=== PATIENT | female | born 1935 | race Caucasian/White ===

== ENCOUNTER 2017-07-30 15:59 | Inpatient (IN) | payer OTHER, BC ==
--- NOTE | 2017-07-30 16:05 | PDOC ---
Rapid Medical Evaluation Time Seen by Provider: 07/30/17 16:02 Medical Evaluation: Allergies Allergy/AdvReac Type Severity Reaction Status Date / Time No Known Allergies Allergy Verified 02/08/15 13:23 07/30/17 16:02 I have performed a brief in person evaluation of this patient. The patient presents with chief complaint of : sent for admission for infection to wound left toe for IVAB Pertinent PE findings: pain first second toes I have ordered the following: blood cultures, labs, saline lock The patient will proceed to the ER for further evaluation.
[2017-07-30 16:40] LABS: EOS % 0.9 % (0-4.5); HEMATOCRIT 39.6 % (32.4-45.2); HEMOGLOBIN 13.3 GM/dL (10.7-15.3); LYMPH % 8.2 % (8-40); MCH 32.7 pg (25.7-33.7); MCHC 33.6 g/dl (32.0-36.0); MEAN CELL VOLUME 97.3 fl (80-96); MEAN PLT VOLUME 9.1 fl (7.5-11.1); NEUT % 82.9 % (42.8-82.8); PLATELET COUNT 320 K/MM3 (134-434); RBC 4.07 M/mm3 (3.60-5.2); RDW 13.2 % (11.6-15.6); WHITE BLOOD COUNT 17.4 K/mm3 (4.0-10.0)
[2017-07-30 17:04] LABS: ALBUMIN 3.3 g/dl (3.4-5.0); ANION GAP 14 (8-16); BILIRUBIN,TOTAL 0.4 mg/dL (0.2-1.0); BLOOD UREA NITROGEN 22 mg/dL (7-18); CALCIUM 9.4 mg/dL (8.5-10.1); CHLORIDE 88 mmol/L (98-107); CO2 31 mmol/L (21-32); CREATININE 1.2 mg/dL (0.55-1.02); GLUCOSE,RANDOM 118 mg/dL (74-106); POTASSIUM 3.1 mmol/L (3.5-5.1); SGOT/AST 21 U/L (15-37); SGPT/ALT 18 U/L (12-78); SODIUM 133 mmol/L (136-145); TOT PROT 7.1 g/dl (6.4-8.2)
[2017-07-30 17:05] LABS: ALK PHOS 100 U/L (45-117)
--- NOTE | 2017-07-30 18:54 | PDOC ---
History of Present Illness - General History Source: Patient Exam Limitations: No Limitations - History of Present Illness Initial Comments: 07/30/17 19:14 82-year-old female with a history of hypertension hyperlipidemia and hypothyroid as well as peripheral vascular disease here today complaining of worsening left foot cellulitis and left toe ulcer. Patient states she developed problems her left leg status post an angiogram to treat previous peripheral vascular disease of the right leg. Has had warmth redness and swelling for over 2 weeks on the left leg. Just finished a 7 of Augmentin. Has had some darkening and necrosis of the left great toe and second toe over the last week. Denies any fevers or chills no chest pain no shortness of breath no moderating factors. Patient is followed by vascular surgeon Dr. Ron, primary Dr. Castillo, and school supervisor Dr. carney. Sent today for worsening cellulitis despite outpatient antibiotics patient was scheduled to have an outpatient angiogram by Dr. ron tomorrow <Lita Pozo - Last Filed: 07/30/17 19:39> <Ana Mcbride - Last Filed: 07/30/17 20:47> - General Chief Complaint: Wound Stated Complaint: LT FOOT WOUND (PCP SENT) Time Seen by Provider: 07/30/17 16:02 Past History - Past Medical History Cardiac Disorders: Yes (AFIB) COPD: No HTN: Yes Hypercholesterolemia: Yes Thyroid Disease: Yes - Surgical History Cholecystectomy: Yes - Suicide/Smoking/Psychosocial Hx Smoking History: Former smoker Have you smoked in the past 12 months: No If you are a former smoker, when did you quit?: 8 YEARS AGO Information on smoking cessation initiated: No Hx Alcohol Use: No Drug/Substance Use Hx: No Substance Use Type: None Hx Substance Use Treatment: No <Lita Pozo - Last Filed: 07/30/17 19:39> <Aan Mcbride - Last Filed: 07/30/17 20:47> - Past Medical History Allergies/Adverse Reactions: Allergies Allergy/AdvReac Type Severity Reaction Status Date / Time No Known Allergies Allergy Verified 07/30/17 16:06 Home Medications: Ambulatory Orders Atenolol [Tenormin -] 50 mg PO BID 02/08/15 Cholecalciferol (Vitamin D3) [Vitamin D] 1,000 unit PO DAILY 02/08/15 Rivaroxaban [Xarelto -] 20 mg PO DAILY 02/08/15 Simvastatin [Zocor -] 40 mg PO HS 02/08/15 Levothyroxine [Synthroid -] 50 mcg PO DAILY 07/30/17 Review of Systems - Review of Systems Constitutional: No: Chills, Diaphoresis, Fever HEENTM: No: Eye Pain Respiratory: No: Cough, Orthopnea Cardiac (ROS): No: Chest Pain, Edema Musculoskeletal: No: Back Pain, Joint Pain, Muscle Pain, Muscle Weakness Integumentary: Yes: Change in Color, Erythema, Rash All Other Systems: Reviewed and Negative <Lita Pozo - Last Filed: 07/30/17 19:39> *Physical Exam - Vital Signs Last Vital Signs Temp Pulse Resp BP Pulse Ox 97.5 F L 77 21 121/79 97 07/30/17 16:03 07/30/17 16:03 07/30/17 16:03 07/30/17 16:03 07/30/17 16:03 - Physical Exam General Appearance: Yes: Nourished, Appropriately Dressed HEENT: negative: Normal ENT Inspection Neck: positive: Trachea midline Respiratory/Chest: positive: Lungs Clear, Normal Breath Sounds Cardiovascular: positive: Regular Rhythm, Regular Rate, S1, S2 Gastrointestinal/Abdominal: positive: Normal Bowel Sounds, Flat, Soft. negative : Tender Musculoskeletal: positive: Normal Inspection. negative: CVA Tenderness Extremity: positive: Normal Capillary Refill, Other (Left leg has erythema and warmth over the mid arceo there is a necrotic dry gangrenous ulcer noted the tip of the left great toe and tip of the second toe 1+ DP pulses bilaterally. No crepitus noted) Integumentary: positive: Erythema, Swelling Neurologic: positive: Fully Oriented, Alert, Normal Mood/Affect <Lita Pozo - Last Filed: 07/30/17 19:39> - Vital Signs Last Vital Signs Temp Pulse Resp BP Pulse Ox 97.5 F L 77 21 121/79 97 07/30/17 16:03 07/30/17 16:03 07/30/17 16:03 07/30/17 16:03 07/30/17 16:03 <Ana Mcbride - Last Filed: 07/30/17 20:47> ED Treatment Course - LABORATORY CBC & Chemistry Diagram: 07/30/17 16:32 07/30/17 16:32 - ADDITIONAL ORDERS Additional order review: Laboratory Results 07/30/17 16:32 Sodium 133 L Potassium 3.1 L Chloride 88 L Carbon Dioxide 31 Anion Gap 14 BUN 22 H Creatinine 1.2 H Creat Clearance w eGFR 43.23 Random Glucose 118 H Calcium 9.4 Total Bilirubin 0.4 AST 21 ALT 18 Alkaline Phosphatase 100 Total Protein 7.1 Albumin 3.3 L 07/30/17 16:32 RBC 4.07 MCV 97.3 H MCHC 33.6 RDW 13.2 MPV 9.1 Neutrophils % 82.9 H Lymphocytes % 8.2 Monocytes % 7.0 Eosinophils % 0.9 Basophils % 1.0 <Lita Pozo - Last Filed: 07/30/17 19:39> - LABORATORY CBC & Chemistry Diagram: 07/30/17 16:32 07/30/17 16:32 - ADDITIONAL ORDERS Additional order review: Laboratory Results 07/30/17 16:32 Sodium 133 L Potassium 3.1 L Chloride 88 L Carbon Dioxide 31 Anion Gap 14 BUN 22 H Creatinine 1.2 H Creat Clearance w eGFR 43.23 Random Glucose 118 H Calcium 9.4 Total Bilirubin 0.4 AST 21 ALT 18 Alkaline Phosphatase 100 Total Protein 7.1 Albumin 3.3 L 07/30/17 16:32 RBC 4.07 MCV 97.3 H MCHC 33.6 RDW 13.2 MPV 9.1 Neutrophils % 82.9 H Lymphocytes % 8.2 Monocytes % 7.0 Eosinophils % 0.9 Basophils % 1.0 <Ana Mcbride - Last Filed: 07/30/17 20:47> Medical Decision Making - Medical Decision Making 07/30/17 19:22 82-year-old female with A. fib hypertension hyperlipidemia here with worsening foot cellulitis and known peripheral vascular disease. [facility] to rule out osteomyelitis we'll admit for IV antibiotics. Discussed with Dr. Shane covering for Dr. Castillo told to admit to [facility] microblog sent <Lita Pozo - Last Filed: 07/30/17 19:39> - Medical Decision Making 7:41pm Call was placed to Dr. Yusuf Ron, awaiting call back. 8:46pm Call back from Dr. Ron, case was discussed. <Ana Mcbride - Last Filed: 07/30/17 20:47> *DC/Admit/Observation/Transfer - Discharge Dispostion Admit: Yes <Lita Pozo - Last Filed: 07/30/17 19:39> - Attestations Scribe Attestion: 07/30/17 19:43 Documentation prepared by Ana Mcbride, acting as medical secretary for Lita Pozo MD. <Ana Mcbride - Last Filed: 07/30/17 20:47> Diagnosis at time of Disposition: Gangrene - Referrals Referrals: Khadar Woodall MD [Primary Care Provider] - - Patient Instructions - Post Discharge Activity
[2017-07-30] MEDS ORDERED: PIPERACILLIN/TAZOB 3.375 GM/50 ML PRE-DOCKED IVPB ONE (19:24)
[2017-07-30] MEDS ORDERED: VANCOMYCIN 1,000 MG in DEXTROSE 5%-WATER - 250 ML IVPB ONE (19:24)
[2017-07-30] MEDS ORDERED: PIPERACILLIN/TAZOB 3.375 GM 3.375 GM/50 ML BAG IVPB ONE (19:28)
[2017-07-30] MEDS ORDERED: VANCOMYCIN 1 GRAM (PRE-DOCKED) 1,000 MG/250 ML BAG IVPB ONE (19:28)
--- NOTE | 2017-07-30 20:42 | HP ---
CHIEF COMPLAINT: cellulitis/gangrene PCP: Ariadne Woodall McGrath-podiatry HISTORY OF PRESENT ILLNESS: This is an 82 year old female with a significant past medical history of PVD and LLE melanoma removal who presented to the ED with pain, erythema and excessive warmth to LLE x 3 weeks. It has been getting progressively worse. The pt reports that she saw Dr. Ron about a week ago who started her on augmentin which at first seemed to work but then stopped working by day 4. 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 She also reports shooting pain to her leg at times which is partially relieved with tylenol ES. 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) 2008 Social History: Smoking: pt denies current use, quit ' 50 pack year history Alcohol: occ- 2-3 drinks/week Drugs: pt denies Family History: mother age 93, had HTN father young, MVC sister lung CA age 68 4 children all alive and well Allergies No Known Allergies Allergy (Verified 07/30/17 16:06) HOME MEDICATIONS: 3 Medication Instructions Recorded Atenolol [Tenormin -] 50 mg PO BID 02/08/15 Cholecalciferol (Vitamin D3) 1,000 unit PO DAILY 02/08/15 [Vitamin D] Rivaroxaban [Xarelto -] 20 mg PO DAILY 02/08/15 Simvastatin [Zocor -] 40 mg PO HS 02/08/15 Levothyroxine [Synthroid -] 50 mcg PO DAILY 07/30/17 REVIEW OF SYSTEMS CONSTITUTIONAL: Absent: fever, chills, diaphoresis, generalized weakness, malaise, loss of appetite, weight change HEENT: Absent: rhinorrhea, nasal congestion, throat pain, throat swelling, difficulty swallowing, mouth swelling, ear pain, eye pain, visual changes CARDIOVASCULAR: Absent: chest pain, syncope, palpitations, irregular heart rate, lightheadedness , peripheral edema RESPIRATORY: Absent: cough, shortness of breath, dyspnea with exertion, orthopnea, wheezing, stridor, hemoptysis GASTROINTESTINAL: Absent: abdominal pain, abdominal distension, nausea, vomiting, diarrhea, constipation, melena, hematochezia GENITOURINARY: Absent: dysuria, frequency, urgency, hesitancy, hematuria, flank pain, genital pain MUSCULOSKELETAL: LLE + swelling, hot, pain, red Absent: myalgia, arthralgia, joint swelling, back pain, neck pain SKIN: Absent: rash, itching, pallor HEMATOLOGIC/IMMUNOLOGIC: Absent: easy bleeding, easy bruising, lymphadenopathy, frequent infections ENDOCRINE: Absent: unexplained weight gain, unexplained weight loss, heat intolerance, cold intolerance NEUROLOGIC: Absent: headache, focal weakness or paresthesias, dizziness, unsteady gait, seizure, mental status changes, bladder or bowel incontinence PSYCHIATRIC: Absent: anxiety, depression, suicidal or homicidal ideation, hallucinations. PHYSICAL EXAMINATION Vital Signs - 24 hr 3 07/30/17 16:03 Temperature 97.5 F L Pulse Rate 77 Respiratory 21 Rate Blood Pressure 121/79 O2 Sat by Pulse 97 Oximetry (%) GENERAL: Awake, alert, and fully oriented, in no acute distress. HEAD: Normal with no signs of trauma. EYES: Pupils equal, round and reactive to light, extraocular movements intact, sclera anicteric, conjunctiva clear. No lid lag. EARS, NOSE, THROAT: Ears normal, nares patent, oropharynx clear without exudates. Moist mucous membranes. NECK: Normal range of motion, supple without lymphadenopathy, JVD, or masses. LUNGS: Breath sounds equal, clear to auscultation bilaterally. No wheezes, and no crackles. No accessory muscle use. HEART: Regular rate and rhythm, normal S1 and S2 without murmur, rub or gallop. ABDOMEN: Soft, nontender, not distended, normoactive bowel sounds, no guarding, no rebound, no masses. No hepatomegaly or splenomegaly. MUSCULOSKELETAL: Normal range of motion at all joints. No bony deformities or tenderness. No CVA tenderness. UPPER EXTREMITIES: 2+ pulses, warm, well-perfused. No cyanosis. No clubbing. No peripheral edema. LOWER EXTREMITIES: diminished pulses B/L, Right: warm, well-perfused. No calf tenderness. No peripheral edema. Left: + erythema to just below knee, 2+ edema, scar medial aspect with no swelling, + surrounding brown lesions, left great toe with ulceration to medial/plantar aspect, necrotic wound bed, surrounding skin noted black, second toe with black/necrosis distal to PIP joint. NEUROLOGICAL: Cranial nerves II-XII intact. Normal speech. Normal gait. PSYCHIATRIC: Cooperative. Good eye contact. Appropriate mood and affect. SKIN: Warm, dry, normal turgor, no rashes or lesions noted, normal capillary refill. Laboratory Results - last 24 hr 3 07/30/17 07/30/17 07/30/17 16:32 16:32 19:11 WBC 17.4 H RBC 4.07 Hgb 13.3 Hct 39.6 MCV 97.3 H MCH 32.7 MCHC 33.6 RDW 13.2 Plt Count 320 MPV 9.1 Neutrophils % 82.9 H Lymphocytes % 8.2 Monocytes % 7.0 Eosinophils % 0.9 Basophils % 1.0 Sodium 133 L Potassium 3.1 L Chloride 88 L Carbon Dioxide 31 Anion Gap 14 BUN 22 H Creatinine 1.2 H Creat Clearance w eGFR 43.23 Random Glucose 118 H Lactic Acid 1.7 Calcium 9.4 Total Bilirubin 0.4 AST 21 ALT 18 Alkaline Phosphatase 100 Total Protein 7.1 Albumin 3.3 L Left foot xray read pending ASSESSMENT/PLAN: 82yF with PMH HTN, HLD, afib, PVD, hypothyroidism, LLE malignant melanoma resection presented to the ED with necrosis of first 2 toes left foot. Gangrene/cellulitis LLE in setting of PVD - cont vanc / zosyn, zosyn dosed at 2.25 Q6h, CrCl 36 via [place] gault with IBW - ID consult - vascular consult HTN / Afib - cont home meds, BP and rate well controlled HLD - cont home zocor, pt intolerant to lipitor inpast hypothyroidism - cont synthroid, check TSH DVT PPX - cont home xarelto for now FEN - tolerating po fluids - BMP in am - low sodium diet as tolerated Dispo: pt currently requires inpatient management of her emergent condition as she has failed outpatient treatment. Visit type - Emergency Visit Emergency Visit: Yes ED Registration Date: 07/30/17 Care time: The patient presented to the Emergency Department on the above date and was hospitalized for further evaluation of their emergent condition. - New Patient This patient is new to me today: Yes Date on this admission: 07/30/17 - Critical Care Critical Care patient: No
[2017-07-30] MEDS ORDERED: POTASSIUM CHLORIDE TABS 20 MEQ TABLET.ER (FP) PO ONE (20:59)
[2017-07-30] MEDS: ACETAMINOPHEN 500 MG TABLET (FP) PO PRN (21:04)
[2017-07-30] MEDS ORDERED: ACETAMINOPHEN 325 MG TABLET (FP) ONE (21:06)
[2017-07-30] MEDS ORDERED: PATIENT'S OWN MEDICATION (NON-FORMULARY) (Simvastatin 40 MG) PO SCH (22:00)
[2017-07-30] MEDS: ATENOLOL 50 MG TABLET (FP) PO SCH (22:02)
[2017-07-30] MEDS ORDERED: ATENOLOL 25 MG TABLET (FP) ONE (22:15)
[2017-07-31] MEDS ORDERED: PIPERACILLIN/TAZOB 2.25 GM 2.25 GM/50 ML BAG IVPB ONE (02:00)
[2017-07-31] MEDS ORDERED: PIPERACILLIN/TAZOB 2.25 GM/50 ML PREMIX BAG IVPB ONE (02:00)
[2017-07-31 02:05] VITALS: BMI 28.3
[2017-07-31] MEDS: LEVOTHYROXINE NA 50 MCG TABLET (FP) PO SCH (06:21)
[2017-07-31 08:11] LABS: BASO % 0.7 % (0-2.0); EOS % 1.5 % (0-4.5); HEMATOCRIT 36.4 % (32.4-45.2); HEMOGLOBIN 12.2 GM/dL (10.7-15.3); MCH 32.2 pg (25.7-33.7); MCHC 33.7 g/dl (32.0-36.0); MEAN CELL VOLUME 95.6 fl (80-96); MEAN PLT VOLUME 8.9 fl (7.5-11.1); MONO % 7.4 % (3.8-10.2); NEUT % 81.4 % (42.8-82.8); PLATELET COUNT 266 K/MM3 (134-434); RDW 13.2 % (11.6-15.6); WHITE BLOOD COUNT 13.9 K/mm3 (4.0-10.0)
[2017-07-31 08:14] LABS: INR 1.42 (0.82-1.09)
[2017-07-31 08:33] LABS: ANION GAP 13 (8-16); BLOOD UREA NITROGEN 20 mg/dL (7-18); CALCIUM 8.5 mg/dL (8.5-10.1); CHLORIDE 90 mmol/L (98-107); CO2 31 mmol/L (21-32); CREATININE 1.1 mg/dL (0.55-1.02); GLUCOSE,RANDOM 102 mg/dL (74-106); MAGNESIUM 1.5 mg/dL (1.8-2.4); PHOSPHOROUS 3.7 mg/dL (2.5-4.9); SODIUM 134 mmol/L (136-145)
--- NOTE | 2017-07-31 08:44 | CONSULT ---
Consult - History of Present Illness History of Present Illness: 82 year old [facility] with severe PAD both legs. She was recently treated with angiography and revascularization of the right leg for toe ischemia. She the developed wounds and pain on the left 1st and 2nd toes. She was started on PO abx and scheduled for angiogram of the left leg which she cancelled. Yesterday she was seen by day camp unit leader and referred for admission for cellulitis of the left foot and leg. - Past Medical History Cardio/Vascular: Yes: HTN Heme/Onc: Yes: Other (Melaonma left lower leg with local recurrence) - Past Surgical History Additional Surgical History: Melanoma resection left leg - Alcohol/Substance Use Hx Alcohol Use: No - Smoking History Smoking history: Former smoker Have you smoked in the past 12 months: No If you are a former smoker, when did you quit?: 8 YEARS AGO Home Medications - Allergies Allergies/Adverse Reactions: Allergies Allergy/AdvReac Type Severity Reaction Status Date / Time atorvastatin [From Lipitor] AdvReac Verified 07/30/17 20:50 - Home Medications Home Medications: Ambulatory Orders Atenolol [Tenormin -] 50 mg PO BID 02/08/15 Cholecalciferol (Vitamin D3) [Vitamin D] 1,000 unit PO DAILY 02/08/15 Rivaroxaban [Xarelto -] 20 mg PO DAILY 02/08/15 Simvastatin [Zocor -] 40 mg PO HS 02/08/15 Levothyroxine [Synthroid -] 50 mcg PO DAILY 07/30/17 Physical Exam Vital Signs: Vital Signs Temperature 98.2 F 07/31/17 06:00 Pulse Rate 81 07/31/17 06:00 Respiratory Rate 20 07/31/17 06:00 Blood Pressure 132/47 07/31/17 06:00 O2 Sat by Pulse Oximetry (%) 96 07/31/17 03:00 Constitutional: Yes: No Distress Extremities: Yes: Other (Left leg 3+ edema with surgical changes in lower calf. Several pigmented skin lesions around site of previous melanoma resection. Deep red cellulitis of skin of foot and calf. No crepitance) Edema: Yes Edema: LLE: 4+ Labs: CBC, BMP 07/31/17 06:00 07/31/17 06:00 Problem List - Problems (1) Atherosclerosis of [place] arteries of left leg with ulceration of other part of foot Assessment/Plan: Acute cellulitis with gangrenous changes in left 1st toe. I will schedule for angiogram 08/01 Continue IV abx. Code(s): I70.245 - ATHSCL [place] ARTERIES OF LEFT LEG W ULCERATION OTH PRT FOOT
[2017-07-31] MEDS ORDERED: RIVAROXABAN 20 MG TABLET PO SCH (10:00)
[2017-07-31] MEDS: ACETAMINOPHEN 500 MG TABLET (FP) PO PRN ×2 (10:08→22:02)
[2017-07-31] MEDS: ATENOLOL 50 MG TABLET (FP) PO SCH ×2 (10:08→22:01)
[2017-07-31] MEDS: CHOLECALCIFEROL (VITAMIN D3) 1,000 UNIT TABLET (FP) PO SCH (10:08)
--- NOTE | 2017-07-31 12:15 | CONSULT ---
Consultation: REQUESTING PROVIDER: CONSULT REQUEST: We have been asked to medically evaluate this patient for gangrene of L toes. 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 Pt was recently tx with angio and revascularization of R leg for toe ischemia. After, she developed wounds and pain of L 1st and 2nd toes. Pt noticed that her toes were becoming black after clipping her nails before an appointment. Follows with Dr. Ron. Pt was started on PO augmentin x 1 week. She felt that abx helped for the first four days of the course, however was subsequently less effective. She then saw her salesforce business analyst, Dr. Caputo, who told her to come to the ED to have her LLE examined. Denies ELMORE, fever, chills, SOB, or chest pain. While in the ED, pt was afebrile, with a leukocytosis of 17.4 (which has trended down), and received 2 doses of zosyn (2.25g, 3.375g) and a dose of vanco 1g. ID team was consulted for gangrene of L toes. REVIEW OF SYSTEMS: CONSTITUTIONAL: Absent: fever, chills, diaphoresis, generalized weakness, malaise, loss of appetite, weight change HEENT: Absent: rhinorrhea, nasal congestion, throat pain, throat swelling, difficulty swallowing, mouth swelling, ear pain, eye pain, visual changes CARDIOVASCULAR: Absent: chest pain, syncope, palpitations, irregular heart rate, lightheadedness , peripheral edema RESPIRATORY: Absent: cough, shortness of breath, dyspnea with exertion, orthopnea, wheezing, stridor, hemoptysis GASTROINTESTINAL: Absent: abdominal pain, abdominal distension, nausea, vomiting, diarrhea, constipation, melena, hematochezia GENITOURINARY: Absent: dysuria, frequency, urgency, hesitancy, hematuria, flank pain, genital pain MUSCULOSKELETAL: Absent: myalgia, arthralgia, joint swelling, back pain, neck pain SKIN: +gangrene first and second toes Absent: rash, itching, pallor HEMATOLOGIC/IMMUNOLOGIC: Absent: easy bleeding, easy bruising, lymphadenopathy, frequent infections ENDOCRINE: Absent: unexplained weight gain, unexplained weight loss, heat intolerance, cold intolerance NEUROLOGIC: Absent: headache, focal weakness or paresthesias, dizziness, unsteady gait, seizure, mental status changes, bladder or bowel incontinence PSYCHIATRIC: Absent: anxiety, depression, suicidal or homicidal ideation, hallucinations. PHYSICAL EXAMINATION Vital Signs Selected Entries 07/31/17 10:00 Temperature 97.9 F Pulse Rate 91 H Respiratory 18 Rate Blood Pressure 123/53 GENERAL: Very pleasant. Awake, alert, and fully oriented, in no acute distress. HEAD: Normal with no signs of trauma. EYES: Pupils equal, round and reactive to light, extraocular movements intact, sclera anicteric, conjunctiva clear. EARS, NOSE, THROAT: Ears normal, nares patent, oropharynx clear without exudates. Moist mucous membranes. NECK: Normal range of motion, supple without lymphadenopathy, JVD, or masses. LUNGS: Breath sounds equal, clear to auscultation bilaterally. No wheezes, and no crackles. No accessory muscle use. HEART: Regular rate and rhythm, normal S1 and S2 without murmur, rub or gallop. ABDOMEN: Soft, nontender, not distended, normoactive bowel sounds, no guarding, no rebound, no masses. LOWER EXTREMITIES: LLE: tender to palpation, no crepitus noted. Erythematous and edematous. Blackened first and second toes, with ulcer on base of first toe. NEUROLOGICAL: Cranial nerves II-XII intact. Laboratory Results - last 24 hr 07/30/17 07/31/17 07/31/17 16:32 06:00 06:00 WBC 17.4 H 13.9 H Hgb 13.3 12.2 Hct 39.6 36.4 Plt Count 320 266 Sodium 134 L Potassium 3.0 L Chloride 90 L BUN 20 H Creatinine 1.1 H Magnesium 1.5 L Active Medications Generic Name Dose Route Start Last Admin Trade Name Freq PRN Reason Stop Dose Admin Acetaminophen 1,000 mg 07/30/17 20:52 07/31/17 10:08 Tylenol - PO 1,000 mg TID PRN Administration FEVER OR PAIN Atenolol 50 mg 07/30/17 22:00 07/31/17 10:08 Tenormin - PO 50 mg BID ANTONIO Administration Cholecalciferol 1,000 unit 07/31/17 10:00 07/31/17 10:08 Vitamin D3 - PO 1,000 unit DAILY ANTONIO Administration Levothyroxine Sodium 50 mcg 07/31/17 07:00 07/31/17 06:21 Synthroid - PO 50 mcg DAILY@0700 ANTONIO Administration Non-Formulary Medication 40 mg 07/30/17 22:00 Simvastatin PO HS ANTONIO Rivaroxaban 20 mg 07/31/17 10:00 07/31/17 10:08 Xarelto - PO 20 mg DAILY ANTONIO Administration Micro -Blood cx: pending Imaging -L foot x-ray: soft tissue swelling -Duplex: decreased flow in lower extremity b/l L>R ASSESSMENT/PLAN: #cellulitis and gangrene of L first and second toes -afebrile, with white count 17.4 trending down, now 13.9 -received 2 doses of zosyn (2.25g, 3.375g), 1 dose vanco 1g in ED -Vascular intervention - LLE angiogram tomorrow 08/01, with Dr. Ron -Started on ampicillin 1.5 g q6H Thank you Nichole Camacho MD PGY-1 ID Team Dispo: We will continue to follow the patient. Thank you for this consultative opportunity. Visit type - Emergency Visit Emergency Visit: No - New Patient This patient is new to me today: Yes Date on this admission: 07/31/17 - Critical Care Critical Care patient: No
--- NOTE | 2017-07-31 12:28 | PN ---
Progress Note, Physician Chief Complaint: Ms Austin says she is feeling better. No pain in her leg. No cp, sob, n/v. - Current Medication List Current Medications: Active Medications Acetaminophen (Tylenol -) 1,000 mg PO TID PRN PRN Reason: FEVER OR PAIN Last Admin: 07/31/17 10:08 Dose: 1,000 mg Atenolol (Tenormin -) 50 mg PO BID [facility] Last Admin: 07/31/17 10:08 Dose: 50 mg Cholecalciferol (Vitamin D3 -) 1,000 unit PO DAILY [facility] Last Admin: 07/31/17 10:08 Dose: 1,000 unit Levothyroxine Sodium (Synthroid -) 50 mcg PO DAILY@0700 [facility] Last Admin: 07/31/17 06:21 Dose: 50 mcg Non-Formulary Medication (Simvastatin) 40 mg PO HS [facility] Rivaroxaban (Xarelto -) 20 mg PO DAILY [facility] Last Admin: 07/31/17 10:08 Dose: 20 mg - Objective Vital Signs: Vital Signs Temperature 36.6 C 07/31/17 10:00 Pulse Rate 91 H 07/31/17 10:00 Respiratory Rate 18 07/31/17 10:00 Blood Pressure 123/53 07/31/17 10:00 O2 Sat by Pulse Oximetry (%) 96 07/31/17 03:00 Constitutional: Yes: Well Nourished, No Distress, Calm Cardiovascular: Yes: Regular Rate and Rhythm. No: Gallop, Murmur, Rub Respiratory: Yes: Regular, CTA Bilaterally. No: Rales, Rhonchi, Wheezes Gastrointestinal: Yes: Normal Bowel Sounds, Soft. No: Distention, Tenderness Extremities: Yes: Erythema Edema: No Labs: CBC, BMP 07/31/17 06:00 07/31/17 06:00 INR, PTT INR 1.42 (0.82-1.09) H 07/31/17 06:00 Problem List - Problems (1) Gangrene Assessment/Plan: -suspect secondary to vascular disease -appreciate ID assistance -placed on unasyn -leukocytosis improving Code(s): I96 - GANGRENE, NOT ELSEWHERE CLASSIFIED (2) Atherosclerosis of [place] arteries of left leg with ulceration of other part of foot Assessment/Plan: -vascular surgery note reviewed -planning for angiogram in am Code(s): I70.245 - ATHSCL [place] ARTERIES OF LEFT LEG W ULCERATION OTH PRT FOOT (3) Atrial fibrillation Assessment/Plan: -sinus on exam -continue tenormin and xarelto -followed by Dr Wells, will consult since procedure planned Code(s): I48.91 - UNSPECIFIED ATRIAL FIBRILLATION Qualifiers: Atrial fibrillation type: paroxysmal Qualified Code(s): I48.0 - Paroxysmal atrial fibrillation (4) Hypothyroid Assessment/Plan: -continue synthroid Code(s): E03.9 - HYPOTHYROIDISM, UNSPECIFIED (5) HLD (hyperlipidemia) Assessment/Plan: -continue statin Code(s): E78.5 - HYPERLIPIDEMIA, UNSPECIFIED
[2017-07-31] MEDS ORDERED: SIMVASTATIN 40 MG PO SCH ×2 (13:22)
[2017-07-31] MEDS ORDERED: PT OWN MED DRAWER 7, Y5N ONE ×3 (13:40→21:54)
--- NOTE | 2017-07-31 13:48 | PN ---
Teaching Attending Note Name of Resident: Nichole Camacho ATTENDING PHYSICIAN STATEMENT I saw and evaluated the patient. I reviewed the resident's note and discussed the case with the resident. I agree with the resident's findings and plan as documented. SUBJECTIVE:Patient seen and examined with resident Afebrile no chills Schedule for angiogram tomorrow OBJECTIVE: ASSESSMENT AND PLAN: Selected Entries 07/31/17 10:00 Temperature 97.9 F Pulse Rate 91 H Respiratory 18 Rate Blood Pressure 123/53 Exam LLE with extensive prior surgery evident confluent erythema LLE with gangrene great toe Assessment Cellulitis with gangrene of great and second toe Plan Unasyn 1.5grs q 6 H Vascular evaluation angiogram tomorrow Await brian Plasencia MD
--- NOTE | 2017-07-31 15:08 | SPA.PREOP ---
- PRE-OP NOTE Dx: Left LE cellulitis and gangrenous changes to left 1st toe Planned Procedure: angiogram on 08/01 Surgeon: Ariadne Consent: To be Obtained by surgeon after all risks, benefits and alternatives explained and Opportunity for questions. Last Vital Signs Temp Pulse Resp BP Pulse Ox 98.2 F 83 20 102/53 95 07/31/17 14:58 07/31/17 14:58 07/31/17 14:58 07/31/17 14:58 07/31/17 09:00 Lab Results WBC 13.9 K/mm3 (4.0-10.0) H 07/31/17 06:00 RBC 3.80 M/mm3 (3.60-5.2) 07/31/17 06:00 Hgb 12.2 GM/dL (10.7-15.3) 07/31/17 06:00 Hct 36.4 % (32.4-45.2) 07/31/17 06:00 MCV 95.6 fl (80-96) 07/31/17 06:00 MCHC 33.7 g/dl (32.0-36.0) 07/31/17 06:00 RDW 13.2 % (11.6-15.6) 07/31/17 06:00 Plt Count 266 K/MM3 (134-434) 07/31/17 06:00 Sodium 134 mmol/L (136-145) L 07/31/17 06:00 Potassium 3.0 mmol/L (3.5-5.1) L 07/31/17 06:00 Chloride 90 mmol/L (98-107) L 07/31/17 06:00 Carbon Dioxide 31 mmol/L (21-32) 07/31/17 06:00 Anion Gap 13 (8-16) 07/31/17 06:00 BUN 20 mg/dL (7-18) H 07/31/17 06:00 Creatinine 1.1 mg/dL (0.55-1.02) H 07/31/17 06:00 Random Glucose 102 mg/dL (74-106) 07/31/17 06:00 Calcium 8.5 mg/dL (8.5-10.1) 07/31/17 06:00 Blood Type A POSITIVE 07/30/17 20:00 Antibody Screen Negative 07/30/17 20:00 INR 1.42 (0.82-1.09) H 07/31/17 06:00 - ASSESSMENT/PLAN 1. Make NPO after midnight except po meds 2. GI/DVT PPX 3. Medical optimization / clearance Problem List - Problems (1) Atherosclerosis of [place] arteries of left leg with ulceration of other part of foot Code(s): I70.245 - ATHSCL [place] ARTERIES OF LEFT LEG W ULCERATION OTH PRT FOOT (2) Gangrene Code(s): I96 - GANGRENE, NOT ELSEWHERE CLASSIFIED Visit type - Case Type Case Type: ED Admission - Emergency Emergency Visit: Yes ED Registration Date: 07/30/17 Care time: The patient presented to the Emergency Department on the above date and was hospitalized for further evaluation of their emergent condition. - New patient This patient is new to me today: Yes Date on this admission: 07/31/17
[2017-07-31] MEDS: PATIENT'S OWN MEDICATION (NON-FORMULARY) (Simvastatin 40 MG) PO SCH (16:07)
[2017-07-31] MEDS: AMPICILLIN NA/SULBACTAM NA 1.5 GM in SODIUM CHLORIDE 100 ML IVPB SCH ×2 (16:07→22:00)
[2017-07-31] MEDS ORDERED: SILVER SULFADIAZINE 1% TOP CREAM 50 GM JAR TP ONE (16:16)
--- NOTE | 2017-07-31 17:19 | CON.CARD ---
Cardiology Consult (text) - Consultation Consultation Note: CC: pre-op clearance 82 yo with h/o afib on xarelto, htn, hl, PVD, obesity, hypothyroid, melanoma and chronic low back pain p/w LLE pain/erythema. Followed by Dr. Ron. plan for angiogram tomorrow no cp, sob, orthopnea, palps, dizziness, loc, pnd no f/c/s, n/v/d, h/a, cough, congestion, visual disturbances. PAST MEDICAL HISTORY: per hpi PAST SURGICAL HISTORY: cholecystectomy angiogram RLE 3 weeks ago malignant melanoma surgery LLE Social History: Smoking: pt denies current use, quit ', 50 pack year history Alcohol: occ- 2-3 drinks/week Drugs: pt denies Family History: mother age 93, had HTN father young, MVC sister lung CA age 68 4 children all alive and well Ambulatory Orders Atenolol [Tenormin -] 50 mg PO BID 02/08/15 Cholecalciferol (Vitamin D3) [Vitamin D] 1,000 unit PO DAILY 02/08/15 Rivaroxaban [Xarelto -] 20 mg PO DAILY 02/08/15 Simvastatin [Zocor -] 40 mg PO HS 02/08/15 Levothyroxine [Synthroid -] 50 mcg PO DAILY 07/30/17 atenolol 50 bid, synthroid, zocor 40, xarelto 20 qd, hctz 25 qd. Current Medications Acetaminophen (Tylenol -) 1,000 mg PO TID PRN PRN Reason: FEVER OR PAIN Last Admin: 07/31/17 10:08 Dose: 1,000 mg Atenolol (Tenormin -) 50 mg PO BID [facility] Last Admin: 07/31/17 10:08 Dose: 50 mg Cholecalciferol (Vitamin D3 -) 1,000 unit PO DAILY [facility] Last Admin: 07/31/17 10:08 Dose: 1,000 unit Ampicillin Sodium/Sulbactam (Sodium 1.5 gm/ Sodium Chloride) 100 mls @ 200 mls/ hr IVPB Q6H-IV [facility] Last Admin: 07/31/17 16:07 Dose: 200 mls/hr Levothyroxine Sodium (Synthroid -) 50 mcg PO DAILY@0700 [facility] Last Admin: 07/31/17 06:21 Dose: 50 mcg Non-Formulary Medication (Simvastatin) 40 mg PO DAILY [facility] Last Admin: 07/31/17 16:07 Dose: 40 mg Rivaroxaban (Xarelto -) 20 mg PO DAILY [facility] Last Admin: 07/31/17 10:08 Dose: 20 mg Vital Signs - 24 hr 07/30/17 07/30/17 07/30/17 21:32 22:49 23:30 Temperature 97.9 F Pulse Rate 85 Pulse Rate [ 70 Left Radial] Respiratory 18 18 18 Rate Blood Pressure 108/58 Blood Pressure 132/91 [Right Arm] O2 Sat by Pulse 96 96 Oximetry (%) 07/30/17 07/31/17 07/31/17 23:38 02:19 03:00 Temperature 98 F Pulse Rate 86 Pulse Rate [ Left Radial] Respiratory 18 18 18 Rate Blood Pressure 112/62 Blood Pressure [Right Arm] O2 Sat by Pulse 96 97 96 Oximetry (%) 07/31/17 07/31/17 07/31/17 06:00 09:00 10:00 Temperature 98.2 F 97.9 F Pulse Rate 81 91 H Pulse Rate [ Left Radial] Respiratory 20 18 Rate Blood Pressure 132/47 123/53 Blood Pressure [Right Arm] O2 Sat by Pulse 95 Oximetry (%) 07/31/17 07/31/17 14:58 17:04 Temperature 98.2 F 97.7 F Pulse Rate 83 84 Pulse Rate [ Left Radial] Respiratory 20 20 Rate Blood Pressure 102/53 137/50 Blood Pressure [Right Arm] O2 Sat by Pulse Oximetry (%) Intake & Output 07/29/17 07/30/17 07/31/17 08/01/17 07:59 07:59 07:59 07:59 Intake Total 120 240 Balance 120 240 Weight 180 lb 9 oz nad, calm jvd flat, neck supple ctab, nl effort rrr nl s1, s2 no mrg + bs soft nt nd ext with trace edema. no c/c no carotid bruits + dp/pt aaox3 no jaundice, diaphoresis. CBC, BMP 07/31/17 06:00 07/31/17 06:00 Laboratory Tests 07/31/17 06:00 Magnesium 1.5 L mibi 01/2015: lexiscan, no ecg changes, normal MPI, resting ecg showed afib echo 04/2017: nl lv/rv, no sig valve path, nl rvsp recent office ekg: from april: afib, borderline low voltages. poor r wave progression. similar to priors. 82 yo with h/o afib on xarelto, htn, hl, PVD, obesity, hypothyroid, melanoma and chronic low back pain p/w LLE pain/erythema. Pre-operative clearance. - Based on rcri, patient with low estimated bere-operative CV risk. No further testing needed prior to surgery afib - AC with xarelto - rate controlled on home atenolol - lyte repletion prn htn - currently labile on atenolol alone and off hctz. reasonable to continue to hold. monitor for need to resume. pvd - per vascular surgery, plan ofr angiogram 08/01 hl, - on zocor as outpatient.
[2017-07-31] MEDS ORDERED: MAGNESIUM SULF 50% (8.12 MEQ/2 ML-1 GM VIAL) IVPB ONE (17:26)
[2017-08-01] MEDS: AMPICILLIN NA/SULBACTAM NA 1.5 GM in SODIUM CHLORIDE 100 ML IVPB SCH ×4 (03:08→22:23)
[2017-08-01] MEDS: LEVOTHYROXINE NA 50 MCG TABLET (FP) PO SCH (06:14)
[2017-08-01] MEDS ORDERED: PT OWN MED DRAWER 7, Y5N ONE ×2 (08:42→21:36)
[2017-08-01 08:58] LABS: BASO % 0.4 % (0-2.0); EOS % 1.8 % (0-4.5); HEMATOCRIT 36.9 % (32.4-45.2); HEMOGLOBIN 12.3 GM/dL (10.7-15.3); LYMPH % 12.4 % (8-40); MCH 32.5 pg (25.7-33.7); MCHC 33.4 g/dl (32.0-36.0); MEAN CELL VOLUME 97.4 fl (80-96); MEAN PLT VOLUME 8.5 fl (7.5-11.1); MONO % 7.5 % (3.8-10.2); NEUT % 77.9 % (42.8-82.8); PLATELET COUNT 279 K/MM3 (134-434); RBC 3.79 M/mm3 (3.60-5.2); RDW 13.2 % (11.6-15.6); WHITE BLOOD COUNT 10.6 K/mm3 (4.0-10.0)
[2017-08-01 09:12] LABS: INR 1.31 (0.82-1.09); PROTHROMBIN TIME (PATIENT) 14.8 SEC (9.98-11.88)
[2017-08-01 09:26] LABS: ANION GAP 9 (8-16); BLOOD UREA NITROGEN 17 mg/dL (7-18); CHLORIDE 94 mmol/L (98-107); CO2 32 mmol/L (21-32); GLUCOSE,RANDOM 100 mg/dL (74-106); MAGNESIUM 2.1 mg/dL (1.8-2.4); POTASSIUM 3.1 mmol/L (3.5-5.1); SODIUM 135 mmol/L (136-145)
[2017-08-01 09:28] LABS: CREATININE 0.9 mg/dL (0.55-1.02); PHOSPHOROUS 3.4 mg/dL (2.5-4.9)
[2017-08-01] MEDS: ATENOLOL 50 MG TABLET (FP) PO SCH ×2 (10:07→22:23)
[2017-08-01] MEDS: ACETAMINOPHEN 500 MG TABLET (FP) PO PRN (10:08)
[2017-08-01] MEDS: CHOLECALCIFEROL (VITAMIN D3) 1,000 UNIT TABLET (FP) PO SCH (10:14)
[2017-08-01] MEDS: PATIENT'S OWN MEDICATION (NON-FORMULARY) (Simvastatin 40 MG) PO SCH (10:15)
--- NOTE | 2017-08-01 11:11 | PN ---
Progress Note, Physician Chief Complaint: Ms Austin says her leg is much improved. States not in pain, less swollen, and less red. Denies cp, sob, n/v. Expresses concern over angiogram. - Current Medication List Current Medications: Active Medications Acetaminophen (Tylenol -) 1,000 mg PO TID PRN PRN Reason: FEVER OR PAIN Last Admin: 08/01/17 10:08 Dose: 1,000 mg Atenolol (Tenormin -) 50 mg PO BID [facility] Last Admin: 08/01/17 10:07 Dose: 50 mg Cholecalciferol (Vitamin D3 -) 1,000 unit PO DAILY [facility] Last Admin: 08/01/17 10:14 Dose: Not Given Ampicillin Sodium/Sulbactam (Sodium 1.5 gm/ Sodium Chloride) 100 mls @ 200 mls/ hr IVPB Q6H-IV [facility] Last Admin: 08/01/17 10:07 Dose: 200 mls/hr Levothyroxine Sodium (Synthroid -) 50 mcg PO DAILY@0700 [facility] Last Admin: 08/01/17 06:14 Dose: 50 mcg Non-Formulary Medication (Simvastatin) 40 mg PO DAILY [facility] Last Admin: 08/01/17 10:15 Dose: Not Given - Objective Vital Signs: Vital Signs Temperature 36.8 C 08/01/17 06:00 Pulse Rate 83 08/01/17 06:00 Respiratory Rate 18 08/01/17 06:00 Blood Pressure 111/55 08/01/17 06:00 O2 Sat by Pulse Oximetry (%) 96 07/31/17 21:00 Constitutional: Yes: Well Nourished, No Distress, Calm Cardiovascular: Yes: Regular Rate and Rhythm. No: Gallop, Murmur, Rub Respiratory: Yes: Regular, CTA Bilaterally. No: Rales, Rhonchi, Wheezes Gastrointestinal: Yes: Normal Bowel Sounds, Soft. No: Distention, Tenderness Extremities: Yes: Erythema Edema: Yes Edema: RLE: 1+ Labs: CBC, BMP 08/01/17 08:00 08/01/17 08:00 INR, PTT INR 1.31 (0.82-1.09) H 08/01/17 08:00 Problem List - Problems (1) Gangrene Code(s): I96 - GANGRENE, NOT ELSEWHERE CLASSIFIED (2) Atherosclerosis of [place] arteries of left leg with ulceration of other part of foot Code(s): I70.245 - ATHSCL [place] ARTERIES OF LEFT LEG W ULCERATION OTH PRT FOOT (3) Atrial fibrillation Code(s): I48.91 - UNSPECIFIED ATRIAL FIBRILLATION Qualifiers: Atrial fibrillation type: paroxysmal Qualified Code(s): I48.0 - Paroxysmal atrial fibrillation (4) Hypothyroid Code(s): E03.9 - HYPOTHYROIDISM, UNSPECIFIED (5) HLD (hyperlipidemia) Code(s): E78.5 - HYPERLIPIDEMIA, UNSPECIFIED Assessment/Plan (1) Gangrene Assessment/Plan: -suspect secondary to vascular disease -appreciate ID assistance -continue unasyn -leukocytosis improving Code(s): I96 - GANGRENE, NOT ELSEWHERE CLASSIFIED (2) Atherosclerosis of [place] arteries of left leg with ulceration of other part of foot Assessment/Plan: -planning for angiogram Code(s): I70.245 - ATHSCL [place] ARTERIES OF LEFT LEG W ULCERATION OTH PRT FOOT (3) Atrial fibrillation Assessment/Plan: -sinus on exam -continue tenormin, hold xarelto for procedure -appreciate cardiology assistance Code(s): I48.91 - UNSPECIFIED ATRIAL FIBRILLATION Qualifiers: Atrial fibrillation type: paroxysmal Qualified Code(s): I48.0 - Paroxysmal atrial fibrillation (4) Hypothyroid Assessment/Plan: -continue synthroid Code(s): E03.9 - HYPOTHYROIDISM, UNSPECIFIED (5) HLD (hyperlipidemia) Assessment/Plan: -continue statin Code(s): E78.5 - HYPERLIPIDEMIA, UNSPECIFIED
[2017-08-01] MEDS ORDERED: HEPARIN NA (PORCINE) 5,000 UNITS/ML 1ML VIAL ONE (14:16)
[2017-08-01] MEDS ORDERED: LIDOCAINE HCL 1%, 10 MG/ML (20ML VIAL) ONE (14:17)
--- NOTE | 2017-08-01 14:34 | PN ---
Progress Note, Physician Chief Complaint: ID Unasyn continues - Current Medication List Current Medications: Active Medications Acetaminophen (Tylenol -) 1,000 mg PO TID PRN PRN Reason: FEVER OR PAIN Last Admin: 08/01/17 10:08 Dose: 1,000 mg Atenolol (Tenormin -) 50 mg PO BID [facility] Last Admin: 08/01/17 10:07 Dose: 50 mg Cholecalciferol (Vitamin D3 -) 1,000 unit PO DAILY [facility] Last Admin: 08/01/17 10:14 Dose: Not Given Ampicillin Sodium/Sulbactam (Sodium 1.5 gm/ Sodium Chloride) 100 mls @ 200 mls/ hr IVPB Q6H-IV [facility] Last Admin: 08/01/17 10:07 Dose: 200 mls/hr Levothyroxine Sodium (Synthroid -) 50 mcg PO DAILY@0700 [facility] Last Admin: 08/01/17 06:14 Dose: 50 mcg Non-Formulary Medication (Simvastatin) 40 mg PO DAILY [facility] Last Admin: 08/01/17 10:15 Dose: Not Given - Objective Vital Signs: Vital Signs Temperature 98.2 F 08/01/17 06:00 Pulse Rate 83 08/01/17 06:00 Respiratory Rate 18 08/01/17 06:00 Blood Pressure 111/55 08/01/17 06:00 O2 Sat by Pulse Oximetry (%) 96 07/31/17 21:00 Constitutional: Yes: No Distress Neck: Yes: WNL, Supple Cardiovascular: Yes: Regular Rate and Rhythm, S1, S2. No: Murmur Respiratory: Yes: WNL, Regular, CTA Bilaterally Gastrointestinal: Yes: WNL, Normal Bowel Sounds, Soft. No: Tenderness Labs: CBC, BMP 08/01/17 08:00 08/01/17 08:00 INR, PTT INR 1.31 (0.82-1.09) H 08/01/17 08:00 Assessment/Plan Microbiology Laboratory Tests 07/30/17 07/31/17 07/31/17 16:32 06:00 06:00 WBC 17.4 H 13.9 H Hgb 12.2 Plt Count 266 BUN 20 H Creatinine 1.1 H 08/01/17 08:00 WBC 10.6 H Hgb 12.3 Plt Count 279 BUN Creatinine Assessment Cellulitis gangrene Plan Antibiotics and angiogram today Erinn Becerra
[2017-08-01] MEDS ORDERED: PROPOFOL 20 ML ONE (14:47)
[2017-08-01] MEDS ORDERED: MIDAZOLAM HCL 2 MG/2 ML SINGLE DOSE VIAL ONE ×2 (14:48)
[2017-08-01] MEDS ORDERED: DEXAMETHASONE SOD PHOSPHATE 4 MG/1 ML VIAL ONE (14:50)
[2017-08-01] MEDS ORDERED: KETOROLAC TROMETHAMINE 30 MG/1 ML VIAL ONE (14:50)
[2017-08-01] MEDS ORDERED: LIDOCAINE HCL 1%, 10 MG/ML (50 mL VIAL) IJ ONE (15:00)
[2017-08-01] MEDS ORDERED: NITROGLYCERIN 50 MG/10 ML VIAL IVPB ONE (15:35)
[2017-08-01] MEDS ORDERED: ONDANSETRON 4 MG/2 ML VIAL IVPUSH PRN ×2 (16:50→17:34)
[2017-08-01] MEDS ORDERED: LACTATED RINGERS SOLUTION 1,000 ML IV SCH ×2 (17:00→17:34)
--- NOTE | 2017-08-01 17:01 | OP ---
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 Stenosis priximal SFA. Patent distal SFA, popliteal. Occlusion of AT and PT in lower calf Reconstitution distal AT and PT with runoff to foot. Surgeon: Yusuf Ron Anesthesiologist/NETWORK TECHNICIAN: Branden Maciel Anesthesia: Fractional
[2017-08-02] MEDS: AMPICILLIN NA/SULBACTAM NA 1.5 GM in SODIUM CHLORIDE 100 ML IVPB SCH ×4 (02:42→21:15)
[2017-08-02] MEDS: LEVOTHYROXINE NA 50 MCG TABLET (FP) PO SCH (06:40)
[2017-08-02 07:32] LABS: BASO % 0.3 % (0-2.0); HEMATOCRIT 37.1 % (32.4-45.2); HEMOGLOBIN 12.3 GM/dL (10.7-15.3); MCHC 33.1 g/dl (32.0-36.0); MEAN CELL VOLUME 96.7 fl (80-96); MEAN PLT VOLUME 8.8 fl (7.5-11.1); NEUT % 88.7 % (42.8-82.8); PLATELET COUNT 299 K/MM3 (134-434); RBC 3.84 M/mm3 (3.60-5.2); RDW 13.2 % (11.6-15.6); WHITE BLOOD COUNT 15.8 K/mm3 (4.0-10.0)
[2017-08-02 08:01] LABS: ANION GAP 15 (8-16); BLOOD UREA NITROGEN 25 mg/dL (7-18); CALCIUM 8.3 mg/dL (8.5-10.1); CHLORIDE 91 mmol/L (98-107); CO2 28 mmol/L (21-32); CREATININE 1.2 mg/dL (0.55-1.02); GLUCOSE,RANDOM 119 mg/dL (74-106); PHOSPHOROUS 3.7 mg/dL (2.5-4.9); POTASSIUM 3.9 mmol/L (3.5-5.1); SODIUM 134 mmol/L (136-145)
--- NOTE | 2017-08-02 09:45 | PN ---
Progress Note (short form) - Note Progress Note: ID Erica day 2 Post angioplasty yesterday Selected Entries 08/02/17 06:00 Temperature 98.2 F Pulse Rate 75 Respiratory 19 Rate Blood Pressure 126/64 LE gangrene of the toe with erythema of lower extremity Microbiology 07/30/17 16:32 Blood - Peripheral Venous Blood Culture - Preliminary NO GROWTH OBTAINED AFTER 48 HOURS, INCUBATION TO CONTINUE FOR 3 DAYS. 07/30/17 16:32 Blood - Peripheral Venous Blood Culture - Preliminary NO GROWTH OBTAINED AFTER 48 HOURS, INCUBATION TO CONTINUE FOR 3 DAYS. Laboratory Tests 08/02/17 07:00 WBC 15.8 H D Hgb 12.3 Hct 37.1 Plt Count 299 Assessment Cellulitis improving gradually Plan Would favor 24-48 hours more of IV before discharge on Keflex 500 tid Erinn CHRISTIANSEN
--- NOTE | 2017-08-02 09:47 | PN ---
Progress Note (short form) - Note Progress Note: Patient seen and examined. Chart reviewed. Patient well known to me from outpatient care. Currently sitting up in bed, alert and appropriate. Less LLE pain, erythema and swelling. Events related to arteriogram and therapeutic procedure noted. Bandage removed. Gangrene noted in first and second toes of left foot. Labs reviewed. Selected Entries 08/02/17 06:00 Temperature 98.2 F Pulse Rate 75 Respiratory 19 Rate Blood Pressure 126/64 Laboratory Tests 07/30/17 07/31/17 08/01/17 16:32 06:00 08:00 WBC Hgb Hct Plt Count Neutrophils % Lymphocytes % Monocytes % Eosinophils % Basophils % PT with INR 14.80 H INR 1.31 H Sodium Potassium Chloride Carbon Dioxide BUN Creatinine Random Glucose Calcium Phosphorus Magnesium C-Reactive Protein 11.9 H Albumin 3.3 L 08/02/17 08/02/17 07:00 07:00 WBC 15.8 H D Hgb 12.3 Hct 37.1 Plt Count 299 Neutrophils % 88.7 H Lymphocytes % 6.0 L D Monocytes % 5.0 Eosinophils % 0.0 D Basophils % 0.3 PT with INR INR Sodium 134 L Potassium 3.9 D Chloride 91 L Carbon Dioxide 28 BUN 25 H D Creatinine 1.2 H D Random Glucose 119 H Calcium 8.3 L Phosphorus 3.7 Magnesium 2.0 C-Reactive Protein Albumin Chest Clear Cor Irregular Abd Soft Non-tender Ext Erythema and edema persist but less in LLE Gangrene of first and second toes of left foot as above Neuro No new deficit Assessment and Plan Atherosclerotic vascular disease with peripheral arterial disease of lower extremities post arteriogram and reconstruction procedure Case to be discussed with Dr Ron Would restart NOAC therapy if cleared Cellulitis Continue Unasyn Possible switch to Cephalexin 500 mg po tid on discharge (?tomorrow) AFib Restart NOAC Hypothyroid with thyroid nodules Low back pain Malignant Melanoma post resection and recurrence LLE HTN HPL Continue current Rx Restart Xarelto
--- NOTE | 2017-08-02 10:15 | PN ---
Progress Note (short form) - Note Progress Note: Anesthesia post op note, POD#1,S/P angiogram with angioplasty left femoral artery under MAC. VSS. No apparent post anesthesia complications.signed off.
[2017-08-02] MEDS: CHOLECALCIFEROL (VITAMIN D3) 1,000 UNIT TABLET (FP) PO SCH (10:20)
[2017-08-02] MEDS: ATENOLOL 50 MG TABLET (FP) PO SCH ×2 (10:20→21:15)
[2017-08-02] MEDS: PATIENT'S OWN MEDICATION (NON-FORMULARY) (Simvastatin 40 MG) PO SCH (10:20)
--- NOTE | 2017-08-02 12:48 | PN ---
Progress Note (short form) - Note Progress Note: POD 1 S/p left femoral angioplasty, tibial artery disease Left foot warm, no progression of gangrene Plan wound care and possible toe amputation once fully demarcated. Resume Xarelto I will follow in office Problem List - Problems (1) Atherosclerosis of [place] arteries of left leg with ulceration of other part of foot Code(s): I70.245 - ATHSCL [place] ARTERIES OF LEFT LEG W ULCERATION OTH PRT FOOT
--- NOTE | 2017-08-02 13:10 | PN ---
Progress Note, Physician Chief Complaint: PAD History of Present Illness: leg pain improved no cp, sob, palpitations - Current Medication List Current Medications: Active Medications Acetaminophen (Tylenol -) 1,000 mg PO TID PRN PRN Reason: FEVER OR PAIN Atenolol (Tenormin -) 50 mg PO BID [facility] Last Admin: 08/02/17 10:20 Dose: 50 mg Cholecalciferol (Vitamin D3 -) 1,000 unit PO DAILY [facility] Last Admin: 08/02/17 10:20 Dose: 1,000 unit Fentanyl (Sublimaze Injection -) 25 mcg IVPUSH [id number] PRN PRN Reason: PAIN Ampicillin Sodium/Sulbactam (Sodium 1.5 gm/ Sodium Chloride) 100 mls @ 200 mls/ hr IVPB Q6H-IV [facility] Last Admin: 08/02/17 10:18 Dose: 200 mls/hr Levothyroxine Sodium (Synthroid -) 50 mcg PO DAILY@0700 [facility] Last Admin: 08/02/17 06:40 Dose: 50 mcg Non-Formulary Medication (Simvastatin) 40 mg PO DAILY [facility] Last Admin: 08/02/17 10:20 Dose: 40 mg Ondansetron HCl (Zofran Injection) 4 mg IVPUSH Q6H PRN PRN Reason: NAUSEA AND/OR VOMITING Rivaroxaban (Xarelto -) 20 mg PO DAILY@1800 [facility] - Objective Vital Signs: Vital Signs Temperature 97.7 F 08/02/17 10:00 Pulse Rate 85 08/02/17 10:00 Respiratory Rate 18 08/02/17 10:00 Blood Pressure 129/56 08/02/17 10:00 O2 Sat by Pulse Oximetry (%) 98 08/01/17 21:00 Constitutional: Yes: Well Nourished, No Distress, Calm Cardiovascular: Yes: Regular Rate and Rhythm, S1, S2. No: Gallop, Murmur Respiratory: Yes: Regular, CTA Bilaterally. No: Accessory Muscle Use, Rales, Wheezes Extremities: Yes: Erythema (L ankle/foot). No: Cold Edema: No Neurological: Yes: Alert, Oriented Psychiatric: No: Agitated Labs: CBC, BMP 08/02/17 07:00 08/02/17 07:00 INR, PTT INR 1.31 (0.82-1.09) H 08/01/17 08:00 Assessment/Plan mibi 01/2015: lexiscan, no ecg changes, normal MPI, resting ecg showed afib echo 04/2017: nl lv/rv, no sig valve path, nl rvsp recent office ekg: from april: afib, borderline low voltages. poor r wave progression. similar to priors. 82 yo with h/o afib on xarelto, htn, hl, PVD, obesity, hypothyroid, melanoma and chronic low back pain p/w LLE pain/erythema. 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
[2017-08-02] MEDS: RIVAROXABAN 20 MG TABLET PO SCH (17:58)
[2017-08-02] MEDS: ACETAMINOPHEN 500 MG TABLET (FP) PO PRN (18:14)
--- NOTE | 2017-08-02 18:30 | OP ---
DATE OF OPERATION: 08/01/2017 PROCEDURE: Angiography of left lower extremity with revascularization of the left femoral artery with angioplasty and third order arterial catheterization of the left anterior and posterior tibial arteries. PREOPERATIVE DIAGNOSIS: Gangrene of left first toe. POSTOPERATIVE DIAGNOSIS: Gangrene of left first toe. ANESTHESIA: Fractional. ANESTHESIOLOGIST: Raheem. RAWHIDE TRIMMER: OPERATIVE FINDINGS: The left common femoral, deep femoral, and proximal superficial femoral arteries were patent. There was a high-grade stenosis at the proximal 1/3 of the superior femoral artery over approximately 1 cm of length. The distal femoral artery was patent. The popliteal artery was patent. The origin of 3 tibial vessels was identified. Both the posterior tibial and anterior tibial artery occluded in the mid to distal calf over approximately 8-10 cm length and then reconstituted with runoff into the foot via both vessels. Then peroneal artery was patent but of small caliber. PROCEDURE IN DETAIL: Following routine patient identification with site and side verification, intravenous sedation was established. The right groin was prepped with ChloraPrep. Using real-time duplex imaging the right common femoral artery was identified. It was found to be patent with no significant plaque. Lidocaine was infiltrated in the skin over the artery and the artery was then cannulated above its bifurcation under ultrasound guidance. A micropuncture needle was advanced proximally into the iliac artery and the needle was then exchanged for a 5-Cymraes catheter. An angle-tipped glidewire was then advanced through the catheter into the abdominal aorta and the catheter was exchanged for a 5-Cymraes sheath. An Omni Flush catheter was advanced over the wire and used to direct the tip into the left common and then distally to the external iliac artery. The catheter was removed and a glide catheter placed over the wire. Angiography was performed of the left femoral and distal vessels using digital technique. A stiff wire was passed through the catheter and the catheter and the sheath were removed. Along 6-Cymraes sheath was advanced over the aortic bifurcation into the left common femoral artery. The patient was systemically heparinized. An angle-tipped wire and catheter were then advanced into the superficial femoral artery through the area of stenosis and distally to the level of the popliteal artery. Using road-mapping technique, a 0.014-inch wire was advanced into the posterior tibial artery down to the level of the occlusion. A Quick-Cross was advanced over the wire for support and then the wire and catheter were advanced distally through the area of occlusion. It was not possible to reenter the distal vessel. Attempt to dilate the occluded portion of the tibia with a 2-mm balloon to break up the plaque was unsuccessful. The wire and catheter were then pulled back into the distal popliteal artery and readvanced into the anterior tibial artery to the point of occlusion. Again, wires and catheters were able to be advanced distally to the point of reconstitution, but not back into the open vessel. After multiple attempts it was decided that this would not be feasible and retrograde cannulation of the vessels was not possible at this time due to recent infection. Therefore the wire was pulled back into the popliteal and then a 5-mm by 40-mm balloon was used to dilated the superficial femoral artery stenosis for 1 minute. Repeat imaging revealed resolution of the stenosis with 0% residual stenosis. The sheath was then pulled back over the aortic bifurcation over the stiff wire and removed and exchanged for a short 6-Cymraes sheath. A Mynx device was used to seal the arteriotomy without complication. A sterile dressing was applied and the patient was taken to the recovery room in stable condition. Kellen [id number]
[2017-08-02] MEDS ORDERED: PT OWN MED DRAWER 7, Y5N ONE (21:12)
[2017-08-03] MEDS ORDERED: PT OWN MED DRAWER 7, Y5N ONE ×5 (02:10→20:57)
[2017-08-03] MEDS: AMPICILLIN NA/SULBACTAM NA 1.5 GM in SODIUM CHLORIDE 100 ML IVPB SCH ×4 (03:54→21:18)
[2017-08-03] MEDS: ACETAMINOPHEN 500 MG TABLET (FP) PO PRN (06:34)
[2017-08-03] MEDS: LEVOTHYROXINE NA 50 MCG TABLET (FP) PO SCH (06:34)
--- NOTE | 2017-08-03 08:27 | PN ---
Progress Note (short form) - Note Progress Note: Patient seen and examined. Chart reviewed. Patient well known to me from outpatient care. Currently lying supine in bed, alert and appropriate. Less LLE pain, erythema and swelling noted again. Events related to arteriogram and therapeutic procedure noted. Bandage removed. Gangrene noted in first and second toes of left foot, but w/o progression. Labs pending. Child And Adolescent Psychologist notes reviewed. Selected Entries 08/03/17 06:00 Temperature 97.8 F Pulse Rate 74 Respiratory 18 Rate Blood Pressure 105/58 Chest Clear Cor Irregular Abd Soft Non-tender Ext Erythema and edema persist but less in LLE Gangrene of first and second toes of left foot as above Neuro No new deficit Assessment and Plan Atherosclerotic vascular disease with peripheral arterial disease of lower extremities post arteriogram and reconstruction procedure NOAC restarted. Patient aware of potential need for partial amputation Cellulitis Continue Unasyn for 24 hours more Possible switch to Cephalexin 500 mg po tid on discharge (?tomorrow) AFib Restarted NOAC Hypothyroid with thyroid nodules Low back pain Malignant Melanoma post resection and recurrence LLE HTN HPL Continue current Rx Possible discharge in AM
[2017-08-03 09:30] LABS: BASO % 0.8 % (0-2.0); EOS % 1.7 % (0-4.5); HEMATOCRIT 35.1 % (32.4-45.2); HEMOGLOBIN 11.6 GM/dL (10.7-15.3); LYMPH % 10.1 % (8-40); MCH 32.2 pg (25.7-33.7); MCHC 33.2 g/dl (32.0-36.0); MEAN PLT VOLUME 8.7 fl (7.5-11.1); MONO % 7.8 % (3.8-10.2); NEUT % 79.6 % (42.8-82.8); PLATELET COUNT 280 K/MM3 (134-434); RBC 3.62 M/mm3 (3.60-5.2); RDW 13.2 % (11.6-15.6); WHITE BLOOD COUNT 12.1 K/mm3 (4.0-10.0)
[2017-08-03 09:51] LABS: ANION GAP 10 (8-16); BLOOD UREA NITROGEN 19 mg/dL (7-18); CALCIUM 7.6 mg/dL (8.5-10.1); CHLORIDE 93 mmol/L (98-107); CO2 31 mmol/L (21-32); GLUCOSE,RANDOM 122 mg/dL (74-106); POTASSIUM 3.3 mmol/L (3.5-5.1); SODIUM 134 mmol/L (136-145)
[2017-08-03] MEDS: PATIENT'S OWN MEDICATION (NON-FORMULARY) (Simvastatin 40 MG) PO SCH (10:33)
[2017-08-03] MEDS: ATENOLOL 50 MG TABLET (FP) PO SCH ×2 (10:34→21:20)
[2017-08-03] MEDS: CHOLECALCIFEROL (VITAMIN D3) 1,000 UNIT TABLET (FP) PO SCH (10:34)
[2017-08-03] MEDS ORDERED: diphenhydrAMINE HCL 25 MG CAPSULE (FP) PO PRN (12:56)
--- NOTE | 2017-08-03 12:59 | PN ---
Progress Note, Physician Chief Complaint: PAD History of Present Illness: notes mild sob at rest and with activity. similar to chronic waxing/waning sx's she says. states she usually gets hctz 25mg which she thinks also helps with her sob--per dr meade. no cp, palpit, leg swelling - Current Medication List Current Medications: Active Medications Acetaminophen (Tylenol -) 1,000 mg PO TID PRN PRN Reason: FEVER OR PAIN Last Admin: 08/03/17 06:34 Dose: 1,000 mg Atenolol (Tenormin -) 50 mg PO BID [facility] Last Admin: 08/03/17 10:34 Dose: Not Given Cholecalciferol (Vitamin D3 -) 1,000 unit PO DAILY [facility] Last Admin: 08/03/17 10:34 Dose: 1,000 unit Hydrochlorothiazide (Hctz -) 25 mg PO DAILY [facility] Ampicillin Sodium/Sulbactam (Sodium 1.5 gm/ Sodium Chloride) 100 mls @ 200 mls/ hr IVPB Q6H-IV [facility] Last Admin: 08/03/17 10:33 Dose: 200 mls/hr Levothyroxine Sodium (Synthroid -) 50 mcg PO DAILY@0700 [facility] Last Admin: 08/03/17 06:34 Dose: 50 mcg Non-Formulary Medication (Simvastatin) 40 mg PO DAILY [facility] Last Admin: 08/03/17 10:33 Dose: 40 mg Potassium Chloride (K-Dur -) 20 meq PO DAILY [facility] Rivaroxaban (Xarelto -) 20 mg PO DAILY@1800 [facility] Last Admin: 08/02/17 17:58 Dose: 20 mg - Objective Vital Signs: Vital Signs Temperature 97.8 F 08/03/17 06:00 Pulse Rate 74 08/03/17 06:00 Respiratory Rate 18 08/03/17 06:00 Blood Pressure 105/58 08/03/17 06:00 O2 Sat by Pulse Oximetry (%) 100 08/02/17 21:00 Constitutional: Yes: Well Nourished, No Distress, Calm Cardiovascular: Yes: Regular Rate and Rhythm, S1, S2. No: JVD, Gallop, Murmur Respiratory: Yes: Regular, CTA Bilaterally. No: Accessory Muscle Use, Rales, Rhonchi, Wheezes Extremities: No: Cold Edema: No Neurological: Yes: Alert, Oriented Psychiatric: No: Agitated Labs: CBC, BMP 08/03/17 09:23 08/03/17 09:23 INR, PTT INR 1.31 (0.82-1.09) H 08/01/17 08:00 Assessment/Plan mibi 01/2015: lexiscan, no ecg changes, normal MPI, resting ecg showed afib echo 04/2017: nl lv/rv, no sig valve path, nl rvsp recent office ekg: from april: afib, borderline low voltages. poor r wave progression. similar to priors. 82 yo with h/o afib on xarelto, htn, hl, PVD, obesity, hypothyroid, melanoma and chronic low back pain p/w LLE pain/erythema. afib - cont xarelto (ordered to resume dose today, s/p LE angioplasty) - rate controlled on home atenolol, same meds htn - well controlled - pt requesting to resume home hctz 25mg (on this for long time and tolerates it --thinks helps with swelling/sob tendencies--?) - resume hctz 25, monitor Na (mildly low here) - start KCL 20 qd (K running mildly low here) PAD - s/p L [facility] [address] [employer] here, residual distal dz - per vascular hl, - on zocor as outpatient, same plan.
[2017-08-03] MEDS: POTASSIUM CHLORIDE TABS 20 MEQ TABLET.ER (FP) PO SCH (15:14)
[2017-08-03] MEDS: HYDROCHLOROTHIAZIDE 25 MG TABLET (FP) PO SCH (15:14)
[2017-08-03] MEDS: RIVAROXABAN 20 MG TABLET PO SCH (18:22)
[2017-08-04] MEDS ORDERED: PT OWN MED DRAWER 7, Y5N ONE ×2 (02:22→08:57)
[2017-08-04] MEDS: AMPICILLIN NA/SULBACTAM NA 1.5 GM in SODIUM CHLORIDE 100 ML IVPB SCH ×2 (03:04→09:16)
[2017-08-04] MEDS: LEVOTHYROXINE NA 50 MCG TABLET (FP) PO SCH (06:00)
[2017-08-04] MEDS: ACETAMINOPHEN 500 MG TABLET (FP) PO PRN (06:03)
[2017-08-04 08:26] LABS: BASO % 0.9 % (0-2.0); EOS % 1.9 % (0-4.5); HEMATOCRIT 35.9 % (32.4-45.2); HEMOGLOBIN 11.8 GM/dL (10.7-15.3); LYMPH % 11.7 % (8-40); MCH 32.1 pg (25.7-33.7); MCHC 32.9 g/dl (32.0-36.0); MEAN CELL VOLUME 97.4 fl (80-96); MONO % 9.4 % (3.8-10.2); NEUT % 76.1 % (42.8-82.8); PLATELET COUNT 301 K/MM3 (134-434); RBC 3.68 M/mm3 (3.60-5.2); RDW 13.2 % (11.6-15.6); WHITE BLOOD COUNT 11.6 K/mm3 (4.0-10.0)
[2017-08-04 08:31] LABS: ALBUMIN 2.8 g/dl (3.4-5.0); CALCIUM 7.9 mg/dL (8.5-10.1); CHLORIDE 94 mmol/L (98-107); POTASSIUM 3.8 mmol/L (3.5-5.1); SODIUM 135 mmol/L (136-145)
[2017-08-04 08:34] LABS: ALK PHOS 82 U/L (45-117); ANION GAP 12 (8-16); BILIRUBIN,TOTAL 0.3 mg/dL (0.2-1.0); BLOOD UREA NITROGEN 18 mg/dL (7-18); CO2 29 mmol/L (21-32); CREATININE 0.9 mg/dL (0.55-1.02); GLUCOSE,RANDOM 90 mg/dL (74-106); SGOT/AST 12 U/L (15-37); SGPT/ALT 16 U/L (12-78); TOT PROT 6.2 g/dl (6.4-8.2)
--- NOTE | 2017-08-04 09:09 | DS ---
Physical Examination Vital Signs: Vital Signs Temperature 97.5 F L 08/04/17 05:59 Pulse Rate 92 H 08/04/17 05:59 Respiratory Rate 20 08/04/17 05:59 Blood Pressure 120/76 08/04/17 05:59 O2 Sat by Pulse Oximetry (%) 99 08/03/17 21:00 Constitutional: Yes: No Distress, Calm Eyes: No: Sclera Icterus Cardiovascular: Yes: Pulse Irregular Respiratory: Yes: CTA Bilaterally Extremities: Yes: Other (Less erythema LLE Stable gangrene first two toes LLE) Neurological: Yes: Alert, Oriented Labs: CBC, BMP 08/04/17 07:00 08/04/17 07:00 Discharge Summary Reason For Visit: CELLULITIS/GANGRENE Current Active Problems 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) Atrial fibrillation (Chronic) Gangrene (Chronic) HLD (hyperlipidemia) (Chronic) Hypothyroid (Chronic) Hospital Course: See daily progress notes including procedure report by Dr Ron Medications reviewed Follow-up as indicated Condition: Good - Instructions Diet, Activity, Other Instructions: Resume regular diet Follow-up with Dr Ron Referrals: Khadar Woodall MD [Primary Care Provider] - Disposition: HOME - Home Medications Comprehensive Discharge Medication List: Ambulatory Orders Atenolol [Tenormin -] 50 mg PO BID 02/08/15 Cholecalciferol (Vitamin D3) [Vitamin D3] 1,000 unit PO DAILY 02/08/15 Rivaroxaban [Xarelto -] 20 mg PO DAILY 02/08/15 Simvastatin [Zocor -] 40 mg PO HS 02/08/15 Levothyroxine [Synthroid -] 50 mcg PO DAILY 07/30/17 Cephalexin [Keflex] 500 mg PO TID 7 Days #21 capsule 08/04/17 Hydrochlorothiazide [Hctz -] 25 mg PO DAILY tablet 08/04/17 Rivaroxaban [Xarelto -] 20 mg PO DAILY@1800 tablet 08/04/17
[2017-08-04] MEDS: HYDROCHLOROTHIAZIDE 25 MG TABLET (FP) PO SCH (09:19)
[2017-08-04] MEDS: CHOLECALCIFEROL (VITAMIN D3) 1,000 UNIT TABLET (FP) PO SCH (09:20)
[2017-08-04] MEDS: ATENOLOL 50 MG TABLET (FP) PO SCH (09:20)
[2017-08-04] MEDS: PATIENT'S OWN MEDICATION (NON-FORMULARY) (Simvastatin 40 MG) PO SCH (09:20)
[2017-08-04] MEDS: POTASSIUM CHLORIDE TABS 20 MEQ TABLET.ER (FP) PO SCH (09:20)
[2017-08-04 09:58] VITALS: BP 138/70; PULSE 82; TEMP 98.2
== END 2017-08-04 10:03 | disposition home or self-care (01) | DRG 253 ==
LOC: JER 15:59 → JERBED 21:32 → J8W 07-31 02:37
PROVIDERS: ADMIT Internal Medicine; ATTEND Internal Medicine
PROC: 047N3ZZ Dilation of Left Popliteal Artery, Percutaneous Approach (ICD-10-PCS; 2017-08-01)
PROC: B41GZZZ Fluoroscopy of Left Lower Extremity Arteries (ICD-10-PCS; 2017-08-01)
PROC: 047L3Z1 Dilation of Left Femoral Artery using Drug-Coated Balloon, Percutaneous Approach (ICD-10-PCS; principal; 2017-08-01 13:30)
DX: I70.245 Atherosclerosis of native arteries of left leg with ulceration of other part of foot (principal); I96 Gangrene, not elsewhere classified; L03.116 Cellulitis of left lower limb; E78.5 Hyperlipidemia, unspecified; E03.9 Hypothyroidism, unspecified; I73.9 Peripheral vascular disease, unspecified; I10 Essential (primary) hypertension; M54.5 Low back pain; I48.0 Paroxysmal atrial fibrillation
CPT/HCPCS: 36415; 73630-TC-LT; 76000-TC; 80048; 80053; 83605; 83735; 84100; 85025; 85610; 85730; 86140; 86850; 86900; 86901; 87040; 93925-TC; 94760; 99285-25; J1644

== ENCOUNTER 2017-09-10 10:33 | Day surgery (SDC) | payer OTHER, BC ==
[2017-09-08 17:47] VITALS: BMI 27.7
[2017-09-10] MEDS ORDERED: AMPICILLIN NA/SULBACTAM NA 1.5 GM VIAL ONE ×2 (11:39→13:03)
[2017-09-10] MEDS ORDERED: LIDOCAINE HCL 1%, 10 MG/ML (20ML VIAL) ONE (12:55)
[2017-09-10] MEDS ORDERED: MIDAZOLAM HCL 2 MG/2 ML SINGLE DOSE VIAL ONE ×2 (12:58→13:06)
[2017-09-10] MEDS ORDERED: LIDOCAINE HCL 1%, 10 MG/ML (20ML VIAL) PNB ONE ×2 (13:10)
[2017-09-10] MEDS ORDERED: AMPICILLIN NA/SULBACTAM NA 1.5 GM VIAL IVPB ONE (13:12)
[2017-09-10] MEDS ORDERED: oxyCODONE HCL 5 MG TABLET PO PRN ×3 (13:49→14:00)
[2017-09-10] MEDS ORDERED: PROMETHAZINE HCL 25 MG/1 ML VIAL IVPB PRN (13:49)
[2017-09-10] MEDS ORDERED: ONDANSETRON 4 MG/2 ML VIAL IVPUSH PRN ×2 (13:49→13:58)
--- NOTE | 2017-09-10 13:50 | HP ---
Admitting History and Physical - Admission History of Present Illness: 82 yo woman with history of arterial disease, s/p revascularization left leg 1 month ago for severe ischemia of the foot. She developed gangrene of the 1st and 2nd toes with local infection treated with oral antibiotics. Toes have not improved and amputation required. History Source: Patient, Medical Record - Past Medical History Cardiovascular: Yes: AFIB, HTN, Hyperlipdemia Heme/Onc: Yes: Other (Melaonma left lower leg with local recurrence) Endocrine: Yes: Hypothyroidism - Advance Directives Advance Directives: Yes: Living Will, Health Care Proxy - Smoking History Smoking history: Former smoker Have you smoked in the past 12 months: No If you are a former smoker, when did you quit?: 2007 - Alcohol/Substance Use Hx Alcohol Use: Yes (socially) Home Medications - Allergies Allergies/Adverse Reactions: Allergies Allergy/AdvReac Type Severity Reaction Status Date / Time atorvastatin [From Lipitor] Allergy Intermediate Verified 09/08/17 17:48 - Home Medications Home Medications: Ambulatory Orders Atenolol [Tenormin -] 50 mg PO BID 02/08/15 Cholecalciferol (Vitamin D3) [Vitamin D3] 1,000 unit PO DAILY 02/08/15 Rivaroxaban [Xarelto -] 20 mg PO DAILY 02/08/15 Simvastatin [Zocor -] 40 mg PO DAILY 02/08/15 Levothyroxine [Synthroid -] 50 mcg PO DAILY 07/30/17 Amoxicillin/Potassium Clav [Augmentin 875-125 Tablet] 1 each PO DAILY 09/08/17 Aspirin [Ecotrin] 325 mg PO PRN 09/08/17 Hydrochlorothiazide [Hctz -] 12.5 mg PO BID 09/08/17 Acetaminophen [Tylenol -] 500 mg PO PRN 09/10/17 Physical Examination Vital Signs: Vital Signs Temperature 97.3 F L 09/10/17 10:59 Pulse Rate 83 09/10/17 10:59 Respiratory Rate 18 09/10/17 10:59 Blood Pressure 136/78 09/10/17 10:59 O2 Sat by Pulse Oximetry (%) 97 09/10/17 11:26 Constitutional: Yes: Obese Eyes: Yes: WNL HENT: Yes: WNL Neck: Yes: Supple Cardiovascular: Yes: Pulse Irregular Gastrointestinal: Yes: Soft Extremities: Yes: Other (Left calf large scar with several pigmented nodules. 3 + edema. Gangrene of distal 1st and 2nd toes demarcated.) Problem List - Problems (1) Gangrene of toe of left foot Code(s): I96 - GANGRENE, NOT ELSEWHERE CLASSIFIED (2) Atherosclerosis of left lower extremity with gangrene Assessment/Plan: Plan amputation of left 1st and 2nd toes. Continue antibiotics. If arterial flow poor may need tibial angioplasty procedure. Code(s): I70.262 - ATHSCL [place] ARTERIES OF EXTREMITIES W GANGRENE, LEFT LEG
[2017-09-10] MEDS ORDERED: ACETAMINOPHEN 325 MG TABLET (FP) PO PRN (13:58)
--- NOTE | 2017-09-10 13:58 | OP ---
Operative Note - Note: Operative Date: 09/10/17 Pre-Operative Diagnosis: Gangrene left 1st and 2nd toes Operation: Amputation left 1st and 2nd toes Findings: Gangrene distal phalanges left 1st and 2nd toes. No evidence for proximal infection. Bleeding appeared adequate for healing Surgeon: Yusuf Ron Anesthesiologist/OUTREACH MANAGER: Branden Maciel Anesthesia: Fractional Specimens Removed: Left 1st and 2nd toes
[2017-09-10] MEDS ORDERED: LACTATED RINGERS SOLUTION 1,000 ML IV SCH (14:00)
[2017-09-10] MEDS ORDERED: DOCUSATE SODIUM 100 MG CAPSULE (FP) PO PRN ×2 (14:01→16:18)
[2017-09-10] MEDS: SODIUM CHLORIDE 0.45% 1,000 ML IV SCH (15:05)
[2017-09-10 15:45] LABS: INR 1.19 (0.82-1.09); PROTHROMBIN TIME (PATIENT) 13.4 SEC (9.98-11.88)
[2017-09-10] MEDS ORDERED: ASPIRIN COATED 81 MG TABLET.EC PO SCH (16:30)
--- NOTE | 2017-09-10 16:33 | CONSULT ---
Consult Consult Specialty:: Internal Medicine Referred by:: Dr Ron Reason for Consultation:: Medical management - History of Present Illness Chief Complaint: I feel well History of Present Illness: Mrs Austin is a pleasant 82 year old female who comes in after amputation of two toes on her left foot. She is doing well and is without complaint. She says her pain is well controlled. She denies fevers, chills, lightheadedness, passing out, chest pain, abdominal pain, nausea, vomiting, diarrhea, constipation, difficulty or pain on urination, or worsening leg swelling. She says she has been experiencing dyspnea on exertion but this is chronic and unchanged. She requests no further inpatient evaluation of her dyspnea as it is chronic unless it worsens while she is here. - History Source History Provided By: Patient Limitations to Obtaining History: No Limitations - Past Medical History Cardio/Vascular: Yes: AFIB, HTN, Hyperlipdemia ...: No Endocrine: Yes: Hypothyroidism - Past Surgical History Additional Surgical History: skin graft. melanoma resection - Alcohol/Substance Use Hx Alcohol Use: Yes (socially) History of Substance Use: reports: None - Smoking History Smoking history: Former smoker Have you smoked in the past 12 months: No If you are a former smoker, when did you quit?: 2007 - Social History Usual Living Arrangement: With Spouse ADL: Independent Place of : [facility] History of Recent Travel: No Home Medications - Allergies Allergies/Adverse Reactions: Allergies Allergy/AdvReac Type Severity Reaction Status Date / Time atorvastatin [From Lipitor] Allergy Intermediate Verified 09/08/17 17:48 - Home Medications Home Medications: Ambulatory Orders Atenolol [Tenormin -] 50 mg PO BID 02/08/15 Cholecalciferol (Vitamin D3) [Vitamin D3] 1,000 unit PO DAILY 02/08/15 Rivaroxaban [Xarelto -] 20 mg PO DAILY 02/08/15 Simvastatin [Zocor -] 40 mg PO DAILY 02/08/15 Levothyroxine [Synthroid -] 50 mcg PO DAILY 07/30/17 Amoxicillin/Potassium Clav [Augmentin 875-125 Tablet] 1 each PO DAILY 09/08/17 Aspirin [Ecotrin] 325 mg PO PRN 09/08/17 Hydrochlorothiazide [Hctz -] 12.5 mg PO BID 09/08/17 Acetaminophen [Tylenol -] 500 mg PO PRN 09/10/17 Family Disease History - Family Disease History Family Disease History: [place]: Sister (lung), Other: Mother (HTN) Review of Systems Findings/Remarks: Full review of systems obtained, as per HPI and otherwise negative Physical Exam Vital Signs: Vital Signs Temperature 36.6 C 09/10/17 15:34 Pulse Rate 86 09/10/17 15:34 Respiratory Rate 18 09/10/17 15:34 Blood Pressure 120/61 09/10/17 15:34 O2 Sat by Pulse Oximetry (%) 95 09/10/17 15:34 Constitutional: Yes: Well Nourished, No Distress, Calm Eyes: Yes: Conjunctiva Clear, EOM Intact, PERRL HENT: Yes: Atraumatic, Normocephalic Cardiovascular: Yes: Regular Rate and Rhythm. No: Gallop, Murmur, Rub Respiratory: Yes: Regular, Rhonchi (slight). No: CTA Bilaterally, On Nasal O2, Rales, Wheezes Gastrointestinal: Yes: Normal Bowel Sounds, Soft. No: Distention, Tenderness Extremities: Yes: Other (L foot wrapped) Edema: No Problem List - Problems (1) Gangrene of toe of left foot Assessment/Plan: -patient s/p amputation -pain well controlled -Dr Ron following Code(s): I96 - GANGRENE, NOT ELSEWHERE CLASSIFIED (2) Atrial fibrillation Assessment/Plan: -currently in sinus rhythm -continue atenolol Code(s): I48.91 - UNSPECIFIED ATRIAL FIBRILLATION Qualifiers: Atrial fibrillation type: paroxysmal Qualified Code(s): I48.0 - Paroxysmal atrial fibrillation (3) HLD (hyperlipidemia) Assessment/Plan: -continue statin Code(s): E78.5 - HYPERLIPIDEMIA, UNSPECIFIED (4) Hypothyroid Assessment/Plan: -continue synthroid Code(s): E03.9 - HYPOTHYROIDISM, UNSPECIFIED (5) Dyspnea on exertion Assessment/Plan: -chronic and at baseline -continue HCTZ Code(s): R06.09 - OTHER FORMS OF DYSPNEA
[2017-09-10] MEDS ORDERED: ASPIRIN 325 MG ENTERIC COATED TABLET (FP) PO SCH (18:46)
[2017-09-10] MEDS: AMPICILLIN NA/SULBACTAM NA 1.5 GM in SODIUM CHLORIDE 100 ML IVPB SCH (18:56)
[2017-09-10] MEDS: ATENOLOL 50 MG TABLET (FP) PO SCH (21:51)
[2017-09-10] MEDS: HYDROCHLOROTHIAZIDE 12.5 MG CAPSULE (FP) PO SCH (21:51)
[2017-09-10] MEDS: ACETAMINOPHEN 325 MG TABLET (FP) PO PRN (21:53)
[2017-09-10] MEDS ORDERED: HEPARIN NA (PORCINE) 5,000 UNITS/ML 1ML VIAL SQ ONE (22:00)
[2017-09-10] MEDS ORDERED: ENOXAPARIN NA (PORCINE) 60 MG/0.6 ML DISP.SYRIN SQ SCH (22:00)
[2017-09-10] MEDS ORDERED: diphenhydrAMINE HCL 25 MG CAPSULE (FP) PO PRN (22:00)
[2017-09-11] MEDS: AMPICILLIN NA/SULBACTAM NA 1.5 GM in SODIUM CHLORIDE 100 ML IVPB SCH ×2 (02:18→08:37)
[2017-09-11] MEDS ORDERED: LEVOTHYROXINE NA 50 MCG TABLET (FP) PO SCH (07:00)
[2017-09-11] MEDS: ACETAMINOPHEN 325 MG TABLET (FP) PO PRN (07:12)
[2017-09-11] MEDS: SODIUM CHLORIDE 0.45% 1,000 ML IV SCH (07:12)
[2017-09-11 07:37] LABS: HEMATOCRIT 37.2 % (32.4-45.2); HEMOGLOBIN 12.1 GM/dL (10.7-15.3); MCH 31.3 pg (25.7-33.7); MCHC 32.6 g/dl (32.0-36.0); MEAN PLT VOLUME 9.2 fl (7.5-11.1); PLATELET COUNT 228 K/MM3 (134-434); RBC 3.88 M/mm3 (3.60-5.2); RDW 14.4 % (11.6-15.6); WHITE BLOOD COUNT 8.3 K/mm3 (4.0-10.0)
[2017-09-11 07:48] LABS: ANION GAP 7 (8-16); BLOOD UREA NITROGEN 17 mg/dL (7-18); CALCIUM 7.9 mg/dL (8.5-10.1); CHLORIDE 93 mmol/L (98-107); CO2 32 mmol/L (21-32); CREATININE 0.8 mg/dL (0.55-1.02); GLUCOSE,RANDOM 99 mg/dL (74-106); POTASSIUM 3.3 mmol/L (3.5-5.1); SODIUM 132 mmol/L (136-145)
--- NOTE | 2017-09-11 08:21 | PN ---
Progress Note (short form) - Note Progress Note: surgery POD#1 s/p left 1st and 2nd amputation, patient seen and examined at bedside with no complaints. Patient states her pain in controlled with Tylenol. She claims to have had some bleeding at the operative site and the dressings were reinforced by nursing. She is tolerating a clears and has been voiding. She denies any C/p , N/V/D, fever or chills. Vital Signs Temp 97.7 F 09/11/17 07:03 Pulse 102 H 09/11/17 07:03 Resp 20 09/11/17 07:03 BP 100/50 09/11/17 07:03 Pulse Ox 95 09/10/17 21:00 Intake & Output 09/10/17 09/10/17 09/11/17 11:59 23:59 11:59 Intake Total 850 600 Output Total 320 400 Balance 530 200 Weight 177 lb 177 lb Intake: IV 850 600 1/2 Normal Saline 1,000 300 600 ml @ 75 mls/hr IV [facility] Rx#:[id number] Output: Urine 300 400 Void 300 400 Estimated Blood Loss 20 Other: Voiding Method Toilet Height 5 ft 7 in 5 ft 7 in Body Mass Index (BMI) 27.7 27.7 Weight Measurement Method Estimated by Staff Stated by Patient CBC, BMP 09/11/17 06:15 09/11/17 06:15 PE: A&Ox3, NAD unlabored resp on RA Left LE- several well healed scars from previous surgery, Foot and toes 3-5 warm and well perfused. Sensation to light touch intact throughout. Mild focal edema at amputation sites appropriate to status. Incisions C/D/I with sutures insitu and no active bleeding. No evidence of tracking erythema. re-dressed with Xeroform, 4x4 and curlex B/l LE compartments soft, supple and non-tender to palpation with + pedal pulses. <Brandee Chin - Last Filed: 09/11/17 08:21> - Note Progress Note: Observed patient ambulate with physical therapy. --> their recommendations are as follows: limited weight bearing as tolerated. Ambulate with rolling walker assistance Posterior splint intact. Called in script to [facility] for rolling walker to be delivered to patient's home Script for Tylenol #3 escribed. Discharge home. <Cadan,Garry P - Last Filed: 09/11/17 14:44> Problem List - Problems (1) Gangrene of toe of left foot Assessment/Plan: 1) Will place posterior splint on Left LE for previous foot drop. 2) PT to evaluate today, WBAT on heel in posterior splint and walker-limit walking and standing 3) Restart xarelto today 4) Elevate left foot while in bed 5) D/c planning for home today if patient is able to ambulate safely-patient refusing VNS, will do daily dressing changes herself. Evaluation and plan discussed with Dr Ron. Code(s): I96 - GANGRENE, NOT ELSEWHERE CLASSIFIED <Brandee Chin - Last Filed: 09/11/17 08:21>
[2017-09-11] MEDS ORDERED: PT OWN MED DRAWER 7, Y5N ONE (08:36)
[2017-09-11] MEDS ORDERED: ACETAMINOPHEN 500 MG TABLET (FP) PO SCH (08:45)
--- NOTE | 2017-09-11 08:57 | OP ---
DATE OF OPERATION: 09/10/2017 SURGEON: Yusuf Landon MD PROCEDURE: Amputation of left 1st and 2nd toes. PREOPERATIVE DIAGNOSIS: Gangrene, left 1st and 2nd toes. POSTOPERATIVE DIAGNOSIS: Gangrene, left 1st and 2nd toes. ANESTHESIA: Fractional. ANESTHESIOLOGIST: Branden Maciel MD OPERATIVE FINDINGS: There was gangrene of the distal phalanges of the left 1st and 2nd toe with demarcation in the mid-toe. Bone and soft tissues at the level of amputation appeared viable with moderate bleeding. OPERATIVE PROCEDURE: Following routine patient identification with side and site verification, intravenous sedation was established. The left foot was prepped with Betadine solution. Timeout was performed. Next, 1% lidocaine was infiltrated around the 1st and 2nd metatarsals. Amputation was then performed with [place] incisions proximal to the area of gangrene in both the 1st and 2nd toes. The wounds were carried down to the bone sharply and the bone was transected with bone cutters. Subcutaneous tissues were further debrided to remove joint capsule and nonviable tissue. Tendons were also removed. The bones were trimmed back with rongeur and smoothed with rasp. The wounds were irrigated with saline, and cautery was used to obtain hemostasis. The wounds were then closed with mattress sutures of 3-0 nylon. Dressing of Xeroform gauze, dry gauze, and Kerlix wrap was placed, and the patient was taken to the recovery room in stable condition. YUSUF LANDON M.D. [id number]
[2017-09-11] MEDS ORDERED: CHOLECALCIFEROL (VITAMIN D3) 1,000 UNIT TABLET (FP) PO SCH (10:00)
[2017-09-11] MEDS ORDERED: RIVAROXABAN 20 MG TABLET PO SCH ×2 (10:00)
[2017-09-11] MEDS ORDERED: PATIENT'S OWN MEDICATION (NON-FORMULARY) (Simvastatin 40 MG) PO SCH (10:00)
[2017-09-11] MEDS: ATENOLOL 50 MG TABLET (FP) PO SCH (10:07)
[2017-09-11] MEDS: HYDROCHLOROTHIAZIDE 12.5 MG CAPSULE (FP) PO SCH (10:07)
[2017-09-11 14:10] VITALS: BP 114/82; PULSE 85; TEMP 98
[2017-09-11] MEDS ORDERED: AMOX TR/POT CLAV 875MG/125MG TABLETS (FP) PO SCH (18:00)
--- NOTE | 2017-09-16 16:26 | PATH ---
Surgical Pathology Report Patient Name: SHAN DIAZ [facility]. Rec. #: [id number] /Age/Gender: 1935 (Age: 82) / F Account: <[id number]> Location: AMBULATORY SURG Taken: 09/10/2017 Received: 09/10/2017 Reported: 09/16/2017 Physicians: Yusuf Ron M.D. Specimen(s) Received 1ST AND 2ND TOE LEFT FOOT Clinical History Gangrene left toe Final Diagnosis FOOT, LEFT, FIRST AND SECOND TOES, AMPUTATION: DIGITS (TOES) WITH MARKED ACUTE AND CHRONIC INFLAMMATION, GANGRENOUS NECROSIS, AND SEVERE ACUTE OSTEOMYELITIS. BONE AND SOFT TISSUE MARGINS ARE VIABLE. Electronically Signed Daphne Gao M.D. Gross Description Received in formalin labeled "first and second toe left foot," are 2 toe amputation specimens measuring 3.0 x 1.8 x 1.8 cm and 5.0 x 3.0 x 2.8 cm. The distal aspects of both toes display black, gangrenous lesions which appear to involve the underlying bone. The lesion extends to 0.1 cm from the skin and soft tissue margin on the larger toe and is 0.4 cm from the skin and soft tissue margin on the smaller toe. Also received within the same container is a 3.0 x 1.8 x 0.4 cm aggregate of ruby soft tissue fragments. Loop Puller sections are submitted in 7 cassettes as follows: 1-smaller toe lesion with underlying bone, following decalcification; 2-bone margin from smaller toe, following decalcification; 3-skin and soft tissue margin from smaller toe; 4-larger toe lesion with underlying bone, following decalcification; 5-bone margin from larger toe, following decalcification; 6-skin and soft tissue margin from larger toe; 7-separately received soft tissue fragments. 09/11/201709/11/2017
== END 2017-09-11 15:25 | disposition home or self-care (01) ==
LOC: JASUSAT 10:33 → J8W 13:10 → UNDOADMIN 13:38 → J8W 15:10 → JASUSAT 09-11 15:25
PROVIDERS: ATTEND Surgery
PROC: 0Y6S0Z0 Detachment at Left 2nd Toe, Complete, Open Approach (ICD-10-PCS; 2017-09-10)
PROC: 0Y6Q0Z0 Detachment at Left 1st Toe, Complete, Open Approach (ICD-10-PCS; principal; 2017-09-10 12:00)
DX: I70.262 Atherosclerosis of native arteries of extremities with gangrene, left leg (principal); I48.91 Unspecified atrial fibrillation; E03.9 Hypothyroidism, unspecified
CPT/HCPCS: 36415; 80048; 85027; 85610; 88305-TC; 88311-TC; 94010; 94760; 97116-GP; 97162-GP

== ENCOUNTER 2017-10-13 13:02 | Inpatient (IN) | payer OTHER, BC ==
--- NOTE | 2017-10-13 14:17 | PDOC ---
History of Present Illness - General History Source: Patient, Family - History of Present Illness Timing/Duration: other Associated Symptoms: reports: shortness of breath, weakness. denies: diaphoresis, fever/chills, nausea/vomiting <ArgentineJohn - Last Filed: 10/13/17 16:49> <Herman Butterfield - Last Filed: 10/17/17 07:22> - General Chief Complaint: Shortness of Breath Stated Complaint: PCP SENT, SOB Time Seen by Provider: 10/13/17 14:15 Past History - Past Medical History Anemia: No Asthma: No Cancer: Yes (MALIGNANT MELANOMA) Cardiac Disorders: Yes (a fib) CVA: No COPD: No CHF: No Dementia: No Diabetes: No GI Disorders: No Disorders: No HTN: Yes Hypercholesterolemia: Yes Liver Disease: No Seizures: No Thyroid Disease: Yes - Surgical History Abdominal Surgery: Yes Cholecystectomy: Yes - Suicide/Smoking/Psychosocial Hx Smoking History: Former smoker Have you smoked in the past 12 months: No If you are a former smoker, when did you quit?: 2007 Information on smoking cessation initiated: No Hx Alcohol Use: Yes (socially) Drug/Substance Use Hx: No Substance Use Type: Alcohol Hx Substance Use Treatment: No <John Skelton - Last Filed: 10/13/17 16:49> <Herman Butterfield - Last Filed: 10/17/17 07:22> - Past Medical History Allergies/Adverse Reactions: Allergies Allergy/AdvReac Type Severity Reaction Status Date / Time atorvastatin [From Lipitor] Allergy Intermediate Verified 10/13/17 13:07 fentanyl AdvReac Verified 10/13/17 13:08 Home Medications: Ambulatory Orders Atenolol [Tenormin -] 50 mg PO BID 02/08/15 Cholecalciferol (Vitamin D3) [Vitamin D3] 1,000 unit PO DAILY 02/08/15 Rivaroxaban [Xarelto -] 20 mg PO DAILY 02/08/15 Simvastatin [Zocor -] 40 mg PO DAILY 02/08/15 Levothyroxine [Synthroid -] 50 mcg PO DAILY 07/30/17 Hydrochlorothiazide [Hctz -] 25 mg PO BID 09/08/17 Acetaminophen [Tylenol -] 500 mg PO PRN 09/10/17 Review of Systems - Review of Systems Constitutional: Yes: Weakness. No: Chills, Fever Respiratory: Yes: Shortness of Breath. No: Cough, Wheezing Cardiac (ROS): No: Chest Pain, Lightheadedness, Palpitations, Syncope ABD/GI: No: Diarrhea, Nausea, Vomiting, Abdominal cramping : No: Dysuria <ArgentineTammieLucien - Last Filed: 10/13/17 16:49> *Physical Exam - Vital Signs Last Vital Signs Temp Pulse Resp BP Pulse Ox 97.3 F L 82 19 129/91 97 10/13/17 13:08 10/13/17 13:53 10/13/17 13:08 10/13/17 13:08 10/13/17 13:53 - Physical Exam General Appearance: Yes: Appropriately Dressed. No: Apparent Distress HEENT: positive: Normal Voice Neck: positive: Supple Respiratory/Chest: positive: Lungs Clear, Normal Breath Sounds. negative: Respiratory Distress Cardiovascular: positive: Regular Rate, S1, S2 Extremity: positive: Normal Inspection Integumentary: positive: Dry, Warm Neurologic: positive: Fully Oriented, Alert, Normal Mood/Affect <ArgentineJohn - Last Filed: 10/13/17 16:49> - Vital Signs Last Vital Signs Temp Pulse Resp BP Pulse Ox 98.9 F 120 H 18 126/63 100 10/17/17 06:00 10/17/17 06:00 10/17/17 06:00 10/17/17 06:00 10/17/17 06:14 <Herman Butterfield - Last Filed: 10/17/17 07:22> ED Treatment Course - LABORATORY CBC & Chemistry Diagram: 10/13/17 14:40 10/13/17 14:40 <ArgentineJohn - Last Filed: 10/13/17 16:49> - LABORATORY CBC & Chemistry Diagram: 10/17/17 05:30 10/17/17 05:30 - ADDITIONAL ORDERS Additional order review: 10/13/17 15:42 Blood Culture - Preliminary Blood - Peripheral Venous NO GROWTH OBTAINED AFTER 72 HOURS, INCUBATION TO CONTINUE FOR 2 DAYS. 10/13/17 15:50 Blood Culture - Preliminary Blood - Peripheral Venous NO GROWTH OBTAINED AFTER 72 HOURS, INCUBATION TO CONTINUE FOR 2 DAYS. 10/13/17 14:40 RBC 4.29 MCV 95.3 MCHC 33.9 RDW 15.3 MPV 10.1 Neutrophils % 78.7 Lymphocytes % 9.8 Monocytes % 9.8 Eosinophils % 1.0 Basophils % 0.7 - Medications Given in the ED: ED Medications Discontinued Medications Generic Name Dose Route Start Last Admin Trade Name Km PRN Reason Stop Dose Admin Acetaminophen 1,000 mg 10/13/17 23:45 10/14/17 00:07 Ofirmev Injection - IVPB 10/13/17 23:46 Not Given ONCE ONE Acetaminophen 1,000 mg 10/15/17 11:00 10/15/17 10:47 Ofirmev Injection - IVPB 10/15/17 11:01 1,000 mg ONCE ONE Administration Cefepime HCl 1 gm 10/13/17 15:38 10/13/17 23:26 Maxipime (Restricted To Id) - IVPB 10/13/17 15:39 1 gm ONCE ONE Administration Protocol Ceftriaxone Sodium 1 mg 10/13/17 15:36 10/13/17 16:15 Rocephin - IVPUSH 10/13/17 15:37 Not Given ONCE ONE Fentanyl 25 mcg 10/14/17 18:28 10/15/17 01:43 Sublimaze Injection - IVPUSH 10/15/17 18:29 25 mcg Q8H PRN Administration PAIN LEVEL 6-10 Fentanyl 25 mcg 10/15/17 01:59 10/15/17 06:24 Sublimaze Injection - IVPUSH 10/15/17 02:00 Not Given ONCE ONE Fentanyl 25 mcg 10/15/17 22:00 10/15/17 22:08 Sublimaze Injection - IVPUSH 10/15/17 22:01 25 mcg ONCE ONE Administration Furosemide 40 mg 10/13/17 21:21 10/13/17 19:55 Lasix Injection - IVPUSH 10/13/17 21:22 40 mg ONCE ONE Administration Furosemide 40 mg 10/13/17 21:21 10/13/17 20:05 Lasix Injection - IVPUSH 10/13/17 21:22 40 mg ONCE ONE Administration Furosemide 40 mg 10/16/17 12:30 10/16/17 12:00 Lasix Injection - IVPUSH 10/16/17 12:31 40 mg ONCE ONE Administration Glycerin 1 each 10/15/17 18:45 10/16/17 21:13 Glycerin Suppository Adult - RC 10/15/17 18:46 Not Given ONCE ONE Heparin Sodium (Porcine) 5,000 unit 10/13/17 22:00 10/14/17 14:01 Heparin - SQ 5,000 unit TID ANTONIO Administration Vancomycin HCl 1,000 mg/ 250 mls @ 250 mls/hr 10/13/17 15:37 10/13/17 17:53 Dextrose IVPB 10/13/17 16:36 250 mls/hr ONCE ONE Administration Protocol Azithromycin 500 mg/ Dextrose 250 mls @ 250 mls/hr 10/13/17 15:38 10/13/17 23 :27 IVPB 10/13/17 16:37 250 mls/hr ONCE ONE Administration Sodium Chloride 500 mls @ 500 mls/hr 10/13/17 16:27 10/13/17 17:02 Normal Saline - IV 10/13/17 17:26 500 mls/hr ASDIR STA Administration Vancomycin HCl 1,250 mg/ 250 mls @ 166.667 mls/hr 10/14/17 06:00 10/14/17 05: 48 Dextrose IVPB 10/14/17 07:29 166.667 mls/hr ONCE ONE Administration Piperacillin Sod/Tazobactam 50 mls @ 100 mls/hr 10/14/17 00:00 10/14/17 08:05 Sod 3.375 gm/ Dextrose IVPB 10/14/17 08:29 100 mls/hr Q8H ANTONIO Administration Lactated Ringer's 1,000 ml in 1,000 mls @ 1,000 mls/hr 10/14/17 01:34 01:53 Lactated Ringers Solution IV 10/14/17 02:33 1,000 mls/hr ONCE STA Administration Sodium Chloride 250 mls @ 250 mls/hr 10/14/17 14:45 10/14/17 19:46 Normal Saline - IV 10/14/17 15:44 Not Given ASDIR STA Sodium Chloride 1,000 mls @ 75 mls/hr 10/14/17 19:00 10/15/17 01:44 Normal Saline - IV 75 mls/hr ASDIR ANTONIO Administration Piperacillin Sod/Tazobactam 50 mls @ 100 mls/hr 10/14/17 21:00 10/15/17 08:53 Sod 2.25 gm/ Dextrose IVPB 10/15/17 09:29 100 mls/hr Q6H-IV ANTONIO Administration Sodium Chloride 250 mls @ 250 mls/hr 10/14/17 22:04 10/14/17 22:26 Normal Saline - IV 10/14/17 23:03 250 mls/hr ASDIR STA Administration Potassium Chloride 10 meq/ 105 mls @ 100 mls/hr 10/15/17 10:00 10/15/17 12:36 Sodium Chloride IVPB 10/15/17 11:59 100 mls/hr Q60M ANTONIO Administration Sodium Chloride 1,000 mls @ 42 mls/hr 10/15/17 15:11 10/15/17 15:00 Normal Saline - IV 42 mls/hr ASDIR ANTONIO Administration Potassium Chloride 10 meq/ 105 mls @ 100 mls/hr 10/16/17 09:00 10/16/17 10:35 Sodium Chloride IVPB 10/16/17 09:59 100 mls/hr Q60M ANTONIO Administration Influenza Virus Vaccine Quadrival 60 mcg 10/15/17 19:15 10/15/17 18:25 Flulaval Quad 2885-1789 IM 10/15/17 19:16 60 mcg .ONCE ONE Administration Magnesium Sulfate 2 gm 10/15/17 01:59 10/15/17 02:30 Magnesium Sulfate IVPB 10/15/17 02:00 2 gm ONCE ONE Administration Metoprolol Tartrate 2.5 mg 10/16/17 17:15 10/16/17 17:39 Lopressor Injection - IVPUSH 10/16/17 17:16 2.5 mg ONCE ONE Administration Morphine Sulfate 1 mg 10/16/17 07:45 10/16/17 07:53 Morphine Sulfate IVPUSH 10/16/17 07:46 1 mg ONCE ONE Administration Zolpidem Tartrate 5 mg 10/16/17 22:00 10/17/17 00:18 Ambien - PO 10/16/17 22:01 Not Given ONCE ONE <Herman Butterfield - Last Filed: 10/17/17 07:22> Medical Decision Making - Medical Decision Making 10/13/17 14:17 82-year-old female, former smoker, hypertension, hyperlipidemia, A.fib on xarelto, PVD, status post recent amputations of left first and second toes, here with worsening shortness of breath and dysphagia 1 month. Patient states she is short of breath despite position and finds it difficult to swallow both solids and liquids and has to regurgitate food. Has lost approximately 8 pounds in the month as per patient. Denies any wheezing, chest pain, diaphoresis, abdominal pain, acute change in bowel movements or dysuria. States she has been evaluated by her doctor several weeks ago and was told dysphagia/throat discomfort was possibly due to recent intubations that patient has had for various reasons. States symptoms have continued and are worsening. Complaining of feeling weak currently. Pt was evaluated by Dr. Cabrera of ENT this a.m. and as per daughter was told there was "abnormality" of her left vocal cord and was sent to ER by both ENT and Dr. Woodall for admission for further w/u See exam Dysphagia, weight loss and SOB in former smoker w/ ?L vocal cord abnl on scope by ENT this am Stable w/ RA sat of 94 % at triage w/ clear chest/lungs on exam ?PNA (? related to aspiration give hx) vs new onset COPD vs malignancy vs cardiac -Currently on oxygen -IVF -labs -admit 10/13/17 14:52 10/13/17 15:39 Chest x-ray read as left upper and lower lobe infiltrate. Possible aspiration??? . Leukocytosis of 13. Blood cx and abx in progress (admission within 3 months). Will admit at this time 10/13/17 16:49 Case discussed with hospitalist and patient admitted <John Skelton - Last Filed: 10/13/17 16:49> - Medical Decision Making The patient was seen and evaluated in conjunction with SU Skelton under my direct supervision, ancillary studies were reviewed. I independently interviewed and evaluated the patient and I agree with the plan as outlined by SU Skelton . <Herman Butterfield - Last Filed: 10/17/17 07:22> *DC/Admit/Observation/Transfer - Discharge Dispostion Admit: Yes <John Skelton - Last Filed: 10/13/17 16:49> <Herman Butterfield - Last Filed: 10/17/17 07:22> Diagnosis at time of Disposition: Dehydration Pneumonia Qualifiers: Pneumonia type: due to unspecified organism Laterality: left Lung location: lower lobe of lung Qualified Code(s): J18.1 - Lobar pneumonia, unspecified organism Dysphagia Qualifiers: Dysphagia type: unspecified Qualified Code(s): R13.10 - Dysphagia, unspecified - Discharge Dispostion Condition at time of disposition: Fair
[2017-10-13 14:59] LABS: BASO % 0.7 % (0-2.0); HEMATOCRIT 40.9 % (32.4-45.2); HEMOGLOBIN 13.9 GM/dL (10.7-15.3); LYMPH % 9.8 % (8-40); MCH 32.3 pg (25.7-33.7); MCHC 33.9 g/dl (32.0-36.0); MEAN CELL VOLUME 95.3 fl (80-96); MONO % 9.8 % (3.8-10.2); NEUT % 78.7 % (42.8-82.8); RBC 4.29 M/mm3 (3.60-5.2); RDW 15.3 % (11.6-15.6)
[2017-10-13 15:27] LABS: ALBUMIN 3.2 g/dl (3.4-5.0); ANION GAP 14 (8-16); BILIRUBIN,TOTAL 0.5 mg/dL (0.2-1.0); BLOOD UREA NITROGEN 63 mg/dL (7-18); CALCIUM 9.5 mg/dL (8.5-10.1); CHLORIDE 97 mmol/L (98-107); CO2 28 mmol/L (21-32); CREATININE 1.3 mg/dL (0.55-1.02); GLUCOSE,RANDOM 124 mg/dL (74-106); SGPT/ALT 51 U/L (12-78); SODIUM 139 mmol/L (136-145); TOT PROT 7.1 g/dl (6.4-8.2)
[2017-10-13 15:30] LABS: ALK PHOS 94 U/L (45-117); N-TERMINAL BNP 2373.79 pg/ml (5-450)
[2017-10-13] MEDS ORDERED: VANCOMYCIN 1,000 MG in DEXTROSE 5%-WATER - 250 ML IVPB ONE (15:37)
[2017-10-13] MEDS ORDERED: CEFEPIME HCL 1 GM VIAL (RESTRICTED TO ID) IVPB ONE (15:38)
[2017-10-13] MEDS ORDERED: AZITHROMYCIN IVPB 500 MG in DEXTROSE 5%-WATER - 250 ML IVPB ONE (15:38)
[2017-10-13 15:39] LABS: POTASSIUM 4.3 mmol/L (3.5-5.1); SGOT/AST 56 U/L (15-37)
[2017-10-13] MEDS ORDERED: SODIUM CHLORIDE 500 ML IV STA (16:27)
--- NOTE | 2017-10-13 16:49 | HP ---
CHIEF COMPLAINT: Difficulty swallowing PCP: Dr. 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 Patient has significant PSH for revascularization of right leg, revascularization of left leg (07/2017), amputation of left 1st and 2nd gangrenous toes (09/10/2017) , and placement of left subclavian stent x 2 weeks ago at [facility]. About one month ago, patient developed hoarseness, difficulty swallowing, and choking on PO intake. ED course notable for: (1) T 97.3 BP 149/68 p110 RR 30 (2) WBC 13.0 (3) BUN/Cr 63/1.3; baseline Cr 0.8 (4) BNP 2373; no previous history of CHF (5) CXR: JEROME infiltrate; LLL infiltrate cannot be ruled out; left pleural effusion; right lung clear Recent Travel: No PAST MEDICAL HISTORY: Hypertension Hyperlipidemia Atrial fibrillation Severe peripheral arterial disease Malignant melanoma LLE Left toe osteo Hypothyroidism PAST SURGICAL HISTORY: Angio and revascularization right leg Angio and revascularization left leg ([facility], 07/2017) Amputation of left 1st and 2nd gangrenous toes ([facility], 09/10/2017) Left subclavian stent ([facility], 09/2017, [facility]) Social History: Smoking: quit x 8 years Alcohol: social Drugs: denies Family History: Allergies atorvastatin [From Lipitor] Allergy (Intermediate, Verified 10/13/17 13:07) fentanyl Adverse Reaction (Verified 10/13/17 13:08) HOME MEDICATIONS: Medication Instructions Recorded Atenolol [Tenormin -] 50 mg PO BID 02/08/15 Cholecalciferol (Vitamin D3) 1,000 unit PO DAILY 02/08/15 [Vitamin D3] Rivaroxaban [Xarelto -] 20 mg PO DAILY 02/08/15 Simvastatin [Zocor -] 40 mg PO DAILY 02/08/15 Levothyroxine [Synthroid -] 50 mcg PO DAILY 07/30/17 Hydrochlorothiazide [Hctz -] 25 mg PO BID 09/08/17 Acetaminophen [Tylenol -] 500 mg PO PRN 01/31/18 REVIEW OF SYSTEMS CONSTITUTIONAL: +loss of 8lbs in one month Absent: fever, chills, diaphoresis, generalized weakness, malaise, loss of appetite HEENT: +difficulty swallowing Absent: rhinorrhea, nasal congestion, throat pain, throat swelling, mouth swelling, ear pain, eye pain, visual changes CARDIOVASCULAR: Absent: chest pain, syncope, palpitations, irregular heart rate, lightheadedness , peripheral edema RESPIRATORY: +SOB +DWYER +dyspnea at rest +orthopnea Absent: cough, wheezing, stridor, hemoptysis GASTROINTESTINAL: Absent: abdominal pain, abdominal distension, nausea, vomiting, diarrhea, constipation, melena, hematochezia GENITOURINARY: Absent: dysuria, frequency, urgency, hesitancy, hematuria, flank pain, genital pain MUSCULOSKELETAL: Absent: myalgia, arthralgia, joint swelling, back pain, neck pain SKIN: Absent: rash, itching, pallor HEMATOLOGIC/IMMUNOLOGIC: Absent: easy bleeding, easy bruising, lymphadenopathy, frequent infections ENDOCRINE: Absent: unexplained weight gain, unexplained weight loss, heat intolerance, cold intolerance NEUROLOGIC: Absent: headache, focal weakness or paresthesias, dizziness, unsteady gait, seizure, mental status changes, bladder or bowel incontinence PSYCHIATRIC: Absent: anxiety, depression, suicidal or homicidal ideation, hallucinations. PHYSICAL EXAMINATION Vital Signs - 24 hr 10/13/17 10/13/17 10/13/17 13:08 13:53 18:27 Temperature 97.3 F L Pulse Rate 82 82 Pulse Rate [ 110 H Apical] Respiratory 19 30 H Rate Blood Pressure 129/91 Blood Pressure 149/98 [Left Arm] O2 Sat by Pulse 94 L 97 98 Oximetry (%) 10/13/17 10/13/17 10/13/17 18:45 19:05 20:38 Temperature Pulse Rate Pulse Rate [ 100 H 110 H Apical] Respiratory 26 H 34 H Rate Blood Pressure Blood Pressure 141/52 115/60 [Left Arm] O2 Sat by Pulse 98 100 100 Oximetry (%) 10/13/17 22:55 Temperature 101.2 F H Pulse Rate 102 H Pulse Rate [ Apical] Respiratory 38 H Rate Blood Pressure 98/66 Blood Pressure [Left Arm] O2 Sat by Pulse Oximetry (%) GENERAL: Awake, alert, and fully oriented; in mild respiratory distress on BiPAP ; no neuro focal deficits; +anxious HEAD: Normal with no signs of trauma. EYES: Pupils equal, round and reactive to light, extraocular movements intact, sclera anicteric, conjunctiva clear. No lid lag. EARS, NOSE, THROAT: Ears normal, nares patent, oropharynx clear without exudates. Dry mucous membranes. LUNGS: Diminished breath sounds, poor air movement; no wheezing, no rhonchi, no crackles HEART: Irregular, S1, S2 ABDOMEN: Soft, nontender, not distended, normoactive bowel sounds, no guarding, no rebound RIGHT UPPER EXTREMITY: cyanosis of fingers of right hand with tenderness, cool to touch, 1+ radial pulse RIGHT LOWER EXTREMITY: toes dusky, cool to touch LEFT LOWER EXTREMITY: amputation of 1st and 2d toes, incisions well-healed; + erythema and swelling stump of great toe, unable to express fluid NEUROLOGICAL: Cranial nerves II-XII intact. Normal speech PSYCHIATRIC: Anxious SKIN: Poor turgor Laboratory Results - last 24 hr 10/13/17 10/13/17 14:40 14:40 WBC 13.0 H D RBC 4.29 Hgb 13.9 D Hct 40.9 MCV 95.3 MCH 32.3 MCHC 33.9 RDW 15.3 Neutrophils % 78.7 Lymphocytes % 9.8 Monocytes % 9.8 Eosinophils % 1.0 Basophils % 0.7 Sodium 139 Potassium 4.3 Chloride 97 L Carbon Dioxide 28 Anion Gap 14 BUN 63 H Creatinine 1.3 H Creat Clearance w eGFR 39.41 Random Glucose 124 H Calcium 9.5 Total Bilirubin 0.5 D AST 56 H ALT 51 Alkaline Phosphatase 94 Creatine Kinase 39 Troponin I < 0.02 B-Natriuretic Peptide 2373.79 H Total Protein 7.1 Albumin 3.2 L ASSESSMENT/PLAN 82 year-old woman with a PMH significant for HTN, HLD, afib on Xarelto, severe peripheral arterial disease, m-+alignant melenoma of LLE, left toe osteomyelitis (2010), and hypothyroidism. Admitted for aspiration pneumona. Dysphagia --following multiple intubations over past 3 months --seen by Dr. Cabrera earlier today, reportedly with vocal cord paralysis --consult requested for Dr. Cabrera --speech and swallow evaluation Hypoxic respiratory failure secondary to aspiration pneumonia --10/13 CXR: JEROME infiltrate; LLL infiltrate cannot be excluded; left pleural effusion; right lung clear --taken off BiPAP, maintaining sats 100% on NRB --CT chest pending --start empiric Vanco and Zosyn --pulmonary consult requested Atrial fibrillation on Xarelto --last dose Xarelto this morning --will need to start heparin drip SIMON --Cr 1.3, baseline 0.8 --hold home HCTZ Atrial fibrillation --rate 100-130s; continue atenolol --hold Xarelto, start heparin drip Hypertension --continue atenolol Hyperlipidemia --continue statin Peripheral artery disease --continue anticoagulation, ASA, statins; consult with Anitra garg on daily basis Malignant melanoma --CT chest/abdomen/pelvis ordered Hypothyrodism --continue levothyroxine j Visit type - Emergency Visit Emergency Visit: Yes ED Registration Date: 10/13/17 Care time: The patient presented to the Emergency Department on the above date and was hospitalized for further evaluation of their emergent condition. - New Patient This patient is new to me today: Yes Date on this admission: 10/18/17 - Critical Care Critical Care patient: Yes Total Critical Care Time (in minutes): 120 Critical Care Statement: The care of this patient involved high complexity decision making to prevent further life threatening deterioration of the patient 's condition and/or to evaluate & treat vital organ system(s) failure or risk of failure. Hospitalist Screening - Colonoscopy Questionnaire Colonoscopy Questionnaire: Colonoscopy Questionnaire - Patient: 50 - 75 years old and never had a screening colonoscopy: No History of colon or rectal polyps, or CA: No History of IBD, Crohn's disease or UC: No History of abdominal radiation therapy as a child: No - Relative: 1 with colon or rectal CA, or polyps at age 60 or younger: Unknown Colon or rectal CA diagnosed at age 45 or younger: Unknown Multiple relatives with colon or rectal CA: Unknown - Outcome: Screening Result: Negative Screen
[2017-10-13] MEDS ORDERED: VANCOMYCIN 1 GRAM (PRE-DOCKED) 1,000 MG/250 ML BAG IVPB ONE (17:06)
[2017-10-13] MEDS ORDERED: AZITHROMYCIN IVPB 250 ML IVPB ONE (17:06)
[2017-10-13] MEDS ORDERED: CEFEPIME 1 GM/100 ML BAG IVPB ONE (17:07)
[2017-10-13 19:36] LABS: MEAN PLT VOLUME 10.1 fl (7.5-11.1); PLATELET COUNT 310 K/MM3 (134-434); PLATELET ESTIMATE ADEQUATE
[2017-10-13] MEDS ORDERED: FUROSEMIDE 40 MG/4 ML INJECTABLE VIAL ONE ×2 (19:53→20:01)
[2017-10-13] MEDS ORDERED: METOPROLOL TARTRATE 5 MG/5 ML VIAL ONE (20:09)
[2017-10-13] MEDS ORDERED: ACETAMINOPHEN 1000 MG/100 ML VIAL (NON FORMULARY) IVPB ONE ×2 (20:33→23:45)
[2017-10-13 20:36] LABS: ARTERIAL BLOOD GAS PCO2 42.2 mmHg (35-45); ARTERIAL BLOOD GAS pH 7.39 (7.35-7.45)
[2017-10-13 20:37] LABS: ARTERIAL BLOOD GAS BASE EXCESS 0.5 meq/l (-2-2)
[2017-10-13 20:40] LABS: ARTERIAL BLD GAS O2 SATURATION 99.8 % (90-98.9)
[2017-10-13 20:41] LABS: ALLENS TEST POSITIVE
[2017-10-13] MEDS ORDERED: FUROSEMIDE 40 MG/4 ML INJECTABLE VIAL IVPUSH ONE ×2 (21:21)
[2017-10-13 21:46] LABS: URINE APPEARANCE SLCLOUDY; URINE BILIRUBIN NEGATIVE (NEGATIVE); URINE BLOOD NEGATIVE (NEGATIVE); URINE COLOR AMBER; URINE GLUCOSE (UA) NEGATIVE (NEGATIVE); URINE KETONE TRACE (NEGATIVE); URINE LEUK ESTERASE NEGATIVE (NEGATIVE); URINE NITRITE NEGATIVE (NEGATIVE); URINE PROTEIN NEGATIVE (NEGATIVE); URINE UROBILINOGEN 4.0 E.U/dl mg/dL (0.2-1.0)
[2017-10-13 23:08] VITALS: BMI 27.0
[2017-10-13] MEDS: HEPARIN NA (PORCINE) 5,000 UNITS/ML 1ML VIAL SQ SCH (23:30)
[2017-10-13] MEDS ORDERED: VANCOMYCIN 1,250 MG in DEXTROSE 5%-WATER - 250 ML IVPB SCH (23:30)
[2017-10-13] MEDS ORDERED: PIPERACIL/TAZOB 3.375 GM 3.375 GM/50 ML PREMIX IVPB SCH (23:30)
[2017-10-14] MEDS: PIPERACILLIN/TAZOB 3.375 GM 3.375 GM in DEXTROSE 5%-WATER - 50 ML IVPB SCH ×2 (00:50→08:05)
--- NOTE | 2017-10-14 01:21 | CONSULT ---
Consult Consult Specialty:: PULM/CCM Referred by:: Dr. Yue Caicedo Reason for Consultation:: RESP FAIL - History of Present Illness Chief Complaint: SOB History of Present Illness: Ms. Austin is an 82 y/o woman, pt of Dr. 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 Pt reports that approx 1 month in the past she developed a hoarseness in her voice , difficulty swallowing, and choking on PO intake. She has lost 8 pounds in that period of time. She has been seen and evaluated several times by her PCP Dr. Woodall. Earlier today she saw ENT specialist Dr. Cabrera who reportedly told the patient that she has vocal cord paralysis on one side, possibly secondary to multiple intubations. On the recommendations of Dr. Woodall and Dr. Cabrera, the patient reported to the ED. In the ED the pt is notable for tachypnea, SOB, PNA , & SIMON. Pt admitted to the ICU now for resp insufficiency. 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 - Alcohol/Substance Use Hx Alcohol Use: Yes (socially) History of Substance Use: reports: None - Smoking History Smoking history: Former smoker Have you smoked in the past 12 months: No If you are a former smoker, when did you quit?: 2007 - Social History Usual Living Arrangement: With Spouse ADL: Independent History of Recent Travel: No Home Medications - Allergies Allergies/Adverse Reactions: Allergies Allergy/AdvReac Type Severity Reaction Status Date / Time atorvastatin [From Lipitor] Allergy Intermediate Verified 10/13/17 13:07 fentanyl AdvReac Verified 10/13/17 13:08 - Home Medications Home Medications: Ambulatory Orders Atenolol [Tenormin -] 50 mg PO BID 02/08/15 Cholecalciferol (Vitamin D3) [Vitamin D3] 1,000 unit PO DAILY 02/08/15 Rivaroxaban [Xarelto -] 20 mg PO DAILY 02/08/15 Simvastatin [Zocor -] 40 mg PO DAILY 02/08/15 Levothyroxine [Synthroid -] 50 mcg PO DAILY 07/30/17 Hydrochlorothiazide [Hctz -] 25 mg PO BID 09/08/17 Acetaminophen [Tylenol -] 500 mg PO PRN 09/10/17 Family Disease History - Family Disease History Family Disease History: CA: Sister (lung), Other: Mother (HTN) Review of Systems - Review of Systems Constitutional: reports: Lethargy, Loss of Appetite, Malaise, Unintentional Wgt. Loss, Weakness Eyes: reports: No Symptoms HENT: reports: No Symptoms Neck: reports: No Symptoms Cardiovascular: reports: No Symptoms Respiratory: reports: Exercise Intolerance, SOB, SOB on Exertion Gastrointestinal: reports: No Symptoms Genitourinary: reports: No Symptoms Breasts: reports: No Symptoms Reported Musculoskeletal: reports: No Symptoms Integumentary: reports: Lump Neurological: reports: No Symptoms Endocrine: reports: No Symptoms Hematology/Lymphatic: reports: No Symptoms Psychiatric: reports: No Symptoms Pain Intensity: 0 Physical Exam Vital Signs: Vital Signs Temperature 101.2 F H 10/13/17 22:55 Pulse Rate 102 H 10/13/17 22:55 Respiratory Rate 38 H 10/13/17 22:55 Blood Pressure 98/66 10/13/17 22:55 O2 Sat by Pulse Oximetry (%) 100 10/13/17 23:00 Constitutional: Yes: Moderate Distress, Obese, Pallor Eyes: Yes: WNL, Conjunctiva Clear, EOM Intact HENT: Yes: WNL, Atraumatic, Normocephalic Neck: Yes: WNL, Supple, Trachea Midline Cardiovascular: Yes: Pulse Irregular Respiratory: Yes: Accessory Muscle Use, Diminished, Dullness, On Venti-Mask, Rales, Rhonchi, SOB, SOB on Exertion, Tachypnea Gastrointestinal: Yes: WNL, Normal Bowel Sounds, Soft, Abdomen, Obese ...Rectal Exam: Yes: Deferred Renal/: Yes: Anuria Breast(s): Yes: WNL Musculoskeletal: Yes: WNL Extremities: Yes: WNL Edema: No Integumentary: Yes: WNL Neurological: Yes: WNL, Alert, Oriented ...Motor Strength: WNL Psychiatric: Yes: WNL, Alert, Oriented Labs: CBC, BMP 10/13/17 14:40 10/13/17 14:40 Imaging - Results Chest X-ray: Image Reviewed (CXR 10/13: 1. Left upper lobe ill-defined consolidative opacity is compatible with pneumonia in the appropriate clinical setting. A short-term follow-up chest x-ray is recommended after completion of therapy to exclude other processes, including malignancy. 2. Small left pleural effusion with atelectasis versus consolidation in the left lung base. 3. Mild pulmonary vascular congestion. Enlarged cardiac silhouette.) Cat Scan: Report Reviewed (CHEST CT 10/13: There is an approximately 5.2 x 5.6 x 7.1 cm cm lobulated, irregular masslike consolidative opacity in the left upper lobe which extends towards the left hilum, surrounding the left upper lobe bronchus, anterior and apicoposterior segmental bronchi. There is abrupt cut off of the apicoposterior segmental bronchus. Interlobular septal thickening with nodularity in the left upper lobe is noted. There are multiple solid noncalcified nodular opacities in the left upper lobe including the lingular segment. There is an approximately 2.3 x 2.0 cm subcentimeter nodular opacity in the superior segment of the left lower lobe. The solid component measures up to 10 mm. There is a small layering left pleural effusion. There are multiple solid nodular opacities in the right lung. Two of the larger solid nodules are as follows: A 9 x 8 mm subpleural solid noncalcified nodule in the right middle lobe, abutting the oblique fissure (image 56 of series 4). A 9-10 mm solid noncalcified nodule in the anterior segment of the right upper lobe (image 43 of series 4). There is also an 11 mm groundglass nodule in the right lower lobe (image 55 of series 4). There is no right pleural effusion. The heart is borderline in size. There is a moderate-sized pericardial effusion. Normal caliber thoracic aorta with moderate calcific atherosclerosis along the arch and descending aorta, including the takeoff of the great vessels. The main pulmonary artery trunk is dilated, measuring 35 mm in diameter, suggesting pulmonary artery hypertension. There is mediastinal adenopathy with enlarged lymph nodes measuring up to 1.6 x 1.6 cm in the pretracheal and paratracheal regions. There is no definite bulky right hilar lymphadenopathy, within the limitations of no IV contrast. There is probable left hilar lymphadenopathy. The axilla and chest wall are unremarkable. The thyroid gland is heterogeneous with bilateral hypoattenuating nodules. Limited evaluation of the upper abdomen demonstrates no mass in the adrenal glands. There is calcified and noncalcified atheromatous plaque along the upper abdominal aorta and takeoff of the branch vessels. There is osseous demineralization and thoracic spondylosis. There is moderate dextroconvex curvature of the thoracic spine. Impression: 1. Left upper lobe masslike consolidative opacity as described above is suspicious for malignant neoplasm, although pneumonia and/or atelectasis are not excluded. Please correlate clinically, with bronchoscopy, PET/CT and/or tissue sampling. 2. Left upper lobe interlobular septal thickening with nodularity is suspicious for lymphangitic spread of neoplasm in the setting of lung malignancy. Mediastinal lymphadenopathy and probable left hilar lymphadenopathy. Small layering left pleural effusion. 3. Additional solid and subsolid pulmonary nodules described above. 4. Small to moderate sized pericardial effusion. 5. Dilated main pulmonary artery trunk. Please correlate for pulmonary artery hypertension.) EKG: Image Reviewed (12-Lead 10/13: A-Fib in the 80's, normal axis, RBBB, qu'ed out in V1 c/f anterior infarction, QTc = 436ms (My Read).) Problem List - Problems (1) Dehydration Code(s): E86.0 - DEHYDRATION (2) Dysphagia Code(s): R13.10 - DYSPHAGIA, UNSPECIFIED Qualifiers: Dysphagia type: unspecified Qualified Code(s): R13.10 - Dysphagia, unspecified (3) Pneumonia Code(s): J18.9 - PNEUMONIA, UNSPECIFIED ORGANISM Qualifiers: Pneumonia type: due to unspecified organism Laterality: left Lung location: lower lobe of lung Qualified Code(s): J18.1 - Lobar pneumonia, unspecified organism (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 Code(s): I70.262 - ATHSCL [place] ARTERIES OF EXTREMITIES W GANGRENE, LEFT LEG (5) Dyspnea on exertion Code(s): R06.09 - OTHER FORMS OF DYSPNEA (6) Atrial fibrillation Code(s): I48.91 - UNSPECIFIED ATRIAL FIBRILLATION Qualifiers: Atrial fibrillation type: paroxysmal Qualified Code(s): I48.0 - Paroxysmal atrial fibrillation (7) Hypothyroid Code(s): E03.9 - HYPOTHYROIDISM, UNSPECIFIED Assessment/Plan ASSESS: This is an 82 y/o woman, former heavy smoker, w/ HTN, HLD, afib on Xarelto, hypothyroid, malignant melenoma, severe PAD - vasculopath w/ multiple re-vascularations of the LEs & a recent L SCV stent. Admitted now for aspiration pna in the setting of vocal cord dysfunction, imaging c/f lung malignancy. PLAN: -NPO -HOB > 30 -Asp precautions -FiO2 prn for an SpO2 > 92% -Bi-Level prn for WOB -Nebs -CPT -IS -S & S -Whitman Clxr -Vanc & Zo -Heparin gtt for therapeutic PTT off Xarelto (NPO) -IVFs for a UOP > 30cc/Hr -Continue atenolol -Hold home HCTZ -Con Synth -SCDs -PPI -Pall Care consult CC Time 38" DGL, ACNP-BC [facility] ICU PULM/CCM [id number]
[2017-10-14] MEDS ORDERED: LACTATED RINGERS SOLUTION 1,000 ML/1,000 ML INFUS.BAG IV STA (01:34)
[2017-10-14] MEDS: HEPARIN NA (PORCINE) 5,000 UNITS/ML 1ML VIAL SQ SCH ×2 (05:54→14:01)
[2017-10-14] MEDS ORDERED: VANCOMYCIN 1,250 MG in DEXTROSE 5%-WATER - 250 ML IVPB ONE (06:00)
[2017-10-14 06:02] LABS: BASO % 0.3 % (0-2.0); EOS % 0.3 % (0-4.5); HEMATOCRIT 38.3 % (32.4-45.2); HEMOGLOBIN 12.5 GM/dL (10.7-15.3); LYMPH % 7.6 % (8-40); MCHC 32.8 g/dl (32.0-36.0); MEAN CELL VOLUME 97.6 fl (80-96); MEAN PLT VOLUME 10.4 fl (7.5-11.1); MONO % 8.4 % (3.8-10.2); NEUT % 83.4 % (42.8-82.8); PLATELET COUNT 302 K/MM3 (134-434); RBC 3.92 M/mm3 (3.60-5.2); RDW 15.4 % (11.6-15.6); WHITE BLOOD COUNT 17.3 K/mm3 (4.0-10.0)
[2017-10-14 06:31] LABS: CALCIUM 8.8 mg/dL (8.5-10.1); CHLORIDE 96 mmol/L (98-107); SODIUM 139 mmol/L (136-145)
[2017-10-14 06:37] LABS: ALK PHOS 87 U/L (45-117); ANION GAP 13 (8-16); BILIRUBIN,TOTAL 0.6 mg/dL (0.2-1.0); BLOOD UREA NITROGEN 64 mg/dL (7-18); CO2 30 mmol/L (21-32); CREATININE 2.4 mg/dL (0.55-1.02); GLUCOSE,RANDOM 117 mg/dL (74-106); MAGNESIUM 2.1 mg/dL (1.8-2.4); PHOSPHOROUS 7.1 mg/dL (2.5-4.9); SGOT/AST 34 U/L (15-37); SGPT/ALT 45 U/L (12-78); TOT PROT 6.6 g/dl (6.4-8.2)
--- NOTE | 2017-10-14 08:01 | PN ---
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 Patient has significant PSH for revascularization of right leg, revascularization of left leg (07/2017), amputation of left 1st and 2nd gangrenous toes (09/10/2017), and placement of left subclavian stent x 2 weeks ago at [facility]. About one month ago, patient developed hoarseness, difficulty swallowing, and choking on PO intake. She has lost 8 pounds in that period of time. She has been seen and evaluated several times by her PCP Dr. Woodall. Earlier this week she saw ENT specialist Dr. Cabrera who reportedly told patient she has vocal cord paralysis on one side, possibly secondary to multiple intubations. On the recommendations of Dr. Woodall and Dr. Cabrera, patient came to the ED. PCP is Dr. Woodall. SUBJECTIVE Patient states feeling much better than yesterday, no pain, no complaints at this time. 24 HOUR INTAKE & OUTPUT Intake: has received 1.5 liters IVF since arrival to ED per EMR Output: 100cc Howard Net: N/A BM: None LINES/TUBES/DRAINS Howard placed 10/13/17 - Current Medication List Current Medications: Active Medications Heparin Sodium (Porcine) (Heparin -) 5,000 unit SQ TID ANTONIO Last Admin: 10/14/17 05:54 Dose: 5,000 unit Vancomycin HCl 1,250 mg/ (Dextrose) 250 mls @ 166.667 mls/hr IVPB Q12H ANTONIO Piperacillin Sod/Tazobactam (Sod 3.375 gm/ Dextrose) 50 mls @ 100 mls/hr IVPB Q8H ANTONIO Stop: 10/14/17 08:29 Last Admin: 10/14/17 00:50 Dose: 100 mls/hr Piperacillin/Tazobactam/Dextrose (Zosyn 3.375gm Ivpb (Premix)) 3.375 gm IVPB Q8H-IV ANTONIO - Objective Vital Signs: Vital Signs Temperature 99 F 10/14/17 06:00 Pulse Rate 78 10/14/17 06:00 Respiratory Rate 26 H 10/14/17 06:00 Blood Pressure 130/112 10/14/17 06:00 O2 Sat by Pulse Oximetry (%) 100 10/13/17 23:00 Constitutional: Yes: Well Nourished, No Distress, Calm, Other (pleasant elderly female on NRB in no distress other than slight tachypnea, answering questions appropriately but phonating poorly with very quiet whispering voice and needs to write many answers on paper) Eyes: Yes: WNL, Conjunctiva Clear, EOM Intact HENT: Yes: Atraumatic, Normocephalic, Other (voice very hoarse, whispering most answers) Neck: Yes: Supple, Trachea Midline. No: Lymphadenopathy Cardiovascular: Yes: Pulse Irregular, Other (muffled heart sounds) Respiratory: Yes: Regular, On Venti-Mask, Tachypnea, Other (diminished on the right) Gastrointestinal: Yes: WNL, Normal Bowel Sounds, Soft. No: Tenderness Musculoskeletal: Yes: WNL Extremities: Yes: WNL. No: Calf Tenderness, Cold, Cyanosis, Erythema, Pallor Edema: No Integumentary: Yes: WNL, Other (multiple toe amputations). No: Erythema, Jaundice Neurological: Yes: WNL, Alert Psychiatric: Yes: WNL, Alert Labs: CBC, BMP 10/14/17 05:02 10/14/17 05:02 - ....Imaging Chest X-ray: Report Reviewed, Image Reviewed, Other (Progressive pulmonary and pleural changes with worsened density left base, possible right apical pneumothorax versus skin fold) Assessment/Plan ASSESSMENT/PLAN 82 year-old woman with a PMH significant for HTN, HLD, PVD with multiple recent procedures to BLE, afib on Xarelto, malignant melenoma of LLE, 8 lb weight loss in past couple of months, hypothyroidism, came to ED for hoarseness/difficulty swallowing and became acutely SOB, focal consolidations on CXR, placed on BiPAP , developed fever, BCx taken, ABx started, admitted for aspiration pneumona, probable mass on Chest CT JEROME. RESP #Hypoxic respiratory failure. Possibly 2/2 to aspiration pneumonia, possible CHF (i.e. high output d/t possible lung malignancy or from post-compressive JEROME changes), must also consider PE given multiple recent surgeries and possibility of malignancy, though patient is on home AC. Chest CT done. Taken off BiPAP, maintaining sats 100% on NRB. Possible pneumothorax as of this morning (versus skin fold). -Continue vancomycin/Zosyn -Caution with PPV as patient is being evaluated for possible pneumothorax on CXR this AM -Repeat CXR this PM -Doppler to r/o DVT BLE ordering now -Patient requests consult with Dr. rBanden Sloan as she knows him personally , will do when out of ICU CV #Atrial fibrillation, chronic. On home Xarelto, now replaced with heparin ggt. -rate 100-130s; continue atenolol -hold Xarelto, start heparin drip #Peripheral artery disease -Continue home statin, ASA -Stop Xarelto -Start heparin ggt #Hypertension -Continue atenolol #Hyperlipidemia -Continue statin HEENT #Vocal cord paralysis, unilateral. Diagnosed by Dr. Cabrera within the past couple of days. On CT chest there is a prominent lymph node in the left hilum near expected path of the recurrent laryngeal nerve. CT also concerning for mass in JEROME. Possibility of malignancy as cause. -following multiple intubations over past 3 months -Consult requested for Dr. Cabrera -Speech and swallow evaluation ID #Sepsis. Patient intermittently febrile, tachycardic, tachypneic, mild hypoxia/ respiratory distress requiring BiPAP over night. Possibly 2/2 PNA given consolidations on CXR and high likelihood of aspiration. Also possibly d/t post- obstructive JEROME changes d/t bronchial obstruction i.e. from proximal mass. -F/U BCx taken in ED -Continue vancomycin and Zosyn (today is day 2) -ID consult -Serial CXR and labs -Sepsis order set today including lactate RENAL #SIMON. Cr 1.3 on initial labs, baseline 0.8 per [facility] records. Only 100-200 cc UOP since arrival in the ED yesterday even s/p Lasix. -hold home HCTZ -Hydrate 100cc/h IVF HEME #Possible malignancy. Patient does have h/o malignant melanoma s/p resection and chemo. Chest CT last NOC with concern for malignancy JEROME. Patient has 8 lbs weight loss. -F/U on initial plan for CT chest/abdomen/pelvis ENDO Hypothyrodism -Continue levothyroxine FEN #Weight loss. Reportedly 8 lbs in the past couple of months. DDX IBNLT malignancy, PE, CAD, CHF, endocrine (i.e. thyroid overreplacement). -Monitor daily weight -Dietary consult after speech/swallow eval PPX DVT: Heparin ggt, SCDs GI: PPI PT: When able DISPO Continued ICU care
[2017-10-14] MEDS ORDERED: PT OWN MED DRAWER 7, Y5N ONE (08:03)
--- NOTE | 2017-10-14 08:15 | PN ---
Physical Exam: SUBJECTIVE: Patient seen and examined OBJECTIVE: Vital Signs Period Temp Pulse Resp BP Sys/Vaughn Pulse Ox Last 24 Hr 97.3 F-101.2 F 76-117 19-38 78-149/52-115 94-100 GENERAL: The patient is awake, alert, and fully oriented, in no acute distress. HEAD: Normal with no signs of trauma. EYES: PERRL, extraocular movements intact, sclera anicteric, conjunctiva clear. No ptosis. ENT: Ears normal, nares patent, oropharynx clear without exudates, moist mucous membranes. NECK: Trachea midline, full range of motion, supple. LUNGS: Breath sounds equal, clear to auscultation bilaterally, no wheezes, no crackles, no accessory muscle use. HEART: Regular rate and rhythm, S1, S2 without murmur, rub or gallop. ABDOMEN: Soft, nontender, nondistended, normoactive bowel sounds, no guarding, no rebound, no hepatosplenomegaly, no masses. EXTREMITIES: 2+ pulses, warm, well-perfused, no edema. NEUROLOGICAL: Cranial nerves II through XII grossly intact. Normal speech, gait not observed. PSYCH: Normal mood, normal affect. SKIN: Warm, dry, normal turgor, no rashes or lesions noted Laboratory Results - last 24 hr 10/13/17 10/13/17 10/13/17 14:40 14:40 18:57 WBC 13.0 H D RBC 4.29 Hgb 13.9 D Hct 40.9 MCV 95.3 MCH 32.3 MCHC 33.9 RDW 15.3 Plt Count 310 D MPV 10.1 Neutrophils % 78.7 Lymphocytes % 9.8 Monocytes % 9.8 Eosinophils % 1.0 Basophils % 0.7 Platelet Estimate Adequate Anticoagulation Therapy Puncture Site ABG pH ABG pCO2 at Pt Temp ABG pO2 at Pt Temp ABG HCO3 ABG O2 Sat (Measured) ABG O2 Content ABG Base Excess Alex Test O2 Delivery Device Oxygen Flow Rate Vent Mode Vent Rate Mechanical Rate Pressure Support Vent Sodium 139 Potassium 4.3 Chloride 97 L Carbon Dioxide 28 Anion Gap 14 BUN 63 H Creatinine 1.3 H Creat Clearance w eGFR 39.41 Random Glucose 124 H Calcium 9.5 Phosphorus Magnesium Total Bilirubin 0.5 D AST 56 H ALT 51 Alkaline Phosphatase 94 Creatine Kinase 39 Troponin I < 0.02 C-Reactive Protein B-Natriuretic Peptide 2373.79 H Total Protein 7.1 Albumin 3.2 L Urine Color Brandee Urine Appearance Slcloudy Urine pH 5.0 Ur Specific [place] 1.029 Urine Protein Negative Urine Glucose (UA) Negative Urine Ketones Trace H Urine Blood Negative Urine Nitrite Negative Urine Bilirubin Negative Urine Urobilinogen 4.0 e.u/dl H Ur Leukocyte Esterase Negative 10/13/17 10/14/17 10/14/17 20:00 05:02 05:02 WBC 17.3 H D RBC 3.92 Hgb 12.5 D Hct 38.3 MCV 97.6 H MCH 32.0 MCHC 32.8 RDW 15.4 Plt Count 302 MPV 10.4 Neutrophils % 83.4 H Lymphocytes % 7.6 L D Monocytes % 8.4 Eosinophils % 0.3 Basophils % 0.3 Platelet Estimate Anticoagulation Therapy No Result Required. Puncture Site Right brachial ABG pH 7.39 ABG pCO2 at Pt Temp 42.2 ABG pO2 at Pt Temp 344.0 H* ABG HCO3 25.0 ABG O2 Sat (Measured) 99.8 H* ABG O2 Content 19.2 ABG Base Excess 0.5 Alex Test Positive O2 Delivery Device Bipap Oxygen Flow Rate 100% Vent Mode No Result Required. Vent Rate 14 Mechanical Rate No Result Required. Pressure Support Vent 12/5 Sodium 139 Potassium 4.0 Chloride 96 L Carbon Dioxide 30 Anion Gap 13 BUN 64 H Creatinine 2.4 H Creat Clearance w eGFR 19.42 Random Glucose 117 H Calcium 8.8 Phosphorus 7.1 H Magnesium 2.1 Total Bilirubin 0.6 AST 34 ALT 45 Alkaline Phosphatase 87 Creatine Kinase Troponin I C-Reactive Protein B-Natriuretic Peptide Total Protein 6.6 Albumin 3.0 L Urine Color Urine Appearance Urine pH Ur Specific [place] Urine Protein Urine Glucose (UA) Urine Ketones Urine Blood Urine Nitrite Urine Bilirubin Urine Urobilinogen Ur Leukocyte Esterase 10/14/17 05:02 WBC RBC Hgb Hct MCV MCH MCHC RDW Plt Count MPV Neutrophils % Lymphocytes % Monocytes % Eosinophils % Basophils % Platelet Estimate Anticoagulation Therapy Puncture Site ABG pH ABG pCO2 at Pt Temp ABG pO2 at Pt Temp ABG HCO3 ABG O2 Sat (Measured) ABG O2 Content ABG Base Excess Alex Test O2 Delivery Device Oxygen Flow Rate Vent Mode Vent Rate Mechanical Rate Pressure Support Vent Sodium Potassium Chloride Carbon Dioxide Anion Gap BUN Creatinine Creat Clearance w eGFR Random Glucose Calcium Phosphorus Magnesium Total Bilirubin AST ALT Alkaline Phosphatase Creatine Kinase Troponin I C-Reactive Protein 5.3 H B-Natriuretic Peptide Total Protein Albumin Urine Color Urine Appearance Urine pH Ur Specific [place] Urine Protein Urine Glucose (UA) Urine Ketones Urine Blood Urine Nitrite Urine Bilirubin Urine Urobilinogen Ur Leukocyte Esterase Active Medications Generic Name Dose Route Start Last Admin Trade Name Freq PRN Reason Stop Dose Admin Heparin Sodium (Porcine) 5,000 unit 10/13/17 22:00 10/14/17 05:54 Heparin - SQ 5,000 unit TID ANTONIO Administration Vancomycin HCl 1,250 mg/ 250 mls @ 166.667 mls/hr 10/13/17 23:30 Dextrose IVPB Q12H ANTONIO Piperacillin Sod/Tazobactam 50 mls @ 100 mls/hr 10/14/17 00:00 10/14/17 08:05 Sod 3.375 gm/ Dextrose IVPB 10/14/17 08:29 100 mls/hr Q8H ANTONIO Administration Piperacillin/Tazobactam/Dextrose 3.375 gm 10/13/17 23:30 Zosyn 3.375gm Ivpb (Premix) IVPB Q8H-IV ANTONIO ASSESSMENT/PLAN:
--- NOTE | 2017-10-14 10:59 | CONSULT ---
Admitting History and Physical - Primary Care Physician PCP: Naz Scott - Admission History of Present Illness: Per EMR: 82 year-old woman with a PMH significant for HTN, HLD, PVD with multiple recent procedures to BLE, afib on Xarelto, malignant melenoma of LLE, 8 lb weight loss in past couple of months, hypothyroidism, came to ED for hoarseness/difficulty swallowing and became acutely SOB, focal consolidations on CXR, placed on BiPAP , developed fever, BCx taken, ABx started, admitted for aspiration pneumona. About one month ago, patient developed hoarseness, difficulty swallowing, and choking on PO intake. She has lost 8 pounds in that period of timeVocal cord paralysis diagnosed by ENT. Per nursing written notes, LEFT VC paralysis. History Source: Patient, Family Member Limitations to Obtaining History: Clinical Condition (Pt having difficulty speaking, hypophonic,on NRB.) - Past Medical History Cardiovascular: Yes: AFIB, HTN, Hyperlipdemia Pulmonary: Yes: Previously Intubated Heme/Onc: Yes: Other (Melaonma left lower leg with local recurrence) Endocrine: Yes: Hypothyroidism - Past Surgical History Past Surgical History: Yes: Amputation - Smoking History Smoking history: Former smoker Have you smoked in the past 12 months: No If you are a former smoker, when did you quit?: 2007 - Alcohol/Substance Use Hx Alcohol Use: Yes (socially) History of Substance Use: reports: None - Social History ADL: Independent History of Recent Travel: No History - Admission Reason For Visit: PNEUMONIA - Diagnostics X-ray: Report Reviewed CT Scan: Report Reviewed - General Mental Status: Alert and Oriented, Awake and Alert, Able to Follow Commands, Anxious Attention: Intact Ability to Follow Directions: Good Head/Neck Control: WFL - Hearing Hearing: Functional Speech Evaluation - Communication Primary Language: TAMAZIGHT Communication: Yes: Simple Responses Oral Expression Ability: Yes: Moderate Impairment - Speech Production Able to Make Needs Known: Yes: Moderately Impaired Intelligibility: Yes: Mildly Impaired, Moderately Impaired - Speech Characteristics Voice Loudness: Moderately Soft/Quiet Voice Pitch: Yes: Moderately High Voice Phonatory-based Quality: Yes: Strident, Weak, Dysphonia Speech Pattern: Impaired Speech Clarity: < 50% Nasal Resonance: Normal Articulation: Yes: Precise Voice, Other Observations: Yes: Progressively Weak Voice, Inadequate Breath Support - Language/Auditory Comprehension Observation: Able to respond to yes/no queries: Yes, Yes/No Confusion: No, Comprehends Conversational Speech: Yes - Swallow Evaluation/Bedside Assessment Current Nutritional Intake: NPO Dentition: Yes: Edentulous Facial Symmetry at Rest: Symmetrical Facial Symmetry on Retraction: Symmetrical Facial Movement: Controlled Against Resistance Opening: Normal Against Resistance Closing: Normal Pucker Lips: Normal Smile: Normal Lingual Movement: Normal, Symmetric Lingual Speed of Movement: Normal Lingual Movement Strgth Against Opposition: Normal Lingual Movement Characteristics: Normal Velopharyngeal Movement: Normal Laryngeal Elevation: Impaired Laryngeal Movement: Reduced Excursion, Labored,delay initiation, Reduced Velocity Recommendations - Speech Evaluation, Impression/Plan Impression: Pt with new onset Left VC paralysis, with malignant melenoma and abnormal CT chest. High pitched, weak, dysphonic voice. Poor ability to cough and protect airway. Suspect high risk of aspiration,with impaired airway protection. On NRB. Not easily able to participate in mbs today. - Dysphagia Impressions/Plan Swallowing Skills: Impaired Dysphagia Impressions: Ongoing Evaluation, Suspect Aspiration *Silent aspiration: cannot be R/O at bedside Recommendations: MBS w Esophagus, Other (Npo including medication and ice chips , until mbs performed.) - Recommendations Diet Consistency: NPO Liquids: NPO
--- NOTE | 2017-10-14 11:41 | PN ---
Progress Note, Physician Chief Complaint: Pt lying in bed, in mild resp distress. on NRB mask, mild sob. Otherwise, denies chest pain, n/v/d. - Current Medication List Current Medications: Active Medications Heparin Sodium (Porcine) (Heparin -) 5,000 unit SQ TID ANTONIO Last Admin: 10/14/17 05:54 Dose: 5,000 unit Vancomycin HCl 1,250 mg/ (Dextrose) 250 mls @ 166.667 mls/hr IVPB Q12H ANTONIO Piperacillin/Tazobactam/Dextrose (Zosyn 3.375gm Ivpb (Premix)) 3.375 gm IVPB Q8H-IV ANTONIO - Objective Vital Signs: Vital Signs Temperature 97.3 F L 10/14/17 10:37 Pulse Rate 77 10/14/17 10:00 Respiratory Rate 32 H 10/14/17 09:00 Blood Pressure 82/72 10/14/17 10:00 O2 Sat by Pulse Oximetry (%) 100 10/14/17 10:10 Constitutional: Yes: Calm, Mild Distress Cardiovascular: Yes: Pulse Irregular. No: Bruit, Gallop, Murmur Respiratory: Yes: Diminished, Rhonchi, SOB, Tachypnea, Other (on nonrebreather) Gastrointestinal: Yes: WNL, Normal Bowel Sounds, Soft. No: Distention, Tenderness Edema: Yes Edema: LLE: 1+, RLE: 1+ Neurological: Yes: WNL, Alert, Oriented Psychiatric: Yes: WNL, Alert, Oriented Labs: CBC, BMP 10/14/17 05:02 10/14/17 05:02 - ....Imaging Chest X-ray: Report Reviewed Cat Scan: Report Reviewed Problem List - Problems (1) Pericardial effusion, acute Assessment/Plan: s/p pericardial window f/u on percardial fluid cultures management per CT surgery Code(s): I30.9 - ACUTE PERICARDITIS, UNSPECIFIED (2) Vocal cord paralysis Assessment/Plan: Flexible laryngoscopy w/ left vocal cord paralysis possibly secondary to possible lung mass ENT eval appreciated Code(s): J38.00 - PARALYSIS OF VOCAL CORDS AND LARYNX, UNSPECIFIED (3) Dysphagia Assessment/Plan: as above speech eval when clinically stable Code(s): R13.10 - DYSPHAGIA, UNSPECIFIED Qualifiers: Dysphagia type: unspecified Qualified Code(s): R13.10 - Dysphagia, unspecified (4) Dehydration Assessment/Plan: secondary to poor po intake due to underlying condition ivf per nephrology Code(s): E86.0 - DEHYDRATION (5) SIMON (acute kidney injury) Assessment/Plan: worsened, most likely prerenal renal us without sig findings urine na/cr wnl ivf per renal avoid diuretics nephr following monitor Code(s): N17.9 - ACUTE KIDNEY FAILURE, UNSPECIFIED (6) Pneumonia Assessment/Plan: unclear etiology +fever, +leukocytosis possible aspiration on zosyn and vanco ID consult pending Code(s): J18.9 - PNEUMONIA, UNSPECIFIED ORGANISM Qualifiers: Pneumonia type: due to unspecified organism Laterality: left Lung location: lower lobe of lung Qualified Code(s): J18.1 - Lobar pneumonia, unspecified organism (7) Leukocytosis Assessment/Plan: chest xray unclear treat as HCAP, could be aspiration pna blood cultures neg UC pending on vanco and zosyn ID consult pending Code(s): D72.829 - ELEVATED WHITE BLOOD CELL COUNT, UNSPECIFIED (8) Melanoma Assessment/Plan: suspected metastatic CA malignant melanoma LLE s/p resection and chemotherapy,2008 Code(s): C43.9 - MALIGNANT MELANOMA OF SKIN, UNSPECIFIED (9) Atrial fibrillation Assessment/Plan: rate controlled on xarelto outpt continue heparin drip echo without sig changes cardiology following Code(s): I48.91 - UNSPECIFIED ATRIAL FIBRILLATION Qualifiers: Atrial fibrillation type: paroxysmal Qualified Code(s): I48.0 - Paroxysmal atrial fibrillation (10) Dyspnea on exertion Assessment/Plan: secondary to copd/ lung mass O2 Code(s): R06.09 - OTHER FORMS OF DYSPNEA (11) COPD (chronic obstructive pulmonary disease) Assessment/Plan: hx of heavy smoking Code(s): J44.9 - CHRONIC OBSTRUCTIVE PULMONARY DISEASE, UNSPECIFIED (12) Hypothyroid Assessment/Plan: on synthroid at home enlarged thyroid gland thyroid US when stable will restart once clinically stable Code(s): E03.9 - HYPOTHYROIDISM, UNSPECIFIED (13) Hypertension Assessment/Plan: hold home meds in the setting of hypotension on atenolol and hctz as outpatient Code(s): I10 - ESSENTIAL (PRIMARY) HYPERTENSION Qualifiers: Hypertension type: essential hypertension Qualified Code(s): I10 - Essential (primary) hypertension (1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 Assessment/Plan: s/p revascularization 07/2017 and toe amputation 08/2017, subclavian stent 09/2017 Code(s): I70.262 - ATHSCL [place] ARTERIES OF EXTREMITIES W GANGRENE, LEFT LEG (15) PAD (peripheral artery disease) Code(s): I73.9 - PERIPHERAL VASCULAR DISEASE, UNSPECIFIED (16) HLD (hyperlipidemia) Assessment/Plan: on zocor outpt Code(s): E78.5 - HYPERLIPIDEMIA, UNSPECIFIED (17) Pulmonary congestion Assessment/Plan: chest CT w/ pulm congestion, solid nodules, mass possible metastatic CA, COPD Code(s): R09.89 - OTH SYMPTOMS AND SIGNS INVOLVING THE CIRC AND RESP SYSTEMS (18) Pulmonary HTN Code(s): I27.20 - PULMONARY HYPERTENSION, UNSPECIFIED Assessment/Plan I saw and evaluated pt. I agree with ICU attending's assessment and plan for this pt. Case discussed with PCP 35 minutes spent reviewing chart, assessment and evaluation.
--- NOTE | 2017-10-14 11:56 | PN ---
Teaching Attending Note Name of Resident: Keiry Mcfarlane ATTENDING PHYSICIAN STATEMENT I saw and evaluated the patient. I reviewed the resident's note and discussed the case with the resident. I agree with the resident's findings and plan as documented. SUBJECTIVE: Patient seen and examined in the ICU. Awake, tachypneic on 100% NRBM.. Minimal cough. Denies sputum. Did not tolerate NIPPV well. No pressors. Intake & Output 10/11/17 10/12/17 10/13/17 10/14/17 23:59 23:59 23:59 23:59 Intake Total 0 1000 Output Total 100 0 Balance -100 1000 Weight 172 lb 8 oz 172 lb 8 oz Last Vital Signs Temp Pulse Resp BP Pulse Ox 97.3 F L 77 32 H 82/72 100 10/14/17 10:37 10/14/17 10:00 10/14/17 09:00 10/14/17 10:00 10/14/17 10:10 Active Medications Heparin Sodium (Porcine) (Heparin -) 5,000 unit SQ TID ANTONIO Last Admin: 10/14/17 05:54 Dose: 5,000 unit Vancomycin HCl 1,250 mg/ (Dextrose) 250 mls @ 166.667 mls/hr IVPB Q12H ANTONIO Piperacillin/Tazobactam/Dextrose (Zosyn 3.375gm Ivpb (Premix)) 3.375 gm IVPB Q8H-IV ANTONIO Constitutional: Yes: Tachypneic at rest Eyes: Yes: WNL, Conjunctiva Clear, EOM Intact HENT: Yes: WNL, Atraumatic, Normocephalic Neck: Yes: WNL, Supple, Trachea Midline Cardiovascular: Yes: Pulse Irregular Respiratory: Yes: Accessory Muscle Use, Diminished, Dullness, On 100% NRBM, Rales, Rhonchi, SOB, Tachypnea Gastrointestinal: Yes: WNL, Normal Bowel Sounds, Soft, Abdomen, Obese ...Rectal Exam: Yes: Deferred Renal/: Yes: Anuria Breast(s): Yes: WNL Musculoskeletal: Yes: WNL Extremities: Yes: WNL Edema: No Integumentary: Yes: WNL Neurological: Yes: WNL, Alert, Oriented ...Motor Strength: WNL Psychiatric: Yes: WNL, Alert, Oriented Labs: Laboratory Results - last 24 hr 10/13/17 10/13/17 10/13/17 14:40 14:40 18:57 WBC 13.0 H D RBC 4.29 Hgb 13.9 D Hct 40.9 MCV 95.3 MCH 32.3 MCHC 33.9 RDW 15.3 Plt Count 310 D MPV 10.1 Neutrophils % 78.7 Lymphocytes % 9.8 Monocytes % 9.8 Eosinophils % 1.0 Basophils % 0.7 Platelet Estimate Adequate ESR Anticoagulation Therapy Puncture Site ABG pH ABG pCO2 at Pt Temp ABG pO2 at Pt Temp ABG HCO3 ABG O2 Sat (Measured) ABG O2 Content ABG Base Excess Alex Test O2 Delivery Device Oxygen Flow Rate Vent Mode Vent Rate Mechanical Rate Pressure Support Vent Sodium 139 Potassium 4.3 Chloride 97 L Carbon Dioxide 28 Anion Gap 14 BUN 63 H Creatinine 1.3 H Creat Clearance w eGFR 39.41 Random Glucose 124 H Lactic Acid Calcium 9.5 Phosphorus Magnesium Total Bilirubin 0.5 D AST 56 H ALT 51 Alkaline Phosphatase 94 Creatine Kinase 39 Troponin I < 0.02 C-Reactive Protein B-Natriuretic Peptide 2373.79 H Total Protein 7.1 Albumin 3.2 L Urine Color Brandee Urine Appearance Slcloudy Urine pH 5.0 Ur Specific Sayre 1.029 Urine Protein Negative Urine Glucose (UA) Negative Urine Ketones Trace H Urine Blood Negative Urine Nitrite Negative Urine Bilirubin Negative Urine Urobilinogen 4.0 e.u/dl H Ur Leukocyte Esterase Negative Ur Random Sodium Urine Creatinine 10/13/17 10/14/17 10/14/17 20:00 05:02 05:02 WBC 17.3 H D RBC 3.92 Hgb 12.5 D Hct 38.3 MCV 97.6 H MCH 32.0 MCHC 32.8 RDW 15.4 Plt Count 302 MPV 10.4 Neutrophils % 83.4 H Lymphocytes % 7.6 L D Monocytes % 8.4 Eosinophils % 0.3 Basophils % 0.3 Platelet Estimate ESR Anticoagulation Therapy No Result Required. Puncture Site Right brachial ABG pH 7.39 ABG pCO2 at Pt Temp 42.2 ABG pO2 at Pt Temp 344.0 H* ABG HCO3 25.0 ABG O2 Sat (Measured) 99.8 H* ABG O2 Content 19.2 ABG Base Excess 0.5 Alex Test Positive O2 Delivery Device Bipap Oxygen Flow Rate 100% Vent Mode No Result Required. Vent Rate 14 Mechanical Rate No Result Required. Pressure Support Vent 12/5 Sodium 139 Potassium 4.0 Chloride 96 L Carbon Dioxide 30 Anion Gap 13 BUN 64 H Creatinine 2.4 H Creat Clearance w eGFR 19.42 Random Glucose 117 H Lactic Acid Calcium 8.8 Phosphorus 7.1 H Magnesium 2.1 Total Bilirubin 0.6 AST 34 ALT 45 Alkaline Phosphatase 87 Creatine Kinase Troponin I C-Reactive Protein B-Natriuretic Peptide Total Protein 6.6 Albumin 3.0 L Urine Color Urine Appearance Urine pH Ur Specific [place]re Urine Protein Urine Glucose (UA) Urine Ketones Urine Blood Urine Nitrite Urine Bilirubin Urine Urobilinogen Ur Leukocyte Esterase Ur Random Sodium Urine Creatinine 10/14/17 10/14/17 10/14/17 05:02 05:02 08:00 WBC RBC Hgb Hct MCV MCH MCHC RDW Plt Count MPV Neutrophils % Lymphocytes % Monocytes % Eosinophils % Basophils % Platelet Estimate ESR 19 Anticoagulation Therapy Puncture Site ABG pH ABG pCO2 at Pt Temp ABG pO2 at Pt Temp ABG HCO3 ABG O2 Sat (Measured) ABG O2 Content ABG Base Excess Alex Test O2 Delivery Device Oxygen Flow Rate Vent Mode Vent Rate Mechanical Rate Pressure Support Vent Sodium Potassium Chloride Carbon Dioxide Anion Gap BUN Creatinine Creat Clearance w eGFR Random Glucose Lactic Acid 1.9 Calcium Phosphorus Magnesium Total Bilirubin AST ALT Alkaline Phosphatase Creatine Kinase Troponin I C-Reactive Protein 5.3 H B-Natriuretic Peptide Total Protein Albumin Urine Color Urine Appearance Urine pH Ur Specific Sayre Urine Protein Urine Glucose (UA) Urine Ketones Urine Blood Urine Nitrite Urine Bilirubin Urine Urobilinogen Ur Leukocyte Esterase Ur Random Sodium Urine Creatinine 10/14/17 10/14/17 10/14/17 08:00 09:00 09:00 WBC RBC Hgb Hct MCV MCH MCHC RDW Plt Count MPV Neutrophils % Lymphocytes % Monocytes % Eosinophils % Basophils % Platelet Estimate ESR Anticoagulation Therapy Puncture Site ABG pH ABG pCO2 at Pt Temp ABG pO2 at Pt Temp ABG HCO3 ABG O2 Sat (Measured) ABG O2 Content ABG Base Excess Alex Test O2 Delivery Device Oxygen Flow Rate Vent Mode Vent Rate Mechanical Rate Pressure Support Vent Sodium Potassium Chloride Carbon Dioxide Anion Gap BUN Creatinine Creat Clearance w eGFR Random Glucose Lactic Acid Calcium Phosphorus Magnesium Total Bilirubin AST ALT Alkaline Phosphatase Creatine Kinase 37 Troponin I < 0.02 C-Reactive Protein B-Natriuretic Peptide Total Protein Albumin Urine Color Urine Appearance Urine pH Ur Specific [place] Urine Protein Urine Glucose (UA) Urine Ketones Urine Blood Urine Nitrite Urine Bilirubin Urine Urobilinogen Ur Leukocyte Esterase Ur Random Sodium 42 Urine Creatinine 242.0 Cancelled Problem List - Problems (1) Dehydration Code(s): E86.0 - DEHYDRATION (2) Dysphagia Code(s): R13.10 - DYSPHAGIA, UNSPECIFIED Qualifiers: Dysphagia type: unspecified Qualified Code(s): R13.10 - Dysphagia, unspecified (3) Pneumonia Code(s): J18.9 - PNEUMONIA, UNSPECIFIED ORGANISM Qualifiers: Pneumonia type: due to unspecified organism Laterality: left Lung location: lower lobe of lung Qualified Code(s): J18.1 - Lobar pneumonia, unspecified organism (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 Code(s): I70.262 - ATHSCL [place] ARTERIES OF EXTREMITIES W GANGRENE, LEFT LEG (5) Dyspnea on exertion Code(s): R06.09 - OTHER FORMS OF DYSPNEA (6) Atrial fibrillation Code(s): I48.91 - UNSPECIFIED ATRIAL FIBRILLATION Qualifiers: Atrial fibrillation type: paroxysmal Qualified Code(s): I48.0 - Paroxysmal atrial fibrillation (7) Hypothyroid Code(s): E03.9 - HYPOTHYROIDISM, UNSPECIFIED Assessment/Plan Suspected metastatic CA Pericardial effusion HTN COPD / former heavy smoker Afib on Xarelto Hypothyroid Malignant melanoma Severe PAD Left SCV stent (?) Aspiration PNA Vocal cord dysfunction/paralysis PLAN: -STAT ECHO to assess pericardial effusion -NPO -HOB > 30 -Aspiration precautions -FiO2 prn for an SpO2 > 92% -NIPPV PRN for WOB -BD TX -CPT -IS -ABX -Follow cultures -Currently on Heparin drip -Hold all diuretics for now -SCDs -PPI -Pall Care consult Dr Colindres Critical care time spent in reviewing chart, evaluating patient and formulating plan - 36 minutes.
--- NOTE | 2017-10-14 12:27 | CON.CARD ---
Cardiology Consult (text) - Consultation Consultation Note: CC: sob 82 yo with h/o afib on xarelto, htn, hl, PVD s/p revascularization 07/2017 and toe amputation 08/2017, subclavian stent 09/2017, obesity, hypothyroid, melanoma and chronic low back pain p/w sob. + sob, progressive over past few weeks but now acutely worse, + weakness, dysphagia (both solids and liquids), states she has to regurgitate food. per report, + ~ 8 pound weight loss this month + cough In ER was given IVF --> worsened sob and was placed on bipap. --> given iv lasix with subsequent drop in bp (also fever overnight) no cp, orthopnea, palps, dizziness, loc, pnd no chills/sweats, n/v/d, h/a, congestion, visual disturbances. PAST MEDICAL HISTORY: per hpi PAST SURGICAL HISTORY: cholecystectomy malignant melanoma surgery LLE s/p resection of malignant melenoma LLE, left toe osteomyelitis (2010), revascularization of right leg, revascularization of left leg (07/2017), amputation of left 1st and 2nd gangrenous toes (09/10/2017), and placement of left subclavian stent x 2 weeks ago at [facility] ([facility]). Social History: Smoking: pt denies current use, quit ' 50 pack year history Alcohol: occ- 2-3 drinks/week Drugs: pt denies Family History: mother age 93, had HTN father young, MVC sister lung CA age 68 4 children all alive and well Ambulatory Orders Atenolol [Tenormin -] 50 mg PO BID 02/08/15 Cholecalciferol (Vitamin D3) [Vitamin D3] 1,000 unit PO DAILY 02/08/15 Rivaroxaban [Xarelto -] 20 mg PO DAILY 02/08/15 Simvastatin [Zocor -] 40 mg PO DAILY 02/08/15 Levothyroxine [Synthroid -] 50 mcg PO DAILY 07/30/17 Hydrochlorothiazide [Hctz -] 25 mg PO BID 09/08/17 Acetaminophen [Tylenol -] 500 mg PO PRN 09/10/17 atenolol 50 bid, synthroid, zocor 40, xarelto 20 qd, hctz 25 qd. Current Medications Heparin Sodium (Porcine) (Heparin -) 5,000 unit SQ TID [facility] Last Admin: 10/14/17 05:54 Dose: 5,000 unit Vancomycin HCl 1,250 mg/ (Dextrose) 250 mls @ 166.667 mls/hr IVPB Q12H [facility] Piperacillin/Tazobactam/Dextrose (Zosyn 3.375gm Ivpb (Premix)) 3.375 gm IVPB Q8H-IV ANTONIO Vital Signs - 24 hr 10/13/17 10/13/17 10/13/17 13:08 13:53 18:27 Temperature 97.3 F L Pulse Rate 82 82 Pulse Rate [ 110 H Apical] Respiratory 19 30 H Rate Blood Pressure 129/91 Blood Pressure 149/98 [Left Arm] O2 Sat by Pulse 94 L 97 98 Oximetry (%) 10/13/17 10/13/17 10/13/17 18:45 19:05 20:38 Temperature Pulse Rate Pulse Rate [ 100 H 110 H Apical] Respiratory 26 H 34 H Rate Blood Pressure Blood Pressure 141/52 115/60 [Left Arm] O2 Sat by Pulse 98 100 100 Oximetry (%) 10/13/17 10/13/17 10/13/17 22:35 22:55 23:00 Temperature 101.2 F H Pulse Rate 117 H 102 H Pulse Rate [ Apical] Respiratory 34 H 38 H Rate Blood Pressure 121/94 98/66 Blood Pressure [Left Arm] O2 Sat by Pulse 100 Oximetry (%) 10/13/17 10/14/17 10/14/17 23:30 00:00 00:30 Temperature Pulse Rate 98 H 92 H 97 H Pulse Rate [ Apical] Respiratory 34 H 32 H 34 H Rate Blood Pressure 99/68 78/64 88/54 Blood Pressure [Left Arm] O2 Sat by Pulse Oximetry (%) 10/14/17 10/14/17 10/14/17 01:00 02:00 03:00 Temperature 99.8 F H 99.8 F H Pulse Rate 90 81 91 H Pulse Rate [ Apical] Respiratory 34 H 32 H 33 H Rate Blood Pressure 78/62 129/85 137/115 Blood Pressure [Left Arm] O2 Sat by Pulse Oximetry (%) 10/14/17 10/14/17 10/14/17 04:00 05:00 06:00 Temperature 99 F Pulse Rate 86 76 78 Pulse Rate [ Apical] Respiratory 29 H 28 H 26 H Rate Blood Pressure 99/66 89/76 130/112 Blood Pressure [Left Arm] O2 Sat by Pulse Oximetry (%) 10/14/17 10/14/17 10/14/17 08:00 09:00 10:00 Temperature 98.4 F Pulse Rate 78 77 Pulse Rate [ Apical] Respiratory 32 H 32 H Rate Blood Pressure 87/51 82/72 Blood Pressure [Left Arm] O2 Sat by Pulse 100 Oximetry (%) 10/14/17 10/14/17 10:10 10:37 Temperature 97.3 F L Pulse Rate Pulse Rate [ Apical] Respiratory Rate Blood Pressure Blood Pressure [Left Arm] O2 Sat by Pulse 100 Oximetry (%) Intake & Output 10/12/17 10/13/17 10/14/17 10/15/17 07:59 07:59 07:59 07:59 Intake Total 1000 Output Total 100 Balance 900 Weight 172 lb 8 oz nad, calm jvd tds, neck supple bibasilar dullness, nl effort rrr nl s1, s2 no mrg + bs soft nt nd ext with trace edema. no c/c no carotid bruits + dp/pt aaox3 no jaundice, diaphoresis. CBC, BMP 10/14/17 05:02 10/14/17 05:02 Selected Entries 10/13/17 10/14/17 22:55 00:00 Temperature 101.2 F H Blood Pressure 78/64 Laboratory Tests 10/13/17 10/13/17 10/14/17 14:40 20:00 05:02 ESR ABG pH 7.39 ABG pCO2 at Pt Temp 42.2 ABG pO2 at Pt Temp 344.0 H* Creatinine 1.3 H Lactic Acid Magnesium 2.1 Total Bilirubin 0.5 D AST 56 H 34 ALT 51 Alkaline Phosphatase 94 Creatine Kinase 39 Troponin I < 0.02 C-Reactive Protein B-Natriuretic Peptide 2373.79 H Albumin 3.0 L 10/14/17 10/14/17 10/14/17 05:02 05:02 08:00 ESR 19 ABG pH ABG pCO2 at Pt Temp ABG pO2 at Pt Temp Creatinine Lactic Acid 1.9 Magnesium Total Bilirubin AST ALT Alkaline Phosphatase Creatine Kinase Troponin I C-Reactive Protein 5.3 H B-Natriuretic Peptide Albumin 10/14/17 08:00 ESR ABG pH ABG pCO2 at Pt Temp ABG pO2 at Pt Temp Creatinine Lactic Acid Magnesium Total Bilirubin AST ALT Alkaline Phosphatase Creatine Kinase 37 Troponin I < 0.02 C-Reactive Protein B-Natriuretic Peptide Albumin ekg: afib, low voltage qrs. no acute ischemic changes. tele: rate controlled afib 70's-80's (100's on arrival to ICU). 4 beat NSVT x 1 echo pending: ct: images and report reviewed. asymmetric pleural effusion and pericardial effusion noted. see emr for detailed report. mibi 01/2015: lexiscan, no ecg changes, normal MPI, resting ecg showed afib echo 04/2017: nl lv/rv, no sig valve path, nl rvsp office ekg: from april: afib, borderline low voltages. poor r wave progression. similar to priors. Assessment/plan. 82 yo with h/o afib on xarelto, htn, hl, PVD s/p revascularization 07/2017 and toe amputation 08/2017, subclavian stent 09/2017, obesity, hypothyroid, melanoma and chronic low back pain p/w sob. sob/resp failure/pericardial effusion - on initial ER evaluation appeared to have worsened respiratory distress s/p IVF bolus. --> placed on bipap and given 40 mg IV lasix x 2. Subsequent hypotension (also in setting of fever to 102), sbp ofelia 70's overnight and worsened tiffany this morning. - infection vs. malignacy on ct scan. --> likely etiology of asymmetric pleural effusion. would not give further lasix especially in setting of pericardial effusion. - + pericardial effusion on ct scan, stat echo pending. gentle IVF to prevent tamponade physiology. afib - AC with xarelto as outpatient - rate controlled off home atenolol - lyte repletion prn. mgm't of underlying infection/resp status per pmd/pulm/ icu htn - on atenolol and hctz as outpatient, currently holding. hypotensive overnight. PAD - s/p L [employer] , residual distal dz. followed by vascular as outpatient. - s/p subclavian stent. check to see if bp equal in both arms. - resume statin once acute issues resolve. tiffany - acute worsening of Creatinine in setting of hypotension overnight (sbp ofelia 70's). May also have been exacerbated by IV lasix. Con't IVF. hl, - on zocor as outpatient. cct: 35 min
--- NOTE | 2017-10-14 14:25 | EKG ---
Test Reason : Blood Pressure : / mmHG Vent. Rate : 081 BPM Atrial Rate : 300 BPM P-R Int : 000 ms QRS Dur : 064 ms QT Int : 376 ms P-R-T Axes : 000 065 076 degrees QTc Int : 436 ms POOR DATA QUALITY, INTERPRETATION MAY BE ADVERSELY AFFECTED ATRIAL FIBRILLATION LOW VOLTAGE QRS CANNOT RULE OUT ANTERIOR INFARCT , AGE UNDETERMINED ABNORMAL ECG WHEN COMPARED WITH ECG OF 27-APR-2010 18:41, ATRIAL FIBRILLATION HAS REPLACED SINUS RHYTHM VENT. RATE HAS INCREASED BY 31 BPM QUESTIONABLE CHANGE IN QRS AXIS NONSPECIFIC T WAVE ABNORMALITY NOW EVIDENT IN INFERIOR LEADS Confirmed by MD Kandy, Christian ([id number]) on 10/14/2017 2:25:18 PM Referred By: Confirmed By:Christian Gaitan MD
[2017-10-14] MEDS ORDERED: SODIUM CHLORIDE 250 ML IV STA ×2 (14:45→22:04)
[2017-10-14] MEDS ORDERED: PROPOFOL 20 ML ONE (15:37)
[2017-10-14] MEDS ORDERED: ROCURONIUM BROMIDE 50 MG/5 ML VIAL ONE (15:38)
[2017-10-14] MEDS ORDERED: ePHEDrine SULFATE 50 MG/1 ML AMPULE ONE (15:38)
[2017-10-14] MEDS ORDERED: SUCCINYLCHOLINE CHLORIDE 200 MG/10 ML VIAL ONE (15:38)
[2017-10-14] MEDS ORDERED: PHENYLEPHRINE HCL 10 MG/1 ML SINGLE DOSE VIAL ONE (15:38)
[2017-10-14] MEDS ORDERED: KETAMINE HCL 200 MG/20 ML VIAL ONE (15:40)
[2017-10-14] MEDS ORDERED: SODIUM CHLORIDE 0.9% P/F 10 ML VIAL IJ ONE (15:42)
[2017-10-14] MEDS ORDERED: LIDOCAINE HCL 1%, 10 MG/ML (20ML VIAL) ONE (15:50)
--- NOTE | 2017-10-14 15:59 | PN ---
Progress Note (short form) - Note Progress Note: family meeting held at bedside with patient and family Patient is currently hypotensive Current medical condition discussed and explained to patient and family. Goals of care discussed with family and patient Patient would currently like to be full code. She will think about DNR/DNI after OR and based on the outcome of her pericardial window patient not a candidate for IR pericardiocentesis as discussed with Dr. Myers. Patient took Xarelto yesterday. She will be going to OR for pericardial window today Case discussed with Dr. Colindres and Dr. Forbes.
[2017-10-14] MEDS ORDERED: LIDOCAINE 1%/EPI 1:100000 (20 ML MULTI DOSE VIAL) ONE (16:13)
--- NOTE | 2017-10-14 16:38 | CONSULT ---
Consult Consult Specialty:: Nephrology Reason for Consultation:: SIMON - History of Present Illness Chief Complaint: shortness of breath History of Present Illness: Pt is an 82 year old female with pmhx of HTN, a-fib, melanoma, and hypothyroidism who presents to the ER complaining of increased shortness of breath. She also complains of dysphagia. She was initially given IV fluids in the ER. She subsequently had shortness of breath and was given a few doses of IV lasix. She then became hypotensive. I was called to evaluate her for SIMON. She also has had decreased urine output. He was found to had a pericardial effusion on echo and CT scan. She is now in the ICU. Her blood pressure is still low. 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 - Alcohol/Substance Use Hx Alcohol Use: Yes (socially) History of Substance Use: reports: None - Smoking History Smoking history: Former smoker Have you smoked in the past 12 months: No If you are a former smoker, when did you quit?: 2007 - Social History Usual Living Arrangement: With Spouse ADL: Independent History of Recent Travel: No Home Medications - Allergies Allergies/Adverse Reactions: Allergies Allergy/AdvReac Type Severity Reaction Status Date / Time atorvastatin [From Lipitor] Allergy Intermediate Verified 10/13/17 13:07 fentanyl AdvReac Verified 10/13/17 13:08 - Home Medications Home Medications: Ambulatory Orders Atenolol [Tenormin -] 50 mg PO BID 02/08/15 Cholecalciferol (Vitamin D3) [Vitamin D3] 1,000 unit PO DAILY 02/08/15 Rivaroxaban [Xarelto -] 20 mg PO DAILY 02/08/15 Simvastatin [Zocor -] 40 mg PO DAILY 07/01/15 Levothyroxine [Synthroid -] 50 mcg PO DAILY 07/30/17 Hydrochlorothiazide [Hctz -] 25 mg PO BID 09/08/17 Acetaminophen [Tylenol -] 500 mg PO PRN 09/10/17 Family Disease History - Family Disease History Family Disease History: CA: Sister (lung), Other: Mother (HTN) Review of Systems - Review of Systems Constitutional: reports: Malaise Eyes: reports: No Symptoms HENT: reports: No Symptoms Neck: reports: No Symptoms Cardiovascular: reports: Shortness of Breath Respiratory: reports: SOB, SOB on Exertion Gastrointestinal: reports: Dysphagia Genitourinary: reports: No Symptoms Musculoskeletal: reports: Muscle Weakness Endocrine: reports: No Symptoms Hematology/Lymphatic: reports: No Symptoms Psychiatric: reports: No Symptoms Physical Exam Vital Signs: Vital Signs Temperature 97.3 F L 10/14/17 14:00 Pulse Rate 100 H 10/14/17 14:00 Respiratory Rate 24 10/14/17 14:00 Blood Pressure 68/50 10/14/17 14:00 O2 Sat by Pulse Oximetry (%) 100 10/14/17 15:02 Constitutional: Yes: Anxious Eyes: Yes: Conjunctiva Clear HENT: Yes: Atraumatic Cardiovascular: Yes: S1, S2 Respiratory: Yes: On Venti-Mask, Tachypnea Gastrointestinal: Yes: Soft Renal/: Yes: Howard Present Musculoskeletal: Yes: Muscle Weakness Edema: No Neurological: Yes: Oriented Psychiatric: Yes: Oriented Labs: CBC, BMP 10/14/17 05:02 10/14/17 05:02 Laboratory Tests 08/03/17 08/04/17 09/11/17 09:23 07:00 06:15 WBC Hgb Sodium Potassium Chloride BUN Creatinine 1.0 0.9 0.8 Lactic Acid Magnesium Urine Protein Urine Blood 10/13/17 10/13/17 10/13/17 14:40 14:40 18:57 WBC 13.0 H D Hgb 13.9 D Sodium Potassium Chloride BUN Creatinine 1.3 H Lactic Acid Magnesium Urine Protein Negative Urine Blood Negative 10/14/17 10/14/17 10/14/17 05:02 05:02 08:00 WBC 17.3 H D Hgb 12.5 D Sodium 139 Potassium 4.0 Chloride 96 L BUN 64 H Creatinine 2.4 H Lactic Acid 1.9 Magnesium 2.1 Urine Protein Urine Blood Imaging - Results X-ray: Report Reviewed Cat Scan: Report Reviewed Other: Report Reviewed (echo reviewed) Problem List - Problems (1) SIMON (acute kidney injury) Code(s): N17.9 - ACUTE KIDNEY FAILURE, UNSPECIFIED (2) Melanoma Code(s): C43.9 - MALIGNANT MELANOMA OF SKIN, UNSPECIFIED (3) Atrial fibrillation Code(s): I48.91 - UNSPECIFIED ATRIAL FIBRILLATION Qualifiers: Atrial fibrillation type: paroxysmal Qualified Code(s): I48.0 - Paroxysmal atrial fibrillation (4) Hypothyroid Code(s): E03.9 - HYPOTHYROIDISM, UNSPECIFIED Assessment/Plan Current Medications Generic Name Dose Route Start Last Admin Trade Name Freq PRN Reason Stop Dose Admin Heparin Sodium (Porcine) 5,000 unit 10/13/17 22:00 10/14/17 14:01 Heparin - SQ 5,000 unit TID ANTONIO Administration Vancomycin HCl 1,250 mg/ 250 mls @ 166.667 mls/hr 10/13/17 23:30 Dextrose IVPB Q12H ANTONIO Piperacillin/Tazobactam/Dextrose 3.375 gm 10/13/17 23:30 Zosyn 3.375gm Ivpb (Premix) IVPB Q8H-IV ANTONIO Impression 1. SIMON 2. pericardial effusion 3. resp failure requiring bipap 4. hx melanoma 5. possible metastatic disease 6. hypotension 7. hypothyroid 8. HLD 9. COPD 10. formal smoker 11. possible mass in pericardial sac Plan - ct surgery eval for effusion - give trial of fluids - monitor blood pressure - monitor in ICU - SIMON likely from hypotension and prerenal disease - check renal ultrasound - check ua and lytes - clarify advanced directives - monitor lactic acid levels - monitor urine output - will need to monitor vanco levels - prognosis is poor - keep in ICU - discussed with ICU team - will follow Dr Waite
[2017-10-14] MEDS ORDERED: ceFAZolin SODIUM 1 GM VIAL ONE (17:35)
[2017-10-14] MEDS ORDERED: MIDAZOLAM HCL 2 MG/2 ML SINGLE DOSE VIAL ONE (17:47)
--- NOTE | 2017-10-14 18:20 | PN ---
Progress Note (short form) - Note Progress Note: ENT pt seen in office just prior to her presentation to [facility] ER hx dysphonia, dysphagia choking weight loss Flexible laryngoscopy showed left vocal cord paralysis exam also showed enlarged thyroid gland since admission, CT scan of chest shows large left upper lobe mass, likely malignant this would account for the left vocal cord paralysis, hoarseness and symptoms of aspiration, with accompanying weight loss as pt is afraid to swallow pt has had an eventful hospital course and is presently in operating room undergoing pericardial window. Longer term, also advise thyroid ultrasound and speech/swallowing evaluation with Veronica Blue, both when pt is clinically stable. Branden Cabrera MD FACS
--- NOTE | 2017-10-14 18:40 | OP ---
Operative Note - Note: Operative Date: 10/14/17 Pre-Operative Diagnosis: Pericardial effusion/possible tamponade Operation: Subxiphoid pericardial window Findings: 500cc bloody fluid in pericardial space Post-Operative Diagnosis: Same as Pre-op Surgeon: Rno Forbes Anesthesiologist/RESEARCH ATTORNEY: Rommel Mejia Anesthesia: MAC Specimens Removed: 500cc fluid, pericardial window Estimated Blood Loss (mls): 5 Drains & Tubes with Location: 1 chest tube in pericardial space Operative Report Dictated: Yes
--- NOTE | 2017-10-14 18:50 | OPR ---
Patient Name: Fariba Austin MR#: [id number] Procedure Date: 10/14/2017 Preoperative Diagnosis: Pericardial effusion/Possible tamponade Postoperative Diagnosis: same. Procedure: 1. Subxiphoid pericardial window. Indication: Impending tamponade; Surgeon(s): Ron Forbes MD Cosurgeon: jefry [employer] Supervisor Surgeon: jefry. Anesthesia: MAC; Findings: 500cc bloody fluid in pericardium; no obvious tumor; slightly improved BP after removal of fluid but no improvement of respiratory function. Specimens Sent: 1. na; Complications: none Drains / Tubes / Catheters: 1 tube Hardware / Implants: na Blood / Fluid Losses: minimal Post-Operative Condition: Stable. Indications: This patient is a 82 year-old female with metastatic melanoma, recent advancement of disease and a new pericardial effusion associated with hypotension. The ICU team consulted regarding the impending tamponade and I and the ICU team had a discussion about goals of care with the patient and her family. It was unclear how much this would help but since whe was in renal failure, we thought it might contribute to improvement of this and perhaps extend her life. All questions were answered and the patient and the family understood and agreed to the procedure. Details of Procedure: After being prepared and draped in the supine position we began with an upper midline incision over the xiphoid process after giving local. We opened the fascia and then retracted upwards on the sternum. We identified the pericardium and opened it draining approximately 500cc of sanguineous fluid. We then resected one 2x2cm patch of pericardium to be sent for pathology and cultures. Cytology was also sent for the fluid. We then placed a drain posterior to the heart and in the and secured it to the skin. We next closed the fascia with vicryl sutures and then the skin with enrrique. Sterile dressings were placed. The patient was awake throughout the procedure. After drainage, her pressure improved but her breathing remained laborious before, during, and after the procedure.She was transferred to the ICU in hemodynamically stable condition.
[2017-10-14] MEDS: SODIUM CHLORIDE 1,000 ML IV SCH (19:00)
[2017-10-14] MEDS: PIPERACILLIN/TAZOB 2.25 GM 2.25 GM in DEXTROSE 5%-WATER - 50 ML IVPB SCH (20:17)
[2017-10-14] MEDS ORDERED: PIPERACILLIN/TAZOB 2.25 GM/50 ML PREMIX BAG IVPB SCH (21:00)
[2017-10-14 21:11] LABS: ANION GAP 13 (8-16); BLOOD UREA NITROGEN 73 mg/dL (7-18); CHLORIDE 102 mmol/L (98-107); CO2 24 mmol/L (21-32); GLUCOSE,RANDOM 108 mg/dL (74-106); MAGNESIUM 1.7 mg/dL (1.8-2.4); POTASSIUM 3.8 mmol/L (3.5-5.1); SODIUM 139 mmol/L (136-145)
[2017-10-14 21:12] LABS: CREATININE 2.5 mg/dL (0.55-1.02); PHOSPHOROUS 6.7 mg/dL (2.5-4.9)
[2017-10-14] MEDS ORDERED: SODIUM CHLORIDE 500 ML IV STA (22:02)
--- NOTE | 2017-10-14 22:03 | PN ---
Progress Note, Physician - Current Medication List Current Medications: Active Medications Fentanyl (Sublimaze Injection -) 25 mcg IVPUSH Q8H PRN PRN Reason: PAIN LEVEL 6-10 Stop: 10/15/17 18:29 Last Admin: 10/14/17 20:16 Dose: 25 mcg Sodium Chloride (Normal Saline -) 1,000 mls @ 75 mls/hr IV ASDIR ANTONIO Last Admin: 10/14/17 19:00 Dose: 75 mls/hr Piperacillin Sod/Tazobactam (Sod 2.25 gm/ Dextrose) 50 mls @ 100 mls/hr IVPB Q6H-IV ANTONIO Stop: 10/15/17 09:29 Last Admin: 10/14/17 20:17 Dose: 100 mls/hr Sodium Chloride (Normal Saline -) 500 mls @ 500 mls/hr IV ASDIR STA Stop: 10/14/17 23:01 Piperacillin/Tazobactam/Dextrose (Zosyn 2.25gm Ivpb (Premix)) 2.25 gm IVPB Q6H- IV ANTONIO Stop: 10/15/17 20:59 - Objective Vital Signs: Vital Signs Temperature 97.3 F L 10/14/17 14:00 Pulse Rate 82 10/14/17 20:40 Respiratory Rate 24 10/14/17 20:40 Blood Pressure 119/40 10/14/17 20:40 O2 Sat by Pulse Oximetry (%) 100 10/14/17 15:02 Labs: CBC, BMP 10/14/17 05:02 10/14/17 19:45 Assessment/Plan Patient has been hypotensive, MAP ranging from 58-62. At 10:05 pm, BP 70/33 MAP 43. Will give her IV NS 250mls bolus and re-evaluate.
[2017-10-14] MEDS ORDERED: ACETAMINOPHEN 325 MG TABLET (FP) PO ONE (22:08)
[2017-10-14] MEDS ORDERED: ACETAMINOPHEN 1000 MG/100 ML VIAL (NON FORMULARY) IVPB ONE (22:10)
[2017-10-15] MEDS: SODIUM CHLORIDE 1,000 ML IV SCH (01:44)
[2017-10-15] MEDS ORDERED: MAGNESIUM SULF 50% (8.12 MEQ/2 ML-1 GM VIAL) IVPB ONE (01:59)
[2017-10-15] MEDS: PIPERACILLIN/TAZOB 2.25 GM 2.25 GM in DEXTROSE 5%-WATER - 50 ML IVPB SCH ×2 (02:00→08:53)
[2017-10-15] MEDS ORDERED: PIPERACILLIN/TAZOB 2.25 GM/50 ML PREMIX BAG IVPB SCH (02:00)
--- NOTE | 2017-10-15 07:01 | PN ---
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 About one month ago, patient developed hoarseness, difficulty swallowing, and choking on PO intake. She has lost 8 pounds in that period of time. She has been seen and evaluated several times by her PCP Dr. Woodall. Earlier this week she saw ENT specialist Dr. Cabrera who reportedly told patient she has vocal cord paralysis on one side, possibly secondary to multiple intubations. On the recommendations of Dr. Woodall and Dr. Cabrera, patient came to the ED. PCP is Dr. Woodall. SUBJECTIVE Urgent goals of care discussion yesterday PM, patient is full code for now. Hypotensive yesterday PM and was taken for pericardial window by Dr. Forbes, MAC anesthesia, 50 cc EBL, gave 900cc LR, returned to ICU with systolic BP >100 , became hypotensive to 70s shortly after and was given additional 250cc with improvement, on NRB. 24 HOUR INTAKE & OUTPUT Intake: 2400cc, 1350cc so far this period Output: 280 last full 24 hour period, 480cc so far this period Net: 2120cc last period, 870 so far this period BM: None LINES/TUBES/DRAINS Howard placed 10/13/17 Pericardial drain placed 10/14/17 - Current Medication List Current Medications: Active Medications Fentanyl (Sublimaze Injection -) 25 mcg IVPUSH Q8H PRN PRN Reason: PAIN LEVEL 6-10 Stop: 10/15/17 18:29 Last Admin: 10/15/17 01:43 Dose: 25 mcg Sodium Chloride (Normal Saline -) 1,000 mls @ 75 mls/hr IV ASDIR ANTONIO Last Admin: 10/15/17 01:44 Dose: 75 mls/hr Piperacillin Sod/Tazobactam (Sod 2.25 gm/ Dextrose) 50 mls @ 100 mls/hr IVPB Q6H-IV ANTONIO Stop: 10/15/17 09:29 Last Admin: 10/15/17 02:00 Dose: 100 mls/hr Influenza Virus Vaccine Quadrival (Flulaval Quad [id number]) 60 mcg IM .ONCE ONE Stop: 10/15/17 02:00 Piperacillin/Tazobactam/Dextrose (Zosyn 2.25gm Ivpb (Premix)) 2.25 gm IVPB Q6H- IV ANTONIO Stop: 10/15/17 20:59 - Objective Vital Signs: Vital Signs Temperature 97.8 F 10/15/17 06:00 Pulse Rate 91 H 10/15/17 06:00 Respiratory Rate 24 10/15/17 06:00 Blood Pressure 103/45 10/15/17 06:00 O2 Sat by Pulse Oximetry (%) 100 10/14/17 22:00 Constitutional: Yes: Well Nourished, No Distress, Calm, Other (on NRB and in mild respiratory distress much improved from yesterday afternoon, speaking with slightly improved hoarseness, conversive and appropriate) Eyes: Yes: WNL, Conjunctiva Clear, EOM Intact HENT: Yes: WNL, Atraumatic, Normocephalic Neck: Yes: WNL, Supple, Trachea Midline Cardiovascular: Yes: Regular Rate and Rhythm, S1, S2, Other (heart sounds much more audible than muffled/distant tones yesterday) Respiratory: Yes: On Venti-Mask, Tachypnea (mild), Other (diminished breath sounds on the left at apex and mid-lung, subxyphoid pericardial drain in place with serosanguinous drainage) Gastrointestinal: Yes: WNL, Normal Bowel Sounds, Soft Genitourinary: Yes: Other (oliguria but improved from yesterday) Musculoskeletal: Yes: WNL. No: Back Pain Extremities: Yes: WNL, Other (LLE scarring from prior surgery) Integumentary: Yes: WNL. No: Erythema, Jaundice Wound/Incision: Yes: Clean/Dry, Well Approximated, Dressing Dry and Intact Neurological: Yes: WNL, Alert, Oriented Psychiatric: Yes: WNL, Alert, Oriented - ....Imaging Chest X-ray: Report Reviewed, Image Reviewed, Other (No significant change from yesterday's studies other than upper abdominal clips. Cardiomegaly, persistent JEROME opacity, persistent RUL skin fold versus small pneumothorax) Assessment/Plan ASSESSMENT/PLAN 82 year-old woman with a PMH significant for HTN, HLD, PVD with multiple recent procedures to BLE, afib on Xarelto, malignant melenoma of LLE, 8 lb weight loss in past couple of months, hypothyroidism, came to ED for hoarseness/difficulty swallowing and became acutely SOB, focal consolidations on CXR, placed on BiPAP , developed fever, BCx taken, ABx started, admitted for aspiration pneumona, probable mass on Chest CT JEROME. Now s/p pericardial window for moderate-large pericardial effusion with impending tamponade. RESP #Hypoxic respiratory failure, improved. Possibly 2/2 to aspiration pneumonia, possible CHF (i.e. high output d/t possible lung malignancy or from post- compressive JEROME changes), must also consider PE given multiple recent surgeries and possibility of malignancy, though patient is on home AC. Chest CT done. Taken off BiPAP, maintaining sats 100% on NRB. Possible pneumothorax as of this morning (versus skin fold). -Continue vancomycin/Zosyn -Caution with PPV d/t possibility of PTX, but patient refuses BiPAP anyway -Serial CXR -When stable and recovered after a few days will do bronchoscopy and biopsy -Patient requests consult with Dr. Branden Sloan as she knows him personally , will do when out of ICU -Per goals of care discussion the patient would want intubation and "one round" of ACLS CV #Cardiac tamponade, resolved with pericardial window. No obvious tamponade physiology was seen on echo from 10/14/17 but it was noted this was a suboptimal study and the patient was clinically showing worsening signs of tamponade on the afternoon of 10/14/17. (Worsening hypotension, mild intermittent tachycardia, and JVD). Pericardial window and catheter placement with 500cc immediate bloody output, also with continued slow drainage since that time. -F/U cytology and culture results of pericardial fluid -Monitor pericardial drain output #Atrial fibrillation, chronic. Was on home Xarelto, replaced with heparin ggt, now off these d/t OR procedure yesterday PM. -rate 100-130s; continue atenolol -hold Xarelto, start heparin drip #Peripheral artery disease -Continue home statin, ASA -Heparin ggt #Hypertension -Continue atenolol #Hyperlipidemia -Continue statin HEENT #Vocal cord paralysis, unilateral. Diagnosed by Dr. Cabrera within the past couple of days. On CT chest there is a prominent lymph node in the left hilum near expected path of the recurrent laryngeal nerve. CT also concerning for mass in JEROME. Possibility of malignancy as cause. -following multiple intubations over past 3 months -Consult requested for Dr. Cabrera -Speech and swallow evaluation 10/16/17 ID #Sepsis. Patient intermittently febrile, tachycardic, tachypneic, mild hypoxia/ respiratory distress requiring BiPAP over night. Possibly 2/2 PNA given consolidations on CXR and high likelihood of aspiration. Also possibly d/t post- obstructive JEROME changes d/t bronchial obstruction i.e. from proximal mass. -F/U BCx taken in ED -Continue vancomycin and Zosyn (today is day 2) -ID consult -Serial CXR and labs -Sepsis order set today including lactate RENAL #SIMON. Cr 1.3 on initial labs, baseline 0.8 per [facility] records. Only 100-200 cc UOP since arrival in the ED yesterday even s/p Lasix. US renal is negative for acute pathology. -Hold home HCTZ -Hydrate 100cc/h IVF HEME #Possible malignancy. Patient does have h/o malignant melanoma s/p resection and chemo. Chest CT with concern for malignancy JEROME. Patient has 8 lbs weight loss. -F/U on initial plan for CT chest/abdomen/pelvis -Discuss plan for bronchoscopy and biopsy once stable #High risk for PE. Given likely active malignancy, multiple recent surgeries, now hospitalization. Negative BLE Duplex. -Discuss SCDs and TEDs -Restart anticoagulant or heparin when able ENDO Hypothyrodism -Continue levothyroxine FEN #Weight loss. Reportedly 8 lbs in the past couple of months. DDX IBNLT malignancy, PE, CAD, CHF, endocrine (i.e. thyroid overreplacement). -Monitor daily weight -Dietary consult after speech/swallow eval -The patient asks to have ice chips now, states quality of life issue, risks discussed and she understands, ice chips given. PPX DVT: Refusing SCDs and TEDs, holding AC and heparin for now as patient is recent post-op GI: PPI PT: When able DISPO Continued ICU care
[2017-10-15 07:09] LABS: BASO % 0.5 % (0-2.0); EOS % 0.6 % (0-4.5); HEMATOCRIT 34.2 % (32.4-45.2); HEMOGLOBIN 11.5 GM/dL (10.7-15.3); LYMPH % 4.6 % (8-40); MCH 32.1 pg (25.7-33.7); MCHC 33.6 g/dl (32.0-36.0); MEAN CELL VOLUME 95.5 fl (80-96); MEAN PLT VOLUME 9.8 fl (7.5-11.1); MONO % 9.1 % (3.8-10.2); NEUT % 85.2 % (42.8-82.8); PLATELET COUNT 246 K/MM3 (134-434); RBC 3.58 M/mm3 (3.60-5.2); WHITE BLOOD COUNT 15.4 K/mm3 (4.0-10.0)
[2017-10-15 07:13] LABS: ALBUMIN 2.4 g/dl (3.4-5.0); ALK PHOS 70 U/L (45-117); ANION GAP 15 (8-16); BILIRUBIN,TOTAL 0.5 mg/dL (0.2-1.0); BLOOD UREA NITROGEN 65 mg/dL (7-18); CALCIUM 7.9 mg/dL (8.5-10.1); CHLORIDE 103 mmol/L (98-107); CO2 24 mmol/L (21-32); CREATININE 2.1 mg/dL (0.55-1.02); GLUCOSE,RANDOM 105 mg/dL (74-106); MAGNESIUM 2.7 mg/dL (1.8-2.4); PHOSPHOROUS 5.5 mg/dL (2.5-4.9); POTASSIUM 3.6 mmol/L (3.5-5.1); SGOT/AST 20 U/L (15-37); SGPT/ALT 27 U/L (12-78); SODIUM 142 mmol/L (136-145); TOT PROT 5.5 g/dl (6.4-8.2)
[2017-10-15 07:27] LABS: INR 1.26 (0.82-1.09); PROTHROMBIN TIME (PATIENT) 14.2 SEC (9.98-11.88)
[2017-10-15 07:28] LABS: ACTIVATED PTT 24.2 SECONDS (26.9-34.4)
--- NOTE | 2017-10-15 08:29 | PN ---
Progress Note, Physician Chief Complaint: s/p pericardial window under MAC anesthesia History of Present Illness: post op day one - Current Medication List Current Medications: Active Medications Fentanyl (Sublimaze Injection -) 25 mcg IVPUSH Q8H PRN PRN Reason: PAIN LEVEL 6-10 Stop: 10/15/17 18:29 Last Admin: 10/15/17 01:43 Dose: 25 mcg Sodium Chloride (Normal Saline -) 1,000 mls @ 75 mls/hr IV ASDIR ANTONIO Last Admin: 10/15/17 01:44 Dose: 75 mls/hr Piperacillin Sod/Tazobactam (Sod 2.25 gm/ Dextrose) 50 mls @ 100 mls/hr IVPB Q6H-IV ANTONIO Stop: 10/15/17 09:29 Last Admin: 10/15/17 02:00 Dose: 100 mls/hr Influenza Virus Vaccine Quadrival (Flulaval Quad [id number]) 60 mcg IM .ONCE ONE Stop: 10/15/17 02:00 Piperacillin/Tazobactam/Dextrose (Zosyn 2.25gm Ivpb (Premix)) 2.25 gm IVPB Q6H- IV ANTONIO Stop: 10/15/17 20:59 - Objective Vital Signs: Vital Signs Temperature 97.8 F 10/15/17 06:00 Pulse Rate 91 H 10/15/17 06:00 Respiratory Rate 24 10/15/17 06:00 Blood Pressure 103/45 10/15/17 06:00 O2 Sat by Pulse Oximetry (%) 100 10/14/17 22:00 Constitutional: Yes: Well Nourished Cardiovascular: Yes: Regular Rate and Rhythm Respiratory: Yes: Accessory Muscle Use Gastrointestinal: Yes: Abdomen, Obese Labs: CBC, BMP 10/15/17 06:30 10/15/17 06:30 INR, PTT INR 1.26 (0.82-1.09) H 10/15/17 06:30 Assessment/Plan patient appears to be tachypnic but does not seem to be in danger of tiring out. Vital signs are stable, no adverse effects of anesthetic. Dept of anesthesia will sign off care at this time and leave management to the ICU team.
--- NOTE | 2017-10-15 09:32 | PN ---
Progress Note, Physician Chief Complaint: Pt lying in bed, in mild resp distress. reports she feels better than yesterday. asking if she can drink/eat. Otherwise, denies chest pain, n/v/d. - Current Medication List Current Medications: Active Medications Fentanyl (Sublimaze Injection -) 25 mcg IVPUSH Q8H PRN PRN Reason: PAIN LEVEL 6-10 Stop: 10/15/17 18:29 Last Admin: 10/15/17 01:43 Dose: 25 mcg Sodium Chloride (Normal Saline -) 1,000 mls @ 75 mls/hr IV ASDIR ANTONIO Last Admin: 10/15/17 01:44 Dose: 75 mls/hr Potassium Chloride (Potassium Chloride 10 Meq Premix Ivpb -) 10 meq in 100 mls @ 100 mls/hr IVPB Q60M [facility] Stop: 10/15/17 11:29 Influenza Virus Vaccine Quadrival (Flulaval Quad [id number]) 60 mcg IM .ONCE ONE Stop: 10/15/17 02:00 Piperacillin/Tazobactam/Dextrose (Zosyn 2.25gm Ivpb (Premix)) 2.25 gm IVPB Q6H- IV ANTONIO Stop: 10/15/17 20:59 - Objective Vital Signs: Vital Signs Temperature 97.8 F 10/15/17 06:00 Pulse Rate 91 H 10/15/17 06:00 Respiratory Rate 24 10/15/17 06:00 Blood Pressure 103/45 10/15/17 06:00 O2 Sat by Pulse Oximetry (%) 100 10/14/17 22:00 Constitutional: Yes: Well Nourished, Mild Distress Cardiovascular: Yes: Pulse Irregular. No: Bruit, Gallop, Murmur Respiratory: Yes: Regular, On Venti-Mask, Poor Air Entry, Rhonchi, SOB, Tachypnea, Wheezes Gastrointestinal: Yes: Normal Bowel Sounds, Soft. No: Distention, Tenderness Genitourinary: Yes: WNL Extremities: Yes: Cool (lle), Other (left index and middle fingers with discoloration). No: Cyanosis Edema: Yes Edema: LLE: 1+, RLE: Trace Neurological: Yes: WNL, Alert, Oriented Psychiatric: Yes: WNL, Alert, Oriented Labs: CBC, BMP 10/15/17 06:30 10/15/17 06:30 INR, PTT INR 1.26 (0.82-1.09) H 10/15/17 06:30 Problem List - Problems (1) Pericardial effusion, acute Code(s): I30.9 - ACUTE PERICARDITIS, UNSPECIFIED (2) Vocal cord paralysis Code(s): J38.00 - PARALYSIS OF VOCAL CORDS AND LARYNX, UNSPECIFIED (3) Dysphagia Code(s): R13.10 - DYSPHAGIA, UNSPECIFIED Qualifiers: Dysphagia type: unspecified Qualified Code(s): R13.10 - Dysphagia, unspecified (4) Dehydration Code(s): E86.0 - DEHYDRATION (5) SIMON (acute kidney injury) Code(s): N17.9 - ACUTE KIDNEY FAILURE, UNSPECIFIED (6) Pneumonia Code(s): J18.9 - PNEUMONIA, UNSPECIFIED ORGANISM Qualifiers: Pneumonia type: due to unspecified organism Laterality: left Lung location: lower lobe of lung Qualified Code(s): J18.1 - Lobar pneumonia, unspecified organism (7) Leukocytosis Code(s): D72.829 - ELEVATED WHITE BLOOD CELL COUNT, UNSPECIFIED (8) Melanoma Code(s): C43.9 - MALIGNANT MELANOMA OF SKIN, UNSPECIFIED (9) Atrial fibrillation Code(s): I48.91 - UNSPECIFIED ATRIAL FIBRILLATION Qualifiers: Atrial fibrillation type: paroxysmal Qualified Code(s): I48.0 - Paroxysmal atrial fibrillation (10) Dyspnea on exertion Code(s): R06.09 - OTHER FORMS OF DYSPNEA (11) COPD (chronic obstructive pulmonary disease) Code(s): J44.9 - CHRONIC OBSTRUCTIVE PULMONARY DISEASE, UNSPECIFIED (12) Hypothyroid Code(s): E03.9 - HYPOTHYROIDISM, UNSPECIFIED (13) Hypertension Code(s): I10 - ESSENTIAL (PRIMARY) HYPERTENSION Qualifiers: Hypertension type: essential hypertension Qualified Code(s): I10 - Essential (primary) hypertension (1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 Code(s): I70.262 - ATHSCL [place] ARTERIES OF EXTREMITIES W GANGRENE, LEFT LEG (15) PAD (peripheral artery disease) Code(s): I73.9 - PERIPHERAL VASCULAR DISEASE, UNSPECIFIED (16) HLD (hyperlipidemia) Code(s): E78.5 - HYPERLIPIDEMIA, UNSPECIFIED (17) Pulmonary congestion Code(s): R09.89 - OTH SYMPTOMS AND SIGNS INVOLVING THE CIRC AND RESP SYSTEMS (18) Pulmonary HTN Code(s): I27.20 - PULMONARY HYPERTENSION, UNSPECIFIED (19) Lung mass Code(s): R91.8 - OTHER NONSPECIFIC ABNORMAL FINDING OF LUNG FIELD Assessment/Plan (1) Pericardial effusion, acute Assessment/Plan: s/p pericardial window f/u on percardial fluid cultures management per CT surgery Code(s): I30.9 - ACUTE PERICARDITIS, UNSPECIFIED (2) Vocal cord paralysis Assessment/Plan: Flexible laryngoscopy w/ left vocal cord paralysis possibly secondary to possible lung mass ENT following Code(s): J38.00 - PARALYSIS OF VOCAL CORDS AND LARYNX, UNSPECIFIED (3) Dysphagia Assessment/Plan: as above speech eval and barium swallow when clinically improved Code(s): R13.10 - DYSPHAGIA, UNSPECIFIED Qualifiers: Dysphagia type: unspecified Qualified Code(s): R13.10 - Dysphagia, unspecified (4) Dehydration Assessment/Plan: secondary to poor po intake due to underlying condition ivf per nephrology Code(s): E86.0 - DEHYDRATION (5) SIMON (acute kidney injury) Assessment/Plan: improved, most likely prerenal renal us without sig findings urine na/cr wnl ivf per renal avoid diuretics nephr following monitor Code(s): N17.9 - ACUTE KIDNEY FAILURE, UNSPECIFIED (6) Pneumonia Assessment/Plan: unclear etiology +fever, +leukocytosis possible aspiration on zosyn and vanco ID consult appreciated Code(s): J18.9 - PNEUMONIA, UNSPECIFIED ORGANISM Qualifiers: Pneumonia type: due to unspecified organism Laterality: left Lung location: lower lobe of lung Qualified Code(s): J18.1 - Lobar pneumonia, unspecified organism (7) Leukocytosis Assessment/Plan: chest xray unclear treat as HCAP, could be aspiration pna blood cultures neg UC pending f/u on percardial fluid cultures empiric zosyn per ID ID following Code(s): D72.829 - ELEVATED WHITE BLOOD CELL COUNT, UNSPECIFIED (8) Melanoma Assessment/Plan: suspected metastatic CA malignant melanoma LLE s/p resection and chemotherapy,2008 Code(s): C43.9 - MALIGNANT MELANOMA OF SKIN, UNSPECIFIED (9) Atrial fibrillation Assessment/Plan: rate controlled on xarelto outpt continue heparin drip echo without sig changes cardiology following Code(s): I48.91 - UNSPECIFIED ATRIAL FIBRILLATION Qualifiers: Atrial fibrillation type: paroxysmal Qualified Code(s): I48.0 - Paroxysmal atrial fibrillation (10) Dyspnea on exertion Assessment/Plan: secondary to copd/ lung mass O2 Code(s): R06.09 - OTHER FORMS OF DYSPNEA (11) COPD (chronic obstructive pulmonary disease) Assessment/Plan: hx of heavy smoking Code(s): J44.9 - CHRONIC OBSTRUCTIVE PULMONARY DISEASE, UNSPECIFIED (12) Hypothyroid Assessment/Plan: on synthroid at home enlarged thyroid gland thyroid US when stable will restart once clinically stable Code(s): E03.9 - HYPOTHYROIDISM, UNSPECIFIED (13) Hypertension Assessment/Plan: hold home meds in the setting of hypotension on atenolol and hctz as outpatient Code(s): I10 - ESSENTIAL (PRIMARY) HYPERTENSION Qualifiers: Hypertension type: essential hypertension Qualified Code(s): I10 - Essential (primary) hypertension (1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 Assessment/Plan: s/p revascularization 07/2017 and toe amputation 08/2017, subclavian stent 09/2017 vascular consult appreciated Code(s): I70.262 - ATHSCL [place] ARTERIES OF EXTREMITIES W GANGRENE, LEFT LEG (15) PAD (peripheral artery disease) Code(s): I73.9 - PERIPHERAL VASCULAR DISEASE, UNSPECIFIED (16) HLD (hyperlipidemia) Assessment/Plan: on zocor outpt Code(s): E78.5 - HYPERLIPIDEMIA, UNSPECIFIED (17) Pulmonary congestion Assessment/Plan: chest CT w/ pulm congestion, solid nodules, mass possible metastatic CA, COPD Code(s): R09.89 - OTH SYMPTOMS AND SIGNS INVOLVING THE CIRC AND RESP SYSTEMS (18) Pulmonary HTN Code(s): I27.20 - PULMONARY HYPERTENSION, UNSPECIFIED (19) Lung mass Assessment/Plan: CT reveals large lung mass Oncology consulted Code(s): R91.8 - OTHER NONSPECIFIC ABNORMAL FINDING OF LUNG FIELD Assessment/Plan I saw and evaluated pt. I agree with ICU attending's assessment and plan for this pt. Case discussed with PCP 35 minutes spent reviewing chart, assessment and evaluation.
--- NOTE | 2017-10-15 10:53 | PN ---
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 Pt having ice chips. I discuissed risk of aspiration, however, pt insisting on continuing with ice chips. Nursing is aware. For MBS when medically stable.
[2017-10-15] MEDS ORDERED: FLU VACCINE QUAD 60 MCG/0.5 ML (MDV 17-18) IM ONE ×2 (11:00→19:15)
[2017-10-15] MEDS ORDERED: ACETAMINOPHEN 1000 MG/100 ML VIAL (NON FORMULARY) IVPB ONE (11:00)
--- NOTE | 2017-10-15 11:03 | PN ---
Progress Note (short form) - Note Progress Note: ENT pt is s/p urgent pericardial window last evening. awake alert c/o choking on liquids, mayelin water, better if fluids are thicker voice weak, breathy, no stridor or respiratory distress Impression: left upper lobe mass, suspect malignancy left vocal cord paralysis with associated weak voice and aspiration dyspnea, pericardial effusion, improved after pericardial window Recommend: continue present management and workup agree with modified barium swallow with Veronica Su when pt is clinically able to. Branden Cabrera MD FACS
--- NOTE | 2017-10-15 11:11 | PN ---
Teaching Attending Note Name of Resident: Keiry Maeve ATTENDING PHYSICIAN STATEMENT I saw and evaluated the patient. I reviewed the resident's note and discussed the case with the resident. I agree with the resident's findings and plan as documented. SUBJECTIVE: Patient seen and examined in the ICU. Remains mildly tachypenic on VM O2, but clinically better than yesterday. Still refusing NIPPV. Noted emergent pericardial window / drain yesterday (500cc of bloody drainage) Some dry cough. Denies sputum. No pressors. Intake & Output 10/12/17 10/13/17 10/14/17 10/15/17 23:59 23:59 23:59 23:59 Intake Total 0 2400 1350 Output Total 100 280 480 Balance -100 2120 870 Weight 172 lb 8 oz 172 lb 8 oz 173 lb 4 oz Last Vital Signs Temp Pulse Resp BP Pulse Ox 97.5 F L 88 22 105/49 100 10/15/17 10:00 10/15/17 10:00 10/15/17 10:00 10/15/17 10:00 10/15/17 09:00 Active Medications Fentanyl (Sublimaze Injection -) 25 mcg IVPUSH Q8H PRN PRN Reason: PAIN LEVEL 6-10 Stop: 10/15/17 18:29 Last Admin: 10/15/17 01:43 Dose: 25 mcg Sodium Chloride (Normal Saline -) 1,000 mls @ 75 mls/hr IV ASDIR [facility] Last Admin: 10/15/17 01:44 Dose: 75 mls/hr Potassium Chloride 10 meq/ (Sodium Chloride) 105 mls @ 100 mls/hr IVPB Q60M [facility] Stop: 10/15/17 11:59 Piperacillin/Tazobactam/Dextrose (Zosyn 2.25gm Ivpb (Premix)) 2.25 gm IVPB Q6H- IV ANTONIO Stop: 10/15/17 20:59 Constitutional: Yes: Tachypneic at rest Eyes: Yes: WNL, Conjunctiva Clear, EOM Intact HENT: Yes: WNL, Atraumatic, Normocephalic Neck: Yes: WNL, Supple, Trachea Midline Cardiovascular: Yes: Pulse Irregular Respiratory: Yes: Accessory Muscle Use, Diminished, Dullness, On VM O2, Rhonchi , Pericardial drain intact Gastrointestinal: Yes: WNL, Normal Bowel Sounds, Soft, Abdomen, Obese ...Rectal Exam: Yes: Deferred Renal/: Yes: Anuria Breast(s): Yes: WNL Musculoskeletal: Yes: WNL Extremities: Yes: WNL Edema: No Integumentary: Yes: WNL Neurological: Yes: WNL, Alert, Oriented ...Motor Strength: WNL Psychiatric: Yes: WNL, Alert, Oriented Labs: Laboratory Results - last 24 hr 10/14/17 10/14/17 10/15/17 15:00 19:45 06:30 WBC RBC Hgb Hct MCV MCH MCHC RDW Plt Count MPV Neutrophils % Lymphocytes % Monocytes % Eosinophils % Basophils % PT with INR INR PTT (Actin FS) Sodium 139 Potassium 3.8 Chloride 102 Carbon Dioxide 24 Anion Gap 13 BUN 73 H Creatinine 2.5 H Creat Clearance w eGFR Random Glucose 108 H Calcium 8.0 L Phosphorus 6.7 H Magnesium 1.7 L Total Bilirubin AST ALT Alkaline Phosphatase Total Protein Albumin Random Vancomycin 19.507 Blood Type A POSITIVE Antibody Screen Negative 10/15/17 10/15/17 10/15/17 06:30 06:30 06:30 WBC 15.4 H RBC 3.58 L Hgb 11.5 Hct 34.2 MCV 95.5 MCH 32.1 MCHC 33.6 RDW 15.0 Plt Count 246 MPV 9.8 Neutrophils % 85.2 H Lymphocytes % 4.6 L D Monocytes % 9.1 Eosinophils % 0.6 D Basophils % 0.5 PT with INR 14.20 H INR 1.26 H PTT (Actin FS) 24.2 L Sodium 142 Potassium 3.6 Chloride 103 Carbon Dioxide 24 Anion Gap 15 BUN 65 H Creatinine 2.1 H Creat Clearance w eGFR 22.66 Random Glucose 105 Calcium 7.9 L Phosphorus 5.5 H Magnesium 2.7 H Total Bilirubin 0.5 AST 20 ALT 27 Alkaline Phosphatase 70 Total Protein 5.5 L Albumin 2.4 L Random Vancomycin Blood Type Antibody Screen Problem List - Problems (1) Dehydration Code(s): E86.0 - DEHYDRATION (2) Dysphagia Code(s): R13.10 - DYSPHAGIA, UNSPECIFIED Qualifiers: Dysphagia type: unspecified Qualified Code(s): R13.10 - Dysphagia, unspecified (3) Pneumonia Code(s): J18.9 - PNEUMONIA, UNSPECIFIED ORGANISM Qualifiers: Pneumonia type: due to unspecified organism Laterality: left Lung location: lower lobe of lung Qualified Code(s): J18.1 - Lobar pneumonia, unspecified organism (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 Code(s): I70.262 - ATHSCL [place] ARTERIES OF EXTREMITIES W GANGRENE, LEFT LEG (5) Dyspnea on exertion Code(s): R06.09 - OTHER FORMS OF DYSPNEA (6) Atrial fibrillation Code(s): I48.91 - UNSPECIFIED ATRIAL FIBRILLATION Qualifiers: Atrial fibrillation type: paroxysmal Qualified Code(s): I48.0 - Paroxysmal atrial fibrillation (7) Hypothyroid Code(s): E03.9 - HYPOTHYROIDISM, UNSPECIFIED Assessment/Plan Suspected metastatic CA Pericardial effusion HTN COPD / former heavy smoker Afib on Xarelto Hypothyroid Malignant melanoma Severe PAD Left SCV stent (?) Aspiration PNA Vocal cord dysfunction/paralysis PLAN: -Monitor pericardial drain output -Patient is AAO. She is requesting ice chips today for pleasure knowing the Risks/benefits. She is requesting possible thickened liquids tomorrow for pleasure feeds as well. -HOB > 30 -Aspiration precautions -FiO2 prn for an SpO2 > 92% -NIPPV if she is willing PRN for WOB -BD TX -IS -ABX -Follow cultures -Hold diuretics -SCDs -PPI Dr Colindres Critical care time spent in reviewing chart, evaluating patient and formulating plan - 36 minutes.
--- NOTE | 2017-10-15 11:17 | PN ---
Progress Note (short form) - Note Progress Note: ID Consult dictated Probable lung neoplasm Possible post-obstructive pneumonia vs. aspiration secondary to vocal cord paralysis ? Recurrent/ metastatic melanoma PVD S/P amputation of L 1/2 toes Azotemia Await cultures. Quantiferon Check pericardial fluid c/s and cytology Continue empiric zosyn
--- NOTE | 2017-10-15 11:44 | CONSULT ---
Consult - History of Present Illness History of Present Illness: 82 year old woman under my care for severe arterial disease. She has required left leg revascularization and amputation of 2 toes for gangrene and stenting of an occluded left subclavian artery for severe hand ischemia. Her hand improved after the procedure but 2 fingers have remained discolored and painful. She is now admitted with pericardial effusion and lung mass possibly related to metastatic melanoma. - History Source History Provided By: Patient, Medical Record - Past Medical History Cardio/Vascular: Yes: AFIB, HTN, Hyperlipdemia Pulmonary: Yes: Previously Intubated Endocrine: Yes: Hypothyroidism - Past Surgical History Past Surgical History: Yes: Amputation Additional Surgical History: s/p resection of malignant melenoma LLE, left toe osteomyelitis (2010), revascularization of right leg, revascularization of left leg (07/2017), amputation of left 1st and 2nd gangrenous toes (09/10/2017), and placement of left subclavian stent x 2 weeks ago at [facility] ( [facility] - Alcohol/Substance Use Hx Alcohol Use: Yes (socially) History of Substance Use: reports: None - Smoking History Smoking history: Former smoker Have you smoked in the past 12 months: No If you are a former smoker, when did you quit?: 2007 - Social History Usual Living Arrangement: With Spouse ADL: Independent History of Recent Travel: No Home Medications - Allergies Allergies/Adverse Reactions: Allergies Allergy/AdvReac Type Severity Reaction Status Date / Time atorvastatin [From Lipitor] Allergy Intermediate Verified 10/13/17 13:07 fentanyl AdvReac Verified 10/13/17 13:08 - Home Medications Home Medications: Ambulatory Orders Atenolol [Tenormin -] 50 mg PO BID 02/08/15 Cholecalciferol (Vitamin D3) [Vitamin D3] 1,000 unit PO DAILY 02/08/15 Rivaroxaban [Xarelto -] 20 mg PO DAILY 02/08/15 Simvastatin [Zocor -] 40 mg PO DAILY 02/08/15 Levothyroxine [Synthroid -] 50 mcg PO DAILY 07/30/17 Hydrochlorothiazide [Hctz -] 25 mg PO BID 09/08/17 Acetaminophen [Tylenol -] 500 mg PO PRN 09/10/17 Family Disease History - Family Disease History Family Disease History: CA: Sister (lung), Other: Mother (HTN) Physical Exam Vital Signs: Vital Signs Temperature 97.5 F L 10/15/17 10:00 Pulse Rate 88 10/15/17 10:00 Respiratory Rate 22 10/15/17 10:00 Blood Pressure 105/49 10/15/17 10:00 O2 Sat by Pulse Oximetry (%) 100 10/15/17 09:00 Cardiovascular: Yes: Regular Rate and Rhythm Respiratory: Yes: Tachypnea Gastrointestinal: Yes: Soft Extremities: Yes: Other (Left index and middle fingers with petechial areas of skin necrosis and discoloration. Radial pulse 1+. BP equal in both arms Left foot warm, amputation wounds dry and intact.) Labs: CBC, BMP 10/15/17 06:30 10/15/17 06:30 Problem List - Problems (1) Atheroembolism of left upper extremity Assessment/Plan: Left fingers have evidence of distal atheroemboli with areas of skin necrosis and pain. No problem with blood flow to the hand. Recommend keeping fingers warm and dry with analgesia as needed. I will follow for wound care in case wounds open. Code(s): I75.012 - ATHEROEMBOLISM OF LEFT UPPER EXTREMITY
[2017-10-15] MEDS: POTASSIUM CHLORIDE 10 MEQ in SODIUM CHLORIDE 100 ML IVPB SCH ×2 (11:46→12:36)
--- NOTE | 2017-10-15 11:47 | PN ---
Progress Note (short form) - Note Progress Note: s:no sob palps dizzy; mild cp post op o: Vital Signs Temp 97.5 F L 10/15/17 10:00 Pulse 88 10/15/17 10:00 Resp 22 10/15/17 10:00 BP 105/49 10/15/17 10:00 Pulse Ox 100 10/15/17 09:00 Intake & Output 10/14/17 10/14/17 10/15/17 11:59 23:59 11:59 Intake Total 1000 1400 1350 Output Total 0 280 480 Balance 1000 1120 870 Weight 172 lb 8 oz 173 lb 4 oz Intake: IV 200 1300 1150 LACTATED RINGERS SOLUTION 200 700 1,000 ml In 1,000 ml @ 1000 mls/hr IV ONCE STA Rx#:[id number] Normal Saline - 1,000 ml 900 @ 75 mls/hr IV ASDIR ANTONIO Rx#:[id number] Normal Saline - 250 ml @ 250 250 mls/hr IV ASDIR STA Rx#:[id number] IVPB 800 100 200 Oral 0 Output: Chest Tube Drainage 80 10/14/17 medial chest tubes 80 /p percardial window Urine 0 230 400 Howard 0 230 400 Estimated Blood Loss 50 Other: Voiding Method Indwelling Catheter Indwelling Catheter Indwelling Catheter Weight Measurement Method Built in [facility] Built in [facility] nad, calm jvd tds, neck supple bibasilar dullness, nl effort rrr nl s1, s2 no mrg + bs soft nt nd ext with trace edema. no c/c + dp/pt aaox3 no jaundice, diaphoresis. Current Medications Generic Name Dose Route Start Last Admin Trade Name Km PRN Reason Stop Dose Admin Fentanyl 25 mcg 10/14/17 18:28 10/15/17 01:43 Sublimaze Injection - IVPUSH 10/15/17 18:29 25 mcg Q8H PRN Administration PAIN LEVEL 6-10 Sodium Chloride 1,000 mls @ 75 mls/hr 10/14/17 19:00 10/15/17 01:44 Normal Saline - IV 75 mls/hr ASDIR ANTONIO Administration Potassium Chloride 10 meq/ 105 mls @ 100 mls/hr 10/15/17 10:00 Sodium Chloride IVPB 10/15/17 11:59 Q60M ANTONIO Piperacillin Sod/Tazobactam 50 mls @ 100 mls/hr 10/15/17 12:00 Sod 3.375 gm/ Dextrose IVPB Q8H-IV [facility] Protocol Laboratory Last Values WBC 15.4 K/mm3 (4.0-10.0) H 10/15/17 06:30 RBC 3.58 M/mm3 (3.60-5.2) L 10/15/17 06:30 Hgb 11.5 GM/dL (10.7-15.3) 10/15/17 06:30 Hct 34.2 % (32.4-45.2) 10/15/17 06:30 MCV 95.5 fl (80-96) 10/15/17 06:30 MCH 32.1 pg (25.7-33.7) 10/15/17 06:30 MCHC 33.6 g/dl (32.0-36.0) 10/15/17 06:30 RDW 15.0 % (11.6-15.6) 10/15/17 06:30 Plt Count 246 K/MM3 (134-434) 10/15/17 06:30 MPV 9.8 fl (7.5-11.1) 10/15/17 06:30 Neutrophils % 85.2 % (42.8-82.8) H 10/15/17 06:30 Lymphocytes % 4.6 % (8-40) L D 10/15/17 06:30 Monocytes % 9.1 % (3.8-10.2) 10/15/17 06:30 Eosinophils % 0.6 % (0-4.5) D 10/15/17 06:30 Basophils % 0.5 % (0-2.0) 10/15/17 06:30 Platelet Estimate Adequate 10/13/17 14:40 ESR 19 mm/hr (0-30) 10/14/17 05:02 PT with INR 14.20 SEC (9.98-11.88) H 10/15/17 06:30 INR 1.26 (0.82-1.09) H 10/15/17 06:30 PTT (Actin FS) 24.2 SECONDS (26.9-34.4) L 10/15/17 06:30 Anticoagulation Therapy No Result Required. 10/13/17 20:00 Puncture Site Right brachial 10/13/17 20:00 ABG pH 7.39 (7.35-7.45) 10/13/17 20:00 ABG pCO2 at Pt Temp 42.2 mmHg (35-45) 10/13/17 20:00 ABG pO2 at Pt Temp 344.0 mmHg (68-100) H* 10/13/17 20:00 ABG HCO3 25.0 meq/L (22-26) 10/13/17 20:00 ABG O2 Sat (Measured) 99.8 % (90-98.9) H* 10/13/17 20:00 ABG O2 Content 19.2 % vol (15-22) 10/13/17 20:00 ABG Base Excess 0.5 meq/l (-2-2) 10/13/17 20:00 Alex Test Positive 10/13/17 20:00 O2 Delivery Device Bipap 10/13/17 20:00 Oxygen Flow Rate 100% 10/13/17 20:00 Vent Mode No Result Required. 10/13/17 20:00 Vent Rate 14 10/13/17 20:00 Mechanical Rate No Result Required. 10/13/17 20:00 Pressure Support Vent 12/5 10/13/17 20:00 Sodium 142 mmol/L (136-145) 10/15/17 06:30 Potassium 3.6 mmol/L (3.5-5.1) 10/15/17 06:30 Chloride 103 mmol/L (98-107) 10/15/17 06:30 Carbon Dioxide 24 mmol/L (21-32) 10/15/17 06:30 Anion Gap 15 (8-16) 10/15/17 06:30 BUN 65 mg/dL (7-18) H 10/15/17 06:30 Creatinine 2.1 mg/dL (0.55-1.02) H 10/15/17 06:30 Creat Clearance w eGFR 22.66 (>60) 10/15/17 06:30 Random Glucose 105 mg/dL (74-106) 10/15/17 06:30 Lactic Acid 1.9 mmol/L (0.0-2.0) 10/14/17 08:00 Calcium 7.9 mg/dL (8.5-10.1) L 10/15/17 06:30 Phosphorus 5.5 mg/dL (2.5-4.9) H 10/15/17 06:30 Magnesium 2.7 mg/dL (1.8-2.4) H 10/15/17 06:30 Total Bilirubin 0.5 mg/dL (0.2-1.0) 10/15/17 06:30 AST 20 U/L (15-37) 10/15/17 06:30 ALT 27 U/L (12-78) 10/15/17 06:30 Alkaline Phosphatase 70 U/L (45-117) 10/15/17 06:30 Creatine Kinase 37 IU/L (26-192) 10/14/17 08:00 Troponin I < 0.02 ng/ml (0.00-0.05) 10/14/17 08:00 C-Reactive Protein 5.3 MG/DL (0.00-0.3) H 10/14/17 05:02 B-Natriuretic Peptide 2373.79 pg/ml (5-450) H 10/13/17 14:40 Total Protein 5.5 g/dl (6.4-8.2) L 10/15/17 06:30 Albumin 2.4 g/dl (3.4-5.0) L 10/15/17 06:30 Urine Color Brandee 10/13/17 18:57 Urine Appearance Slcloudy 10/13/17 18:57 Urine pH 5.0 (5.0-8.0) 10/13/17 18:57 Ur Specific Bandon 1.029 (1.001-1.035) 10/13/17 18:57 Urine Protein Negative (NEGATIVE) 10/13/17 18:57 Urine Glucose (UA) Negative (NEGATIVE) 10/13/17 18:57 Urine Ketones Trace (NEGATIVE) H 10/13/17 18:57 Urine Blood Negative (NEGATIVE) 10/13/17 18:57 Urine Nitrite Negative (NEGATIVE) 10/13/17 18:57 Urine Bilirubin Negative (NEGATIVE) 10/13/17 18:57 Urine Urobilinogen 4.0 e.u/dl mg/dL (0.2-1.0) H 10/13/17 18:57 Ur Leukocyte Esterase Negative (NEGATIVE) 10/13/17 18:57 Ur Random Sodium 42 MMOL/L 10/14/17 09:00 Urine Creatinine 242.0 mg/dL (20-320) 10/14/17 09:00 Random Vancomycin 19.507 ug/ml 10/15/17 06:30 Blood Type A POSITIVE 10/14/17 15:00 Antibody Screen Negative 10/14/17 15:00 ekg: afib, low voltage qrs. no acute ischemic changes. tele: rate controlled afib echo 10/2017: nl lv/rv, no sig valve path, mod-large peric eff, no tamponade cxr: no chf ct: images and report reviewed. asymmetric pleural effusion and pericardial effusion noted. see emr for detailed report. mibi 01/2015: lexiscan, no ecg changes, normal MPI, resting ecg showed afib echo 04/2017: nl lv/rv, no sig valve path, nl rvsp office ekg: from april: afib, borderline low voltages. poor r wave progression. similar to priors. est cct 35 mins Assessment/plan. 82 yo with h/o afib on xarelto, htn, hl, PVD s/p revascularization 07/2017 and toe amputation 08/2017, subclavian stent 09/2017, obesity, hypothyroid, melanoma and chronic low back pain p/w sob. sob/resp failure/pericardial effusion - on initial ER evaluation appeared to have worsened respiratory distress s/p IVF bolus. --> placed on bipap and given 40 mg IV lasix x 2. Subsequent hypotension (also in setting of fever to 102) -infection/malignacy w/u per primary team -echo with large pericardial eff, now s/p pericardial window 10/14/17 afib - AC with xarelto as outpatient, held here given need for surgery. - rate controlled off home atenolol - lyte repletion prn. mgm't of underlying infection/resp status per pmd/pulm/ icu htn - on atenolol and hctz as outpatient, currently holding as she is still hypotensive PAD - s/p L SFA [employer]ICAL PROGRAM COORDINATOR , residual distal dz. followed by vascular as outpatient. - s/p subclavian stent. check to see if bp equal in both arms. - resume statin once acute issues resolve. tiffany - acute worsening of Creatinine in setting of hypotension. May also have been exacerbated by IV lasix. Con't IVF. hld: - on zocor as outpatient.
[2017-10-15] MEDS ORDERED: PT OWN MED DRAWER 7, Y5N ONE ×2 (12:24→17:23)
[2017-10-15] MEDS: PIPERACILLIN/TAZOB 3.375 GM 3.375 GM in DEXTROSE 5%-WATER - 50 ML IVPB SCH ×2 (12:29→17:38)
--- NOTE | 2017-10-15 12:45 | PN ---
Progress Note (short form) - Note Progress Note: POD #1 alert. resting in position of comfort. states she feels much better s/p procedure. Still tachypneic but improving. C/o incisional tenderness. Pain managed well via prn meds. Denies n/v/f/c, CP, palpitations. Last Vital Signs Temp Pulse Resp BP Pulse Ox 97.5 F L 88 22 105/49 100 03// 10:00 10/15/17 10:00 10/15/17 10:00 10/15/17 10:00 /18 09:00 CBC, BMP 18 06:30 18 06:30 Gen: on NRB. nad Chest: incision c/d/i. Drain 80mL, stripped during rounds LE: SCDs bilat Problem List - Problems (1) Pericardial effusion, acute Assessment/Plan: POD #1 s/p subxiphoid pericardial window CPOD --> Pulm following Pericardial drain to remain, record output q shift Pain management prn Monitor BUN/Cr Cont ICU management Code(s): I30.9 - ACUTE PERICARDITIS, UNSPECIFIED
--- NOTE | 2017-10-15 13:13 | CONS ---
DATE OF CONSULTATION: DATE OF DICTATION: 10/15/2017 HISTORY OF PRESENT ILLNESS: The patient is an 82-year-old female who is evaluated for pneumonia. History was obtained from the chart and house staff as she cannot give a reliable history. . The patient was admitted to the hospital on October 13, 2017, with a 1-month history of worsening generalized weakness, shortness of breath, dysphagia, and 8-pound weight loss. She had recently suffered paralysis of the left vocal cord, which was attributed to recent intubations for surgical procedures. She presented to the emergency room where chest x-ray showed a left upper and left lower lobe pneumonia. She was transferred to the intensive care unit where her course was complicated by hypotension. CT scan of the chest showed a left upper lobe mass as well as left hilar and mediastinal lymph nodes. She became more hypotensive. Echocardiogram revealed a moderately large pericardial effusion with possible tamponade. The patient was taken to the operating room where a pericardial window was performed. Then, 500 mL of bloody fluid was obtained. She is presently awake and alert. Her vitals have improved after the procedure. She has been afebrile. White blood cell count is mildly elevated. Patient has had recent hospital admissions. She underwent an amputation of the left 1st and 2nd toes for gangrene. 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 PAST SURGICAL HISTORY: Status post excision of melanoma, left lower extremity, as well as amputation of the left 1st and 2nd toes. ALLERGIES: To LIPITOR and FENTANYL. MEDICATIONS: Include Tylenol, Zosyn, vancomycin. SOCIAL HISTORY: She lives at home with family members. She is a former smoker. SYSTEMS REVIEW: Neurologic: No loss of consciousness, seizure activity, or focal weakness. Cardiac: Negative for chest pain or palpitations. Respiratory: As per HPI. Gastrointestinal: Negative for vomiting or diarrhea. Genitourinary: Negative for urinary tract infection. LABORATORY DATA: White count 15.4, 85 neutrophils, 4 lymphocytes, 9 monocytes, hematocrit 34.2, platelet count 246. BUN 65, creatinine 2.1. Vancomycin trough 19. PHYSICAL EXAMINATION: General: She is awake. She is short of breath on VentiMask. Vital signs: Temperature 97.8, blood pressure 101/53, pulse 102, irregular, respirations 22 per minute. HEENT: Sclerae anicteric. Heart: Heart sounds S1, S2, irregular. Lungs: Crepitations of the bases bilaterally. There is a surgical wound present on the sternal area. Abdomen: Soft. No tenderness elicited. No mass, rebound, or rigidity. Extremities: 1+ edema. She has an excisional wound, which is well healed on the left lower extremity. She is status post amputation of the left 1st and 2nd toes. Surgical site no evidence of infection. She also has what appeared to be ischemic lesions involving the distal left 2nd and 3rd fingers. IMPRESSION: 1. 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 2. Possible postobstructive pneumonia versus aspiration secondary to vocal cord paralysis. 3. 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 4. Peripheral vascular disease. 5. Azotemia. Await cultures, can obtain QuantiFERON, check pericardial fluid and cytology, continue empiric Zosyn. Case discussed with house staff. Thank you for the kind referral. JOE ALFORD M.D. [id number]
--- NOTE | 2017-10-15 14:13 | PN ---
Progress Note, Physician History of Present Illness: Pt seen and examined at bedside. She is more awake and alert than yesterday. She feels that her breathing is a little better. She went for a pericardial window yesterday. - Current Medication List Current Medications: Active Medications Fentanyl (Sublimaze Injection -) 25 mcg IVPUSH Q8H PRN PRN Reason: PAIN LEVEL 6-10 Stop: 10/15/17 18:29 Last Admin: 10/15/17 01:43 Dose: 25 mcg Sodium Chloride (Normal Saline -) 1,000 mls @ 75 mls/hr IV ASDIR ANTONIO Last Admin: 10/15/17 01:44 Dose: 75 mls/hr Piperacillin Sod/Tazobactam (Sod 3.375 gm/ Dextrose) 50 mls @ 100 mls/hr IVPB Q8H-IV ANTONIO PRN Reason: Protocol Last Admin: 10/15/17 12:29 Dose: 100 mls/hr - Objective Vital Signs: Vital Signs Temperature 97.5 F L 10/15/17 10:00 Pulse Rate 84 10/15/17 12:00 Respiratory Rate 23 10/15/17 12:00 Blood Pressure 100/45 10/15/17 12:00 O2 Sat by Pulse Oximetry (%) 100 10/15/17 09:00 Constitutional: Yes: Calm Eyes: Yes: Conjunctiva Clear Cardiovascular: Yes: S1, S2 Respiratory: Yes: On Venti-Mask Gastrointestinal: Yes: Soft Genitourinary: Yes: Du Present, Hematuria Musculoskeletal: Yes: Muscle Weakness Edema: No Edema: LLE: Trace, RLE: Trace Neurological: Yes: Oriented Psychiatric: Yes: Oriented Labs: CBC, BMP 10/15/17 06:30 10/15/17 06:30 INR, PTT INR 1.26 (0.82-1.09) H 10/15/17 06:30 - ....Imaging Chest X-ray: Report Reviewed Problem List - Problems (1) SIMON (acute kidney injury) Code(s): N17.9 - ACUTE KIDNEY FAILURE, UNSPECIFIED (2) Melanoma Code(s): C43.9 - MALIGNANT MELANOMA OF SKIN, UNSPECIFIED (3) Atrial fibrillation Code(s): I48.91 - UNSPECIFIED ATRIAL FIBRILLATION Qualifiers: Qualified Code(s): I48.0 - Paroxysmal atrial fibrillation (4) Hypothyroid Code(s): E03.9 - HYPOTHYROIDISM, UNSPECIFIED Assessment/Plan Current Medications Generic Name Dose Route Start Last Admin Trade Name Km PRN Reason Stop Dose Admin Fentanyl 25 mcg 10/14/17 18:28 10/15/17 01:43 Sublimaze Injection - IVPUSH 10/15/17 18:29 25 mcg Q8H PRN Administration PAIN LEVEL 6-10 Sodium Chloride 1,000 mls @ 75 mls/hr 10/14/17 19:00 10/15/17 01:44 Normal Saline - IV 75 mls/hr ASDIR ANTONIO Administration Piperacillin Sod/Tazobactam 50 mls @ 100 mls/hr 10/15/17 12:00 10/15/17 12:29 Sod 3.375 gm/ Dextrose IVPB 100 mls/hr Q8H-IV ANTONIO Administration Protocol Impression 1. SIMON 2. pericardial effusion 3. resp failure requiring bipap 4. hx melanoma 5. possible metastatic disease 6. hypotension 7. hypothyroid 8. HLD 9. COPD 10. formal smoker 11. possible mass in pericardial sac 12. pericardial effusion Plan - renal function is improving - cont with fluids - s/p pericardial window, send fluid for cytology - oncology eval - monitor urine output - maintain du - keep in ICU - discussed with ICU team - discussed with family - hypotension is improving - SIMON likely from hypotension and prerenal disease - renal ultrasound reviewed - clarify advanced directives - will need to monitor vanco levels - will follow Dr Waite
--- NOTE | 2017-10-15 14:20 | CONSULT ---
Consult Consult Specialty:: Oncology - History of Present Illness History of Present Illness: 82 y/o woman, pt of Dr. 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 Patient has significant PSH for revascularization of right leg, revascularization of left leg (07/2017), amputation of left 1st and 2nd gangrenous toes (09/10/2017), and placement of left subclavian stent x 2 weeks ago at [facility]). Pt reports that approx 1 month in the past she developed a hoarseness in her voice , difficulty swallowing, and choking on PO intake. She has lost 8 pounds in that period of time. She has been seen and evaluated several times by her PCP Dr. Woodall. Earlier today she saw ENT specialist Dr. Cabrera who reportedly told the patient that she has vocal cord paralysis on one side. On the recommendations of Dr. Woodall and Dr. Cabrera, the patient reported to the ED. Her hospital course thus far, echo with large pericardial eff, now s/p pericardial window 10/14/17. There is a lung mass which probably causing the vocal cord paralysis. These were suspicious for a metastatic cancer. Oncology consulted for the above. She is seen and examined. - History Source History Provided By: Patient, Medical Record Limitations to Obtaining History: Clinical Condition - Past Medical History Cardio/Vascular: Yes: AFIB, HTN, Hyperlipdemia Pulmonary: Yes: Previously Intubated Endocrine: Yes: Hypothyroidism - Past Surgical History Past Surgical History: Yes: Amputation Additional Surgical History: s/p resection of malignant melenoma LLE, left toe osteomyelitis (2010), revascularization of right leg, revascularization of left leg (07/2017), amputation of left 1st and 2nd gangrenous toes (09/10/2017), and placement of left subclavian stent x 2 weeks ago at [facility]). - Alcohol/Substance Use Hx Alcohol Use: Yes (socially) History of Substance Use: reports: None - Smoking History Smoking history: Former smoker Have you smoked in the past 12 months: No If you are a former smoker, when did you quit?: 2007 - Social History Usual Living Arrangement: With Spouse ADL: Independent History of Recent Travel: No Home Medications - Allergies Allergies/Adverse Reactions: Allergies Allergy/AdvReac Type Severity Reaction Status Date / Time atorvastatin [From Lipitor] Allergy Intermediate Verified 10/13/17 13:07 fentanyl AdvReac Verified 10/13/17 13:08 - Home Medications Home Medications: Ambulatory Orders Atenolol [Tenormin -] 50 mg PO BID 02/08/15 Cholecalciferol (Vitamin D3) [Vitamin D3] 1,000 unit PO DAILY 02/08/15 Rivaroxaban [Xarelto -] 20 mg PO DAILY 02/08/15 Simvastatin [Zocor -] 40 mg PO DAILY 02/08/15 Levothyroxine [Synthroid -] 50 mcg PO DAILY 07/30/17 Hydrochlorothiazide [Hctz -] 25 mg PO BID 09/08/17 Acetaminophen [Tylenol -] 500 mg PO PRN 09/10/17 Family Disease History - Family Disease History Family Disease History: CA: Sister (lung), Other: Mother (HTN) Review of Systems Findings/Remarks: unable due to pts condition. Pt on a NRB Physical Exam Vital Signs: Vital Signs Temperature 97.5 F L 10/15/17 10:00 Pulse Rate 84 10/15/17 12:00 Respiratory Rate 23 10/15/17 12:00 Blood Pressure 100/45 10/15/17 12:00 O2 Sat by Pulse Oximetry (%) 100 10/15/17 09:00 Constitutional: Yes: Mild Distress Eyes: Yes: Conjunctiva Clear HENT: Yes: Atraumatic, Normocephalic Neck: Yes: Supple Cardiovascular: Yes: Tachycardia Respiratory: Yes: Regular Gastrointestinal: Yes: Normal Bowel Sounds, Soft Edema: No (LLE with scars) Neurological: Yes: Alert Labs: CBC, BMP 10/15/17 06:30 10/15/17 06:30 Imaging - Results Chest X-ray: Report Reviewed Problem List - Problems (1) Pericardial effusion, acute Code(s): I30.9 - ACUTE PERICARDITIS, UNSPECIFIED (2) Vocal cord paralysis Code(s): J38.00 - PARALYSIS OF VOCAL CORDS AND LARYNX, UNSPECIFIED (3) Leukocytosis Code(s): D72.829 - ELEVATED WHITE BLOOD CELL COUNT, UNSPECIFIED (4) SIMON (acute kidney injury) Code(s): N17.9 - ACUTE KIDNEY FAILURE, UNSPECIFIED (5) Melanoma Code(s): C43.9 - MALIGNANT MELANOMA OF SKIN, UNSPECIFIED (6) Atherosclerosis of left lower extremity with gangrene Code(s): I70.262 - ATHSCL [place] ARTERIES OF EXTREMITIES W GANGRENE, LEFT LEG Assessment/Plan Suspected metastatic CA Pericardial effusion s/p window/pericardial drain SIMON HTN COPD / former heavy smoker Afib on Xarelto Severe PAD Vocal cord dysfunction/paralysis due to lung mass Patient with suspicious for a metastatic malignancy, ?melanoma/lung primary unknown at this time Biopsy pending will follow surg path results Once Cr improves will need CT a/p with/withut contrast ( though likely metastatic, would know the extent/other sites of involvement) Pt aware that we need to wait for the pathology report.
[2017-10-15] MEDS ORDERED: SODIUM CHLORIDE 1,000 ML IV SCH (15:11)
[2017-10-15] MEDS ORDERED: GLYCERIN 1 RECTAL SUPPOSITORY, ADULT RC ONE (18:45)
[2017-10-15] MEDS: ACETAMINOPHEN 1000 MG/100 ML VIAL (NON FORMULARY) IVPB PRN (20:44)
[2017-10-15 21:56] LABS: PERICARDIAL FLUID SOURCE PERICARDIAL FLUID
[2017-10-15 21:57] LABS: RBC 80815 /mm3; WBC & OTHER NUCLEATED CELLS 10303 /mm3
[2017-10-15 22:46] LABS: PERICARDIAL FLUID LYMPHOCYTES 2 %; PERICARDIAL FLUID MONOCYTES 2 %; PERICARDIAL FLUID NEUTROPHILS 96 %
[2017-10-16] MEDS ORDERED: PT OWN MED DRAWER 7, Y5N ONE ×3 (01:39→17:36)
[2017-10-16] MEDS: PIPERACILLIN/TAZOB 3.375 GM 3.375 GM in DEXTROSE 5%-WATER - 50 ML IVPB SCH ×3 (01:54→17:41)
[2017-10-16] MEDS: ACETAMINOPHEN 1000 MG/100 ML VIAL (NON FORMULARY) IVPB PRN (04:04)
[2017-10-16 06:28] LABS: HEMATOCRIT 34.2 % (32.4-45.2); HEMOGLOBIN 11.2 GM/dL (10.7-15.3); MCH 31.5 pg (25.7-33.7); MCHC 32.8 g/dl (32.0-36.0); MEAN CELL VOLUME 96.1 fl (80-96); MEAN PLT VOLUME 10.1 fl (7.5-11.1); PLATELET COUNT 245 K/MM3 (134-434); RBC 3.56 M/mm3 (3.60-5.2); RDW 15.2 % (11.6-15.6); WHITE BLOOD COUNT 12.4 K/mm3 (4.0-10.0)
[2017-10-16 06:56] LABS: CHLORIDE 103 mmol/L (98-107); POTASSIUM 3.5 mmol/L (3.5-5.1); SODIUM 143 mmol/L (136-145)
[2017-10-16 07:05] LABS: ALBUMIN 2.3 g/dl (3.4-5.0); ALK PHOS 71 U/L (45-117); ANION GAP 15 (8-16); BILIRUBIN,TOTAL 0.5 mg/dL (0.2-1.0); BLOOD UREA NITROGEN 59 mg/dL (7-18); CO2 25 mmol/L (21-32); CREATININE 1.5 mg/dL (0.55-1.02); GLUCOSE,RANDOM 77 mg/dL (74-106); MAGNESIUM 2.5 mg/dL (1.8-2.4); PHOSPHOROUS 4.3 mg/dL (2.5-4.9); SGOT/AST 13 U/L (15-37); SGPT/ALT 21 U/L (12-78); TOT PROT 5.6 g/dl (6.4-8.2)
--- NOTE | 2017-10-16 07:11 | PN ---
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 Patient has significant PSH for revascularization of right leg, revascularization of left leg (07/2017), amputation of left 1st and 2nd gangrenous toes (09/10/2017), and placement of left subclavian stent x 2 weeks ago at [facility]. About one month ago, patient developed hoarseness, difficulty swallowing, and choking on PO intake. She has lost 8 pounds in that period of time. She has been seen and evaluated several times by her PCP Dr. Woodall. Earlier this week she saw ENT specialist Dr. Cabrera who reportedly told patient she has vocal cord paralysis on one side, possibly secondary to multiple intubations. On the recommendations of Dr. Woodall and Dr. Cabrera, patient came to the ED. PCP is Dr. Woodall. 24 HOUR EVENTS Pressures much improved all over 100 systolic overnight. Tachycardic >100 last several vitals sets. Satting 100% on 10 LPM NRB. WBC in the 12k's this AM. UOP much improved as well. 180 cc pericardial drain output overnight. SUBJECTIVE Patient has been having increasing pain at the surgical site and hands, feels sharp, we have been unable to adequately control her pain with Tylenol and Fentanyl push. She is having difficulty sleeping, partially d/t the pain. She would like to have her diet advanced and realizes this is risky for aspiration and choking but she notes this is a comfort/quality of life issue. 24 HOUR INTAKE & OUTPUT Intake: 1450cc Output: 1280cc Net: +170 BM: None reported LINES/TUBES/DRAINS Howard placed 10/13/17 Pericardial drain placed 10/14/17 - Current Medication List Current Medications: Active Medications Acetaminophen (Ofirmev Injection -) 1,000 mg IVPB Q6H PRN PRN Reason: PAIN LEVEL 1-5 Last Admin: 10/16/17 04:04 Dose: 1,000 mg Fentanyl (Sublimaze Injection -) 25 mcg IVPUSH Q3H PRN PRN Reason: PAIN LEVEL 6-10 Stop: 10/17/17 04:14 Piperacillin Sod/Tazobactam (Sod 3.375 gm/ Dextrose) 50 mls @ 100 mls/hr IVPB Q8H-IV ANTONIO PRN Reason: Protocol Last Admin: 10/16/17 01:54 Dose: 100 mls/hr Sodium Chloride (Normal Saline -) 1,000 mls @ 42 mls/hr IV ASDIR ANTONIO Last Admin: 10/15/17 15:00 Dose: 42 mls/hr - Objective Vital Signs: Vital Signs Temperature 97.8 F 10/16/17 06:00 Pulse Rate 110 H 10/16/17 06:00 Respiratory Rate 22 10/16/17 06:00 Blood Pressure 115/54 10/16/17 06:00 O2 Sat by Pulse Oximetry (%) 100 10/15/17 21:00 Constitutional: Yes: Well Nourished, Calm, Mild Distress, Other (voice less hoarse than yesterday, now able to understand most of what the patient is saying ) Eyes: Yes: WNL, Conjunctiva Clear, EOM Intact HENT: Yes: WNL, Atraumatic, Normocephalic Neck: Yes: WNL, Supple, Trachea Midline Cardiovascular: Yes: WNL, Regular Rate and Rhythm Respiratory: Yes: Regular, Accessory Muscle Use, Diminished (left upper lung), On Venti-Mask, SOB (which worsens with conversation), Tachypnea, Other ( pericardial drain in place subxyphoid with total ~150cc serosanguinous drainage in pleurivac). No: Cough, Stridor Gastrointestinal: Yes: WNL, Normal Bowel Sounds, Soft. No: Tenderness Genitourinary: Yes: Howard Present, Hematuria, Other (oliguria much improved) Musculoskeletal: Yes: WNL Extremities: Yes: WNL. No: Calf Tenderness, Cold, Cyanosis, Delayed Capillary Refill, Erythema Edema: No Integumentary: Yes: Other (scarring to legs from prior surgery). No: Erythema, Jaundice, Pressure Ulcer, Rash, Skin Tear Wound/Incision: Yes: Clean/Dry, Dressing Dry and Intact Neurological: Yes: WNL, Alert, Oriented ...Motor Strength: WNL Psychiatric: Yes: WNL, Alert, Oriented Labs: CBC, BMP 10/16/17 06:06 INR, PTT INR 1.26 (0.82-1.09) H 10/15/17 06:30 - ....Imaging Chest X-ray: Report Reviewed, Image Reviewed, Other (left lung diffusely increased opacity, slight increased congestion of the right pulmonary vasculature as well, no pneumomediastinum, pericardial drain in unchanged position) Assessment/Plan ASSESSMENT/PLAN 82 year-old woman with a PMH significant for HTN, HLD, PVD with multiple recent procedures to BLE, afib on Xarelto, malignant melenoma of LLE, 8 lb weight loss in past couple of months, hypothyroidism, came to ED for hoarseness/difficulty swallowing and became acutely SOB, focal consolidations on CXR, placed on BiPAP , developed fever, BCx taken, ABx started, admitted for aspiration pneumona, probable mass on Chest CT JEROME. Now s/p pericardial window for moderate-large pericardial effusion with impending tamponade. RESP #Hypoxic respiratory failure, improved. Possibly 2/2 to aspiration pneumonia, possible CHF (i.e. high output d/t possible lung malignancy or from post- compressive JEROME changes), must also consider PE given multiple recent surgeries and possibility of malignancy, though patient is on home AC. Chest CT done. Patient with increased SOB and abdominal retractions this AM, CXR with increase opacity left lung, increased congestion right lung. -Continue vancomycin/Zosyn -Caution with PPV d/t possibility of PTX, but patient refuses BiPAP anyway -Serial CXR -When stable and recovered after a few days will do bronchoscopy and biopsy -Patient requests consult with Dr. Branden Sloan as she knows him personally , will do when out of ICU -Per goals of care discussion the patient would want intubation and "one round" of ACLS -Lasix 40 mg today (patient's BP maintained >100 systolic and SIMON much improved today) CV #Cardiac tamponade, resolved with pericardial window. No obvious tamponade physiology was seen on echo from 10/14/17 but it was noted this was a suboptimal study and the patient was clinically showing worsening signs of tamponade on the afternoon of 10/14/17. (Worsening hypotension, mild intermittent tachycardia, and JVD). Pericardial window and catheter placement with 500cc immediate bloody output, also with continued slow drainage since that time. -F/U final culture results of pericardial fluid -Monitor pericardial drain output -Add to pain regimen for better control #Atrial fibrillation, chronic. Was on home Xarelto, replaced with heparin ggt, now off these d/t OR procedure. Spoke with Drs. Forbes, Ariadne, and Jens who all feel that HSQ starting tomorrow is appropriate. -Rate 100-130s; continue atenolol -Heparin SQ start tomorrow #Peripheral artery disease -Continue home statin, ASA -Heparin ggt when able #Hypertension, chronic. Episodes of hypotension here in the ICU relieved after pericardial window. -Continue atenolol as BP permits #Hyperlipidemia -Continue statin HEENT #Vocal cord paralysis, unilateral. Diagnosed by Dr. Cabrera within the past couple of days. On CT chest there is a prominent lymph node in the left hilum near expected path of the recurrent laryngeal nerve. CT also concerning for mass in JEROME. Possibility of malignancy as cause. -following multiple intubations over past 3 months -ENT Dr. Cabrera consulting -Speech and swallow evaluation 10/16/17 ID #Sepsis. Patient intermittently febrile, tachycardic, tachypneic, mild hypoxia/ respiratory distress requiring BiPAP over night. Possibly 2/2 PNA given consolidations on CXR and high likelihood of aspiration. Also possibly d/t post- obstructive JEROME changes d/t bronchial obstruction i.e. from proximal mass. -F/U BCx taken in ED -Continue vancomycin and Zosyn (today is day 2) -ID consult -Serial CXR and labs RENAL #SIMON. Cr 1.3 on initial labs, baseline 0.8 per [facility] records. Only 100-200 cc UOP since arrival in the ED yesterday even s/p Lasix. US renal is negative for acute pathology. -Hold home HCTZ -Hydrate 100cc/h IVF HEME #Possible malignancy. Patient does have h/o malignant melanoma s/p resection and chemo. Chest CT with concern for malignancy JEROME. Patient has 8 lbs weight loss. -F/U on initial plan for CT chest/abdomen/pelvis -Discuss plan for bronchoscopy and biopsy once stable -Likely bronch/biopsy early next week #High risk for PE. Given likely active malignancy, multiple recent surgeries, now hospitalization. Negative BLE Duplex. -Discuss SCDs and TEDs -Start HSQ tomorrow morning ENDO Hypothyrodism -Continue levothyroxine FEN #Weight loss. Reportedly 8 lbs in the past couple of months. DDX IBNLT malignancy, PE, CAD, CHF, endocrine (i.e. thyroid overreplacement). -Monitor daily weight -Dietary consult after speech/swallow eval -The patient asks to have limited PO fluids now, states quality of life issue, risks discussed and she understands and does still want PO fluids. PPX DVT: Refusing SCDs and TEDs, will start HSQ tomorrow morning GI: PPI PT: When able DISPO Continued ICU care
[2017-10-16] MEDS ORDERED: morphine SULFATE 4 MG/ML VIAL IVPUSH ONE (07:45)
[2017-10-16] MEDS ORDERED: POTASSIUM CHLORIDE 10 MEQ in SODIUM CHLORIDE 100 ML IVPB SCH (09:00)
--- NOTE | 2017-10-16 09:38 | PN ---
Progress Note (short form) - Note Progress Note: POD#2 s/p pericardial window Vital Signs Period Temp Pulse Resp BP Sys/Vaughn Pulse Ox Last 24 Hr 97.5 F-98.4 F 82-112 20-28 92-116/44-[address]: 20 ml serosangrenous drainage, on suction. Level at 160ml GEN: Alert/follow commands, NAD on NRB. Lungs: CTA b/l anteriorly, dyspnic Chest: Dressing changed, Inc c/d/i with enrrique, reapplied dressing CXR: unchagned, able to view study A/P: 82 yo female s/p pericardial window D/w Dr. Forbes will continue CT to suction and remove one drainage minimal Continue supplemental oxygen Pain meds as needed
--- NOTE | 2017-10-16 10:30 | PN ---
Progress Note, HEEL FINISHER - Note Progress Note: left upper lobe mass, suspect malignancy,possibly related to metastatic melanoma. left vocal cord paralysis with associated weak voice and aspiration dyspnea, Sleeping, reportedly poor sleep with c/o pain. Respiratory function insufficient for MBS. To follow if pt is medically stable for MBS. NPO. Nutritional support?
--- NOTE | 2017-10-16 12:02 | PN ---
Progress Note, Physician Chief Complaint: Pt lying in bed, tachypneic. Denies chest pain, sob, n/v/d. - Current Medication List Current Medications: Active Medications Acetaminophen (Ofirmev Injection -) 1,000 mg IVPB Q6H PRN PRN Reason: PAIN LEVEL 1-5 Last Admin: 10/16/17 04:04 Dose: 1,000 mg Fentanyl (Sublimaze Injection -) 25 mcg IVPUSH Q3H PRN PRN Reason: PAIN LEVEL 6-10 Stop: 10/17/17 04:14 Furosemide (Lasix Injection -) 40 mg IVPUSH ONCE ONE Stop: 10/16/17 12:31 Piperacillin Sod/Tazobactam (Sod 3.375 gm/ Dextrose) 50 mls @ 100 mls/hr IVPB Q8H-IV ANTONIO PRN Reason: Protocol Last Admin: 10/16/17 09:40 Dose: 100 mls/hr Sodium Chloride (Normal Saline -) 1,000 mls @ 42 mls/hr IV ASDIR ANTONIO Last Admin: 10/15/17 15:00 Dose: 42 mls/hr Morphine Sulfate (Morphine Sulfate) 2 mg IVPUSH Q3H PRN PRN Reason: PAIN LEVEL 4 - 6 Stop: 10/17/17 08:24 Zolpidem Tartrate (Ambien -) 5 mg PO ONCE ONE Stop: 10/16/17 22:01 - Objective Vital Signs: Vital Signs Temperature 97.5 F L 10/16/17 10:00 Pulse Rate 109 H 10/16/17 10:00 Respiratory Rate 23 10/16/17 10:00 Blood Pressure 128/69 10/16/17 10:00 O2 Sat by Pulse Oximetry (%) 100 10/16/17 09:00 Constitutional: Yes: Mild Distress Cardiovascular: Yes: Pulse Irregular, Murmur. No: Bruit, Gallop, Rub Respiratory: Yes: Accessory Muscle Use, Diminished, On Venti-Mask, Rhonchi, Tachypnea Gastrointestinal: Yes: WNL, Normal Bowel Sounds, Soft, Abdomen, Obese. No: Distention, Tenderness Genitourinary: Yes: Howard Present, Hematuria Extremities: Yes: Erythema (left index and middle fingers with discoloration) Edema: Yes Edema: LLE: 1+, RLE: Trace Neurological: Yes: Alert, Oriented Psychiatric: Yes: WNL, Alert, Oriented Labs: CBC, BMP 10/16/17 06:06 10/16/17 06:06 INR, PTT INR 1.26 (0.82-1.09) H 10/15/17 06:30 Problem List - Problems (1) Pericardial effusion, acute Code(s): I30.9 - ACUTE PERICARDITIS, UNSPECIFIED (2) Vocal cord paralysis Code(s): J38.00 - PARALYSIS OF VOCAL CORDS AND LARYNX, UNSPECIFIED (3) Dysphagia Code(s): R13.10 - DYSPHAGIA, UNSPECIFIED Qualifiers: Dysphagia type: unspecified Qualified Code(s): R13.10 - Dysphagia, unspecified (4) Dehydration Code(s): E86.0 - DEHYDRATION (5) SIMON (acute kidney injury) Code(s): N17.9 - ACUTE KIDNEY FAILURE, UNSPECIFIED (6) Pneumonia Code(s): J18.9 - PNEUMONIA, UNSPECIFIED ORGANISM Qualifiers: Pneumonia type: due to unspecified organism Laterality: left Lung location: lower lobe of lung Qualified Code(s): J18.1 - Lobar pneumonia, unspecified organism (7) Leukocytosis Code(s): D72.829 - ELEVATED WHITE BLOOD CELL COUNT, UNSPECIFIED (8) Melanoma Code(s): C43.9 - MALIGNANT MELANOMA OF SKIN, UNSPECIFIED (9) Atrial fibrillation Code(s): I48.91 - UNSPECIFIED ATRIAL FIBRILLATION Qualifiers: Atrial fibrillation type: paroxysmal Qualified Code(s): I48.0 - Paroxysmal atrial fibrillation (10) Dyspnea on exertion Code(s): R06.09 - OTHER FORMS OF DYSPNEA (11) COPD (chronic obstructive pulmonary disease) Code(s): J44.9 - CHRONIC OBSTRUCTIVE PULMONARY DISEASE, UNSPECIFIED (12) Hypothyroid Code(s): E03.9 - HYPOTHYROIDISM, UNSPECIFIED (13) Hypertension Code(s): I10 - ESSENTIAL (PRIMARY) HYPERTENSION Qualifiers: Hypertension type: essential hypertension Qualified Code(s): I10 - Essential (primary) hypertension (1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 Code(s): I70.262 - ATHSCL [place] ARTERIES OF EXTREMITIES W GANGRENE, LEFT LEG (15) PAD (peripheral artery disease) Code(s): I73.9 - PERIPHERAL VASCULAR DISEASE, UNSPECIFIED (16) HLD (hyperlipidemia) Code(s): E78.5 - HYPERLIPIDEMIA, UNSPECIFIED (17) Pulmonary congestion Code(s): R09.89 - OTH SYMPTOMS AND SIGNS INVOLVING THE CIRC AND RESP SYSTEMS (18) Pulmonary HTN Code(s): I27.20 - PULMONARY HYPERTENSION, UNSPECIFIED (19) Lung mass Code(s): R91.8 - OTHER NONSPECIFIC ABNORMAL FINDING OF LUNG FIELD Assessment/Plan (1) Pericardial effusion, acute Assessment/Plan: echo w/ large pericardial effusion s/p pericardial window 10/14 f/u on percardial fluid cultures/pathology management per CT surgery Code(s): I30.9 - ACUTE PERICARDITIS, UNSPECIFIED (2) Vocal cord paralysis Assessment/Plan: Flexible laryngoscopy w/ left vocal cord paralysis possibly secondary to possible lung mass ENT following Code(s): J38.00 - PARALYSIS OF VOCAL CORDS AND LARYNX, UNSPECIFIED (3) Dysphagia Assessment/Plan: as above speech eval and barium swallow when clinically improved Code(s): R13.10 - DYSPHAGIA, UNSPECIFIED Qualifiers: Dysphagia type: unspecified Qualified Code(s): R13.10 - Dysphagia, unspecified (4) Dehydration Assessment/Plan: secondary to poor po intake due to underlying condition ivf per nephrology Code(s): E86.0 - DEHYDRATION (5) SIMON (acute kidney injury) Assessment/Plan: improved, prerenal etiology renal us without sig findings urine na/cr wnl ivf per renal avoid diuretics nephr following Code(s): N17.9 - ACUTE KIDNEY FAILURE, UNSPECIFIED (6) Pneumonia Assessment/Plan: unclear etiology +fever, +leukocytosis possible aspiration on zosyn ID consult appreciated Code(s): J18.9 - PNEUMONIA, UNSPECIFIED ORGANISM Qualifiers: Pneumonia type: due to unspecified organism Laterality: left Lung location: lower lobe of lung Qualified Code(s): J18.1 - Lobar pneumonia, unspecified organism (7) Leukocytosis Assessment/Plan: improved, chest xray unclear treat as HCAP, could be aspiration pna blood cultures neg UC pending f/u on percardial fluid cultures empiric zosyn per ID ID following Code(s): D72.829 - ELEVATED WHITE BLOOD CELL COUNT, UNSPECIFIED (8) Melanoma Assessment/Plan: suspected metastatic CA malignant melanoma LLE s/p resection and chemotherapy,2008 Code(s): C43.9 - MALIGNANT MELANOMA OF SKIN, UNSPECIFIED (9) Atrial fibrillation Assessment/Plan: rate controlled on xarelto outpt continue heparin drip echo without sig changes cardiology following Code(s): I48.91 - UNSPECIFIED ATRIAL FIBRILLATION Qualifiers: Atrial fibrillation type: paroxysmal Qualified Code(s): I48.0 - Paroxysmal atrial fibrillation (10) Dyspnea on exertion Assessment/Plan: secondary to copd/ lung mass O2 Code(s): R06.09 - OTHER FORMS OF DYSPNEA (11) COPD (chronic obstructive pulmonary disease) Assessment/Plan: hx of heavy smoking Code(s): J44.9 - CHRONIC OBSTRUCTIVE PULMONARY DISEASE, UNSPECIFIED (12) Hypothyroid Assessment/Plan: on synthroid at home enlarged thyroid gland thyroid US when stable will restart once clinically stable Code(s): E03.9 - HYPOTHYROIDISM, UNSPECIFIED (13) Hypertension Assessment/Plan: hold home meds in the setting of hypotension on atenolol and hctz as outpatient Code(s): I10 - ESSENTIAL (PRIMARY) HYPERTENSION Qualifiers: Hypertension type: essential hypertension Qualified Code(s): I10 - Essential (primary) hypertension (1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 Assessment/Plan: s/p revascularization 07/2017 and toe amputation 08/2017, subclavian stent 09/2017 vascular consult appreciated Code(s): I70.262 - ATHSCL [place] ARTERIES OF EXTREMITIES W GANGRENE, LEFT LEG (15) PAD (peripheral artery disease) Code(s): I73.9 - PERIPHERAL VASCULAR DISEASE, UNSPECIFIED (16) HLD (hyperlipidemia) Assessment/Plan: on zocor outpt Code(s): E78.5 - HYPERLIPIDEMIA, UNSPECIFIED (17) Pulmonary congestion Assessment/Plan: tachypneic today chest CT w/ pulm congestion, solid nodules, mass possible metastatic CA, COPD chest xray unchanged today Code(s): R09.89 - OTH SYMPTOMS AND SIGNS INVOLVING THE CIRC AND RESP SYSTEMS (18) Pulmonary HTN Code(s): I27.20 - PULMONARY HYPERTENSION, UNSPECIFIED (19) Lung mass Assessment/Plan: CT reveals large lung mass Oncology consulted Code(s): R91.8 - OTHER NONSPECIFIC ABNORMAL FINDING OF LUNG FIELD Assessment/Plan I saw and evaluated pt. I agree with ICU attending's assessment and plan for this pt. Pt w/ poor prognosis. Pt currently full code. 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 Case discussed with PCP .
--- NOTE | 2017-10-16 12:10 | PN ---
Teaching Attending Note Name of Resident: Keiry Mcfarlane ATTENDING PHYSICIAN STATEMENT I saw and evaluated the patient. I reviewed the resident's note and discussed the case with the resident. I agree with the resident's findings and plan as documented. SUBJECTIVE: Patient seen and examined in the ICU. Slightly more tachypenic on VM O2. Still refusing NIPPV. 80cc of output documented from pericardial drain. Some dry cough. Denies sputum. No pressors. Intake & Output 10/13/17 10/14/17 10/15/17 10/16/17 23:59 23:59 23:59 23:59 Intake Total 0 2400 1450 1320 Output Total 525 753 1236 430 Balance -100 2120 170 890 Weight 172 lb 8 oz 172 lb 8 oz 173 lb 4 oz 175 lb 6.4 oz Last Vital Signs Temp Pulse Resp BP Pulse Ox 97.5 F L 109 H 23 128/69 100 10/16/17 10:00 10/16/17 10:00 10/16/17 10:00 10/16/17 10:00 10/16/17 09:00 Active Medications Acetaminophen (Ofirmev Injection -) 1,000 mg IVPB Q6H PRN PRN Reason: PAIN LEVEL 1-5 Last Admin: 10/16/17 04:04 Dose: 1,000 mg Fentanyl (Sublimaze Injection -) 25 mcg IVPUSH Q3H PRN PRN Reason: PAIN LEVEL 6-10 Stop: 10/17/17 04:14 Furosemide (Lasix Injection -) 40 mg IVPUSH ONCE ONE Stop: 10/16/17 12:31 Last Admin: 10/16/17 12:00 Dose: 40 mg Piperacillin Sod/Tazobactam (Sod 3.375 gm/ Dextrose) 50 mls @ 100 mls/hr IVPB Q8H-IV ANTONIO PRN Reason: Protocol Last Admin: 10/16/17 09:40 Dose: 100 mls/hr Sodium Chloride (Normal Saline -) 1,000 mls @ 42 mls/hr IV ASDIR ANTONIO Last Admin: 10/15/17 15:00 Dose: 42 mls/hr Morphine Sulfate (Morphine Sulfate) 2 mg IVPUSH Q3H PRN PRN Reason: PAIN LEVEL 4 - 6 Stop: 10/17/17 08:24 Zolpidem Tartrate (Ambien -) 5 mg PO ONCE ONE Stop: 10/16/17 22:01 Constitutional: Yes: Tachypneic at rest Eyes: Yes: WNL, Conjunctiva Clear, EOM Intact HENT: Yes: WNL, Atraumatic, Normocephalic Neck: Yes: WNL, Supple, Trachea Midline Cardiovascular: Yes: Pulse Irregular Respiratory: Yes: Accessory Muscle Use, Diminished, Dullness, On VM O2, Rhonchi , Pericardial drain intact Gastrointestinal: Yes: WNL, Normal Bowel Sounds, Soft, Abdomen, Obese ...Rectal Exam: Yes: Deferred Renal/: Yes: Anuria Breast(s): Yes: WNL Musculoskeletal: Yes: WNL Extremities: Yes: WNL Edema: No Integumentary: Yes: WNL Neurological: Yes: WNL, Alert, Oriented ...Motor Strength: WNL Psychiatric: Yes: WNL, Alert, Oriented Labs: Laboratory Results - last 24 hr 10/15/17 10/15/17 10/15/17 20:00 20:00 20:00 WBC RBC Hgb Hct MCV MCH MCHC RDW Plt Count MPV Sodium Potassium Chloride Carbon Dioxide Anion Gap BUN Creatinine Creat Clearance w eGFR Random Glucose Calcium Phosphorus Magnesium Total Bilirubin AST ALT Alkaline Phosphatase Total Protein Albumin TSH Fluid RBC 70986 Pericard Source Pericardial fluid Pericard Color Red Pericard Appearance Turbid Pericard WBC 72892 Pericard Neutrophils 96 Pericard Lymphocytes 2 Pericard Monocytes 2 Per[place]ard Diff Comment Pericard Total Protein Pericardial Albumin 2 Pericardial LDH 1216 Pericardial Glucose < 1 Pericardial Amylase 28 Pericard Cholesterol 62 Pericard Triglycerides Pericardial Uric Acid 10/15/17 10/15/17 10/16/17 20:00 20:00 06:06 WBC 12.4 H RBC 3.56 L Hgb 11.2 Hct 34.2 MCV 96.1 H MCH 31.5 MCHC 32.8 RDW 15.2 Plt Count 245 MPV 10.1 Sodium Potassium Chloride Carbon Dioxide Anion Gap BUN Creatinine Creat Clearance w eGFR Random Glucose Calcium Phosphorus Magnesium Total Bilirubin AST ALT Alkaline Phosphatase Total Protein Albumin TSH Fluid RBC Pericard Source Pericard Color Pericard Appearance Pericard WBC Pericard Neutrophils Pericard Lymphocytes Pericard Monocytes Pericard Diff Comment Pericard Total Protein 4 Pericardial Albumin Pericardial LDH 1210 Pericardial Glucose < 1 Pericardial Amylase 27 Pericard Cholesterol Pericard Triglycerides 88 Pericardial Uric Acid 9 10/16/17 06:06 WBC RBC Hgb Hct MCV MCH MCHC RDW Plt Count MPV Sodium 143 Potassium 3.5 Chloride 103 Carbon Dioxide 25 Anion Gap 15 BUN 59 H Creatinine 1.5 H Creat Clearance w eGFR 33.41 Random Glucose 77 Calcium 8.0 L Phosphorus 4.3 Magnesium 2.5 H Total Bilirubin 0.5 AST 13 L ALT 21 Alkaline Phosphatase 71 Total Protein 5.6 L Albumin 2.3 L TSH 0.87 Fluid RBC Pericard Source Pericard Color Pericard Appearance Pericard WBC Pericard Neutrophils Pericard Lymphocytes Pericard Monocytes Pericard Diff Comment Pericard Total Protein Pericardial Albumin Pericardial LDH Pericardial Glucose Pericardial Amylase Pericard Cholesterol Pericard Triglycerides Pericardial Uric Acid Problem List - Problems (1) Dehydration Code(s): E86.0 - DEHYDRATION (2) Dysphagia Code(s): R13.10 - DYSPHAGIA, UNSPECIFIED Qualifiers: Dysphagia type: unspecified Qualified Code(s): R13.10 - Dysphagia, unspecified (3) Pneumonia Code(s): J18.9 - PNEUMONIA, UNSPECIFIED ORGANISM Qualifiers: Pneumonia type: due to unspecified organism Laterality: left Lung location: lower lobe of lung Qualified Code(s): J18.1 - Lobar pneumonia, unspecified organism (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 Code(s): I70.262 - ATHSCL [place] ARTERIES OF EXTREMITIES W GANGRENE, LEFT LEG (5) Dyspnea on exertion Code(s): R06.09 - OTHER FORMS OF DYSPNEA (6) Atrial fibrillation Code(s): I48.91 - UNSPECIFIED ATRIAL FIBRILLATION Qualifiers: Atrial fibrillation type: paroxysmal Qualified Code(s): I48.0 - Paroxysmal atrial fibrillation (7) Hypothyroid Code(s): E03.9 - HYPOTHYROIDISM, UNSPECIFIED Assessment/Plan Suspected metastatic CA Pericardial effusion HTN COPD / former heavy smoker Afib on Xarelto Hypothyroid Malignant melanoma Severe PAD Left SCV stent (?) Aspiration PNA Vocal cord dysfunction/paralysis PLAN: -Monitor pericardial drain output -Trial of Lasix -Patient is AAO. She is still requesting ice chips for pleasure knowing the Risks/benefits. -HOB > 30 -Aspiration precautions -FiO2 prn for an SpO2 > 92% -NIPPV if she is willing PRN for WOB -BD TX -IS -ABX -Follow cultures -Hold diuretics -SCDs -PPI -Palliative care evaluation Dr Jens Critical care time spent in reviewing chart, evaluating patient and formulating plan - 36 minutes.
--- NOTE | 2017-10-16 12:10 | PN ---
Progress Note (short form) - Note Progress Note: s:no sob palps dizzy; mild cp at incision site o: Vital Signs Temp 97.5 F L 10/16/17 10:00 Pulse 109 H 10/16/17 10:00 Resp 23 10/16/17 10:00 BP 128/69 10/16/17 10:00 Pulse Ox 100 10/16/17 09:00 Intake & Output 10/15/17 10/16/17 10/16/17 23:59 11:59 23:59 Intake Total 100 1320 Output Total 800 430 Balance -700 890 Weight 175 lb 6.4 oz Intake: IV 1320 Normal Saline - 1,000 ml 420 @ 42 mls/hr IV ASDIR ANTONIO Rx#:[id number] Normal Saline - 1,000 ml 900 @ 75 mls/hr IV ASDIR ANTONIO Rx#:[id number] IVPB 100 Oral 0 Output: Chest Tube Drainage 80 10/14/17 medial chest tubes 80 /p percardial window Drainage 50 Chest 50 Urine 800 300 Howard 800 300 Other: Voiding Method Indwelling Catheter Indwelling Catheter Weight Measurement Method Built in Bedscale nad, calm jvd tds, neck supple bibasilar dullness, nl effort rrr nl s1, s2 no mrg + bs soft nt nd ext with trace edema. no c/c + dp/pt aaox3 no jaundice, diaphoresis. Current Medications Generic Name Dose Route Start Last Admin Trade Name Freq PRN Reason Stop Dose Admin Acetaminophen 1,000 mg 10/15/17 20:21 10/16/17 04:04 Ofirmev Injection - IVPB 1,000 mg Q6H PRN Administration PAIN LEVEL 1-5 Fentanyl 25 mcg 10/16/17 04:05 Sublimaze Injection - IVPUSH 10/17/17 04:14 Q3H PRN PAIN LEVEL 6-10 Furosemide 40 mg 10/16/17 12:30 10/16/17 12:00 Lasix Injection - IVPUSH 10/16/17 12:31 40 mg ONCE ONE Administration Piperacillin Sod/Tazobactam 50 mls @ 100 mls/hr 10/15/17 12:00 10/16/17 09:40 Sod 3.375 gm/ Dextrose IVPB 100 mls/hr Q8H-IV ANTONIO Administration Protocol Sodium Chloride 1,000 mls @ 42 mls/hr 10/15/17 15:11 10/15/17 15:00 Normal Saline - IV 42 mls/hr ASDIR ANTONIO Administration Morphine Sulfate 2 mg 10/16/17 08:25 Morphine Sulfate IVPUSH 10/17/17 08:24 Q3H PRN PAIN LEVEL 4 - 6 Zolpidem Tartrate 5 mg 10/16/17 22:00 Ambien - PO 10/16/17 22:01 ONCE ONE Laboratory Last Values WBC 12.4 K/mm3 (4.0-10.0) H 10/16/17 06:06 RBC 3.56 M/mm3 (3.60-5.2) L 10/16/17 06:06 Hgb 11.2 GM/dL (10.7-15.3) 10/16/17 06:06 Hct 34.2 % (32.4-45.2) 10/16/17 06:06 MCV 96.1 fl (80-96) H 10/16/17 06:06 MCH 31.5 pg (25.7-33.7) 10/16/17 06:06 MCHC 32.8 g/dl (32.0-36.0) 10/16/17 06:06 RDW 15.2 % (11.6-15.6) 10/16/17 06:06 Plt Count 245 K/MM3 (134-434) 10/16/17 06:06 MPV 10.1 fl (7.5-11.1) 10/16/17 06:06 Neutrophils % 85.2 % (42.8-82.8) H 10/15/17 06:30 Lymphocytes % 4.6 % (8-40) L D 10/15/17 06:30 Monocytes % 9.1 % (3.8-10.2) 10/15/17 06:30 Eosinophils % 0.6 % (0-4.5) D 10/15/17 06:30 Basophils % 0.5 % (0-2.0) 10/15/17 06:30 Platelet Estimate Adequate 10/13/17 14:40 ESR 19 mm/hr (0-30) 10/14/17 05:02 PT with INR 14.20 SEC (9.98-11.88) H 10/15/17 06:30 INR 1.26 (0.82-1.09) H 10/15/17 06:30 PTT (Actin FS) 24.2 SECONDS (26.9-34.4) L 10/15/17 06:30 Anticoagulation Therapy No Result Required. 10/13/17 20:00 Puncture Site Right brachial 10/13/17 20:00 ABG pH 7.39 (7.35-7.45) 10/13/17 20:00 ABG pCO2 at Pt Temp 42.2 mmHg (35-45) 10/13/17 20:00 ABG pO2 at Pt Temp 344.0 mmHg (68-100) H* 10/13/17 20:00 ABG HCO3 25.0 meq/L (22-26) 10/13/17 20:00 ABG O2 Sat (Measured) 99.8 % (90-98.9) H* 10/13/17 20:00 ABG O2 Content 19.2 % vol (15-22) 10/13/17 20:00 ABG Base Excess 0.5 meq/l (-2-2) 10/13/17 20:00 Alex Test Positive 10/13/17 20:00 O2 Delivery Device Bipap 10/13/17 20:00 Oxygen Flow Rate 100% 10/13/17 20:00 Vent Mode No Result Required. 10/13/17 20:00 Vent Rate 14 10/13/17 20:00 Mechanical Rate No Result Required. 10/13/17 20:00 Pressure Support Vent 12/5 10/13/17 20:00 Sodium 143 mmol/L (136-145) 10/16/17 06:06 Potassium 3.5 mmol/L (3.5-5.1) 10/16/17 06:06 Chloride 103 mmol/L (98-107) 10/16/17 06:06 Carbon Dioxide 25 mmol/L (21-32) 10/16/17 06:06 Anion Gap 15 (8-16) 10/16/17 06:06 BUN 59 mg/dL (7-18) H 10/16/17 06:06 Creatinine 1.5 mg/dL (0.55-1.02) H 10/16/17 06:06 Creat Clearance w eGFR 33.41 (>60) 10/16/17 06:06 Random Glucose 77 mg/dL (74-106) 10/16/17 06:06 Lactic Acid 1.9 mmol/L (0.0-2.0) 10/14/17 08:00 Calcium 8.0 mg/dL (8.5-10.1) L 10/16/17 06:06 Phosphorus 4.3 mg/dL (2.5-4.9) 10/16/17 06:06 Magnesium 2.5 mg/dL (1.8-2.4) H 10/16/17 06:06 Total Bilirubin 0.5 mg/dL (0.2-1.0) 10/16/17 06:06 AST 13 U/L (15-37) L 10/16/17 06:06 ALT 21 U/L (12-78) 10/16/17 06:06 Alkaline Phosphatase 71 U/L (45-117) 10/16/17 06:06 Creatine Kinase 37 IU/L (26-192) 10/14/17 08:00 Troponin I < 0.02 ng/ml (0.00-0.05) 10/14/17 08:00 C-Reactive Protein 5.3 MG/DL (0.00-0.3) H 10/14/17 05:02 B-Natriuretic Peptide 2373.79 pg/ml (5-450) H 10/13/17 14:40 Total Protein 5.6 g/dl (6.4-8.2) L 10/16/17 06:06 Albumin 2.3 g/dl (3.4-5.0) L 10/16/17 06:06 TSH 0.87 uIU/ml (0.358-3.74) 10/16/17 06:06 Urine Color Brandee 10/13/17 18:57 Urine Appearance Slcloudy 10/13/17 18:57 Urine pH 5.0 (5.0-8.0) 10/13/17 18:57 Ur Specific [place]worth 1.029 (1.001-1.035) 10/13/17 18:57 Urine Protein Negative (NEGATIVE) 10/13/17 18:57 Urine Glucose (UA) Negative (NEGATIVE) 10/13/17 18:57 Urine Ketones Trace (NEGATIVE) H 10/13/17 18:57 Urine Blood Negative (NEGATIVE) 10/13/17 18:57 Urine Nitrite Negative (NEGATIVE) 10/13/17 18:57 Urine Bilirubin Negative (NEGATIVE) 10/13/17 18:57 Urine Urobilinogen 4.0 e.u/dl mg/dL (0.2-1.0) H 10/13/17 18:57 Ur Leukocyte Esterase Negative (NEGATIVE) 10/13/17 18:57 Ur Random Sodium 42 MMOL/L 10/14/17 09:00 Urine Creatinine 242.0 mg/dL (20-320) 10/14/17 09:00 Fluid RBC 15329 /mm3 10/15/17 20:00 Pericard Source Pericardial fluid 10/15/17 20:00 Pericard Color Red 10/15/17 20:00 Pericard Appearance Turbid 10/15/17 20:00 Pericard WBC 78244 /mm3 10/15/17 20:00 Pericard Neutrophils 96 % 10/15/17 20:00 Pericard Lymphocytes 2 % 10/15/17 20:00 Pericard Monocytes 2 % 10/15/17 20:00 Pericard Diff Comment 10/15/17 20:00 Pericard Total Protein 4 gm/dL 10/15/17 20:00 Pericardial Albumin 2 gm/dL 10/15/17 20:00 Pericardial LDH 1210 IU 10/15/17 20:00 Pericardial Glucose < 1 mg/dL 10/15/17 20:00 Pericardial Amylase 28 UL 10/15/17 20:00 Pericard Cholesterol 62 mg/dL 10/15/17 20:00 Pericard Triglycerides 88 mg/dL 10/15/17 20:00 Pericardial Uric Acid 9 mg/dL 10/15/17 20:00 Random Vancomycin 19.507 ug/ml 10/15/17 06:30 Blood Type A POSITIVE 10/14/17 15:00 Antibody Screen Negative 10/14/17 15:00 ekg: afib, low voltage qrs. no acute ischemic changes. tele: rate controlled afib echo 10/2017: nl lv/rv, no sig valve path, mod-large peric eff, no tamponade cxr: no sig change ct: images and report reviewed. asymmetric pleural effusion and pericardial effusion noted. see emr for detailed report. mibi 01/2015: lexiscan, no ecg changes, normal MPI, resting ecg showed afib echo 04/2017: nl lv/rv, no sig valve path, nl rvsp office ekg: from april: afib, borderline low voltages. poor r wave progression. similar to priors. est cct 35 mins Assessment/plan. 82 yo with h/o afib on xarelto, htn, hl, PVD s/p revascularization 07/2017 and toe amputation 08/2017, subclavian stent 09/2017, obesity, hypothyroid, melanoma and chronic low back pain p/w sob. sob/resp failure/pericardial effusion - on initial ER evaluation appeared to have worsened respiratory distress s/p IVF bolus. --> placed on bipap and given 40 mg IV lasix x 2. Subsequent hypotension (also in setting of fever to 102) -echo with large pericardial eff, now s/p pericardial window 10/14/17 -getting trial of iv lasix today -infection/malignacy w/u per primary team afib - AC with xarelto as outpatient, held here given need for surgery, also with new lung mass. - rate controlled off home atenolol, cont tele htn - on atenolol and hctz as outpatient, currently holding as she is still with low bp at times PAD - s/p L [employer] , residual distal dz. followed by vascular as outpatient. - s/p subclavian stent. check to see if bp equal in both arms. - resume statin once acute issues resolve. tiffany - acute worsening of Creatinine in setting of hypotension. improving now. hld: - on zocor as outpatient.
--- NOTE | 2017-10-16 12:13 | PN ---
Progress Note (short form) - Note Progress Note: Thoracic Surgery POD#2 Hemodynamics better, breathing subjectively better. Awaiting pericardial path. 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 Prognosis is poor and will need palliation.
[2017-10-16] MEDS ORDERED: FUROSEMIDE 40 MG/4 ML INJECTABLE VIAL IVPUSH ONE (12:30)
--- NOTE | 2017-10-16 13:15 | PATH ---
Surgical Pathology Report Patient Name: SHAN DIAZ Med. Rec. #: [id number] /Age/Gender: 1935 (Age: 82) / F Account: [id number] Location: [facility] MED/SURG Taken: 10/14/2017 Received: 10/15/2017 Reported: 10/21/2017 Physicians: Ron Forbes M.D. [facility] Galaviz [facility] M[facility] Specimen(s) Received PERICARDIUM BIOPSY Clinical History Pericardial effusion Final Diagnosis AMENDED DIAGNOSIS PERICARDIUM, PARTIAL EXCISION: POSITIVE FOR METASTATIC PULMONARY ADENOCARCINOMA. Amendment Comment: Additional history of a lung mass was obtained, and the cellular proliferation was compared with the findings of the concurrent cytology specimen [id number]. Although the cells have a mesothelial-like appearance, immunostain for TTF-1 is positive, consistent with metastatic pulmonary adenocarcinoma. This case was discussed with Dr. Forbes and Dr. Roth on 10/20/2017. Originally reported as: BENIGN FIBROUS TISSUE CONSISTENT WITH PERICARDIAL TISSUE, WITH MESOTHELIAL HYPERPLASIA. NO NEOPLASM IS IDENTIFIED. Comment: See also [id number]. Electronically Signed Dario Martinez M.D. Amendments Amended: 10/21/2017 Previous Signout Date: 10/16/2017 Comment: Result of TTF-1 stain changes diagnosis Gross Description Received in formalin labeled "pericardial tissue," is a 1.8 x 0.9 x 0.6 cm ruby, irregular portion of soft tissue. The specimen is bisected and entirely submitted in one cassette. /10/15/2017 [facility]/10/15/2017
[2017-10-16] MEDS: morphine SULFATE 4 MG/ML VIAL IVPUSH PRN ×2 (13:48→22:36)
--- NOTE | 2017-10-16 13:56 | PN ---
Progress Note, Physician History of Present Illness: Awake alert No c/o chest pain Appears tachypneic at rest Afebrile WBC improved Cultures and cytology pending - Current Medication List Current Medications: Active Medications Acetaminophen (Ofirmev Injection -) 1,000 mg IVPB Q6H PRN PRN Reason: PAIN LEVEL 1-5 Last Admin: 10/16/17 04:04 Dose: 1,000 mg Fentanyl (Sublimaze Injection -) 25 mcg IVPUSH Q3H PRN PRN Reason: PAIN LEVEL 6-10 Stop: 10/17/17 04:14 Heparin Sodium (Porcine) (Heparin -) 5,000 unit SQ BID ANTONIO Piperacillin Sod/Tazobactam (Sod 3.375 gm/ Dextrose) 50 mls @ 100 mls/hr IVPB Q8H-IV ANTONIO PRN Reason: Protocol Last Admin: 10/16/17 09:40 Dose: 100 mls/hr Sodium Chloride (Normal Saline -) 1,000 mls @ 42 mls/hr IV ASDIR ANTONIO Last Admin: 10/15/17 15:00 Dose: 42 mls/hr Morphine Sulfate (Morphine Sulfate) 2 mg IVPUSH Q3H PRN PRN Reason: PAIN LEVEL 4 - 6 Stop: 10/17/17 08:24 Last Admin: 10/16/17 13:48 Dose: 2 mg Zolpidem Tartrate (Ambien -) 5 mg PO ONCE ONE Stop: 10/16/17 22:01 - Objective Vital Signs: Vital Signs Temperature 97.5 F L 10/16/17 10:00 Pulse Rate 122 H 10/16/17 12:00 Respiratory Rate 22 10/16/17 12:00 Blood Pressure 105/74 10/16/17 12:00 O2 Sat by Pulse Oximetry (%) 100 10/16/17 09:00 Constitutional: Yes: No Distress Eyes: Yes: Conjunctiva Clear Cardiovascular: Yes: Regular Rate and Rhythm, Tachycardia, S1, S2 Respiratory: Yes: Diminished Gastrointestinal: Yes: Normal Bowel Sounds, Soft. 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 aspiration pneumonia Azotemia Await cultures and cytology Continue empiric zosyn
[2017-10-16] MEDS ORDERED: SODIUM CHLORIDE 1,000 ML IV SCH (14:16)
--- NOTE | 2017-10-16 14:56 | PN ---
Progress Note, Physician History of Present Illness: Pt seen and examined at bedside. She complains of shortness of breath. She denies chest pain. She is awake however appears uncomfortable. - Current Medication List Current Medications: Active Medications Acetaminophen (Ofirmev Injection -) 1,000 mg IVPB Q6H PRN PRN Reason: PAIN LEVEL 1-5 Last Admin: 10/16/17 04:04 Dose: 1,000 mg Fentanyl (Sublimaze Injection -) 25 mcg IVPUSH Q3H PRN PRN Reason: PAIN LEVEL 6-10 Stop: 10/17/17 04:14 Heparin Sodium (Porcine) (Heparin -) 5,000 unit SQ BID ANTONIO Piperacillin Sod/Tazobactam (Sod 3.375 gm/ Dextrose) 50 mls @ 100 mls/hr IVPB Q8H-IV ANTONIO PRN Reason: Protocol Last Admin: 10/16/17 09:40 Dose: 100 mls/hr Sodium Chloride (Normal Saline -) 1,000 mls @ 20 mls/hr IV ASDIR ANTONIO Morphine Sulfate (Morphine Sulfate) 2 mg IVPUSH Q3H PRN PRN Reason: PAIN LEVEL 4 - 6 Stop: 10/17/17 08:24 Last Admin: 10/16/17 13:48 Dose: 2 mg Zolpidem Tartrate (Ambien -) 5 mg PO ONCE ONE Stop: 10/16/17 22:01 - Objective Vital Signs: Vital Signs Temperature 97.5 F L 10/16/17 10:00 Pulse Rate 122 H 10/16/17 12:00 Respiratory Rate 22 10/16/17 12:00 Blood Pressure 105/74 10/16/17 12:00 O2 Sat by Pulse Oximetry (%) 100 10/16/17 09:00 Constitutional: Yes: Moderate Distress Eyes: Yes: Conjunctiva Clear HENT: Yes: Atraumatic Neck: Yes: Supple Cardiovascular: Yes: S1, S2, Other (s/p pericardial window) Gastrointestinal: Yes: Soft Genitourinary: Yes: Howard Present Musculoskeletal: Yes: Muscle Weakness Edema: Yes Integumentary: Yes: Erythema Wound/Incision: Yes: Open to air Neurological: Yes: Oriented Psychiatric: Yes: Oriented Labs: CBC, BMP 10/16/17 06:06 10/16/17 06:06 INR, PTT INR 1.26 (0.82-1.09) H 10/15/17 06:30 - ....Imaging Chest X-ray: Report Reviewed Problem List - Problems (1) SIMON (acute kidney injury) Code(s): N17.9 - ACUTE KIDNEY FAILURE, UNSPECIFIED (2) Melanoma Code(s): C43.9 - MALIGNANT MELANOMA OF SKIN, UNSPECIFIED (3) Atrial fibrillation Code(s): I48.91 - UNSPECIFIED ATRIAL FIBRILLATION Qualifiers: Atrial fibrillation type: paroxysmal Qualified Code(s): I48.0 - Paroxysmal atrial fibrillation (4) Hypothyroid Code(s): E03.9 - HYPOTHYROIDISM, UNSPECIFIED Assessment/Plan Current Medications Generic Name Dose Route Start Last Admin Trade Name Freq PRN Reason Stop Dose Admin Acetaminophen 1,000 mg 10/15/17 20:21 10/16/17 04:04 Ofirmev Injection - IVPB 1,000 mg Q6H PRN Administration PAIN LEVEL 1-5 Fentanyl 25 mcg 10/16/17 04:05 Sublimaze Injection - IVPUSH 10/17/17 04:14 Q3H PRN PAIN LEVEL 6-10 Heparin Sodium (Porcine) 5,000 unit 10/17/17 10:00 Heparin - SQ BID ANTONIO Piperacillin Sod/Tazobactam 50 mls @ 100 mls/hr 10/15/17 12:00 10/16/17 09:40 Sod 3.375 gm/ Dextrose IVPB 100 mls/hr Q8H-IV ANTONIO Administration Protocol Sodium Chloride 1,000 mls @ 20 mls/hr 10/16/17 14:16 Normal Saline - IV ASDIR ANTONIO Morphine Sulfate 2 mg 10/16/17 08:25 10/16/17 13:48 Morphine Sulfate IVPUSH 10/17/17 08:24 2 mg Q3H PRN Administration PAIN LEVEL 4 - 6 Zolpidem Tartrate 5 mg 10/16/17 22:00 Ambien - PO 10/16/17 22:01 ONCE ONE Impression 1. SIMON 2. pericardial effusion 3. resp failure requiring bipap 4. hx melanoma 5. possible metastatic disease 6. hypotension 7. hypothyroid 8. HLD 9. COPD 10. formal smoker 11. possible mass in pericardial sac 12. pericardial effusion Plan - renal function continues to improve - monitor blood pressure - monitor urine output - send fluid for cytology - will need to discuss GOC with family - oncology evaluation - cts follow up - SIMON likely from hypotension and prerenal disease - clarify advanced directives - will need to monitor vanco levels - will follow Dr Waite
[2017-10-16 16:43] LABS: ARTERIAL BLD GAS O2 SATURATION 87.5 % (90-98.9); ARTERIAL BLOOD GAS BASE EXCESS -3.6 meq/l (-2-2); ARTERIAL BLOOD GAS PO2 62.6 mmHg (68-100)
[2017-10-16 16:48] LABS: ALLENS TEST POSITIVE
[2017-10-16 16:52] LABS: ARTERIAL BLOOD GAS pH 7.23 (7.35-7.45)
[2017-10-16 16:53] LABS: ARTERIAL BLOOD GAS PCO2 60.1 mmHg (35-45)
[2017-10-16] MEDS ORDERED: METOPROLOL TARTRATE 5 MG/5 ML VIAL IVPUSH ONE (17:15)
[2017-10-16] MEDS: LYTES/YERBA SANTA 240 ML BOTTLE MM SCH (21:37)
[2017-10-16] MEDS ORDERED: ZOLPIDEM TARTRATE 5 MG TABLET PO ONE (22:00)
[2017-10-17] MEDS: PIPERACILLIN/TAZOB 3.375 GM 3.375 GM in DEXTROSE 5%-WATER - 50 ML IVPB SCH ×3 (01:50→18:14)
[2017-10-17 06:27] LABS: BASO % 0.6 % (0-2.0); EOS % 0.7 % (0-4.5); HEMATOCRIT 37.7 % (32.4-45.2); HEMOGLOBIN 12.3 GM/dL (10.7-15.3); LYMPH % 5.3 % (8-40); MCH 31.5 pg (25.7-33.7); MCHC 32.5 g/dl (32.0-36.0); MEAN CELL VOLUME 96.8 fl (80-96); MEAN PLT VOLUME 9.9 fl (7.5-11.1); MONO % 10.2 % (3.8-10.2); NEUT % 83.2 % (42.8-82.8); PLATELET COUNT 270 K/MM3 (134-434); RDW 14.8 % (11.6-15.6); WHITE BLOOD COUNT 13.1 K/mm3 (4.0-10.0)
[2017-10-17 06:46] LABS: INR 1.28 (0.82-1.09); PROTHROMBIN TIME (PATIENT) 14.5 SEC (9.98-11.88)
[2017-10-17 06:48] LABS: ACTIVATED PTT 25.9 SECONDS (26.9-34.4)
[2017-10-17 07:00] LABS: ALBUMIN 2.5 g/dl (3.4-5.0); ALK PHOS 76 U/L (45-117); ANION GAP 10 (8-16); BILIRUBIN,TOTAL 0.5 mg/dL (0.2-1.0); BLOOD UREA NITROGEN 58 mg/dL (7-18); CALCIUM 7.9 mg/dL (8.5-10.1); CHLORIDE 105 mmol/L (98-107); CO2 30 mmol/L (21-32); CREATININE 1.4 mg/dL (0.55-1.02); GLUCOSE,RANDOM 97 mg/dL (74-106); MAGNESIUM 1.9 mg/dL (1.8-2.4); PHOSPHOROUS 3.6 mg/dL (2.5-4.9); POTASSIUM 3.6 mmol/L (3.5-5.1); SGOT/AST 11 U/L (15-37); SGPT/ALT 13 U/L (12-78); SODIUM 145 mmol/L (136-145); TOT PROT 5.8 g/dl (6.4-8.2)
--- NOTE | 2017-10-17 07:42 | PN ---
Progress Note, Physician Chief Complaint: ID Day 2 post op pericardial window Using BIPAP mask Zosyn - Current Medication List Current Medications: Active Medications Acetaminophen (Ofirmev Injection -) 1,000 mg IVPB Q6H PRN PRN Reason: PAIN LEVEL 1-5 Last Admin: 10/16/17 04:04 Dose: 1,000 mg Heparin Sodium (Porcine) (Heparin -) 5,000 unit SQ BID [facility] Piperacillin Sod/Tazobactam (Sod 3.375 gm/ Dextrose) 50 mls @ 100 mls/hr IVPB Q8H-IV ANTONIO PRN Reason: Protocol Last Admin: 10/17/17 01:50 Dose: 100 mls/hr Sodium Chloride (Normal Saline -) 1,000 mls @ 20 mls/hr IV ASDIR ANTONIO Last Admin: 10/16/17 17:38 Dose: 20 mls/hr Morphine Sulfate (Morphine Sulfate) 2 mg IVPUSH Q3H PRN PRN Reason: PAIN LEVEL 4 - 6 Stop: 10/17/17 08:24 Last Admin: 10/16/17 22:36 Dose: 2 mg Saliva Substitute (M[place] Solution -) 1 applic MM DAILY [facility] Last Admin: 10/16/17 21:37 Dose: 1 applic - Objective Vital Signs: Vital Signs Temperature 98.9 F 10/17/17 06:00 Pulse Rate 120 H 10/17/17 06:00 Respiratory Rate 18 10/17/17 06:00 Blood Pressure 126/63 10/17/17 06:00 O2 Sat by Pulse Oximetry (%) 100 10/17/17 06:14 Constitutional: Yes: Moderate Distress Cardiovascular: Yes: Regular Rate and Rhythm, S1, S2 Respiratory: Yes: WNL, Regular, CTA Bilaterally Gastrointestinal: Yes: Soft. No: Tenderness Edema: No Labs: CBC, BMP 10/17/17 05:30 10/17/17 05:30 INR, PTT INR 1.28 (0.82-1.09) H 10/17/17 05:30 Assessment/Plan Microbiology 10/14/17 20:00 Pericardial Fluid Gram Stain - Final 10/13/17 18:57 Urine - Urine Howard Urine Culture - Final NO GROWTH OBTAINED 10/14/17 20:00 Pericardial Fluid RENE Preparation - Preliminary 10/14/17 20:00 Pericardial Fluid Fungal Culture - Preliminary 10/14/17 20:00 Pericardial Fluid Body Fluid Culture - Preliminary NO AEROBIC GROWTH, 24 HRS 10/14/17 20:00 Pericardial Fluid AFB Smear Concentration - Preliminary 10/14/17 20:00 Pericardial Fluid Mycobacterial Culture - Preliminary 10/13/17 15:50 Blood - Peripheral Venous Blood Culture - Preliminary NO GROWTH OBTAINED AFTER 72 HOURS, INCUBATION TO CONTINUE FOR 2 DAYS. 10/13/17 15:42 Blood - Peripheral Venous Blood Culture - Preliminary NO GROWTH OBTAINED AFTER 72 HOURS, INCUBATION TO CONTINUE FOR 2 DAYS. Laboratory Tests 10/15/17 10/15/17 10/17/17 06:30 20:00 05:30 WBC 13.1 H Hgb 12.3 Plt Count 270 BUN Creat Clearance w eGFR Fluid RBC 21736 Pericard Appearance Turbid Pericard WBC 85136 Pericard Neutrophils 96 Random Vancomycin 19.507 10/17/17 05:30 WBC Hgb Plt Count BUN 58 H Creat Clearance w eGFR 36.18 Fluid RBC Pericard Appearance Pericard WBC Pericard Neutrophils Random Vancomycin Assessment Metastatic CA History of melanoma wiath malignant pericardial effusion likely Atrial fib on anticoagulation Plan Antibiotic can be stopped if cultures no growth
--- NOTE | 2017-10-17 07:48 | PN ---
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 About one month ago, patient developed hoarseness, difficulty swallowing, and choking on PO intake. She has lost 8 pounds in that period of time. She has been seen and evaluated several times by her PCP Dr. Woodall. Earlier this week she saw ENT specialist Dr. Cabrera who reportedly told patient she has vocal cord paralysis on one side, possibly secondary to multiple intubations. On the recommendations of Dr. Woodall and Dr. Cabrera, patient came to the ED. PCP is Dr. Woodall. 24 HOUR EVENTS Patient with increase SOB yesterday and placed on BiPAP with subjective improvement. Heart rates to 130s-140s overnight, RN Gwen notes no rate control medications on her orders currently, was on atenolol 50 mg BID at home. SUBJECTIVE States throat/mouth are very dry and making her feel anxious. 24 HOUR INTAKE & OUTPUT Intake: 1808cc Output: 1780cc Net: 28cc BM: None reported LINES/TUBES/DRAINS Howard placed 10/13/17 Pericardial drain placed 10/14/17 - Current Medication List Current Medications: Active Medications Acetaminophen (Ofirmev Injection -) 1,000 mg IVPB Q6H PRN PRN Reason: PAIN LEVEL 1-5 Last Admin: 10/16/17 04:04 Dose: 1,000 mg Heparin Sodium (Porcine) (Heparin -) 5,000 unit SQ BID AN[facility]IO Piperacillin Sod/Tazobactam (Sod 3.375 gm/ Dextrose) 50 mls @ 100 mls/hr IVPB Q8H-IV [facility] PRN Reason: Protocol Last Admin: 10/17/17 01:50 Dose: 100 mls/hr Sodium Chloride (Normal Saline -) 1,000 mls @ 20 mls/hr IV ASDIR [facility] Last Admin: 10/16/17 17:38 Dose: 20 mls/hr Morphine Sulfate (Morphine Sulfate) 2 mg IVPUSH Q3H PRN PRN Reason: PAIN LEVEL 4 - 6 Stop: 10/17/17 08:24 Last Admin: 10/16/17 22:36 Dose: 2 mg Saliva Substitute (Mouthkote Solution -) 1 applic MM DAILY [facility] Last Admin: 10/16/17 21:37 Dose: 1 applic - Objective Vital Signs: Vital Signs Temperature 98.9 F 10/17/17 06:00 Pulse Rate 120 H 10/17/17 06:00 Respiratory Rate 18 10/17/17 06:00 Blood Pressure 126/63 10/17/17 06:00 O2 Sat by Pulse Oximetry (%) 100 10/17/17 06:14 Constitutional: Yes: No Distress, Calm, Other (on BiPAP initially sleeping) Eyes: Yes: WNL, Conjunctiva Clear, EOM Intact HENT: Yes: WNL, Atraumatic, Normocephalic, Hoarseness (continues to improve) Neck: Yes: WNL, Supple, Trachea Midline Cardiovascular: Yes: Tachycardia, Pulse Irregular Respiratory: Yes: Diminished (left upper lung), On BiPap, Other (pericardial cath in place through subxyphoid incision) Gastrointestinal: Yes: WNL, Normal Bowel Sounds, Soft Genitourinary: Yes: Howard Present Musculoskeletal: Yes: WNL Extremities: No: Calf Tenderness, Cyanosis, Erythema Edema: Yes Edema: LLE: Trace, RLE: Trace Integumentary: Yes: Other (large well healed scar to LLE, left fingers slightly worsened cold/discolored) Wound/Incision: Yes: Clean/Dry, Dressing Dry and Intact Neurological: Yes: WNL, Alert, Oriented, Cran Nerves II-XII Intact ...Motor Strength: WNL Psychiatric: Yes: WNL, Alert, Oriented. No: Agitated Labs: CBC, BMP 10/17/17 05:30 10/17/17 05:30 INR, PTT INR 1.28 (0.82-1.09) H 10/17/17 05:30 - ....Imaging Chest X-ray: Report Reviewed, Image Reviewed, Other (Left lung unchanged; right lung with increased congestive changes) Assessment/Plan ASSESSMENT/PLAN 82 year-old woman with a PMH significant for HTN, HLD, PVD with multiple recent procedures to BLE, afib on Xarelto, malignant melenoma of LLE, 8 lb weight loss in past couple of months, hypothyroidism, came to ED for hoarseness/difficulty swallowing and became acutely SOB, focal consolidations on CXR, placed on BiPAP , developed fever, BCx taken, ABx started, admitted for aspiration pneumona, probable mass on Chest CT JEROME. Now s/p pericardial window for moderate-large pericardial effusion with impending tamponade. RESP #Hypoxic respiratory failure, improved. Possibly 2/2 to aspiration pneumonia, possible CHF (i.e. high output d/t possible lung malignancy or from post- compressive JEROME changes), must also consider PE given multiple recent surgeries and possibility of malignancy, though patient is on home AC. Chest CT done. Patient with increased SOB and abdominal retractions this AM, CXR with increase opacity left lung, increased congestion right lung. May be component of capillary leak. -Start SoluMedrol 80 mg IV q8h -Continue vancomycin/Zosyn and f/u cultures -Caution with PPV d/t possibility of PTX, patient did require BiPAP overnight -Oral spray for mouth dryness -Serial CXR -When stable and recovered after a few days will do bronchoscopy and biopsy -Patient requests consult with Dr. Branden Sloan as she knows him personally , will do when out of ICU -Per goals of care discussion the patient would want intubation and "one round" of ACLS CV #Cardiac tamponade, resolved with pericardial window. No obvious tamponade physiology was seen on echo from 10/14/17 but it was noted this was a suboptimal study and the patient was clinically showing worsening signs of tamponade on the afternoon of 10/14/17. (Worsening hypotension, mild intermittent tachycardia, and JVD). Pericardial window and catheter placement with 500cc immediate bloody output, also with continued slow drainage since that time. -F/U final culture results of pericardial fluid -Monitor pericardial drain output -Pain control #Atrial fibrillation, chronic. Was on home Xarelto, replaced with heparin ggt, now off these d/t OR procedure. Spoke with Drs. Forbes, Ariadne, and Jens who all feel that HSQ starting tomorrow is appropriate. -Rate 100-130s; continue atenolol -Heparin SQ start today #Peripheral artery disease -Continue home statin, ASA -Heparin ggt when able #Hypertension, chronic. Episodes of hypotension here in the ICU relieved after pericardial window. -Continue atenolol as BP permits #Hyperlipidemia -Continue statin HEENT #Vocal cord paralysis, unilateral. Diagnosed by Dr. Cabrera within the past couple of days. On CT chest there is a prominent lymph node in the left hilum near expected path of the recurrent laryngeal nerve. CT also concerning for mass in JEROME. Possibility of malignancy as cause. -following multiple intubations over past 3 months -ENT Dr. Cabrera consulting -Speech and swallow evaluation 10/16/17 ID #Sepsis. Patient intermittently febrile, tachycardic, tachypneic, mild hypoxia/ respiratory distress requiring BiPAP over night. Possibly 2/2 PNA given consolidations on CXR and high likelihood of aspiration. Also possibly d/t post- obstructive JEROME changes d/t bronchial obstruction i.e. from proximal mass. -F/U BCx taken in ED -Continue vancomycin and Zosyn -ID consult -Serial CXR and labs RENAL #SIMON, improving. Baseline Cr 0.8 per [facility] records. US renal is negative for acute pathology. Likely prerenal 2/2 hypoperfusion. -Renal is following -Hold home HCTZ -Hydrate 100cc/h IVF HEME #Likely malignancy. Patient does have h/o malignant melanoma s/p resection and chemo. Chest CT with concern for malignancy JEROME. Patient has 8 lbs weight loss. -F/U on initial plan for CT chest/abdomen/pelvis -Discuss plan for bronchoscopy and biopsy once stable -Likely bronch/biopsy early next week #High risk for PE. Given likely active malignancy, multiple recent surgeries, now hospitalization. Negative BLE Duplex. -Discuss SCDs and TEDs -Start HSQ tomorrow morning ENDO Hypothyrodism -Continue levothyroxine FEN #Weight loss. Reportedly 8 lbs in the past couple of months. DDX IBNLT malignancy, PE, CAD, CHF, endocrine (i.e. thyroid overreplacement). -Monitor daily weight -Dietary consult after speech/swallow eval -The patient asks to have limited PO fluids now, states quality of life issue, risks discussed and she understands and does still want PO fluids. PPX DVT: Refusing SCDs and TEDs, will start HSQ tomorrow morning GI: PPI PT: When able DISPO Continued ICU care
[2017-10-17] MEDS ORDERED: PT OWN MED DRAWER 7, Y5N ONE ×2 (08:17→15:42)
--- NOTE | 2017-10-17 08:19 | PN ---
Progress Note (short form) - Note Progress Note: POD #3 Alert. Resting in position of comfort. CPAP on. No complaints. Her respiratory rate has greatly improved since last time I examined her. Tachycardic to 124. Denies n/v/f/c, CP, SOB. Last Vital Signs Temp Pulse Resp BP Pulse Ox 98.9 F 124 H 18 126/63 99 /18 06:00 18 08:16 10/17/17 06:00 10/17/17 06:00 10/17/17 08:16 Pericardial drain 10/16/10/16/1718 10/17/17 06:00 18:34 20:00 06:00 Chest 80 30 20 5 Gen: nad Chest: tube on suction. c/d/i. subxiphoid dressing c/d/i. no hematoma LE: SCDs bilat. Problem List - Problems (1) Pericardial effusion, acute Assessment/Plan: POD #3 s/p pericardial window Awaiting pericardial path. Cont tube to suction, will remain until tube output < 10 mL Cont ICU management Dr. Forbes made aware and agrees Code(s): I30.9 - ACUTE PERICARDITIS, UNSPECIFIED
[2017-10-17] MEDS ORDERED: morphine CARPU-JECT 4 MG/1 ML DISP.SYRIN IVPUSH ONE (09:55)
[2017-10-17] MEDS: LYTES/YERBA SANTA 240 ML BOTTLE MM SCH (10:03)
[2017-10-17] MEDS: methylPREDNISolone NA SUCC 40 MG/1 ML VIAL IVPUSH SCH ×2 (10:40→18:14)
[2017-10-17] MEDS: HEPARIN NA (PORCINE) 5,000 UNITS/ML 1ML VIAL SQ SCH ×2 (10:42→22:46)
--- NOTE | 2017-10-17 11:27 | PN ---
Teaching Attending Note Name of Resident: Keiry Mcfarlane ATTENDING PHYSICIAN STATEMENT I saw and evaluated the patient. I reviewed the resident's note and discussed the case with the resident. I agree with the resident's findings and plan as documented. SUBJECTIVE: Patient seen and examined in the ICU. Tachypenic on VM O2. Utilized NIPPV. 135cc of output documented from pericardial drain. Some dry cough. Denies sputum. No pressors. Intake & Output 10/14/17 10/15/17 10/16/17 10/17/17 23:59 23:59 23:59 23:59 Intake Total 2400 1450 1808 120 Output Total 280 1280 1780 405 Balance 2120 170 28 -285 Weight 172 lb 8 oz 173 lb 4 oz 175 lb 6.4 oz 175 lb 3.2 oz Last Vital Signs Temp Pulse Resp BP Pulse Ox 98.9 F 123 H 18 114/69 96 10/17/17 06:00 10/17/17 11:12 10/17/17 09:00 10/17/17 08:00 10/17/17 11:12 Active Medications Acetaminophen (Ofirmev Injection -) 1,000 mg IVPB Q6H PRN PRN Reason: PAIN LEVEL 1-5 Last Admin: 10/16/17 04:04 Dose: 1,000 mg Atenolol (Tenormin -) 50 mg PO BID [facility] Heparin Sodium (Porcine) (Heparin -) 5,000 unit SQ BID [facility] Last Admin: 10/17/17 10:42 Dose: 5,000 unit Piperacillin Sod/Tazobactam (Sod 3.375 gm/ Dextrose) 50 mls @ 100 mls/hr IVPB Q8H-IV [facility] PRN Reason: Protocol Last Admin: 10/17/17 10:42 Dose: 100 mls/hr Sodium Chloride (Normal Saline -) 1,000 mls @ 20 mls/hr IV ASDIR [facility] Last Admin: 10/16/17 17:38 Dose: 20 mls/hr Levothyroxine Sodium (Synthroid -) 50 mcg PO DAILY [facility] Methylprednisolone Sodium Succinate (Solu-Medrol -) 80 mg IVPUSH Q8H-IV [facility] Last Admin: 10/17/17 10:40 Dose: 80 mg Metoprolol Tartrate (Lopressor Injection -) 5 mg IVPUSH ONCE ONE Stop: 03/09/18 11:17 Saliva Substitute (Mouthkote Solution -) 1 applic MM DAILY [facility] Last Admin: 10/17/17 10:03 Dose: 1 applic Constitutional: Yes: Tachypneic at rest Eyes: Yes: WNL, Conjunctiva Clear, EOM Intact HENT: Yes: WNL, Atraumatic, Normocephalic Neck: Yes: WNL, Supple, Trachea Midline Cardiovascular: Yes: Pulse Irregular Respiratory: Yes: Accessory Muscle Use, Diminished, Dullness, On VM O2, Rhonchi , Pericardial drain intact Gastrointestinal: Yes: WNL, Normal Bowel Sounds, Soft, Abdomen, Obese ...Rectal Exam: Yes: Deferred Renal/: Yes: Anuria Breast(s): Yes: WNL Musculoskeletal: Yes: WNL Extremities: Yes: WNL Edema: No Integumentary: Yes: WNL Neurological: Yes: WNL, Alert, Oriented ...Motor Strength: WNL Psychiatric: Yes: WNL, Alert, Oriented Labs: Laboratory Results - last 24 hr 10/15/17 10/16/17 10/17/17 20:00 15:02 05:30 WBC 13.1 H RBC 3.90 Hgb 12.3 Hct 37.7 MCV 96.8 H MCH 31.5 MCHC 32.5 RDW 14.8 Plt Count 270 MPV 9.9 Neutrophils % 83.2 H Lymphocytes % 5.3 L Monocytes % 10.2 Eosinophils % 0.7 Basophils % 0.6 PT with INR INR PTT (Actin FS) Anticoagulation Therapy No Result Required. Puncture Site Right radial ABG pH 7.23 L* D ABG pCO2 at Pt Temp 60.1 H* D ABG pO2 at Pt Temp 62.6 L D ABG HCO3 24.4 ABG O2 Sat (Measured) 87.5 L ABG O2 Content 15.4 ABG Base Excess -3.6 L Alex Test Positive O2 Delivery Device Mask Oxygen Flow Rate 12l Vent Mode No Result Required. Vent Rate No Result Required. Mechanical Rate No Result Required. Pressure Support Vent No Result Required. Sodium Potassium Chloride Carbon Dioxide Anion Gap BUN Creatinine Creat Clearance w eGFR Random Glucose Calcium Phosphorus Magnesium Total Bilirubin AST ALT Alkaline Phosphatase Total Protein Albumin Pericardial Uric Acid 9 10/17/17 10/17/17 05:30 05:30 WBC RBC Hgb Hct MCV MCH MCHC RDW Plt Count MPV Neutrophils % Lymphocytes % Monocytes % Eosinophils % Basophils % PT with INR 14.50 H INR 1.28 H PTT (Actin FS) 25.9 L Anticoagulation Therapy Puncture Site ABG pH ABG pCO2 at Pt Temp ABG pO2 at Pt Temp ABG HCO3 ABG O2 Sat (Measured) ABG O2 Content ABG Base Excess Alex Test O2 Delivery Device Oxygen Flow Rate Vent Mode Vent Rate Mechanical Rate Pressure Support Vent Sodium 145 Potassium 3.6 Chloride 105 Carbon Dioxide 30 Anion Gap 10 BUN 58 H Creatinine 1.4 H Creat Clearance w eGFR 36.18 Random Glucose 97 Calcium 7.9 L Phosphorus 3.6 Magnesium 1.9 Total Bilirubin 0.5 AST 11 L ALT 13 Alkaline Phosphatase 76 Total Protein 5.8 L Albumin 2.5 L Pericardial Uric Acid Problem List - Problems (1) Dehydration Code(s): E86.0 - DEHYDRATION (2) Dysphagia Code(s): R13.10 - DYSPHAGIA, UNSPECIFIED Qualifiers: Dysphagia type: unspecified Qualified Code(s): R13.10 - Dysphagia, unspecified (3) Pneumonia Code(s): J18.9 - PNEUMONIA, UNSPECIFIED ORGANISM Qualifiers: Pneumonia type: due to unspecified organism Laterality: left Lung location: lower lobe of lung Qualified Code(s): J18.1 - Lobar pneumonia, unspecified organism (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 Code(s): I70.262 - ATHSCL [place] ARTERIES OF EXTREMITIES W GANGRENE, LEFT LEG (5) Dyspnea on exertion Code(s): R06.09 - OTHER FORMS OF DYSPNEA (6) Atrial fibrillation Code(s): I48.91 - UNSPECIFIED ATRIAL FIBRILLATION Qualifiers: Atrial fibrillation type: paroxysmal Qualified Code(s): I48.0 - Paroxysmal atrial fibrillation (7) Hypothyroid Code(s): E03.9 - HYPOTHYROIDISM, UNSPECIFIED Assessment/Plan Suspected metastatic CA Pericardial effusion HTN COPD / former heavy smoker Afib on Xarelto Hypothyroid Malignant melanoma Severe PAD Left SCV stent (?) Aspiration PNA Vocal cord dysfunction/paralysis (?) Lymphatic spread of malignancy PLAN: -Monitor pericardial drain output -Daily assessment for Lasix -HOB > 30 -Aspiration precautions -FiO2 prn for an SpO2 > 92% -NIPPV as tolerated -BD TX -IS -ABX -SCDs -PPI -Trial of Steroids -Palliative care evaluation Dr Colindres Critical care time spent in reviewing chart, evaluating patient and formulating plan - 36 minutes.
--- NOTE | 2017-10-17 11:29 | PN ---
Progress Note, Physician Chief Complaint: Pt lying in bed, tachypneic, sob. on bipap. Denies chest pain, n/v/d. - Current Medication List Current Medications: Active Medications Acetaminophen (Ofirmev Injection -) 1,000 mg IVPB Q6H PRN PRN Reason: PAIN LEVEL 1-5 Last Admin: 10/16/17 04:04 Dose: 1,000 mg Atenolol (Tenormin -) 50 mg PO BID [facility] Heparin Sodium (Porcine) (Heparin -) 5,000 unit SQ BID [facility] Last Admin: 10/17/17 10:42 Dose: 5,000 unit Piperacillin Sod/Tazobactam (Sod 3.375 gm/ Dextrose) 50 mls @ 100 mls/hr IVPB Q8H-IV [facility] PRN Reason: Protocol Last Admin: 10/17/17 10:42 Dose: 100 mls/hr Sodium Chloride (Normal Saline -) 1,000 mls @ 20 mls/hr IV ASDIR [facility] Last Admin: 10/16/17 17:38 Dose: 20 mls/hr Potassium Chloride (Potassium Chloride 10 Meq Premix Ivpb -) 10 meq in 100 mls @ 100 mls/hr IVPB Q60M [facility] Stop: 10/17/17 12:29 Levothyroxine Sodium (Synthroid -) 50 mcg PO DAILY [facility] Methylprednisolone Sodium Succinate (Solu-Medrol -) 80 mg IVPUSH Q8H-IV [facility] Last Admin: 10/17/17 10:40 Dose: 80 mg Metoprolol Tartrate (Lopressor Injection -) 5 mg IVPUSH ONCE ONE Stop: 10/17/17 11:17 Saliva Substitute (Mouthkote Solution -) 1 applic MM DAILY [facility] Last Admin: 10/17/17 10:03 Dose: 1 applic - Objective Vital Signs: Vital Signs Temperature 98.9 F 10/17/17 06:00 Pulse Rate 123 H 10/17/17 11:12 Respiratory Rate 18 10/17/17 09:00 Blood Pressure 114/69 10/17/17 08:00 O2 Sat by Pulse Oximetry (%) 96 10/17/17 11:12 Constitutional: Yes: Well Nourished, Mild Distress Cardiovascular: Yes: Pulse Irregular. No: Bruit, Gallop, Murmur Respiratory: Yes: Accessory Muscle Use, Diminished, On BiPap, Rhonchi. No: Rales, Wheezes Gastrointestinal: Yes: WNL, Normal Bowel Sounds, Soft, Abdomen, Obese. No: Distention, Tenderness Genitourinary: Yes: Howard Present Edema: Yes Edema: LLE: 1+, RLE: Trace Neurological: Yes: WNL, Alert, Oriented Psychiatric: Yes: WNL, Alert, Oriented Labs: CBC, BMP 10/17/17 05:30 10/17/17 05:30 INR, PTT INR 1.28 (0.82-1.09) H 10/17/17 05:30 - ....Imaging Chest X-ray: Report Reviewed Problem List - Problems (1) Pericardial effusion, acute Code(s): I30.9 - ACUTE PERICARDITIS, UNSPECIFIED (2) Vocal cord paralysis Code(s): J38.00 - PARALYSIS OF VOCAL CORDS AND LARYNX, UNSPECIFIED (3) Dysphagia Code(s): R13.10 - DYSPHAGIA, UNSPECIFIED Qualifiers: Dysphagia type: unspecified Qualified Code(s): R13.10 - Dysphagia, unspecified (4) Dehydration Code(s): E86.0 - DEHYDRATION (5) SIMON (acute kidney injury) Code(s): N17.9 - ACUTE KIDNEY FAILURE, UNSPECIFIED (6) Pneumonia Code(s): J18.9 - PNEUMONIA, UNSPECIFIED ORGANISM Qualifiers: Pneumonia type: due to unspecified organism Laterality: left Lung location: lower lobe of lung Qualified Code(s): J18.1 - Lobar pneumonia, unspecified organism (7) Leukocytosis Code(s): D72.829 - ELEVATED WHITE BLOOD CELL COUNT, UNSPECIFIED (8) Melanoma Code(s): C43.9 - MALIGNANT MELANOMA OF SKIN, UNSPECIFIED (9) Atrial fibrillation Code(s): I48.91 - UNSPECIFIED ATRIAL FIBRILLATION Qualifiers: Atrial fibrillation type: paroxysmal Qualified Code(s): I48.0 - Paroxysmal atrial fibrillation (10) Dyspnea on exertion Code(s): R06.09 - OTHER FORMS OF DYSPNEA (11) COPD (chronic obstructive pulmonary disease) Code(s): J44.9 - CHRONIC OBSTRUCTIVE PULMONARY DISEASE, UNSPECIFIED (12) Hypothyroid Code(s): E03.9 - HYPOTHYROIDISM, UNSPECIFIED (13) Hypertension Code(s): I10 - ESSENTIAL (PRIMARY) HYPERTENSION Qualifiers: Hypertension type: essential hypertension Qualified Code(s): I10 - Essential (primary) hypertension (1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 Code(s): I70.262 - ATHSCL [place] ARTERIES OF EXTREMITIES W GANGRENE, LEFT LEG (15) PAD (peripheral artery disease) Code(s): I73.9 - PERIPHERAL VASCULAR DISEASE, UNSPECIFIED (16) HLD (hyperlipidemia) Code(s): E78.5 - HYPERLIPIDEMIA, UNSPECIFIED (17) Pulmonary congestion Code(s): R09.89 - OTH SYMPTOMS AND SIGNS INVOLVING THE CIRC AND RESP SYSTEMS (18) Pulmonary HTN Code(s): I27.20 - PULMONARY HYPERTENSION, UNSPECIFIED (19) Lung mass Code(s): R91.8 - OTHER NONSPECIFIC ABNORMAL FINDING OF LUNG FIELD Assessment/Plan (1) Pericardial effusion, acute Assessment/Plan: echo w/ large pericardial effusion s/p pericardial window 3/6 f/u on percardial fluid cultures/pathology management per CT surgery Code(s): I30.9 - ACUTE PERICARDITIS, UNSPECIFIED (2) Vocal cord paralysis Assessment/Plan: Flexible laryngoscopy w/ left vocal cord paralysis possibly secondary to possible lung mass ENT following Code(s): J38.00 - PARALYSIS OF VOCAL CORDS AND LARYNX, UNSPECIFIED (3) Dysphagia Assessment/Plan: as above speech eval and barium swallow when clinically improved Code(s): R13.10 - DYSPHAGIA, UNSPECIFIED Qualifiers: Dysphagia type: unspecified Qualified Code(s): R13.10 - Dysphagia, unspecified (4) Dehydration Assessment/Plan: secondary to poor po intake due to underlying condition ivf per nephrology Code(s): E86.0 - DEHYDRATION (5) SIMON (acute kidney injury) Assessment/Plan: improved, prerenal etiology renal us without sig findings urine na/cr wnl ivf per renal avoid diuretics nephr following Code(s): N17.9 - ACUTE KIDNEY FAILURE, UNSPECIFIED (6) Pneumonia Assessment/Plan: unclear etiology +fever, +leukocytosis possible aspiration on zosyn ID consult appreciated Code(s): J18.9 - PNEUMONIA, UNSPECIFIED ORGANISM Qualifiers: Pneumonia type: due to unspecified organism Laterality: left Lung location: lower lobe of lung Qualified Code(s): J18.1 - Lobar pneumonia, unspecified organism (7) Leukocytosis Assessment/Plan: improved, chest xray unclear treat as HCAP, could be aspiration pna blood cultures neg UC pending f/u on percardial fluid cultures empiric zosyn per ID ID following Code(s): D72.829 - ELEVATED WHITE BLOOD CELL COUNT, UNSPECIFIED (8) Melanoma Assessment/Plan: suspected metastatic CA malignant melanoma LLE s/p resection and chemotherapy,2008 Code(s): C43.9 - MALIGNANT MELANOMA OF SKIN, UNSPECIFIED (9) Atrial fibrillation Assessment/Plan: tachycardic atenolol restarted per cardiology on xarelto outpt continue heparin drip echo without sig changes cardiology following Code(s): I48.91 - UNSPECIFIED ATRIAL FIBRILLATION Qualifiers: Atrial fibrillation type: paroxysmal Qualified Code(s): I48.0 - Paroxysmal atrial fibrillation (10) Dyspnea on exertion Assessment/Plan: secondary to copd/ lung mass continue bipap trial of steroids Code(s): R06.09 - OTHER FORMS OF DYSPNEA (11) COPD (chronic obstructive pulmonary disease) Assessment/Plan: hx of heavy smoking Code(s): J44.9 - CHRONIC OBSTRUCTIVE PULMONARY DISEASE, UNSPECIFIED (12) Hypothyroid Assessment/Plan: iv levothyroxine enlarged thyroid gland thyroid US when stable will restart once clinically stable Code(s): E03.9 - HYPOTHYROIDISM, UNSPECIFIED (13) Hypertension Assessment/Plan: allow permissive htn restart atenolol hold hctz Code(s): I10 - ESSENTIAL (PRIMARY) HYPERTENSION Qualifiers: Hypertension type: essential hypertension Qualified Code(s): I10 - Essential (primary) hypertension (1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 Assessment/Plan: s/p revascularization 07/2017 and toe amputation 08/2017, subclavian stent 09/2017 vascular consult appreciated Code(s): I70.262 - ATHSCL [place] ARTERIES OF EXTREMITIES W GANGRENE, LEFT LEG (15) PAD (peripheral artery disease) Code(s): I73.9 - PERIPHERAL VASCULAR DISEASE, UNSPECIFIED (16) HLD (hyperlipidemia) Assessment/Plan: on zocor outpt Code(s): E78.5 - HYPERLIPIDEMIA, UNSPECIFIED (17) Pulmonary congestion Assessment/Plan: tachypneic today chest CT w/ pulm congestion, solid nodules, mass possible metastatic CA, COPD chest xray with congestion, atelectasis Code(s): R09.89 - OTH SYMPTOMS AND SIGNS INVOLVING THE CIRC AND RESP SYSTEMS (18) Pulmonary HTN Code(s): I27.20 - PULMONARY HYPERTENSION, UNSPECIFIED (19) Lung mass Assessment/Plan: CT reveals large lung mass Oncology consulted Code(s): R91.8 - OTHER NONSPECIFIC ABNORMAL FINDING OF LUNG FIELD Assessment/Plan I saw and evaluated pt. I agree with ICU attending's assessment and plan for this pt. Pt w/ poor prognosis. Pt currently full code. Met with and spoke to family regarding pt's condition and prognosis. Palliative team meeting scheduled for 11am. Pt made DNR/DNI per family wishes.
[2017-10-17] MEDS ORDERED: KCL 10 MEQ IVPB 10 MEQ/100 ML INFUS.BAG IVPB SCH (11:30)
[2017-10-17] MEDS ORDERED: METOPROLOL TARTRATE 5 MG/5 ML VIAL IVPUSH ONE ×2 (11:45→14:33)
[2017-10-17] MEDS: LEVOTHYROXINE NA 50 MCG TABLET (FP) PO SCH (11:49)
--- NOTE | 2017-10-17 12:18 | PN ---
Progress Note (short form) - Note Progress Note: s:no palps dizzy; mild cp at incision site; +sob o: Vital Signs Temp 98.9 F 10/17/17 06:00 Pulse 122 H 10/17/17 11:43 Resp 18 10/17/17 09:00 BP 126/115 10/17/17 11:43 Pulse Ox 96 10/17/17 11:12 Intake & Output 10/16/17 10/17/17 10/17/17 23:59 11:59 23:59 Intake Total 488 120 Output Total 1350 405 Balance -862 -285 Weight 175 lb 3.2 oz Intake: IV 288 120 Normal Saline - 1,000 ml 120 120 @ 20 mls/hr IV ASDIR ANTONIO Rx#:[id number] Normal Saline - 1,000 ml 168 @ 42 mls/hr IV ASDIR ANTONIO Rx#:[id number] IVPB 200 Output: Chest Tube Drainage 50 5 10/14/17 medial chest tubes 50 5 /p percardial window Urine 1300 400 Howard 1300 400 Other: Voiding Method Indwelling Catheter Indwelling Catheter Weight Measurement Method Built in Bedscale nad, calm jvd tds, neck supple bibasilar dullness, nl effort rrr nl s1, s2 no mrg + bs soft nt nd ext with trace edema. no c/c + dp/pt aaox3 no jaundice, diaphoresis. Current Medications Generic Name Dose Route Start Last Admin Trade Name Freq PRN Reason Stop Dose Admin Acetaminophen 1,000 mg 10/15/17 20:21 10/16/17 04:04 Ofirmev Injection - IVPB 1,000 mg Q6H PRN Administration PAIN LEVEL 1-5 Atenolol 50 mg 10/17/17 22:00 Tenormin - PO BID ANTONIO Heparin Sodium (Porcine) 5,000 unit 10/17/17 10:00 10/17/17 10:42 Heparin - SQ 5,000 unit BID ANTONIO Administration Piperacillin Sod/Tazobactam 50 mls @ 100 mls/hr 10/15/17 12:00 10/17/17 10:42 Sod 3.375 gm/ Dextrose IVPB 100 mls/hr Q8H-IV ANTONIO Administration Protocol Sodium Chloride 1,000 mls @ 20 mls/hr 10/16/17 14:16 10/16/17 17:38 Normal Saline - IV 20 mls/hr ASDIR ANTONIO Administration Potassium Chloride 10 meq in 100 mls @ 100 mls/hr 10/17/17 11:30 Potassium Chloride 10 Meq Premix Ivpb - IVPB 10/17/17 12:29 Q60M ANTONIO Levothyroxine Sodium 50 mcg 10/17/17 11:15 10/17/17 11:49 Synthroid - PO 50 mcg DAILY@0700 ANTONIO Administration Methylprednisolone Sodium Succinate 80 mg 10/17/17 10:00 10/17/17 10:40 Solu-Medrol - IVPUSH 80 mg Q8H-IV ANTONIO Administration Saliva Substitute 1 applic 10/16/17 17:15 10/17/17 10:03 Mouthkote Solution - MM 1 applic DAILY ANTONIO Administration Laboratory Last Values WBC 13.1 K/mm3 (4.0-10.0) H 10/17/17 05:30 RBC 3.90 M/mm3 (3.60-5.2) 10/17/17 05:30 Hgb 12.3 GM/dL (10.7-15.3) 10/17/17 05:30 Hct 37.7 % (32.4-45.2) 10/17/17 05:30 MCV 96.8 fl (80-96) H 10/17/17 05:30 MCH 31.5 pg (25.7-33.7) 10/17/17 05:30 MCHC 32.5 g/dl (32.0-36.0) 10/17/17 05:30 RDW 14.8 % (11.6-15.6) 10/17/17 05:30 Plt Count 270 K/MM3 (134-434) 10/17/17 05:30 MPV 9.9 fl (7.5-11.1) 10/17/17 05:30 Neutrophils % 83.2 % (42.8-82.8) H 10/17/17 05:30 Lymphocytes % 5.3 % (8-40) L 10/17/17 05:30 Monocytes % 10.2 % (3.8-10.2) 10/17/17 05:30 Eosinophils % 0.7 % (0-4.5) 10/17/17 05:30 Basophils % 0.6 % (0-2.0) 10/17/17 05:30 Platelet Estimate Adequate 10/13/17 14:40 ESR 19 mm/hr (0-30) 10/14/17 05:02 PT with INR 14.50 SEC (9.98-11.88) H 10/17/17 05:30 INR 1.28 (0.82-1.09) H 10/17/17 05:30 PTT (Actin FS) 25.9 SECONDS (26.9-34.4) L 10/17/17 05:30 Anticoagulation Therapy No Result Required. 10/16/17 15:02 Puncture Site Right radial 10/16/17 15:02 ABG pH 7.23 (7.35-7.45) L* D 10/16/17 15:02 ABG pCO2 at Pt Temp 60.1 mmHg (35-45) H* D 10/16/17 15:02 ABG pO2 at Pt Temp 62.6 mmHg (68-100) L D 10/16/17 15:02 ABG HCO3 24.4 meq/L (22-26) 10/16/17 15:02 ABG O2 Sat (Measured) 87.5 % (90-98.9) L 10/16/17 15:02 ABG O2 Content 15.4 % vol (15-22) 10/16/17 15:02 ABG Base Excess -3.6 meq/l (-2-2) L 10/16/17 15:02 Alex Test Positive 10/16/17 15:02 O2 Delivery Device Mask 10/16/17 15:02 Oxygen Flow Rate 12l 10/16/17 15:02 Vent Mode No Result Required. 10/16/17 15:02 Vent Rate No Result Required. 10/16/17 15:02 Mechanical Rate No Result Required. 10/16/17 15:02 Pressure Support Vent No Result Required. 10/16/17 15:02 Sodium 145 mmol/L (136-145) 10/17/17 05:30 Potassium 3.6 mmol/L (3.5-5.1) 10/17/17 05:30 Chloride 105 mmol/L (98-107) 10/17/17 05:30 Carbon Dioxide 30 mmol/L (21-32) 10/17/17 05:30 Anion Gap 10 (8-16) 10/17/17 05:30 BUN 58 mg/dL (7-18) H 10/17/17 05:30 Creatinine 1.4 mg/dL (0.55-1.02) H 10/17/17 05:30 Creat Clearance w eGFR 36.18 (>60) 10/17/17 05:30 Random Glucose 97 mg/dL (74-106) 10/17/17 05:30 Lactic Acid 1.9 mmol/L (0.0-2.0) 10/14/17 08:00 Calcium 7.9 mg/dL (8.5-10.1) L 10/17/17 05:30 Phosphorus 3.6 mg/dL (2.5-4.9) 10/17/17 05:30 Magnesium 1.9 mg/dL (1.8-2.4) 10/17/17 05:30 Total Bilirubin 0.5 mg/dL (0.2-1.0) 10/17/17 05:30 AST 11 U/L (15-37) L 10/17/17 05:30 ALT 13 U/L (12-78) 10/17/17 05:30 Alkaline Phosphatase 76 U/L (45-117) 10/17/17 05:30 Creatine Kinase 37 IU/L (26-192) 10/14/17 08:00 Troponin I < 0.02 ng/ml (0.00-0.05) 10/14/17 08:00 C-Reactive Protein 5.3 MG/DL (0.00-0.3) H 10/14/17 05:02 B-Natriuretic Peptide 2373.79 pg/ml (5-450) H 10/13/17 14:40 Total Protein 5.8 g/dl (6.4-8.2) L 10/17/17 05:30 Albumin 2.5 g/dl (3.4-5.0) L 10/17/17 05:30 TSH 0.87 uIU/ml (0.358-3.74) 10/16/17 06:06 Urine Color Brandee 10/13/17 18:57 Urine Appearance Slcloudy 10/13/17 18:57 Urine pH 5.0 (5.0-8.0) 10/13/17 18:[address] [place] 1.029 (1.001-1.035) 03/05/18 18:57 Urine Protein Negative (NEGATIVE) 10/13/17 18:57 Urine Glucose (UA) Negative (NEGATIVE) 10/13/17 18:57 Urine Ketones Trace (NEGATIVE) H 10/13/17 18:57 Urine Blood Negative (NEGATIVE) 10/13/17 18:57 Urine Nitrite Negative (NEGATIVE) 10/13/17 18:57 Urine Bilirubin Negative (NEGATIVE) 10/13/17 18:57 Urine Urobilinogen 4.0 e.u/dl mg/dL (0.2-1.0) H 10/13/17 18:57 Ur Leukocyte Esterase Negative (NEGATIVE) 10/13/17 18:57 Ur Random Sodium 42 MMOL/L 10/14/17 09:00 Urine Creatinine 242.0 mg/dL (20-320) 10/14/17 09:00 Fluid RBC 54133 /mm3 10/15/17 20:00 Pericard Source Pericardial fluid 10/15/17 20:00 Pericard Color Red 10/15/17 20:00 Pericard Appearance Turbid 10/15/17 20:00 Pericard WBC 26800 /mm3 10/15/17 20:00 Pericard Neutrophils 96 % 10/15/17 20:00 Pericard Lymphocytes 2 % 10/15/17 20:00 Pericard Monocytes 2 % 10/15/17 20:00 Pericard Diff Comment 10/15/17 20:00 Pericard Total Protein 4 gm/dL 10/15/17 20:00 Pericardial Albumin 2 gm/dL 10/15/17 20:00 Pericardial LDH 1210 IU 10/15/17 20:00 Pericardial Glucose < 1 mg/dL 10/15/17 20:00 Pericardial Amylase 28 UL 10/15/17 20:00 Pericard Cholesterol 62 mg/dL 10/15/17 20:00 Pericard Triglycerides 88 mg/dL 10/15/17 20:00 Pericardial Uric Acid 9 mg/dL 10/15/17 20:00 Random Vancomycin 19.507 ug/ml 10/15/17 06:30 Blood Type A POSITIVE 10/14/17 15:00 Antibody Screen Negative 10/14/17 15:00 ekg: afib, low voltage qrs. no acute ischemic changes. tele: afib, rvr echo 10/2017: nl lv/rv, no sig valve path, mod-large peric eff, no tamponade cxr: no sig change ct: images and report reviewed. asymmetric pleural effusion and pericardial effusion noted. see emr for detailed report. mibi 01/2015: lexiscan, no ecg changes, normal MPI, resting ecg showed afib echo 04/2017: nl lv/rv, no sig valve path, nl rvsp office ekg: from april: afib, borderline low voltages. poor r wave progression. similar to priors. est cct 35 mins Assessment/plan. 82 yo with h/o afib on xarelto, htn, hl, PVD s/p revascularization 07/2017 and toe amputation 08/2017, subclavian stent 09/2017, obesity, hypothyroid, melanoma and chronic low back pain p/w sob. sob/resp failure/pericardial effusion - on initial ER evaluation appeared to have worsened respiratory distress s/p IVF bolus. --> placed on bipap and given 40 mg IV lasix x 2. Subsequent hypotension (also in setting of fever to 102) -echo with large pericardial eff, now s/p pericardial window 10/14/17 -still with sob, likely related to metastatic cancer/lung mass, pna -infection/malignacy w/u per primary team afib - AC with xarelto as outpatient, held here given need for surgery/procedures, also with new lung mass. - rate fast now, agree with resuming home atenolol - cont tele htn -had been with low bp initially but now improving so resuming atenolol for rate control, monitor bp response PAD - s/p L [employer] , residual distal dz. followed by vascular as outpatient. - s/p subclavian stent. check to see if bp equal in both arms. - resume statin once acute issues resolve. tiffany - acute worsening of Creatinine in setting of hypotension. improving now. hld: - on zocor as outpatient.
[2017-10-17] MEDS ORDERED: morphine SULFATE 4 MG/ML VIAL ONE (14:27)
[2017-10-17] MEDS ORDERED: ATENOLOL 50 MG TABLET (FP) PO ONE (14:33)
[2017-10-17] MEDS: morphine SULFATE 4 MG/ML VIAL IVPUSH PRN ×3 (14:38→19:21)
--- NOTE | 2017-10-17 14:39 | PN ---
Progress Note (short form) - Note Progress Note: Spoke with all the kids, did not see the pt due to multiple family members and also pt just then received morphine At this time, pathology was pending. discussed the same. I have made a call to of pathology and gave hx of the lung mass and he will run more stains. Updated the family Problem List - Problems (1) Pericardial effusion, acute Code(s): I30.9 - ACUTE PERICARDITIS, UNSPECIFIED (2) Vocal cord paralysis Code(s): J38.00 - PARALYSIS OF VOCAL CORDS AND LARYNX, UNSPECIFIED (3) Leukocytosis Code(s): D72.829 - ELEVATED WHITE BLOOD CELL COUNT, UNSPECIFIED (4) SIMON (acute kidney injury) Code(s): N17.9 - ACUTE KIDNEY FAILURE, UNSPECIFIED (5) Melanoma Code(s): C43.9 - MALIGNANT MELANOMA OF SKIN, UNSPECIFIED (6) Atherosclerosis of left lower extremity with gangrene Code(s): I70.262 - ATHSCL [place] ARTERIES OF EXTREMITIES W GANGRENE, LEFT LEG
--- NOTE | 2017-10-17 15:58 | PN ---
Progress Note, Physician History of Present Illness: Pt seen and examined at bedside. No great change from yesterday. - Current Medication List Current Medications: Active Medications Acetaminophen (Ofirmev Injection -) 1,000 mg IVPB Q6H PRN PRN Reason: PAIN LEVEL 1-5 Last Admin: 10/16/17 04:04 Dose: 1,000 mg Atenolol (Tenormin -) 50 mg PO BID [facility] Heparin Sodium (Porcine) (Heparin -) 5,000 unit SQ BID [facility] Last Admin: 10/17/17 10:42 Dose: 5,000 unit Piperacillin Sod/Tazobactam (Sod 3.375 gm/ Dextrose) 50 mls @ 100 mls/hr IVPB Q8H-IV ANTONIO PRN Reason: Protocol Last Admin: 10/17/17 10:42 Dose: 100 mls/hr Levothyroxine Sodium (Synthroid -) 50 mcg PO DAILY@0700 [facility] Last Admin: 10/17/17 11:49 Dose: 50 mcg Methylprednisolone Sodium Succinate (Solu-Medrol -) 80 mg IVPUSH Q8H-IV [facility] Last Admin: 10/17/17 10:40 Dose: 80 mg Morphine Sulfate (Morphine Sulfate) 4 mg IVPUSH Q4H PRN PRN Reason: PAIN LEVEL 4 - 6 Last Admin: 10/17/17 14:40 Dose: 4 mg Saliva Substitute (Mouthkote Solution -) 1 applic MM DAILY [facility] Last Admin: 10/17/17 10:03 Dose: 1 applic Zolpidem Tartrate (Ambien -) 5 mg PO HS PRN PRN Reason: INSOMNIA Stop: 10/20/17 23:59 - Objective Vital Signs: Vital Signs Temperature 98.0 F 10/17/17 10:00 Pulse Rate 140 H 10/17/17 15:20 Respiratory Rate 27 H 10/17/17 14:00 Blood Pressure 122/71 10/17/17 15:20 O2 Sat by Pulse Oximetry (%) 96 10/17/17 11:12 Constitutional: Yes: Calm Eyes: Yes: Conjunctiva Clear Cardiovascular: Yes: S1, S2 Respiratory: Yes: On Venti-Mask Gastrointestinal: Yes: Soft Genitourinary: Yes: Howard Present Musculoskeletal: Yes: Muscle Weakness Edema: Yes Edema: LLE: Trace, RLE: Trace Neurological: Yes: Oriented Psychiatric: Yes: Oriented Labs: CBC, BMP 10/17/17 05:30 10/17/17 05:30 INR, PTT INR 1.28 (0.82-1.09) H 10/17/17 05:30 - ....Imaging Chest X-ray: Report Reviewed Problem List - Problems (1) SIMON (acute kidney injury) Code(s): N17.9 - ACUTE KIDNEY FAILURE, UNSPECIFIED (2) Melanoma Code(s): C43.9 - MALIGNANT MELANOMA OF SKIN, UNSPECIFIED (3) Atrial fibrillation Code(s): I48.91 - UNSPECIFIED ATRIAL FIBRILLATION Qualifiers: Atrial fibrillation type: paroxysmal Qualified Code(s): I48.0 - Paroxysmal atrial fibrillation (4) Hypothyroid Code(s): E03.9 - HYPOTHYROIDISM, UNSPECIFIED Assessment/Plan Current Medications Generic Name Dose Route Start Last Admin Trade Name Freq PRN Reason Stop Dose Admin Acetaminophen 1,000 mg 10/15/17 20:21 10/16/17 04:04 Ofirmev Injection - IVPB 1,000 mg Q6H PRN Administration PAIN LEVEL 1-5 Atenolol 50 mg 10/17/17 22:00 Tenormin - PO BID ANTONIO Heparin Sodium (Porcine) 5,000 unit 10/17/17 10:00 10/17/17 10:42 Heparin - SQ 5,000 unit BID ANTONIO Administration Piperacillin Sod/Tazobactam 50 mls @ 100 mls/hr 10/15/17 12:00 10/17/17 10:42 Sod 3.375 gm/ Dextrose IVPB 100 mls/hr Q8H-IV ANTONIO Administration Protocol Levothyroxine Sodium 50 mcg 10/17/17 11:15 10/17/17 11:49 Synthroid - PO 50 mcg DAILY@0700 ANTONIO Administration Methylprednisolone Sodium Succinate 80 mg 10/17/17 10:00 10/17/17 10:40 Solu-Medrol - IVPUSH 80 mg Q8H-IV ANTONIO Administration Morphine Sulfate 4 mg 10/17/17 14:33 10/17/17 14:40 Morphine Sulfate IVPUSH 4 mg Q4H PRN Administration PAIN LEVEL 4 - 6 Saliva Substitute 1 applic 10/16/17 17:15 10/17/17 10:03 Mouthkote Solution - MM 1 applic DAILY ANTONIO Administration Zolpidem Tartrate 5 mg 10/17/17 22:00 Ambien - PO 10/20/17 23:59 HS PRN INSOMNIA Impression 1. SIMON 2. pericardial effusion 3. resp failure requiring bipap 4. hx melanoma 5. possible metastatic disease 6. hypotension 7. hypothyroid 8. HLD 9. COPD 10. formal smoker 11. possible mass in pericardial sac 12. pericardial effusion Plan - renal function improving - hematuria improved - oncology evaluation in progress - follow pericardial fluid cytology - will need to discuss GOC with family - SIMON likely from hypotension and prerenal disease - will follow Dr Waite
[2017-10-17] MEDS ORDERED: ZOLPIDEM TARTRATE 5 MG TABLET PO PRN (22:00)
[2017-10-17] MEDS: ATENOLOL 50 MG TABLET (FP) PO SCH (22:46)
[2017-10-18] MEDS: methylPREDNISolone NA SUCC 40 MG/1 ML VIAL IVPUSH SCH ×3 (02:00→17:32)
[2017-10-18 06:32] LABS: BASO % 0.1 % (0-2.0); HEMATOCRIT 39.6 % (32.4-45.2); LYMPH % 4.3 % (8-40); MCH 31.8 pg (25.7-33.7); MCHC 32.8 g/dl (32.0-36.0); MEAN CELL VOLUME 96.8 fl (80-96); MEAN PLT VOLUME 9.6 fl (7.5-11.1); MONO % 3.3 % (3.8-10.2); NEUT % 92.3 % (42.8-82.8); PLATELET COUNT 311 K/MM3 (134-434); RBC 4.09 M/mm3 (3.60-5.2); RDW 15.4 % (11.6-15.6); WHITE BLOOD COUNT 13.5 K/mm3 (4.0-10.0)
[2017-10-18] MEDS: LEVOTHYROXINE NA 50 MCG TABLET (FP) PO SCH (06:35)
[2017-10-18 06:37] LABS: MAGNESIUM 2.3 mg/dL (1.8-2.4); PHOSPHOROUS 2.5 mg/dL (2.5-4.9)
[2017-10-18] MEDS: morphine SULFATE 4 MG/ML VIAL IVPUSH PRN ×3 (06:39→21:04)
[2017-10-18 07:09] LABS: INR 1.29 (0.82-1.09); PROTHROMBIN TIME (PATIENT) 14.6 SEC (9.98-11.88)
--- NOTE | 2017-10-18 08:01 | PN ---
Progress Note (short form) - Note Progress Note: awake and alert just got morphine this am reports it calms her Vital Signs Period Temp Pulse Resp BP Sys/Vaughn Pulse Ox Last 24 Hr 98 F-98.4 F 110-140 12-30 98-135/48-115 80-99 cor-rrr lungs decreased at bases pericardial drain in place abd soft,nt ext left foot 2 toes amputated l left fingers with necrotic tips (old) left leg skin graft healed CBC, BMP 10/17/17 05:30 cbc pending cxray with JEROME infiltrate, left effusion Microbiology 10/13/17 15:42 Blood - Peripheral Venous Blood Culture - Preliminary NO GROWTH OBTAINED AFTER 96 HOURS, INCUBATION TO CONTINUE FOR 1 DAYS. 10/13/17 15:50 Blood - Peripheral Venous Blood Culture - Preliminary NO GROWTH OBTAINED AFTER 96 HOURS, INCUBATION TO CONTINUE FOR 1 DAYS. 10/14/17 20:00 Pericardial Fluid Gram Stain - Final 10/14/17 20:00 Pericardial Fluid Body Fluid Culture - Preliminary Staphylococcus Coagulase Neg 10/14/17 20:00 Pericardial Fluid Anaerobic Culture - Preliminary No growth. 10/14/17 20:00 Pericardial Fluid AFB Smear Concentration - Final 10/14/17 20:00 Pericardial Fluid Mycobacterial Culture - Preliminary 10/14/17 20:00 Pericardial Fluid RENE Preparation - Preliminary 10/14/17 20:00 Pericardial Fluid Fungal Culture - Preliminary 10/13/17 18:57 Urine - Urine Howard Urine Culture - Final NO GROWTH OBTAINED Current Medications Acetaminophen (Ofirmev Injection -) 1,000 mg IVPB Q6H PRN PRN Reason: PAIN LEVEL 1-5 Last Admin: 10/16/17 04:04 Dose: 1,000 mg Atenolol (Tenormin -) 50 mg PO BID [facility] Last Admin: 10/17/17 22:46 Dose: Not Given Heparin Sodium (Porcine) (Heparin -) 5,000 unit SQ BID [facility] Last Admin: 10/17/17 22:46 Dose: Not Given Levothyroxine Sodium (Synthroid -) 50 mcg PO DAILY@0700 [facility] Last Admin: 10/18/17 06:35 Dose: 50 mcg Methylprednisolone Sodium Succinate (Solu-Medrol -) 80 mg IVPUSH Q8H-IV [facility] Last Admin: 10/18/17 02:00 Dose: 80 mg Morphine Sulfate (Morphine Sulfate) 4 mg IVPUSH Q4H PRN PRN Reason: PAIN LEVEL 4 - 6 Last Admin: 10/18/17 06:39 Dose: 4 mg Saliva Substitute (Mouthkote Solution -) 1 applic MM DAILY ANTONIO Last Admin: 10/17/17 10:03 Dose: 1 applic Zolpidem Tartrate (Ambien -) 5 mg PO HS PRN PRN Reason: INSOMNIA Stop: 10/20/17 23:59 a/p s/p pericardial window 3/6-scn from broth only, awaiting further w/u from micro , broth only negative gramstain, suspect contaminant? pneumonia JEROME versus malignancy f/u cytology continue zosyn for possible aspiration pneumonia, vancomycin 1 gram given vocal cord paralysis history of severe PAD with multiple stents history of myeloma
[2017-10-18] MEDS ORDERED: PIPERACILLIN/TAZOB 3.375 GM/50 ML PRE-DOCKED IVPB SCH (08:15)
[2017-10-18] MEDS ORDERED: VANCOMYCIN 1 GRAM (PRE-DOCKED) 1,000 MG/250 ML BAG IVPB ONE (08:25)
--- NOTE | 2017-10-18 09:08 | PN ---
Progress Note (short form) - Note Progress Note: Seen and examined in ICU Remains on NC and face tent Made DNR/DNI no aggressive measure yesterday Using morphine prn for pain and SOB Current Medications Acetaminophen (Ofirmev Injection -) 1,000 mg IVPB Q6H PRN PRN Reason: PAIN LEVEL 1-5 Last Admin: 10/16/17 04:04 Dose: 1,000 mg Atenolol (Tenormin -) 50 mg PO BID [facility] Last Admin: 10/17/17 22:46 Dose: Not Given Heparin Sodium (Porcine) (Heparin -) 5,000 unit SQ BID [facility] Last Admin: 10/17/17 22:46 Dose: Not Given Piperacillin Sod/Tazobactam (Sod 3.375 gm/ Dextrose) 50 mls @ 100 mls/hr IVPB Q8H-IV [facility] Levothyroxine Sodium (Synthroid -) 50 mcg PO DAILY@0700 [facility] Last Admin: 10/18/17 06:35 Dose: 50 mcg Methylprednisolone Sodium Succinate (Solu-Medrol -) 80 mg IVPUSH Q8H-IV [facility] Last Admin: 10/18/17 02:00 Dose: 80 mg Morphine Sulfate (Morphine Sulfate) 4 mg IVPUSH Q4H PRN PRN Reason: PAIN LEVEL 4 - 6 Last Admin: 10/18/17 06:39 Dose: 4 mg Saliva Substitute (Mouthkote Solution -) 1 applic MM DAILY [facility] Last Admin: 10/17/17 10:03 Dose: 1 applic Zolpidem Tartrate (Ambien -) 5 mg PO HS PRN PRN Reason: INSOMNIA Stop: 10/20/17 23:59 Vital Signs Period Temp Pulse Resp BP Sys/Vaughn Pulse Ox Last 24 Hr 98 F-98.5 F 110-140 12-30 98-135/48-115 80-97 Intake & Output 10/15/17 10/16/17 10/17/17 10/18/17 23:59 23:59 23:59 23:59 Intake Total 1450 1808 320 150 Output Total 1280 1780 655 255 Balance 170 28 -335 -105 Weight 78.585 kg 79.56 kg 79.469 kg 79.923 kg Exam: General: Mild/Mod WOB. Deneis pain, n/v/ELMORE Neuro: awake, alert and cooperative Pulm: very diminished on left side CV: s1, s2. cardiac window sit4e c/d/i Abd: obese, SNTND Ext: WWP +2Le edema CBCD WBC 13.5 K/mm3 (4.0-10.0) H 10/18/17 06:00 RBC 4.09 M/mm3 (3.60-5.2) 10/18/17 06:00 Hgb 13.0 GM/dL (10.7-15.3) 10/18/17 06:00 Hct 39.6 % (32.4-45.2) 10/18/17 06:00 MCV 96.8 fl (80-96) H 10/18/17 06:00 MCHC 32.8 g/dl (32.0-36.0) 10/18/17 06:00 RDW 15.4 % (11.6-15.6) 10/18/17 06:00 Plt Count 311 K/MM3 (134-434) 10/18/17 06:00 MPV 9.6 fl (7.5-11.1) 10/18/17 06:00 CMP Sodium 145 mmol/L (136-145) 10/17/17 05:30 Potassium 3.6 mmol/L (3.5-5.1) 10/17/17 05:30 Chloride 105 mmol/L (98-107) 10/17/17 05:30 Carbon Dioxide 30 mmol/L (21-32) 10/17/17 05:30 Anion Gap 10 (8-16) 10/17/17 05:30 BUN 58 mg/dL (7-18) H 10/17/17 05:30 Creatinine 1.4 mg/dL (0.55-1.02) H 10/17/17 05:30 Creat Clearance w eGFR 36.18 (>60) 10/17/17 05:30 Calcium 7.9 mg/dL (8.5-10.1) L 10/17/17 05:30 Total Bilirubin 0.5 mg/dL (0.2-1.0) 10/17/17 05:30 AST 11 U/L (15-37) L 10/17/17 05:30 ALT 13 U/L (12-78) 10/17/17 05:30 Alkaline Phosphatase 76 U/L (45-117) 10/17/17 05:30 Total Protein 5.8 g/dl (6.4-8.2) L 10/17/17 05:30 Albumin 2.5 g/dl (3.4-5.0) L 10/17/17 05:30 CXR: largely unchanged: large left sided opacity +/- effusion Problem List - Problems (1) Dehydration Code(s): E86.0 - DEHYDRATION (2) Dysphagia Code(s): R13.10 - DYSPHAGIA, UNSPECIFIED Qualifiers: Dysphagia type: unspecified Qualified Code(s): R13.10 - Dysphagia, unspecified (3) Pneumonia Code(s): J18.9 - PNEUMONIA, UNSPECIFIED ORGANISM Qualifiers: Pneumonia type: due to unspecified organism Laterality: left Lung location: lower lobe of lung Qualified Code(s): J18.1 - Lobar pneumonia, unspecified organism (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 Code(s): I70.262 - ATHSCL [place] ARTERIES OF EXTREMITIES W GANGRENE, LEFT LEG (5) Dyspnea on exertion Code(s): R06.09 - OTHER FORMS OF DYSPNEA (6) Atrial fibrillation Code(s): I48.91 - UNSPECIFIED ATRIAL FIBRILLATION Qualifiers: Atrial fibrillation type: paroxysmal Qualified Code(s): I48.0 - Paroxysmal atrial fibrillation (7) Hypothyroid Code(s): E03.9 - HYPOTHYROIDISM, UNSPECIFIED Assessment/Plan Suspected metastatic CA Pericardial effusion HTN COPD / former heavy smoker Afib on Xarelto Hypothyroid Malignant melanoma Severe PAD Left SCV stent (?) Aspiration PNA Vocal cord dysfunction/paralysis (?) Lymphatic spread of malignancy PLAN: -DNR/DNI no escalation of aggressive measures -No labs, no CXRs -focus on comfort w/ prn morphine -O2 as needed for comfort, Bipap as needed for comfort -BD TX -ABX: cont zosyn for complete course -SCDs -PPI -Cont Steroids with slow taper -Palliative care consulted Bhupinder QUACH Pulm/CCM CCT: 35m
[2017-10-18] MEDS: HEPARIN NA (PORCINE) 5,000 UNITS/ML 1ML VIAL SQ SCH ×2 (09:59→21:04)
[2017-10-18] MEDS: ATENOLOL 50 MG TABLET (FP) PO SCH ×2 (10:00→21:04)
[2017-10-18] MEDS: PIPERACILLIN/TAZOB 3.375 GM 3.375 GM in DEXTROSE 5%-WATER - 50 ML IVPB SCH ×2 (10:01→17:28)
[2017-10-18] MEDS: LYTES/YERBA SANTA 240 ML BOTTLE MM SCH (10:01)
--- NOTE | 2017-10-18 12:18 | PN ---
Progress Note, Physician Chief Complaint: Remained at base line no new compalint,DNR/DNI History of Present Illness: 82 year-old woman with a PMH significant for HTN, HLD, afib on Xarelto, severe peripheral arterial disease, malignant melenoma LLE s/p resection and chemotherapy (2008), left toe osteomyelitis (2010), and hypothyroidism. Patient has significant PSH for revascularization of right leg, revascularization of left leg (07/2017), amputation of left 1st and 2nd gangrenous toes (09/10/2017) , and placement of left subclavian stent x 2 weeks ago at [facility]. About one month ago, patient developed hoarseness, difficulty swallowing, and choking on PO intake. She has lost 8 pounds in that period of time. She has been seen and evaluated several times by her PCP Dr. Woodall. Earlier today she saw ENT specialist Dr. Cabrera who reportedly told patient she has vocal cord paralysis - Current Medication List Current Medications: Active Medications Acetaminophen (Ofirmev Injection -) 1,000 mg IVPB Q6H PRN PRN Reason: PAIN LEVEL 1-5 Last Admin: 10/16/17 04:04 Dose: 1,000 mg Atenolol (Tenormin -) 50 mg PO BID [facility] Last Admin: 10/18/17 10:00 Dose: 50 mg Heparin Sodium (Porcine) (Heparin -) 5,000 unit SQ BID [facility] Last Admin: 10/18/17 09:59 Dose: 5,000 unit Piperacillin Sod/Tazobactam (Sod 3.375 gm/ Dextrose) 50 mls @ 100 mls/hr IVPB Q8H-IV [facility] Last Admin: 10/18/17 10:01 Dose: 100 mls/hr Levothyroxine Sodium (Synthroid -) 50 mcg PO DAILY@0700 [facility] Last Admin: 10/18/17 06:35 Dose: 50 mcg Methylprednisolone Sodium Succinate (Solu-Medrol -) 80 mg IVPUSH Q8H-IV [facility] Last Admin: 10/18/17 10:00 Dose: 80 mg Morphine Sulfate (Morphine Sulfate) 4 mg IVPUSH Q4H PRN PRN Reason: PAIN LEVEL 4 - 6 Last Admin: 10/18/17 06:39 Dose: 4 mg Saliva Substitute (Mouthkote Solution -) 1 applic MM DAILY [facility] Last Admin: 10/18/17 10:01 Dose: 1 applic Zolpidem Tartrate (Ambien -) 5 mg PO HS PRN PRN Reason: INSOMNIA Stop: 10/20/17 23:59 - Objective Vital Signs: Vital Signs Temperature 98.5 F 10/18/17 08:04 Pulse Rate 116 H 10/18/17 10:00 Respiratory Rate 23 10/18/17 10:00 Blood Pressure 129/99 10/18/17 10:00 O2 Sat by Pulse Oximetry (%) 97 10/18/17 11:31 Elderly F with respiratory distress on nasal canula and O2 tent HEENT: Mm dry, anemia NECK; accessory muscles are active, no JVD CHEST: B/L Basal crepts ABD: No distention, nontender EXT: RT LE S/P Graft edema, Pulses feeble [employer] 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, 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 all extermities Respiratory: Yes: Kussmaul Labs: CBC, BMP 10/18/17 06:00 10/17/17 05:30 INR, PTT INR 1.29 (0.82-1.09) H 10/18/17 06:00 Problem List - Problems (1) SOB (shortness of breath) Assessment/Plan: Due to Pleuro pericardial effusion s/p percardial biopsy shows no malignancy O2 inhalation, Code(s): R06.02 - SHORTNESS OF BREATH (2) COPD (chronic obstructive pulmonary disease) Assessment/Plan: cont nebs treatment and o2 inhalation Code(s): J44.9 - CHRONIC OBSTRUCTIVE PULMONARY DISEASE, UNSPECIFIED (3) Pericardial effusion, acute Assessment/Plan: s/p yhoracotomy , percardial biopsy - ve for malignancy. Code(s): I30.9 - ACUTE PERICARDITIS, UNSPECIFIED (4) Atrial fibrillation Assessment/Plan: on B blockers for rate control off abx Code(s): I48.91 - UNSPECIFIED ATRIAL FIBRILLATION Qualifiers: Atrial fibrillation type: paroxysmal Qualified Code(s): I48.0 - Paroxysmal atrial fibrillation (5) Hypothyroid Assessment/Plan: cont levothyroxine Code(s): E03.9 - HYPOTHYROIDISM, UNSPECIFIED Qualifiers: Qualified Code(s): E89.0 - Postprocedural hypothyroidism
--- NOTE | 2017-10-18 16:25 | PN ---
Progress Note, Physician History of Present Illness: Pt seen and examined at bedside. She is awake and alert. She appears comfortable. - Current Medication List Current Medications: Active Medications Acetaminophen (Ofirmev Injection -) 1,000 mg IVPB Q6H PRN PRN Reason: PAIN LEVEL 1-5 Last Admin: 10/16/17 04:04 Dose: 1,000 mg Atenolol (Tenormin -) 50 mg PO BID [facility] Last Admin: 10/18/17 10:00 Dose: 50 mg Heparin Sodium (Porcine) (Heparin -) 5,000 unit SQ BID [facility] Last Admin: 10/18/17 09:59 Dose: 5,000 unit Piperacillin Sod/Tazobactam (Sod 3.375 gm/ Dextrose) 50 mls @ 100 mls/hr IVPB Q8H-IV [facility] Last Admin: 10/18/17 10:01 Dose: 100 mls/hr Levothyroxine Sodium (Synthroid -) 50 mcg PO DAILY@0700 [facility] Last Admin: 10/18/17 06:35 Dose: 50 mcg Methylprednisolone Sodium Succinate (Solu-Medrol -) 80 mg IVPUSH Q8H-IV [facility] Last Admin: 10/18/17 10:00 Dose: 80 mg Morphine Sulfate (Morphine Sulfate) 4 mg IVPUSH Q4H PRN PRN Reason: PAIN LEVEL 4 - 6 Last Admin: 10/18/17 15:00 Dose: 4 mg Saliva Substitute (Mouthkote Solution -) 1 applic MM DAILY [facility] Last Admin: 10/18/17 10:01 Dose: 1 applic Zolpidem Tartrate (Ambien -) 5 mg PO HS PRN PRN Reason: INSOMNIA Stop: 10/20/17 23:59 - Objective Vital Signs: Vital Signs Temperature 97.5 F L 10/18/17 14:00 Pulse Rate 107 H 10/18/17 16:00 Respiratory Rate 23 10/18/17 16:00 Blood Pressure 127/61 10/18/17 16:00 O2 Sat by Pulse Oximetry (%) 97 10/18/17 11:31 Constitutional: Yes: Calm Eyes: Yes: Conjunctiva Clear HENT: Yes: Atraumatic Cardiovascular: Yes: S1, S2 Respiratory: Yes: On Venti-Mask Gastrointestinal: Yes: Soft Genitourinary: Yes: Howard Present Musculoskeletal: Yes: WNL Edema: Yes Edema: LLE: Trace, RLE: Trace Neurological: Yes: Oriented Psychiatric: Yes: Oriented Labs: CBC, BMP 10/18/17 06:00 10/17/17 05:30 INR, PTT INR 1.29 (0.82-1.09) H 10/18/17 06:00 - ....Imaging Chest X-ray: Report Reviewed Problem List - Problems (1) SIMON (acute kidney injury) Code(s): N17.9 - ACUTE KIDNEY FAILURE, UNSPECIFIED (2) Melanoma Code(s): C43.9 - MALIGNANT MELANOMA OF SKIN, UNSPECIFIED (3) Atrial fibrillation Code(s): I48.91 - UNSPECIFIED ATRIAL FIBRILLATION Qualifiers: Atrial fibrillation type: paroxysmal Qualified Code(s): I48.0 - Paroxysmal atrial fibrillation (4) Hypothyroid Code(s): E03.9 - HYPOTHYROIDISM, UNSPECIFIED Assessment/Plan Current Medications Generic Name Dose Route Start Last Admin Trade Name Freq PRN Reason Stop Dose Admin Acetaminophen 1,000 mg 10/15/17 20:21 10/16/17 04:04 Ofirmev Injection - IVPB 1,000 mg Q6H PRN Administration PAIN LEVEL 1-5 Atenolol 50 mg 10/17/17 22:00 10/18/17 10:00 Tenormin - PO 50 mg BID [facility] Administration Heparin Sodium (Porcine) 5,000 unit 10/17/17 10:00 10/18/17 09:59 Heparin - SQ 5,000 unit BID [facility] Administration Piperacillin Sod/Tazobactam 50 mls @ 100 mls/hr 10/18/17 10:00 10/18/17 10:01 Sod 3.375 gm/ Dextrose IVPB 100 mls/hr Q8H-IV [facility] Administration Levothyroxine Sodium 50 mcg 10/17/17 11:15 10/18/17 06:35 Synthroid - PO 50 mcg DAILY@0700 [facility] Administration Methylprednisolone Sodium Succinate 80 mg 10/17/17 10:00 10/18/17 10:00 Solu-Medrol - IVPUSH 80 mg Q8H-IV [facility] Administration Morphine Sulfate 4 mg 10/17/17 14:33 10/18/17 15:00 Morphine Sulfate IVPUSH 4 mg Q4H PRN Administration PAIN LEVEL 4 - 6 Saliva Substitute 1 applic 10/16/17 17:15 10/18/17 10:01 Mouthkote Solution - MM 1 applic DAILY [facility] Administration Zolpidem Tartrate 5 mg 10/17/17 22:00 Ambien - PO 10/20/17 23:59 HS PRN INSOMNIA Impression 1. SIMON 2. pericardial effusion 3. resp failure requiring bipap 4. hx melanoma 5. possible metastatic disease 6. hypotension 7. hypothyroid 8. HLD 9. COPD 10. formal smoker 11. possible mass in pericardial sac 12. pericardial effusion Plan - no new labs, family dont want daily bloodwork - cxr reviewed - pt appears comfortable - follow pericardial fluid cytology - SIMON likely from hypotension and prerenal disease - will follow Dr Waite
[2017-10-18] MEDS ORDERED: PT OWN MED DRAWER 7, Y5N ONE (17:20)
[2017-10-18] MEDS ORDERED: VANCOMYCIN 1,000 MG in DEXTROSE 5%-WATER - 250 ML IVPB ONE (17:45)
--- NOTE | 2017-10-18 18:23 | PN ---
Progress Note (short form) - Note Progress Note: CC: sob. s: no cp palps dizzy; patient made dnr/dni. lab draws stopped. +sob, stable. + pain/progressive discoloration at left fingertips o: Current Medications Acetaminophen (Ofirmev Injection -) 1,000 mg IVPB Q6H PRN PRN Reason: PAIN LEVEL 1-5 Last Admin: 10/16/17 04:04 Dose: 1,000 mg Atenolol (Tenormin -) 50 mg PO BID [facility] Last Admin: 10/18/17 10:00 Dose: 50 mg Heparin Sodium (Porcine) (Heparin -) 5,000 unit SQ BID [facility] Last Admin: 10/18/17 09:59 Dose: 5,000 unit Piperacillin Sod/Tazobactam (Sod 3.375 gm/ Dextrose) 50 mls @ 100 mls/hr IVPB Q8H-IV [facility] Last Admin: 10/18/17 17:28 Dose: 100 mls/hr Levothyroxine Sodium (Synthroid -) 50 mcg PO DAILY@0700 [facility] Last Admin: 10/18/17 06:35 Dose: 50 mcg Methylprednisolone Sodium Succinate (Solu-Medrol -) 80 mg IVPUSH Q8H-IV [facility] Last Admin: 10/18/17 17:32 Dose: 80 mg Morphine Sulfate (Morphine Sulfate) 4 mg IVPUSH Q4H PRN PRN Reason: PAIN LEVEL 4 - 6 Last Admin: 10/18/17 15:00 Dose: 4 mg Saliva Substitute (Mouthkote Solution -) 1 applic MM DAILY [facility] Last Admin: 10/18/17 10:01 Dose: 1 applic Zolpidem Tartrate (Ambien -) 5 mg PO HS PRN PRN Reason: INSOMNIA Stop: 10/20/17 23:59 Vital Signs - 24 hr 10/17/17 10/17/17 10/17/17 19:00 21:20 22:00 Temperature 98.1 F Pulse Rate 112 H 116 H Respiratory 12 24 Rate Blood Pressure 98/48 111/63 O2 Sat by Pulse 80 L 93 L Oximetry (%) 10/18/17 10/18/17 10/18/17 00:00 00:54 02:00 Temperature 98 F Pulse Rate 110 H 118 H Respiratory 24 20 Rate Blood Pressure 110/48 128/56 O2 Sat by Pulse 97 Oximetry (%) 10/18/17 10/18/17 10/18/17 04:00 06:00 06:30 Temperature 98.4 F Pulse Rate 111 H 114 H Respiratory 18 18 Rate Blood Pressure 106/54 130/70 O2 Sat by Pulse 97 Oximetry (%) 10/18/17 10/18/17 10/18/17 08:04 08:05 08:30 Temperature 98.5 F Pulse Rate 117 H Respiratory 26 H Rate Blood Pressure 115/82 O2 Sat by Pulse 95 95 Oximetry (%) 10/18/17 10/18/17 10/18/17 08:35 10:00 11:31 Temperature Pulse Rate 88 116 H Respiratory 23 Rate Blood Pressure 129/99 O2 Sat by Pulse 91 L 97 Oximetry (%) 10/18/17 10/18/17 10/18/17 12:00 14:00 16:00 Temperature 97.5 F L Pulse Rate 111 H 110 H 107 H Respiratory 25 H 25 H 23 Rate Blood Pressure 128/62 119/89 127/61 O2 Sat by Pulse 93 L Oximetry (%) 10/18/17 10/18/17 16:36 17:55 Temperature 97.5 F L Pulse Rate 110 H Respiratory 26 H Rate Blood Pressure 118/67 O2 Sat by Pulse 90 L Oximetry (%) Intake & Output 10/16/17 10/17/17 10/18/17 10/19/17 07:59 07:59 07:59 08:59 Intake Total 1420 608 350 100 Output Total 1230 1755 505 185 Balance 190 -1147 -155 -85 Weight 175 lb 6.4 oz 175 lb 3.2 oz 176 lb 3.2 oz nad, calm jvd tds, neck supple bibasilar dullness, nl effort irregularly, irregular nl s1, s2 no mrg + pericardial drain + bs soft nt nd ext with trace edema. no c/c + discoloration of left fingertips + dp/pt aaox3 no jaundice, diaphoresis. CBC, BMP 10/18/17 06:00 10/17/17 05:30 Microbiology 10/14/17 20:00 Pericardial Fluid Gram Stain - Final 10/14/17 20:00 Pericardial Fluid Anaerobic Culture - Preliminary Staphylococcus Coagulase Neg No growth. ekg: afib, low voltage qrs. no acute ischemic changes. tele: afib, VR 100's. echo 10/2017: nl lv/rv, no sig valve path, mod-large peric eff, no tamponade cxr: no sig change ct: images and report reviewed. asymmetric pleural effusion and pericardial effusion noted. see emr for detailed report. mibi 01/2015: lexiscan, no ecg changes, normal MPI, resting ecg showed afib echo 04/2017: nl lv/rv, no sig valve path, nl rvsp office ekg: from april: afib, borderline low voltages. poor r wave progression. similar to priors. est cct 35 mins Assessment/plan. 82 yo with h/o afib on xarelto, htn, hl, PVD s/p revascularization 07/2017 and toe amputation 08/2017, subclavian stent 09/2017, obesity, hypothyroid, melanoma and chronic low back pain p/w sob. sob/resp failure/pericardial effusion - on initial ER evaluation appeared to have worsened respiratory distress s/p IVF bolus. --> placed on bipap and given 40 mg IV lasix x 2. Subsequent hypotension (also in setting of fever to 102 and tamponade physiology) -echo with large pericardial eff, now s/p pericardial window 10/14/17, still has drain. -still with sob, likely related to metastatic cancer/lung mass, pna -infection/malignacy w/u per primary team afib - AC with xarelto as outpatient, held here given need for surgery/procedures, also with new lung mass. - rate fast --> resumed home atenolol yesterday, first dose this morning. HR trend improving. con't to monitor. - 10/09: xarelto remains on hold, GOC need to be clarified. patient now dnr/dni, lab draws have been stopped but now respiratory status and bp stable. not a candidate for heparin drip at this time if ptt cannot be monitored and reluctant to start lovenox without monitoring kidney function (pt with recent improvement in creatinine but also with minimal po intake). If there is a change in goals of care/treatments, etc.. will need to discuss safety of AC with team. - cont tele htn -had been with low bp initially but now improving. con't to monitor on atenolol. PAD - s/p L SFA CT MANAGER , residual distal dz. followed by vascular as outpatient. - s/p subclavian stent. check to see if bp equal in both arms. + worsening discoloration of fingertips. pain control and mgm't per pmd - resume statin once acute issues resolve. tiffany - acute worsening of Creatinine in setting of hypotension. improving on most recent bmp hld: - on zocor as outpatient.
[2017-10-19] MEDS: PIPERACILLIN/TAZOB 3.375 GM 3.375 GM in DEXTROSE 5%-WATER - 50 ML IVPB SCH ×3 (01:38→17:35)
[2017-10-19] MEDS: methylPREDNISolone NA SUCC 40 MG/1 ML VIAL IVPUSH SCH ×3 (01:39→17:35)
[2017-10-19] MEDS: morphine SULFATE 4 MG/ML VIAL IVPUSH PRN ×3 (04:14→21:49)
[2017-10-19] MEDS: LEVOTHYROXINE NA 50 MCG TABLET (FP) PO SCH (06:26)
--- NOTE | 2017-10-19 08:18 | PN ---
Progress Note (short form) - Note Progress Note: 24Hr: comfortable, no new events will try to find private bed on floor for privacy, unlikely to make home for hospice Active Medications Acetaminophen (Ofirmev Injection -) 1,000 mg IVPB Q6H PRN PRN Reason: PAIN LEVEL 1-5 Last Admin: 10/16/17 04:04 Dose: 1,000 mg Atenolol (Tenormin -) 50 mg PO BID [facility] Last Admin: 10/18/17 21:04 Dose: 50 mg Heparin Sodium (Porcine) (Heparin -) 5,000 unit SQ BID [facility] Last Admin: 10/18/17 21:04 Dose: 5,000 unit Piperacillin Sod/Tazobactam (Sod 3.375 gm/ Dextrose) 50 mls @ 100 mls/hr IVPB Q8H-IV [facility] Last Admin: 10/19/17 01:38 Dose: 100 mls/hr Levothyroxine Sodium (Synthroid -) 50 mcg PO DAILY@0700 [facility] Last Admin: 10/19/17 06:26 Dose: 50 mcg Methylprednisolone Sodium Succinate (Solu-Medrol -) 80 mg IVPUSH Q8H-IV [facility] Last Admin: 10/19/17 01:39 Dose: 80 mg Morphine Sulfate (Morphine Sulfate) 4 mg IVPUSH Q4H PRN PRN Reason: PAIN LEVEL 4 - 6 Last Admin: 10/19/17 04:14 Dose: 4 mg Saliva Substitute (Mouthkote Solution -) 1 applic MM DAILY [facility] Last Admin: 10/18/17 10:01 Dose: 1 applic Zolpidem Tartrate (Ambien -) 5 mg PO HS PRN PRN Reason: INSOMNIA Stop: 10/20/17 23:59 Last Admin: 10/18/17 22:48 Dose: 5 mg Vital Signs Period Temp Pulse Resp BP Sys/Vaughn Pulse Ox Last 24 Hr 98 F-98.5 F 110-140 12-30 98-135/48-115 80-97 Intake & Output 10/15/17 10/16/17 10/17/17 10/18/17 23:59 23:59 23:59 23:59 Intake Total 1450 1808 320 150 Output Total 1280 1780 655 255 Balance 170 28 -335 -105 Weight 78.585 kg 79.56 kg 79.469 kg 79.923 kg Exam: General: Mild/Mod WOB. Deneis pain, n/v/ELMORE Neuro: awake, alert and cooperative Pulm: very diminished on left side CV: s1, s2. cardiac window sit4e c/d/i Abd: obese, SNTND Ext: WWP +2Le edema CXR: largely unchanged: large left sided opacity +/- effusion Temp 98.4 F 10/19/17 06:00 Pulse 118 H 10/19/17 06:00 Resp 16 10/19/17 06:00 BP 130/60 10/19/17 06:00 Pulse Ox 98 10/19/17 06:29 Intake & Output 10/18/17 10/18/17 10/19/17 11:59 23:59 12:59 Intake Total 200 400 100 Output Total 255 335 150 Balance -55 65 -50 Weight 79.923 kg 78.97 kg Intake: IV 100 Normal Saline - 1,000 ml 100 @ 20 mls/hr IV [facility] Rx#:[id number] IVPB 50 300 50 Oral 50 100 50 Output: Chest Tube Drainage 5 10 0 10/14/17 medial chest tubes 5 10 0 /p percardial window Urine 250 325 150 Howard 250 325 150 Other: Voiding Method Indwelling Catheter Indwelling Catheter Bowel Movement No No Weight Measurement Method [facility] No New labs CXR:no new cxr Problem List - Problems (1) Dehydration Code(s): E86.0 - DEHYDRATION (2) Dysphagia Code(s): R13.10 - DYSPHAGIA, UNSPECIFIED Qualifiers: Dysphagia type: unspecified Qualified Code(s): R13.10 - Dysphagia, unspecified (3) Pneumonia Code(s): J18.9 - PNEUMONIA, UNSPECIFIED ORGANISM Qualifiers: Pneumonia type: due to unspecified organism Laterality: left Lung location: lower lobe of lung Qualified Code(s): J18.1 - Lobar pneumonia, unspecified organism (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 Code(s): I70.262 - ATHSCL [place] ARTERIES OF EXTREMITIES W GANGR[place], LEFT LEG (5) Dyspnea on exertion Code(s): R06.09 - OTHER FORMS OF DYSPNEA (6) Atrial fibrillation Code(s): I48.91 - UNSPECIFIED ATRIAL FIBRILLATION Qualifiers: Atrial fibrillation type: paroxysmal Qualified Code(s): I48.0 - Paroxysmal atrial fibrillation (7) Hypothyroid Code(s): E03.9 - HYPOTHYROIDISM, UNSPECIFIED Assessment/Plan Suspected metastatic CA Pericardial effusion HTN COPD / former heavy smoker Afib on Xarelto Hypothyroid Malignant melanoma Severe PAD Left SCV stent (?) Aspiration PNA Vocal cord dysfunction/paralysis (?) Lymphatic spread of malignancy PLAN: -DNR/DNI no escalation of aggressive measures -No labs, no CXRs -on morphine and O2 Dewar Pulm/CCM 35cct
[2017-10-19] MEDS ORDERED: PT OWN MED DRAWER 7, Y5N ONE ×2 (09:33→17:27)
[2017-10-19] MEDS: LYTES/YERBA SANTA 240 ML BOTTLE MM SCH (09:40)
[2017-10-19] MEDS: HEPARIN NA (PORCINE) 5,000 UNITS/ML 1ML VIAL SQ SCH ×2 (09:40→21:11)
[2017-10-19] MEDS: ATENOLOL 50 MG TABLET (FP) PO SCH ×2 (09:40→21:12)
--- NOTE | 2017-10-19 16:27 | PN ---
Progress Note (short form) - Note Progress Note: cc: sob s:no cp palps dizzy; +sob, stable. + pain at left fingertips improved today. o: Current Medications Acetaminophen (Ofirmev Injection -) 1,000 mg IVPB Q6H PRN PRN Reason: PAIN LEVEL 1-5 Last Admin: 10/16/17 04:04 Dose: 1,000 mg Atenolol (Tenormin -) 50 mg PO BID [facility] Last Admin: 10/19/17 09:40 Dose: 50 mg Heparin Sodium (Porcine) (Heparin -) 5,000 unit SQ BID [facility] Last Admin: 10/19/17 09:40 Dose: 5,000 unit Piperacillin Sod/Tazobactam (Sod 3.375 gm/ Dextrose) 50 mls @ 100 mls/hr IVPB Q8H-IV [facility] Last Admin: 10/19/17 09:40 Dose: 100 mls/hr Levothyroxine Sodium (Synthroid -) 50 mcg PO DAILY@0700 [facility] Last Admin: 10/19/17 06:26 Dose: 50 mcg Methylprednisolone Sodium Succinate (Solu-Medrol -) 80 mg IVPUSH Q8H-IV [facility] Last Admin: 10/19/17 09:40 Dose: 80 mg Morphine Sulfate (Morphine Sulfate) 4 mg IVPUSH Q4H PRN PRN Reason: PAIN LEVEL 4 - 6 Last Admin: 10/19/17 09:00 Dose: 4 mg Saliva Substitute (Mouthkote Solution -) 1 applic MM DAILY [facility] Last Admin: 10/19/17 09:40 Dose: 1 applic Zolpidem Tartrate (Ambien -) 5 mg PO HS PRN PRN Reason: INSOMNIA Stop: 10/20/17 23:59 Last Admin: 10/18/17 22:48 Dose: 5 mg Vital Signs - 24 hr 10/18/17 10/18/17 10/18/17 16:00 16:36 17:55 Temperature 97.5 F L Pulse Rate 107 H 110 H Respiratory 23 26 H Rate Blood Pressure 127/61 118/67 O2 Sat by Pulse 90 L Oximetry (%) 10/18/17 10/18/17 10/18/17 20:00 21:00 22:00 Temperature 98.2 F Pulse Rate 112 H 114 H Respiratory 26 H 20 Rate Blood Pressure 130/70 100/45 O2 Sat by Pulse 98 98 Oximetry (%) 10/19/17 10/19/17 10/19/17 00:00 01:00 01:55 Temperature 98.5 F Pulse Rate 108 H 114 H Respiratory 12 15 Rate Blood Pressure 112/60 112/60 O2 Sat by Pulse 98 Oximetry (%) 10/19/17 10/19/17 10/19/17 03:00 04:00 06:00 Temperature 98.4 F Pulse Rate 124 H 116 H 118 H Respiratory 18 16 16 Rate Blood Pressure 140/92 131/66 130/60 O2 Sat by Pulse Oximetry (%) 10/19/17 10/19/17 10/19/17 06:29 08:00 08:51 Temperature Pulse Rate 128 H 128 H Respiratory 15 Rate Blood Pressure 122/82 O2 Sat by Pulse 98 95 Oximetry (%) 10/19/17 10/19/17 10/19/17 09:00 10:00 12:00 Temperature 98.2 F Pulse Rate 125 H 112 H Respiratory 16 18 12 Rate Blood Pressure 136/62 129/74 O2 Sat by Pulse 95 Oximetry (%) 10/19/17 14:00 Temperature Pulse Rate 118 H Respiratory 12 Rate Blood Pressure 92/55 O2 Sat by Pulse Oximetry (%) Intake & Output 10/17/17 10/18/17 10/19/17 10/20/17 06:59 06:59 07:59 07:59 Intake Total Output Total Balance Weight nad, calm jvd tds, neck supple bibasilar dullness, nl effort irregularly, irregular nl s1, s2 no mrg + pericardial drain + bs soft nt nd ext with trace edema. no c/c + discoloration of left fingertips + dp/pt aaox3 no jaundice, diaphoresis. no CBC, BMP today 10/18/17 06:00 10/17/17 05:30 ekg: afib, low voltage qrs. no acute ischemic changes. tele: afib, VR 100's. echo 10/2017: nl lv/rv, no sig valve path, mod-large peric eff, no tamponade cxr: no sig change ct: images and report reviewed. asymmetric pleural effusion and pericardial effusion noted. see emr for detailed report. mibi 01/2015: lexiscan, no ecg changes, normal MPI, resting ecg showed afib echo 04/2017: nl lv/rv, no sig valve path, nl rvsp office ekg: from april: afib, borderline low voltages. poor r wave progression. similar to priors. est cct 35 mins Assessment/plan. 82 yo with h/o afib on xarelto, htn, hl, PVD s/p revascularization 07/2017 and toe amputation 08/2017, subclavian stent 09/2017, obesity, hypothyroid, melanoma and chronic low back pain p/w sob. sob/resp failure/pericardial effusion - on initial ER evaluation appeared to have worsened respiratory distress s/p IVF bolus. --> placed on bipap and given 40 mg IV lasix x 2. Subsequent hypotension (also in setting of fever to 102 and tamponade physiology) -echo with large pericardial eff, now s/p pericardial window 10/14/17, still has drain. -still with sob, likely related to metastatic cancer/lung mass, pna, pleural effusions. -infection/malignacy w/u per primary team afib - AC with xarelto as outpatient, held here given need for surgery/procedures, also with new lung mass. - rate fast --> resumed home atenolol 50 bid HR trend improved but today HR trending up. con't to monitor. If remains elevated may need to add digoxin. - 10/19: discussed with family and primary, con't to hold AC for now. If after GOC discussion will be resuming lab draws consider heparin drip if no contraindication ie. ok from standpoint of possible malignancy, ? need evaluation for brain mets, need for biopsies to confirm whether patient has malignancy?, etc.. - cont tele htn -had been with low bp initially but now improving. con't to monitor on atenolol. PAD - s/p L SFA [employer] IN[employer] UPPERS , residual distal dz. followed by vascular as outpatient. - s/p subclavian stent. check to see if bp equal in both arms. - now with worsening discoloration of left hand fingertips. pain better controlled. ongoing mgm't per pmd. - resume statin once acute issues resolve if in lie with goals of car. tiffany - acute worsening of Creatinine in setting of hypotension. had been improving up until last bmp hld: - on zocor as outpatient. GOC - Goc discussions ongoing. currently dnr/dni. Lab draws have also been stopped , but patient not comfort care. Family remains unclear regarding prognosis. plan for family meeting tomorrow.
--- NOTE | 2017-10-19 19:49 | PN ---
Progress Note, Physician History of Present Illness: Pt seen and examined at bedside. She is awake and appears comfortable. She does not want labs checked. She refused cxr. - Current Medication List Current Medications: Active Medications Acetaminophen (Ofirmev Injection -) 1,000 mg IVPB Q6H PRN PRN Reason: PAIN LEVEL 1-5 Last Admin: 10/16/17 04:04 Dose: 1,000 mg Atenolol (Tenormin -) 50 mg PO BID [facility] Last Admin: 10/19/17 09:40 Dose: 50 mg Heparin Sodium (Porcine) (Heparin -) 5,000 unit SQ BID [facility] Last Admin: 10/19/17 09:40 Dose: 5,000 unit Piperacillin Sod/Tazobactam (Sod 3.375 gm/ Dextrose) 50 mls @ 100 mls/hr IVPB Q8H-IV [facility] Last Admin: 10/19/17 17:35 Dose: 100 mls/hr Levothyroxine Sodium (Synthroid -) 50 mcg PO DAILY@0700 [facility] Last Admin: 10/19/17 06:26 Dose: 50 mcg Methylprednisolone Sodium Succinate (Solu-Medrol -) 80 mg IVPUSH Q8H-IV [facility] Last Admin: 10/19/17 17:35 Dose: 80 mg Morphine Sulfate (Morphine Sulfate) 4 mg IVPUSH Q4H PRN PRN Reason: PAIN LEVEL 4 - 6 Last Admin: 10/19/17 09:00 Dose: 4 mg Saliva Substitute (Mouthkote Solution -) 1 applic MM DAILY [facility] Last Admin: 10/19/17 09:40 Dose: 1 applic Zolpidem Tartrate (Ambien -) 5 mg PO HS PRN PRN Reason: INSOMNIA Stop: 10/20/17 23:59 Last Admin: 10/18/17 22:48 Dose: 5 mg - Objective Vital Signs: Vital Signs Temperature 98.2 F 10/19/17 10:00 Pulse Rate 115 H 10/19/17 18:00 Respiratory Rate 20 10/19/17 18:00 Blood Pressure 140/71 10/19/17 18:00 O2 Sat by Pulse Oximetry (%) 92 L 10/19/17 19:23 Constitutional: Yes: Calm Eyes: Yes: Conjunctiva Clear Cardiovascular: Yes: S1, S2 Respiratory: Yes: On Venti-Mask, Rhonchi Gastrointestinal: Yes: Soft Genitourinary: Yes: WNL Musculoskeletal: Yes: Muscle Weakness Edema: Yes Edema: LLE: Trace, RLE: Trace Neurological: Yes: Oriented Psychiatric: Yes: Oriented Labs: CBC, BMP 10/18/17 06:00 10/17/17 05:30 INR, PTT INR 1.29 (0.82-1.09) H 10/18/17 06:00 Problem List - Problems (1) SIMON (acute kidney injury) Code(s): N17.9 - ACUTE KIDNEY FAILURE, UNSPECIFIED (2) Melanoma Code(s): C43.9 - MALIGNANT MELANOMA OF SKIN, UNSPECIFIED (3) Atrial fibrillation Code(s): I48.91 - UNSPECIFIED ATRIAL FIBRILLATION Qualifiers: Atrial fibrillation type: paroxysmal Qualified Code(s): I48.0 - Paroxysmal atrial fibrillation (4) Hypothyroid Code(s): E03.9 - HYPOTHYROIDISM, UNSPECIFIED Assessment/Plan Current Medications Generic Name Dose Route Start Last Admin Trade Name Freq PRN Reason Stop Dose Admin Acetaminophen 1,000 mg 10/15/17 20:21 10/16/17 04:04 Ofirmev Injection - IVPB 1,000 mg Q6H PRN Administration PAIN LEVEL 1-5 Atenolol 50 mg 10/17/17 22:00 10/19/17 09:40 Tenormin - PO 50 mg BID [facility] Administration Heparin Sodium (Porcine) 5,000 unit 10/17/17 10:00 10/19/17 09:40 Heparin - SQ 5,000 unit BID [facility] Administration Piperacillin Sod/Tazobactam 50 mls @ 100 mls/hr 10/18/17 10:00 10/19/17 17:35 Sod 3.375 gm/ Dextrose IVPB 100 mls/hr Q8H-IV [facility] Administration Levothyroxine Sodium 50 mcg 10/17/17 11:15 10/19/17 06:26 Synthroid - PO 50 mcg DAILY@0700 [facility] Administration Methylprednisolone Sodium Succinate 80 mg 10/17/17 10:00 10/19/17 17:35 Solu-Medrol - IVPUSH 80 mg Q8H-IV [facility] Administration Morphine Sulfate 4 mg 10/17/17 14:33 10/19/17 09:00 Morphine Sulfate IVPUSH 4 mg Q4H PRN Administration PAIN LEVEL 4 - 6 Saliva Substitute 1 applic 10/16/17 17:15 10/19/17 09:40 Mouthkote Solution - MM 1 applic DAILY [facility] Administration Zolpidem Tartrate 5 mg 10/17/17 22:00 10/18/17 22:48 Ambien - PO 10/20/17 23:59 5 mg HS PRN Administration INSOMNIA Impression 1. SIMON 2. pericardial effusion 3. resp failure requiring bipap 4. hx melanoma 5. possible metastatic disease 6. hypotension 7. hypothyroid 8. HLD 9. COPD 10. formal smoker 11. possible mass in pericardial sac 12. pericardial effusion Plan - no new labs - discussed with family, no aggressive therapy - will need to clarify GOC - follow pericardial fluid cytology - SIMON likely from hypotension and prerenal disease - will follow Dr Waite
[2017-10-19] MEDS ORDERED: DEXTROSE 5%-0.45% SALINE 1,000 ML IV SCH (20:45)
[2017-10-19] MEDS ORDERED: METOPROLOL TARTRATE 5 MG/5 ML VIAL IVPUSH PRN (21:30)
--- NOTE | 2017-10-20 00:30 | PN ---
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 Patient has significant PSH for revascularization of right leg, revascularization of left leg (07/2017), amputation of left 1st and 2nd gangrenous toes (09/10/2017) , and placement of left subclavian stent x 2 weeks ago at [facility]. About one month ago, patient developed hoarseness, difficulty swallowing, and choking on PO intake. She has lost 8 pounds in that period of time. She has been seen and evaluated several times by her PCP Dr. Woodall. Earlier today she saw ENT specialist Dr. Cabrera who reportedly told patient she has vocal cord paralysis - Current Medication List Current Medications: Active Medications Acetaminophen (Ofirmev Injection -) 1,000 mg IVPB Q6H PRN PRN Reason: PAIN LEVEL 1-5 Last Admin: 10/16/17 04:04 Dose: 1,000 mg Atenolol (Tenormin -) 50 mg PO BID [facility] Last Admin: 10/19/17 21:12 Dose: Not Given Heparin Sodium (Porcine) (Heparin -) 5,000 unit SQ BID [facility] Last Admin: 10/19/17 21:11 Dose: 5,000 unit Piperacillin Sod/Tazobactam (Sod 3.375 gm/ Dextrose) 50 mls @ 100 mls/hr IVPB Q8H-IV [facility] Last Admin: 10/19/17 17:35 Dose: 100 mls/hr Dextrose/Sodium Chloride (D5-1/2ns -) 1,000 mls @ 50 mls/hr IV ASDIR [facility] Last Admin: 10/19/17 21:10 Dose: 50 mls/hr Levothyroxine Sodium (Synthroid -) 50 mcg PO DAILY@0700 [facility] Last Admin: 10/19/17 06:26 Dose: 50 mcg Methylprednisolone Sodium Succinate (Solu-Medrol -) 80 mg IVPUSH Q8H-IV [facility] Last Admin: 10/19/17 17:35 Dose: 80 mg Metoprolol Tartrate (Lopressor Injection -) 5 mg IVPUSH Q4H PRN PRN Reason: HYPERTENSION Morphine Sulfate (Morphine Sulfate) 4 mg IVPUSH Q4H PRN PRN Reason: PAIN LEVEL 4 - 6 Last Admin: 10/19/17 21:49 Dose: 4 mg Saliva Substitute (Mouthkote Solution -) 1 applic MM DAILY [facility] Last Admin: 10/19/17 09:40 Dose: 1 applic Zolpidem Tartrate (Ambien -) 5 mg PO HS PRN PRN Reason: INSOMNIA Stop: 10/20/17 23:59 Last Admin: 10/18/17 22:48 Dose: 5 mg - Objective Vital Signs: Vital Signs Temperature 98.4 F 10/19/17 22:00 Pulse Rate 114 H 10/20/17 00:00 Respiratory Rate 12 10/20/17 00:00 Blood Pressure 130/56 10/20/17 00:00 O2 Sat by Pulse Oximetry (%) 92 L 10/19/17 19:23 Elderly F with respiratory distress on nasal canula and O2 tent HEENT: Mm dry, anemia NECK; accessory muscles are active, no JVD CHEST: B/L Basal crepts ABD: No distention, nontender EXT: LT LE S/P Graft edema, Pulses feeble [employer]OM[employer] LOT ATTENDANT: Alert, moving all extremities Labs: CBC, BMP 10/18/17 06:00 10/17/17 05:30 INR, PTT INR 1.29 (0.82-1.09) H 10/18/17 06:00 Problem List - Problems (1) SOB (shortness of breath) Assessment/Plan: Due to Pleuro pericardial effusion s/p percardial biopsy shows no malignancy O2 inhalation, Code(s): R06.02 - SHORTNESS OF BREATH (2) COPD (chronic obstructive pulmonary disease) Assessment/Plan: cont nebs treatment and o2 inhalation Code(s): J44.9 - CHRONIC OBSTRUCTIVE PULMONARY DISEASE, UNSPECIFIED (3) Pericardial effusion, acute Assessment/Plan: s/p yhoracotomy , percardial biopsy - ve for malignancy. Code(s): I30.9 - ACUTE PERICARDITIS, UNSPECIFIED (4) Atrial fibrillation Assessment/Plan: on B blockers for rate control off abx Code(s): I48.91 - UNSPECIFIED ATRIAL FIBRILLATION Qualifiers: Atrial fibrillation type: paroxysmal Qualified Code(s): I48.0 - Paroxysmal atrial fibrillation (5) Hypothyroid Assessment/Plan: cont levothyroxine Code(s): E03.9 - HYPOTHYROIDISM, UNSPECIFIED Qualifiers: Qualified Code(s): E89.0 - Postprocedural hypothyroidism (6) Palliative care patient Assessment/Plan: DNR, DNI on comfort care Code(s): Z51.5 - ENCOUNTER FOR PALLIATIVE CARE
[2017-10-20] MEDS ORDERED: PT OWN MED DRAWER 7, Y5N ONE (00:37)
[2017-10-20] MEDS ORDERED: HALOPERIDOL LACTATE 5 MG/ML IVPUSH ONE (01:12)
[2017-10-20] MEDS: PIPERACILLIN/TAZOB 3.375 GM 3.375 GM in DEXTROSE 5%-WATER - 50 ML IVPB SCH (02:02)
[2017-10-20] MEDS: methylPREDNISolone NA SUCC 40 MG/1 ML VIAL IVPUSH SCH (02:02)
[2017-10-20] MEDS: morphine SULFATE 4 MG/ML VIAL IVPUSH PRN (04:21)
[2017-10-20] MEDS: LEVOTHYROXINE NA 50 MCG TABLET (FP) PO SCH (07:10)
--- NOTE | 2017-10-20 07:44 | PN ---
Progress Note, Physician Chief Complaint: ID Zosyn and Solumedrol Chronically ill appearing - Current Medication List Current Medications: Active Medications Acetaminophen (Ofirmev Injection -) 1,000 mg IVPB Q6H PRN PRN Reason: PAIN LEVEL 1-5 Last Admin: 10/16/17 04:04 Dose: 1,000 mg Atenolol (Tenormin -) 50 mg PO BID [facility] Last Admin: 10/19/17 21:12 Dose: Not Given Heparin Sodium (Porcine) (Heparin -) 5,000 unit SQ BID [facility] Last Admin: 10/19/17 21:11 Dose: 5,000 unit Piperacillin Sod/Tazobactam (Sod 3.375 gm/ Dextrose) 50 mls @ 100 mls/hr IVPB Q8H-IV [facility] Last Admin: 10/20/17 02:02 Dose: 100 mls/hr Dextrose/Sodium Chloride (D5-1/2ns -) 1,000 mls @ 50 mls/hr IV ASDIR [facility] Last Admin: 10/19/17 21:10 Dose: 50 mls/hr Levothyroxine Sodium (Synthroid -) 50 mcg PO DAILY@0700 [facility] Last Admin: 10/20/17 07:10 Dose: Not Given Methylprednisolone Sodium Succinate (Solu-Medrol -) 80 mg IVPUSH Q8H-IV [facility] Last Admin: 10/20/17 02:02 Dose: 80 mg Metoprolol Tartrate (Lopressor Injection -) 5 mg IVPUSH Q4H PRN PRN Reason: HYPERTENSION Morphine Sulfate (Morphine Sulfate) 4 mg IVPUSH Q4H PRN PRN Reason: PAIN LEVEL 4 - 6 Last Admin: 10/20/17 04:21 Dose: 4 mg Saliva Substitute (Mouthkote Solution -) 1 applic MM DAILY [facility] Last Admin: 10/19/17 09:40 Dose: 1 applic Zolpidem Tartrate (Ambien -) 5 mg PO HS PRN PRN Reason: INSOMNIA Stop: 10/20/17 23:59 Last Admin: 10/18/17 22:48 Dose: 5 mg - Objective Vital Signs: Vital Signs Temperature 98 F 10/20/17 06:00 Pulse Rate 119 H 10/20/17 06:00 Respiratory Rate 18 10/20/17 06:00 Blood Pressure 150/108 10/20/17 06:00 O2 Sat by Pulse Oximetry (%) 92 L 10/19/17 19:23 Constitutional: Yes: Mild Distress Cardiovascular: Yes: Tachycardia, S1, S2 Respiratory: Yes: WNL, Regular, CTA Bilaterally, Diminished, Other (Few rales base) Gastrointestinal: Yes: Soft Edema: No Labs: CBC, BMP 10/18/17 06:00 10/17/17 05:30 INR, PTT INR 1.29 (0.82-1.09) H 10/18/17 06:00 Assessment/Plan Microbiology 10/14/17 20:00 Pericardial Fluid AFB Smear Concentration - Final 10/13/17 18:57 Urine - Urine Howard Urine Culture - Final NO GROWTH OBTAINED 10/13/17 15:50 Blood - Peripheral Venous Blood Culture - Final NO GROWTH AFTER 5 DAYS INCUBATION 10/13/17 15:42 Blood - Peripheral Venous Blood Culture - Final NO GROWTH AFTER 5 DAYS INCUBATION 10/14/17 20:00 Pericardial Fluid Mycobacterial Culture - Preliminary 10/14/17 20:00 Pericardial Fluid RENE Preparation - Preliminary 10/14/17 20:00 Pericardial Fluid Fungal Culture - Preliminary Laboratory Tests 10/16/17 10/17/17 10/18/17 06:06 05:30 06:00 WBC 13.5 H RBC 4.09 Hct 39.6 Plt Count 311 Creat Clearance w eGFR 36.18 TB Test (QFT) Negative Assessment Metastatic cancer with malignant effusion S/P pericardial window Drain still in place Plan Would stop antibiotics at this time Erinn CHRISTIANSEN
--- NOTE | 2017-10-20 09:27 | PN ---
Progress Note, Physician Chief Complaint: resp failure History of Present Illness: not communicative. per family, labored breathing appears worse today. - Current Medication List Current Medications: Active Medications Acetaminophen (Ofirmev Injection -) 1,000 mg IVPB Q6H PRN PRN Reason: PAIN LEVEL 1-5 Last Admin: 10/16/17 04:04 Dose: 1,000 mg Atenolol (Tenormin -) 50 mg PO BID [facility] Last Admin: 10/19/17 21:12 Dose: Not Given Heparin Sodium (Porcine) (Heparin -) 5,000 unit SQ BID [facility] Last Admin: 10/19/17 21:11 Dose: 5,000 unit Dextrose/Sodium Chloride (D5-1/2ns -) 1,000 mls @ 50 mls/hr IV ASDIR [facility] Last Admin: 10/19/17 21:10 Dose: 50 mls/hr Levothyroxine Sodium (Synthroid -) 50 mcg PO DAILY@0700 [facility] Last Admin: 10/20/17 07:10 Dose: Not Given Methylprednisolone Sodium Succinate (Solu-Medrol -) 80 mg IVPUSH Q8H-IV [facility] Last Admin: 10/20/17 02:02 Dose: 80 mg Metoprolol Tartrate (Lopressor Injection -) 5 mg IVPUSH Q4H PRN PRN Reason: HYPERTENSION Morphine Sulfate (Morphine Sulfate) 4 mg IVPUSH Q4H PRN PRN Reason: PAIN LEVEL 4 - 6 Last Admin: 10/20/17 04:21 Dose: 4 mg Saliva Substitute (Mouthkote Solution -) 1 applic MM DAILY [facility] Last Admin: 10/19/17 09:40 Dose: 1 applic Zolpidem Tartrate (Ambien -) 5 mg PO HS PRN PRN Reason: INSOMNIA Stop: 10/20/17 23:59 Last Admin: 10/18/17 22:48 Dose: 5 mg - Objective Vital Signs: Vital Signs Temperature 98 F 10/20/17 06:00 Pulse Rate 117 H 10/20/17 08:08 Respiratory Rate 18 10/20/17 06:00 Blood Pressure 150/108 10/20/17 06:00 O2 Sat by Pulse Oximetry (%) 96 10/20/17 08:08 Constitutional: Yes: Well Nourished, Calm, Mild Distress Cardiovascular: Yes: Pulse Irregular, S1, S2. No: JVD, Gallop, Murmur Respiratory: Yes: Regular, Accessory Muscle Use, Diminished (R lower). No: Rales, Wheezes Extremities: No: Cold Edema: No Neurological: Yes: Alert. No: Seizure Psychiatric: No: Agitated Labs: CBC, BMP 10/18/17 06:00 10/17/17 05:30 INR, PTT INR 1.29 (0.82-1.09) H 10/18/17 06:00 - ....Imaging EKG: Other (tele: afib 110s-160s) Assessment/Plan ekg: afib, low voltage qrs. no acute ischemic changes. tele: afib, VR 100's. echo 10/2017: nl lv/rv, no sig valve path, mod-large peric eff, no tamponade cxr: no sig change ct: images and report reviewed. asymmetric pleural effusion and pericardial effusion noted. see emr for detailed report. mibi 01/2015: lexiscan, no ecg changes, normal MPI, resting ecg showed afib echo 04/2017: nl lv/rv, no sig valve path, nl rvsp office ekg: from april: afib, borderline low voltages. poor r wave progression. similar to priors. est cct 35 mins Assessment/plan. 82 yo with h/o afib on xarelto, htn, hl, PVD s/p revascularization 07/2017 and toe amputation 08/2017, subclavian stent 09/2017, obesity, hypothyroid, melanoma and chronic low back pain p/w sob. acute resp failure/hemopericardium -echo with large pericardial eff, now s/p pericardial window with 500cc bloody fluid drained -still with sob, likely related to metastatic cancer/lung mass, pna, pleural effusions. -infection/malignacy w/u per critical care -dry mucous membranes, not eating, doubt she is overloaded--defer lasix afib - AC with xarelto as outpatient, held here given need for surgery/procedures, also with new lung mass. - given bloody pericardial effusion necessitating window here, and hi clinical suspicion of metastatic Ca, plan is to continue holding AC - now protected from large pericardial effusion recurrence given she is s/p window, but has possible underlying metastatic pleural effusion on CT as well. - reconsider AC later if pt recovers well, once GOC clarified with family - 3/12: home atenolol 50 bid held for hypotension. HRs uncontrolled. BP mostly stable. receiving prn IV lopressor injections--per RN, no HR response to IVP lopressor earlier. - not taking po meds, for swallow eval--start IV digoxin standing, and low dose prn IV diltiazem - cont tele htn -bp low initially (? sec to tamponade), improved s/p drainage of effusion -currently controlled PAD - s/p L [facility] , residual distal dz. followed by vascular as outpatient. - s/p subclavian stent. - finger discoloration noted, consider vascular consult--per critical care/pmc - resume statin once acute issues resolve if in line with goals of care. tiffany - likely sec to tamponade with decr cardiac output/renal hypoperfusion - improved on subsequent labs est time in pt exam, review of data, and formulating mgmt plan of potentially life-threatening illness = 35 min
--- NOTE | 2017-10-20 09:29 | PN ---
Progress Note, Physician Chief Complaint: Pt lying in bed, appears comfortable. surrounded by family members. Denies chest pain, n/v/d. - Current Medication List Current Medications: Active Medications Acetaminophen (Ofirmev Injection -) 1,000 mg IVPB Q6H PRN PRN Reason: PAIN LEVEL 1-5 Last Admin: 10/16/17 04:04 Dose: 1,000 mg Atenolol (Tenormin -) 50 mg PO BID [facility] Last Admin: 10/19/17 21:12 Dose: Not Given Heparin Sodium (Porcine) (Heparin -) 5,000 unit SQ BID [facility] Last Admin: 10/19/17 21:11 Dose: 5,000 unit Levothyroxine Sodium (Synthroid -) 50 mcg PO DAILY@0700 [facility] Last Admin: 10/20/17 07:10 Dose: Not Given Methylprednisolone Sodium Succinate (Solu-Medrol -) 80 mg IVPUSH Q8H-IV [facility] Last Admin: 10/20/17 02:02 Dose: 80 mg Metoprolol Tartrate (Lopressor Injection -) 5 mg IVPUSH Q4H PRN PRN Reason: HYPERTENSION Morphine Sulfate (Morphine Sulfate) 4 mg IVPUSH Q4H PRN PRN Reason: PAIN LEVEL 4 - 6 Last Admin: 10/20/17 04:21 Dose: 4 mg Saliva Substitute (Mouthkote Solution -) 1 applic MM DAILY [facility] Last Admin: 10/19/17 09:40 Dose: 1 applic Zolpidem Tartrate (Ambien -) 5 mg PO HS PRN PRN Reason: INSOMNIA Stop: 10/20/17 23:59 Last Admin: 10/18/17 22:48 Dose: 5 mg - Objective Vital Signs: Vital Signs Temperature 98 F 10/20/17 06:00 Pulse Rate 117 H 10/20/17 08:08 Respiratory Rate 18 10/20/17 06:00 Blood Pressure 150/108 10/20/17 06:00 O2 Sat by Pulse Oximetry (%) 96 10/20/17 08:08 Constitutional: Yes: Calm, Mild Distress Cardiovascular: Yes: Tachycardia, Pulse Irregular. No: Bruit, Gallop, Murmur Respiratory: Yes: Accessory Muscle Use, Diminished, SOB, Tachypnea Gastrointestinal: Yes: WNL, Normal Bowel Sounds, Soft, Abdomen, Obese. No: Distention, Tenderness Extremities: Yes: Cool Edema: Yes Edema: LLE: 1+, RLE: Trace Neurological: Yes: WNL, Alert, Oriented Psychiatric: Yes: WNL, Alert, Oriented Labs: CBC, BMP 10/18/17 06:00 10/17/17 05:30 INR, PTT INR 1.29 (0.82-1.09) H 10/18/17 06:00 Problem List - Problems (1) Pericardial effusion, acute Code(s): I30.9 - ACUTE PERICARDITIS, UNSPECIFIED (2) Vocal cord paralysis Code(s): J38.00 - PARALYSIS OF VOCAL CORDS AND LARYNX, UNSPECIFIED (3) Dysphagia Code(s): R13.10 - DYSPHAGIA, UNSPECIFIED Qualifiers: Dysphagia type: unspecified Qualified Code(s): R13.10 - Dysphagia, unspecified (4) Dehydration Code(s): E86.0 - DEHYDRATION (5) SIMON (acute kidney injury) Code(s): N17.9 - ACUTE KIDNEY FAILURE, UNSPECIFIED (6) Pneumonia Code(s): J18.9 - PNEUMONIA, UNSPECIFIED ORGANISM Qualifiers: Pneumonia type: due to unspecified organism Laterality: left Lung location: lower lobe of lung Qualified Code(s): J18.1 - Lobar pneumonia, unspecified organism (7) Leukocytosis Code(s): D72.829 - ELEVATED WHITE BLOOD CELL COUNT, UNSPECIFIED (8) Melanoma Code(s): C43.9 - MALIGNANT MELANOMA OF SKIN, UNSPECIFIED (9) Atrial fibrillation Code(s): I48.91 - UNSPECIFIED ATRIAL FIBRILLATION Qualifiers: Atrial fibrillation type: paroxysmal Qualified Code(s): I48.0 - Paroxysmal atrial fibrillation (10) Dyspnea on exertion Code(s): R06.09 - OTHER FORMS OF DYSPNEA (11) COPD (chronic obstructive pulmonary disease) Code(s): J44.9 - CHRONIC OBSTRUCTIVE PULMONARY DISEASE, UNSPECIFIED (12) Hypothyroid Code(s): E03.9 - HYPOTHYROIDISM, UNSPECIFIED (13) Hypertension Code(s): I10 - ESSENTIAL (PRIMARY) HYPERTENSION Qualifiers: Hypertension type: essential hypertension Qualified Code(s): I10 - Essential (primary) hypertension (1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 Code(s): I70.262 - ATHSCL [place] ARTERIES OF EXTREMITIES W GANGRENE, LEFT LEG (15) PAD (peripheral artery disease) Code(s): I73.9 - PERIPHERAL VASCULAR DISEASE, UNSPECIFIED (16) HLD (hyperlipidemia) Code(s): E78.5 - HYPERLIPIDEMIA, UNSPECIFIED (17) Pulmonary congestion Code(s): R09.89 - OTH SYMPTOMS AND SIGNS INVOLVING THE CIRC AND RESP SYSTEMS (18) Pulmonary HTN Code(s): I27.20 - PULMONARY HYPERTENSION, UNSPECIFIED (19) Lung mass Code(s): R91.8 - OTHER NONSPECIFIC ABNORMAL FINDING OF LUNG FIELD Assessment/Plan (1) Pericardial effusion, acute Assessment/Plan: echo w/ large pericardial effusion s/p pericardial window / drain removed today f/u on percardial fluid cultures/pathology management per CT surgery Code(s): I30.9 - ACUTE PERICARDITIS, UNSPECIFIED (2) Vocal cord paralysis Assessment/Plan: Flexible laryngoscopy w/ left vocal cord paralysis possibly secondary to possible lung mass ENT following Code(s): J38.00 - PARALYSIS OF VOCAL CORDS AND LARYNX, UNSPECIFIED (3) Dysphagia Assessment/Plan: as above speech eval MBS if pt agrees, currently refusing Code(s): R13.10 - DYSPHAGIA, UNSPECIFIED Qualifiers: Dysphagia type: unspecified Qualified Code(s): R13.10 - Dysphagia, unspecified (4) Dehydration Assessment/Plan: secondary to poor po intake due to underlying condition MBS to assess swallowing Code(s): E86.0 - DEHYDRATION (5) SIMON (acute kidney injury) Assessment/Plan: improved, prerenal etiology renal us without sig findings urine na/cr wnl avoid diuretics nephr following Code(s): N17.9 - ACUTE KIDNEY FAILURE, UNSPECIFIED (6) Pneumonia Assessment/Plan: unclear etiology possible aspiration ID consult appreciated off antibiotics now Code(s): J18.9 - PNEUMONIA, UNSPECIFIED ORGANISM Qualifiers: Pneumonia type: due to unspecified organism Laterality: left Lung location: lower lobe of lung Qualified Code(s): J18.1 - Lobar pneumonia, unspecified organism (7) Leukocytosis Assessment/Plan: improved pt would not like blood draws blood cultures neg UC neg f/u on percardial fluid cultures ID following Code(s): D72.829 - ELEVATED WHITE BLOOD CELL COUNT, UNSPECIFIED (8) Melanoma Assessment/Plan: suspected metastatic CA malignant melanoma LLE s/p resection and chemotherapy,2008 Code(s): C43.9 - MALIGNANT MELANOMA OF SKIN, UNSPECIFIED (9) Atrial fibrillation Assessment/Plan: tachycardic iv cardizem/digoxin prn on xarelto outpt, currently off of AC echo without sig changes cardiology following Code(s): I48.91 - UNSPECIFIED ATRIAL FIBRILLATION Qualifiers: Atrial fibrillation type: paroxysmal Qualified Code(s): I48.0 - Paroxysmal atrial fibrillation (10) Dyspnea on exertion Assessment/Plan: secondary to copd/ lung mass continue O2 as needed steroid taper Code(s): R06.09 - OTHER FORMS OF DYSPNEA (11) COPD (chronic obstructive pulmonary disease) Assessment/Plan: hx of heavy smoking Code(s): J44.9 - CHRONIC OBSTRUCTIVE PULMONARY DISEASE, UNSPECIFIED (12) Hypothyroid Assessment/Plan: iv levothyroxine enlarged thyroid gland thyroid US, outpt f/u if pt agrees Code(s): E03.9 - HYPOTHYROIDISM, UNSPECIFIED (13) Hypertension Assessment/Plan: allow permissive htn hold in the setting of hypotension Code(s): I10 - ESSENTIAL (PRIMARY) HYPERTENSION Qualifiers: Hypertension type: essential hypertension Qualified Code(s): I10 - Essential (primary) hypertension (1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 Assessment/Plan: s/p revascularization 07/2017 and toe amputation 08/2017, subclavian stent 09/2017 vascular consult appreciated Code(s): I70.262 - ATHSCL [place] ARTERIES OF EXTREMITIES W GANGRENE, LEFT LEG (15) PAD (peripheral artery disease) Code(s): I73.9 - PERIPHERAL VASCULAR DISEASE, UNSPECIFIED (16) HLD (hyperlipidemia) Assessment/Plan: on zocor outpt Code(s): E78.5 - HYPERLIPIDEMIA, UNSPECIFIED (17) Pulmonary congestion Assessment/Plan: tachypneic chest CT w/ pulm congestion, solid nodules, mass possible metastatic CA, COPD, aspiration chest xray with congestion, atelectasis d/c IVF Code(s): R09.89 - OTH SYMPTOMS AND SIGNS INVOLVING THE CIRC AND RESP SYSTEMS (18) Pulmonary HTN Code(s): I27.20 - PULMONARY HYPERTENSION, UNSPECIFIED (19) Lung mass Assessment/Plan: CT reveals large lung mass Oncology following Code(s): R91.8 - OTHER NONSPECIFIC ABNORMAL FINDING OF LUNG FIELD Assessment/Plan I saw and evaluated pt. I agree with ICU attending's assessment and plan for this pt. Pt w/ poor prognosis. Pt made DNR/DNI per pt and family wishes. Comfort measures maintained per family at the moment. Pt and family would like to avoid invasive measures such as MBS, blood draws. Discussed with PCP . Palliative team following. Awaiting discharge plan. Home hospice vs hospice facilities.
[2017-10-20] MEDS ORDERED: morphine CARPU-JECT 4 MG/1 ML DISP.SYRIN IVPUSH PRN (10:02)
[2017-10-20] MEDS ORDERED: METOPROLOL TARTRATE 5 MG/5 ML VIAL IVPUSH PRN (10:03)
--- NOTE | 2017-10-20 10:31 | PN ---
Progress Note, SLUBBER HAND - Note Progress Note: Pt now with nasal o2 and 02 tent. Able to vocaliza on word level with increased effort but quite weak. Pt is grossly oriented but confused with impaired insight and memory suspected. Staff is providing pt ice chips and ice pop this am and pt received PO medication yesterday. Pt has difficulty responding to questions sec to confusion. Language function is intact. She is able to confrontation name, repeat, respond to functional questions. IMP: Suspect aspiration with Left VC paralysis. REC: MBS to determine if pt can tolerate modified diet and compensatory strategies. If ice chips need to be given, provide scrupulous mouth care first, to reduce build up of oral bacteria with greater adverse affect, if aspirated.
[2017-10-20] MEDS: methylPREDNISolone NA SUCC 125 MG/2 ML VIAL IVPUSH SCH ×2 (11:26→18:16)
[2017-10-20] MEDS: HEPARIN NA (PORCINE) 5,000 UNITS/ML 1ML VIAL SQ SCH ×2 (11:27→21:53)
[2017-10-20] MEDS ORDERED: DIGOXIN 0.5 MG/2 ML AMPUL IVPUSH SCH (12:00)
--- NOTE | 2017-10-20 12:40 | PN ---
Physical Exam: SUBJECTIVE: On initial evaluation Ms. Austin reported she wanted something to drink and otherwise felt fine. She denies any pain, difficulty breathing, or other symptoms. On repeat exam she reports that she wants us to withdraw care and let her . OBJECTIVE: No acute events overnight. Vital Signs Period Temp Pulse Resp BP Sys/Vaughn Pulse Ox Last 24 Hr 98 F-98.4 F 61-122 12-31 92-150/55-108 92-96 GENERAL: The patient is awake, alert, and oriented to baseline, in no acute distress. HEAD: Normal with no signs of trauma. EYES: PERRL, extraocular movements intact, sclera anicteric, conjunctiva clear. No ptosis. ENT: Ears normal, nares patent, oropharynx clear without exudates, moist mucous membranes. NECK: Trachea midline, full range of motion, supple. LUNGS: Breath sounds equal, clear to auscultation bilaterally, no wheezes, no crackles, no accessory muscle use. HEART: +Pericardial drain in place. No longer draining fluid. Regular rate and rhythm, S1, S2 without murmur, rub or gallop. ABDOMEN: Soft, nontender, nondistended, normoactive bowel sounds, no guarding, no rebound, no hepatosplenomegaly, no masses. EXTREMITIES: +Unable to find pulse on LLE (foot cold to touch). RLE /RUE strong pulse, warm. LUE fingers dusky and cold. NEUROLOGICAL: Unable to assess PSYCH: Patient waxes and wanes; alternates between saying "sure" to any lab test and denying everything saying "let me ." SKIN: Dry, normal turgor, no rashes or lesions noted Active Medications Generic Name Dose Route Start Last Admin Trade Name Freq PRN Reason Stop Dose Admin Acetaminophen 1,000 mg 10/15/17 20:21 10/16/17 04:04 Ofirmev Injection - IVPB 1,000 mg Q6H PRN Administration PAIN LEVEL 1-5 Digoxin 0.125 mg 10/20/17 12:00 Lanoxin Injection - IVPUSH DAILY ANTONIO Diltiazem HCl 5 mg 10/20/17 11:53 Cardizem Injection - IVPUSH Q1H PRN TACHYCARDIA Heparin Sodium (Porcine) 5,000 unit 10/17/17 10:00 10/20/17 11:27 Heparin - SQ 5,000 unit BID ANTONIO Administration Levothyroxine Sodium 12.5 mcg 10/21/17 07:00 Synthroid Injection - IVPUSH DAILY@0700 ANTONIO Methylprednisolone Sodium Succinate 60 mg 10/20/17 09:34 10/20/17 11:26 Solu-Medrol - IVPUSH 60 mg Q8H-IV ANTONIO Administration Metoprolol Tartrate 5 mg 10/20/17 10:03 10/20/17 11:04 Lopressor Injection - IVPUSH 5 mg Q6H-IV PRN Administration TACHYCARDIA Morphine Sulfate 4 mg 10/20/17 10:02 Morphine Injection - IVPUSH Q4H PRN PAIN LEVEL 7 - 10 Saliva Substitute 1 applic 10/16/17 17:15 10/19/17 09:40 Mouthkote Solution - MM 1 applic DAILY ANTONIO Administration ASSESSMENT/PLAN: Ms. Austin is an 82 yo female w/ pmh of HTN, HLD, PVD (s/p bilateral revascularization 07/2017, toe amputation 09/10/17, L subclavian stent 09/2017), obesity, hypothyroidism, melanoma, afib on xarelto who presents w/ pericardial and pleural left sided effusion. Plan as below. Shortnes of breath / pericardial effusion -echo with large pericardial eff, now s/p pericardial window 10/14/17, pericardial drain in place. No longer draining fluid. Dr. Forbes removed. -patient still requiring suplemental oxygen likely related to metastatic cancer/ lung mass, pna, pleural effusions. -wet read to Dr. Forbes reported as positive for malignancy with offical report to come later today. Atrial Fibrillation -Patient on xarelto outpatient, currently on lovenox SQ for prophylaxis. Full AC withheld due to malignancy. -Home atenolol dose for rate control -Continue tele Hypertension -Pressure at desirable levels. Continue home medications. PAD -Patient s/p bilateral stenting 07/2017, vascular follows outpatient -Patient s/p L subclavian stent 2 weeks ago. Monitoring for equal BP in arms. -Discoloration in left hand worsened from baseline. Pain controlled for symptomatic relief. PMD managing ongoing HLD - Zocor as outpatient. SIMON -Unable to assess kidney status as patient has been refusing labs. Was improving with last bmp on 10/18 Goals of Care -Patient waxes and wanes between accepting care and denying all as above. Earlier consented to CXR for evaluation but has now changed her mind. Discussed with patient's family who is currently planning amongst themselves. Patient DNR/ DNI; family to re-meet with palliative care for further GOC discussions. Dispo -Patient to floor with removal of pericardial drain. Visit type - Emergency Visit Emergency Visit: Yes ED Registration Date: 10/13/17 Care time: The patient presented to the Emergency Department on the above date and was hospitalized for further evaluation of their emergent condition. - New Patient This patient is new to me today: Yes Date on this admission: 10/20/17 - Critical Care Critical Care patient: Yes Total Critical Care Time (in minutes): 40 Critical Care Statement: The care of this patient involved high complexity decision making to prevent further life threatening deterioration of the patient 's condition and/or to evaluate & treat vital organ system(s) failure or risk of failure.
--- NOTE | 2017-10-20 12:42 | PATH ---
Cytology Non-Gynecological Report Patient Name: SHAN DIAZ Med. Rec. #: [id number] /Age/Gender: 1935 (Age: 82) / F Account: [id number] Location: [facility] MED/SURG Taken: 10/14/2017 Received: 10/15/2017 Reported: 10/20/2017 Physicians: MAIN Taveras M.D. Daniel Nicastri, M.D. Specimen(s) Received PERICARDIAL FLUID Clinical History None given Final Diagnosis PERICARDIAL FLUID, EVACUATION: SATISFACTORY FOR EVALUATION. POSITIVE FOR MALIGNANCY. POSITIVE FOR METASTATIC PULMONARY ADENOCARCINOMA. Comment: Cell block preparations show numerous clusters of atypical cells with enlarged nuclei, abundant cytoplasm, and intercellular "windows". Benign mesothelial cells and abundant blood are present in the background. Immunohistochemical stains performed at [place], [place] ([id number]) and interpreted at [facility] show the following results: The neoplastic cells are positive with AE1/3, TRENT, Napsin A, TTF-1, and weakly positive with EDDIE. The neoplastic cells do not stain with S100, SOX-10, p40, or MOC-31. Calreticulin, CK5/6, D2-40, and thrombomodulin stain background mesothelial cells. WT-1 stain is pending. 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 This case was discussed with Dr. Roth and Dr. Forbes on October 20, 2017. Electronically Signed Dario Martinez M.D. Addendum Reported: 10/21/2017 Addendum Diagnosis Immunohistochemical stains performed at [place], [place] ([id number]) and interpreted at [facility] show the following results: WT-1 stain is negative. Dario Martinez M.D. Gross Description Approximately 10 cc of bloody fluid received fresh. Two cytofunnels and one cellblock prepared.
--- NOTE | 2017-10-20 13:08 | PN ---
Teaching Attending Note Name of Resident: Corey Gonsalves ATTENDING PHYSICIAN STATEMENT I saw and evaluated the patient. I reviewed the resident's note and discussed the case with the resident. I agree with the resident's findings and plan as documented. SUBJECTIVE: Pt seen and examined in the ICU. States breathing is better. No drainage from pericardial drain. Continues to refuse chest imaging and bloodwork. Preliminary results of pericardial biopsy malignant. OBJECTIVE: Last Vital Signs Temp Pulse Resp BP Pulse Ox 98.4 F 109 H 18 141/77 95 10/20/17 10:00 10/20/17 12:00 10/20/17 12:00 10/20/17 12:00 10/20/17 09:00 Intake & Output 10/17/17 10/18/17 10/19/17 10/20/17 22:59 22:59 23:59 23:59 Intake Total 470 Output Total 120 Balance 350 Weight 78.018 kg Gen: tachypneic at rest Heart: tachycardic, regular Lung: decreased breath sounds at the bases Abd: soft, nontender ext: +edema, cool to touch CBC, BMP 10/18/17 06:00 10/17/17 05:30 Active Medications Acetaminophen (Ofirmev Injection -) 1,000 mg IVPB Q6H PRN PRN Reason: PAIN LEVEL 1-5 Last Admin: 10/16/17 04:04 Dose: 1,000 mg Digoxin (Lanoxin Injection -) 0.125 mg IVPUSH DAILY [facility] Diltiazem HCl (Cardizem Injection -) 5 mg IVPUSH Q1H PRN PRN Reason: TACHYCARDIA Heparin Sodium (Porcine) (Heparin -) 5,000 unit SQ BID [facility] Last Admin: 10/20/17 11:27 Dose: 5,000 unit Levothyroxine Sodium (Synthroid Injection -) 12.5 mcg IVPUSH DAILY@0700 [facility] Methylprednisolone Sodium Succinate (Solu-Medrol -) 60 mg IVPUSH Q8H-IV [facility] Last Admin: 10/20/17 11:26 Dose: 60 mg Metoprolol Tartrate (Lopressor Injection -) 5 mg IVPUSH Q6H-IV PRN PRN Reason: TACHYCARDIA Last Admin: 10/20/17 11:04 Dose: 5 mg Morphine Sulfate (Morphine Injection -) 4 mg IVPUSH Q4H PRN PRN Reason: PAIN LEVEL 7 - 10 Saliva Substitute (Mouthkote Solution -) 1 applic MM DAILY ANTONIO Last Admin: 10/19/17 09:40 Dose: 1 applic ASSESSMENT AND PLAN: Acute Hypoxic Respiratory Failure Likely Metastatic Lung Ca Pericardial Effusion s/p pericardial window COPD Atrial Fibrillation COPD PAD h/o Melanoma HTN Hypothyroidism - f/u final pathology - CXR if pt allows, may need lasix - monitor urine output, creatinine if pt allows - rate control - resume anticoagulation when pericardial drain out - pain control - O2 to keep SpO2 >90% - swallow eval - can monitor on telemetry critical care time spent in reviewing chart, evaluating patient and formulating plan 35 min
[2017-10-20] MEDS: dilTIAZem HCL 50 MG/10 ML - 10 ML VIAL IVPUSH PRN ×2 (13:16→15:42)
[2017-10-20] MEDS: LYTES/YERBA SANTA 240 ML BOTTLE MM SCH (13:33)
--- NOTE | 2017-10-20 17:03 | PN ---
Progress Note (short form) - Note Progress Note: Patient seen and examined c/o painful left middle, index fingers No other complaints Last Vital Signs Temp Pulse Resp BP Pulse Ox 98.6 F 111 H 24 139/88 95 10/20/17 14:00 10/20/17 16:00 10/20/17 16:00 10/20/17 16:00 10/20/17 09:00 Cor: RSR, No murmurs, No gallops Lungs: Clear to P&A Abd: Soft, Normal bowel sounds, No organomegaly Ext:No significant edema Labs/Meds reviewed A/P 82 yo with h/o afib on xarelto, htn, hl, PVD s/p revascularization 07/2017 and toe amputation 08/2017, subclavian stent 09/2017, obesity, hypothyroid, melanoma and chronic low back pain p/w sob. Pathology c/w adenocarcinoma acute resp failure/hemopericardium -echo with large pericardial eff, now s/p pericardial window with 500cc bloody fluid drained -final path c/w adenocarcinoma. 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 followed by vascular as outpatient. - s/p subclavian stent. - finger discoloration noted, consider vascular consult--per critical care/pmd off antibiotics, off anticoagulation monitor
[2017-10-20] MEDS: ACETAMINOPHEN 1000 MG/100 ML VIAL (NON FORMULARY) IVPB PRN (18:16)
--- NOTE | 2017-10-20 18:52 | PN ---
Progress Note, Physician History of Present Illness: Pt seen and examined. She does not want any labs or cxr done. - Current Medication List Current Medications: Active Medications Acetaminophen (Ofirmev Injection -) 1,000 mg IVPB Q6H PRN PRN Reason: PAIN LEVEL 1-5 Last Admin: 10/20/17 18:16 Dose: 1,000 mg Digoxin (Lanoxin Injection -) 0.125 mg IVPUSH DAILY [facility] Last Admin: 10/20/17 13:16 Dose: 0.125 mg Diltiazem HCl (Cardizem Injection -) 5 mg IVPUSH Q1H PRN PRN Reason: TACHYCARDIA Last Admin: 10/20/17 15:42 Dose: 5 mg Heparin Sodium (Porcine) (Heparin -) 5,000 unit SQ BID [facility] Last Admin: 10/20/17 11:27 Dose: 5,000 unit Levothyroxine Sodium (Synthroid Injection -) 12.5 mcg IVPUSH DAILY@0700 [facility] Methylprednisolone Sodium Succinate (Solu-Medrol -) 60 mg IVPUSH Q8H-IV [facility] Last Admin: 10/20/17 18:16 Dose: 60 mg Morphine Sulfate (Morphine Injection -) 4 mg IVPUSH Q4H PRN PRN Reason: PAIN LEVEL 7 - 10 Saliva Substitute (Mouthkote Solution -) 1 applic MM DAILY [facility] Last Admin: 10/20/17 13:33 Dose: 1 applic - Objective Vital Signs: Vital Signs Temperature 97.7 F 10/20/17 18:00 Pulse Rate 113 H 10/20/17 18:00 Respiratory Rate 26 H 10/20/17 18:00 Blood Pressure 139/83 10/20/17 18:00 O2 Sat by Pulse Oximetry (%) 95 10/20/17 09:00 Constitutional: Yes: Calm Eyes: Yes: Conjunctiva Clear HENT: Yes: Atraumatic Neck: Yes: Supple Cardiovascular: Yes: S1, S2 Respiratory: Yes: On Nasal O2 Gastrointestinal: Yes: Soft Genitourinary: Yes: WNL Musculoskeletal: Yes: Muscle Weakness Edema: No Neurological: Yes: Oriented Psychiatric: Yes: Oriented Labs: CBC, BMP 10/18/17 06:00 10/17/17 05:30 INR, PTT INR 1.29 (0.82-1.09) H 10/18/17 06:00 Problem List - Problems (1) SIMON (acute kidney injury) Code(s): N17.9 - ACUTE KIDNEY FAILURE, UNSPECIFIED (2) Melanoma Code(s): C43.9 - MALIGNANT MELANOMA OF SKIN, UNSPECIFIED (3) Atrial fibrillation Code(s): I48.91 - UNSPECIFIED ATRIAL FIBRILLATION Qualifiers: Atrial fibrillation type: paroxysmal Qualified Code(s): I48.0 - Paroxysmal atrial fibrillation (4) Hypothyroid Code(s): E03.9 - HYPOTHYROIDISM, UNSPECIFIED Assessment/Plan Current Medications Generic Name Dose Route Start Last Admin Trade Name Freq PRN Reason Stop Dose Admin Acetaminophen 1,000 mg 10/15/17 20:21 10/20/17 18:16 Ofirmev Injection - IVPB 1,000 mg Q6H PRN Administration PAIN LEVEL 1-5 Digoxin 0.125 mg 10/20/17 12:00 10/20/17 13:16 Lanoxin Injection - IVPUSH 0.125 mg DAILY ANTONIO Administration Diltiazem HCl 5 mg 10/20/17 11:53 10/20/17 15:42 Cardizem Injection - IVPUSH 5 mg Q1H PRN Administration TACHYCARDIA Heparin Sodium (Porcine) 5,000 unit 10/17/17 10:00 10/20/17 11:27 Heparin - SQ 5,000 unit BID ANTONIO Administration Levothyroxine Sodium 12.5 mcg 10/21/17 07:00 Synthroid Injection - IVPUSH DAILY@0700 AN[facility]IO Methylprednisolone Sodium Succinate 60 mg 10/20/17 09:34 10/20/17 18:16 Solu-Medrol - IVPUSH 60 mg Q8H-IV ANTONIO Administration Morphine Sulfate 4 mg 10/20/17 10:02 Morphine Injection - IVPUSH Q4H PRN PAIN LEVEL 7 - 10 Saliva Substitute 1 applic 10/16/17 17:15 10/20/17 13:33 Mouthkote Solution - MM 1 applic DAILY ANTONIO Administration Impression 1. SIMON 2. pericardial effusion 3. resp failure requiring bipap 4. hx melanoma 5. possible metastatic disease 6. hypotension 7. hypothyroid 8. HLD 9. COPD 10. formal smoker 11. possible mass in pericardial sac 12. pericardial effusion Plan - pt wants comfort measures - will still need to clarify GOC with family - she appears comfortable - will follow PRN - discussed with ICU team - discussed with pt and family Dr Waite
[2017-10-20] MEDS ORDERED: ACETAMINOPHEN 1000 MG/100 ML VIAL (NON FORMULARY) IVPB PRN (20:35)
[2017-10-20] MEDS ORDERED: dilTIAZem HCL 50 MG/10 ML - 10 ML VIAL IVPB PRN (20:35)
[2017-10-21] MEDS: methylPREDNISolone NA SUCC 40 MG/1 ML VIAL IVPUSH SCH ×4 (01:21→21:03)
[2017-10-21] MEDS ORDERED: ALBUTEROL SO4 2.5/IPRATROPIUM 0.5 INH SOL 3 ML VIAL.NEB. NEB ONE (05:31)
[2017-10-21] MEDS: LEVOTHYROXINE SODIUM 100 MCG VIAL IVPUSH SCH (06:27)
[2017-10-21] MEDS ORDERED: LEVOTHYROXINE SODIUM 100 MCG VIAL IVPUSH SCH (07:00)
[2017-10-21] MEDS ORDERED: DIGOXIN 0.5 MG/2 ML AMPUL IVPB SCH (10:00)
[2017-10-21] MEDS: HEPARIN NA (PORCINE) 5,000 UNITS/ML 1ML VIAL SQ SCH ×2 (11:51→21:02)
--- NOTE | 2017-10-21 12:25 | PN ---
Progress Note, Physician Chief Complaint: Pt lying in bed, appears comfortable. on O2 via mask. says she doesn't want the barium swallow. Denies chest pain, n/v/d. - Current Medication List Current Medications: Active Medications Acetaminophen (Ofirmev Injection -) 1,000 mg IVPB Q6H PRN PRN Reason: PAIN LEVEL 1-5 Digoxin (Lanoxin Injection -) 0.125 mg IVPB DAILY [facility] Last Admin: 10/21/17 11:26 Dose: Not Given Diltiazem HCl (Cardizem Injection -) 5 mg IVPB Q1H PRN PRN Reason: TACHYCARDIA Heparin Sodium (Porcine) (Heparin -) 5,000 unit SQ BID [facility] Last Admin: 10/21/17 11:51 Dose: 5,000 unit Levothyroxine Sodium (Synthroid Injection -) 12.5 mcg IVPUSH DAILY@0700 [facility] Last Admin: 10/21/17 06:27 Dose: 12.5 mcg Methylprednisolone Sodium Succinate (Solu-Medrol -) 40 mg IVPUSH Q8H-IV [facility] Last Admin: 10/21/17 11:50 Dose: 40 mg Morphine Sulfate (Morphine Sulfate) 4 mg IVPUSH Q4H PRN PRN Reason: PAIN LEVEL 7 - 10 Saliva Substitute (Mouthkote Solution -) 1 applic MM DAILY [facility] - Objective Vital Signs: Vital Signs Temperature 97.9 F 10/21/17 06:00 Pulse Rate 82 10/21/17 06:00 Respiratory Rate 20 10/21/17 06:00 Blood Pressure 132/58 10/21/17 06:00 O2 Sat by Pulse Oximetry (%) 97 10/21/17 01:13 Constitutional: Yes: Mild Distress Cardiovascular: Yes: Tachycardia, Pulse Irregular. No: Bruit, Gallop, Murmur Respiratory: Yes: Diminished, Tachypnea, Other (on O2 via mask) Gastrointestinal: Yes: WNL, Normal Bowel Sounds, Soft, Abdomen, Obese. No: Distention, Tenderness Genitourinary: Yes: Howard Present Extremities: Yes: Cool, Pallor Edema: Yes Edema: LLE: 1+, RLE: Trace Neurological: Yes: WNL, Alert, Oriented Psychiatric: Yes: WNL, Alert, Oriented Labs: CBC, BMP 10/18/17 06:00 10/17/17 05:30 INR, PTT INR 1.29 (0.82-1.09) H 10/18/17 06:00 Problem List - Problems (1) Pericardial effusion, acute Code(s): I30.9 - ACUTE PERICARDITIS, UNSPECIFIED (2) Vocal cord paralysis Code(s): J38.00 - PARALYSIS OF VOCAL CORDS AND LARYNX, UNSPECIFIED (3) Dysphagia Code(s): R13.10 - DYSPHAGIA, UNSPECIFIED Qualifiers: Dysphagia type: unspecified Qualified Code(s): R13.10 - Dysphagia, unspecified (4) Dehydration Code(s): E86.0 - DEHYDRATION (5) SIMON (acute kidney injury) Code(s): N17.9 - ACUTE KIDNEY FAILURE, UNSPECIFIED (6) Pneumonia Code(s): J18.9 - PNEUMONIA, UNSPECIFIED ORGANISM Qualifiers: Pneumonia type: due to unspecified organism Laterality: left Lung location: lower lobe of lung Qualified Code(s): J18.1 - Lobar pneumonia, unspecified organism (7) Leukocytosis Code(s): D72.829 - ELEVATED WHITE BLOOD CELL COUNT, UNSPECIFIED (8) Melanoma Code(s): C43.9 - MALIGNANT MELANOMA OF SKIN, UNSPECIFIED (9) Atrial fibrillation Code(s): I48.91 - UNSPECIFIED ATRIAL FIBRILLATION Qualifiers: Atrial fibrillation type: paroxysmal Qualified Code(s): I48.0 - Paroxysmal atrial fibrillation (10) Dyspnea on exertion Code(s): R06.09 - OTHER FORMS OF DYSPNEA (11) COPD (chronic obstructive pulmonary disease) Code(s): J44.9 - CHRONIC OBSTRUCTIVE PULMONARY DISEASE, UNSPECIFIED (12) Hypothyroid Code(s): E03.9 - HYPOTHYROIDISM, UNSPECIFIED (13) Hypertension Code(s): I10 - ESSENTIAL (PRIMARY) HYPERTENSION Qualifiers: Hypertension type: essential hypertension Qualified Code(s): I10 - Essential (primary) hypertension (1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 Code(s): I70.262 - ATHSCL BISHOP PAIUTE ARTERIES OF EXTREMITIES W GANGRENE, LEFT LEG (15) PAD (peripheral artery disease) Code(s): I73.9 - PERIPHERAL VASCULAR DISEASE, UNSPECIFIED (16) HLD (hyperlipidemia) Code(s): E78.5 - HYPERLIPIDEMIA, UNSPECIFIED (17) Pulmonary congestion Code(s): R09.89 - OTH SYMPTOMS AND SIGNS INVOLVING THE CIRC AND RESP SYSTEMS (18) Pulmonary HTN Code(s): I27.20 - PULMONARY HYPERTENSION, UNSPECIFIED (19) Lung mass Code(s): R91.8 - OTHER NONSPECIFIC ABNORMAL FINDING OF LUNG FIELD Assessment/Plan (1) Pericardial effusion, acute Assessment/Plan: s/p pericardial window /6 drain removed percardial fluid 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 Code(s): I30.9 - ACUTE PERICARDITIS, UNSPECIFIED (2) Vocal cord paralysis Assessment/Plan: Flexible laryngoscopy w/ left vocal cord paralysis possibly secondary to possible lung mass ENT following Code(s): J38.00 - PARALYSIS OF VOCAL CORDS AND LARYNX, UNSPECIFIED (3) Dysphagia Assessment/Plan: as above pt agrees to MBS today MBS pending Code(s): R13.10 - DYSPHAGIA, UNSPECIFIED Qualifiers: Dysphagia type: unspecified Qualified Code(s): R13.10 - Dysphagia, unspecified (4) Dehydration Assessment/Plan: improved MBS Code(s): E86.0 - DEHYDRATION (5) SIMON (acute kidney injury) Assessment/Plan: improved, prerenal etiology renal us without sig findings urine na/cr wnl avoid diuretics nephr following Code(s): N17.9 - ACUTE KIDNEY FAILURE, UNSPECIFIED (6) Pneumonia Assessment/Plan: unclear etiology possible aspiration off antibiotics now ID consult appreciated Code(s): J18.9 - PNEUMONIA, UNSPECIFIED ORGANISM Qualifiers: Pneumonia type: due to unspecified organism Laterality: left Lung location: lower lobe of lung Qualified Code(s): J18.1 - Lobar pneumonia, unspecified organism (7) Leukocytosis Assessment/Plan: improved, off antibiotics pt would not like blood draws blood cultures neg UC neg Code(s): D72.829 - ELEVATED WHITE BLOOD CELL COUNT, UNSPECIFIED (8) Melanoma Assessment/Plan: suspected metastatic CA malignant melanoma LLE s/p resection and chemotherapy,2008 Code(s): C43.9 - MALIGNANT MELANOMA OF SKIN, UNSPECIFIED (9) Atrial fibrillation Assessment/Plan: tachycardic iv cardizem/digoxin prn per cardiology on xarelto outpt, currently off of AC echo without sig changes Code(s): I48.91 - UNSPECIFIED ATRIAL FIBRILLATION Qualifiers: Atrial fibrillation type: paroxysmal Qualified Code(s): I48.0 - Paroxysmal atrial fibrillation (10) Dyspnea on exertion Assessment/Plan: secondary to copd/ lung mass continue O2 as needed steroid taper Code(s): R06.09 - OTHER FORMS OF DYSPNEA (11) COPD (chronic obstructive pulmonary disease) Assessment/Plan: hx of heavy smoking Code(s): J44.9 - CHRONIC OBSTRUCTIVE PULMONARY DISEASE, UNSPECIFIED (12) Hypothyroid Assessment/Plan: iv levothyroxine enlarged thyroid gland thyroid US, outpt f/u if pt agrees Code(s): E03.9 - HYPOTHYROIDISM, UNSPECIFIED (13) Hypertension Assessment/Plan: allow permissive htn hold in the setting of hypotension Code(s): I10 - ESSENTIAL (PRIMARY) HYPERTENSION Qualifiers: Hypertension type: essential hypertension Qualified Code(s): I10 - Essential (primary) hypertension (1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 Assessment/Plan: s/p revascularization 07/2017 and toe amputation 08/2017, subclavian stent 09/2017 vascular consult appreciated Code(s): I70.262 - ATHSCL BISHOP PAIUTE ARTERIES OF EXTREMITIES W GANGRENE, LEFT LEG (15) PAD (peripheral artery disease) Code(s): I73.9 - PERIPHERAL VASCULAR DISEASE, UNSPECIFIED (16) HLD (hyperlipidemia) Assessment/Plan: on zocor outpt Code(s): E78.5 - HYPERLIPIDEMIA, UNSPECIFIED (17) Pulmonary congestion Assessment/Plan: tachypneic chest CT w/ pulm congestion, solid nodules, mass possible metastatic CA, COPD, aspiration chest xray with congestion, atelectasis Code(s): R09.89 - OTH SYMPTOMS AND SIGNS INVOLVING THE CIRC AND RESP SYSTEMS (18) Pulmonary HTN Code(s): I27.20 - PULMONARY HYPERTENSION, UNSPECIFIED (19) Lung mass Assessment/Plan: CT reveals large lung mass Oncology following Code(s): R91.8 - OTHER NONSPECIFIC ABNORMAL FINDING OF LUNG FIELD Assessment/Plan I saw and evaluated pt. Pt w/ poor prognosis. Pt made DNR/DNI per pt and family wishes. Comfort measures maintained per family at the moment. Pt and family would like to avoid invasive measures such as MBS, blood draws. However today , pt agreeing to MBS. Discussed with PCP . Palliative team following. Awaiting discharge placement
[2017-10-21] MEDS: LYTES/YERBA SANTA 240 ML BOTTLE MM SCH (12:40)
--- NOTE | 2017-10-21 13:41 | PN ---
Progress Note, BENEFITS ASSISTANT - Note Progress Note: Case reviewed with Palliative care, with plan for Hospice. Educated family on benefit of MBS, to determine if py can benefit a modified diet (eg puree/thick liquids) for quality of life/pleasure feeds. Risk of PO trials without visualizing swallow efficiency is quite risky in this medically involved pt.
--- NOTE | 2017-10-21 14:29 | PN ---
Progress Note (short form) - Note Progress Note: Mildly tachypneic on VM O2. No acute events overnight. Intake & Output 10/18/17 10/19/17 10/20/17 10/21/17 22:59 23:59 23:59 23:59 Intake Total 470 0 Output Total 570 200 Balance -100 -200 Weight 172 lb 176 lb 3.2 oz Last Vital Signs Temp Pulse Resp BP Pulse Ox 97.9 F 82 20 132/58 97 10/21/17 06:00 10/21/17 06:00 10/21/17 09:00 10/21/17 06:00 10/21/17 09:00 Active Medications Acetaminophen (Ofirmev Injection -) 1,000 mg IVPB Q6H PRN PRN Reason: PAIN LEVEL 1-5 Digoxin (Lanoxin Injection -) 0.125 mg IVPB DAILY [facility] Last Admin: 10/21/17 11:26 Dose: Not Given Diltiazem HCl (Cardizem Injection -) 5 mg IVPB Q1H PRN PRN Reason: TACHYCARDIA Heparin Sodium (Porcine) (Heparin -) 5,000 unit SQ BID [facility] Last Admin: 10/21/17 11:51 Dose: 5,000 unit Levothyroxine Sodium (Synthroid Injection -) 12.5 mcg IVPUSH DAILY@0700 [facility] Last Admin: 10/21/17 06:27 Dose: 12.5 mcg Methylprednisolone Sodium Succinate (Solu-Medrol -) 40 mg IVPUSH Q8H-IV [facility] Last Admin: 10/21/17 11:50 Dose: 40 mg Morphine Sulfate (Morphine Sulfate) 4 mg IVPUSH Q4H PRN PRN Reason: PAIN LEVEL 7 - 10 Saliva Substitute (Mouthkote Solution -) 1 applic MM DAILY [facility] Last Admin: 10/21/17 12:40 Dose: Not Given Gen: Mildly tachypneic at rest Heart: tachycardic, regular Lung: decreased breath sounds at the bases Abd: soft, nontender ext: +edema, cool to touch, area of digital necrosis ASSESSMENT AND PLAN: Acute Hypoxic Respiratory Failure 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
--- NOTE | 2017-10-21 15:13 | PN ---
Progress Note (short form) - Note Progress Note: Pt seen and examined. HCP Cherie at bedside O/E: general: In respiratory distress HEENT; NCAT Cor: RRR Lungs: decreased BS bilateraly Abd: benign extremities: No CCE in the LE Last Vital Signs Temp Pulse Resp BP Pulse Ox 97.9 F 82 20 132/58 97 10/21/17 06:00 10/21/17 06:00 10/21/17 09:00 10/21/17 06:00 10/21/17 09:00 CBC, BMP 10/18/17 06:00 10/17/17 05:30 Current Medications Generic Name Dose Route Start Last Admin Trade Name Freq PRN Reason Stop Dose Admin Acetaminophen 1,000 mg 10/20/17 20:35 Ofirmev Injection - IVPB Q6H PRN PAIN LEVEL 1-5 Digoxin 0.125 mg 10/21/17 10:00 10/21/17 11:26 Lanoxin Injection - IVPB Not Given DAILY [facility] Diltiazem HCl 5 mg 10/20/17 20:35 Cardizem Injection - IVPB Q1H PRN TACHYCARDIA Heparin Sodium (Porcine) 5,000 unit 10/20/17 22:00 10/21/17 11:51 Heparin - SQ 5,000 unit BID [facility]IO Administration Levothyroxine Sodium 12.5 mcg 10/21/17 07:00 10/21/17 06:27 Synthroid Injection - IVPUSH 12.5 mcg DAILY@0700 [facility] Administration Methylprednisolone Sodium Succinate 40 mg 10/21/17 02:00 10/21/17 11:50 Solu-Medrol - IVPUSH 40 mg Q8H-IV [facility] Administration Morphine Sulfate 4 mg 10/20/17 20:35 Morphine Sulfate IVPUSH Q4H PRN PAIN LEVEL 7 - 10 Saliva Substitute 1 applic 10/21/17 10:00 10/21/17 12:40 Mouthkote Solution - MM Not Given DAILY AN[facility]IO 82 yo with h/o afib on xarelto, htn, hl, PVD s/p revascularization 07/2017 and toe amputation 08/2017, subclavian stent 09/2017, obesity, hypothyroid, melanoma and chronic low back pain p/w sob. Pathology c/w metastatic adenocarcinoma of lung. Pt declines any interventions, therapeutic/molecular interventions. continues to be in respiratory distress.d/w family/HCP at bedside for comfort care measures. Problem List - Problems (1) Pericardial effusion, acute Code(s): I30.9 - ACUTE PERICARDITIS, UNSPECIFIED (2) Vocal cord paralysis Code(s): J38.00 - PARALYSIS OF VOCAL CORDS AND LARYNX, UNSPECIFIED (3) Leukocytosis Code(s): D72.829 - ELEVATED WHITE BLOOD CELL COUNT, UNSPECIFIED (4) SIMON (acute kidney injury) Code(s): N17.9 - ACUTE KIDNEY FAILURE, UNSPECIFIED (5) Melanoma Code(s): C43.9 - MALIGNANT MELANOMA OF SKIN, UNSPECIFIED (6) Atherosclerosis of left lower extremity with gangrene Code(s): I70.262 - ATHSCL [place] ARTERIES OF EXTREMITIES W GANGR[place], LEFT LEG
[2017-10-21] MEDS: morphine SULFATE 4 MG/ML VIAL IVPUSH PRN ×2 (16:20→20:35)
--- NOTE | 2017-10-21 16:39 | PN ---
Progress Note, Physician History of Present Illness: Pt seen and examined at bedside. She says she wants to go for the speech and swallow eval. She is comfortable at the moment. - Current Medication List Current Medications: Active Medications Acetaminophen (Ofirmev Injection -) 1,000 mg IVPB Q6H PRN PRN Reason: PAIN LEVEL 1-5 Digoxin (Lanoxin Injection -) 0.125 mg IVPB DAILY [facility] Last Admin: 10/21/17 11:26 Dose: Not Given Diltiazem HCl (Cardizem Injection -) 5 mg IVPB Q1H PRN PRN Reason: TACHYCARDIA Heparin Sodium (Porcine) (Heparin -) 5,000 unit SQ BID [facility] Last Admin: 10/21/17 11:51 Dose: 5,000 unit Levothyroxine Sodium (Synthroid Injection -) 12.5 mcg IVPUSH DAILY@0700 [facility] Last Admin: 10/21/17 06:27 Dose: 12.5 mcg Methylprednisolone Sodium Succinate (Solu-Medrol -) 40 mg IVPUSH Q8H-IV [facility] Last Admin: 10/21/17 11:50 Dose: 40 mg Morphine Sulfate (Morphine Sulfate) 4 mg IVPUSH Q4H PRN PRN Reason: PAIN LEVEL 7 - 10 Last Admin: 10/21/17 16:20 Dose: 4 mg Saliva Substitute (Mouthkote Solution -) 1 applic MM DAILY [facility] Last Admin: 10/21/17 12:40 Dose: Not Given - Objective Vital Signs: Vital Signs Temperature 97.2 F L 10/21/17 15:18 Pulse Rate 100 H 10/21/17 16:00 Respiratory Rate 18 10/21/17 16:00 Blood Pressure 128/89 10/21/17 16:00 O2 Sat by Pulse Oximetry (%) 97 10/21/17 09:00 Constitutional: Yes: Calm Eyes: Yes: Conjunctiva Clear HENT: Yes: Atraumatic Cardiovascular: Yes: S1, S2 Respiratory: Yes: On Venti-Mask Gastrointestinal: Yes: Soft Genitourinary: Yes: WNL Musculoskeletal: Yes: WNL Edema: Yes Edema: LLE: Trace, RLE: Trace Neurological: Yes: Oriented Psychiatric: Yes: Oriented Labs: CBC, BMP 10/18/17 06:00 10/17/17 05:30 INR, PTT INR 1.29 (0.82-1.09) H 10/18/17 06:00 Problem List - Problems (1) SIMON (acute kidney injury) Code(s): N17.9 - ACUTE KIDNEY FAILURE, UNSPECIFIED (2) Melanoma Code(s): C43.9 - MALIGNANT MELANOMA OF SKIN, UNSPECIFIED (3) Atrial fibrillation Code(s): I48.91 - UNSPECIFIED ATRIAL FIBRILLATION Qualifiers: Atrial fibrillation type: paroxysmal Qualified Code(s): I48.0 - Paroxysmal atrial fibrillation (4) Hypothyroid Code(s): E03.9 - HYPOTHYROIDISM, UNSPECIFIED Assessment/Plan Current Medications Generic Name Dose Route Start Last Admin Trade Name Freq PRN Reason Stop Dose Admin Acetaminophen 1,000 mg 10/20/17 20:35 Ofirmev Injection - IVPB Q6H PRN PAIN LEVEL 1-5 Digoxin 0.125 mg 10/21/17 10:00 10/21/17 11:26 Lanoxin Injection - IVPB Not Given DAILY [facility] Diltiazem HCl 5 mg 10/20/17 20:35 Cardizem Injection - IVPB Q1H PRN TACHYCARDIA Heparin Sodium (Porcine) 5,000 unit 10/20/17 22:00 10/21/17 11:51 Heparin - SQ 5,000 unit BID [facility] Administration Levothyroxine Sodium 12.5 mcg 10/21/17 07:00 10/21/17 06:27 Synthroid Injection - IVPUSH 12.5 mcg DAILY@0700 [facility] Administration Methylprednisolone Sodium Succinate 40 mg 10/21/17 02:00 10/21/17 11:50 Solu-Medrol - IVPUSH 40 mg Q8H-IV [facility] Administration Morphine Sulfate 4 mg 10/20/17 20:35 10/21/17 16:20 Morphine Sulfate IVPUSH 4 mg Q4H PRN Administration PAIN LEVEL 7 - 10 Saliva Substitute 1 applic 10/21/17 10:00 10/21/17 12:40 Mouthkote Solution - MM Not Given DAILY [facility] Impression 1. SIMON 2. pericardial effusion 3. resp failure requiring bipap 4. hx melanoma 5. possible metastatic disease 6. hypotension 7. hypothyroid 8. HLD 9. COPD 10. formal smoker 11. possible mass in pericardial sac 12. pericardial effusion Plan - pt is asking for a speech and swallow eval - she does not want bloodwork - GOC should still be clarified with pt and family - discussed with pt and family Dr Waite
--- NOTE | 2017-10-21 18:14 | PN ---
Progress Note (short form) - Note Progress Note: Chief Complaint: resp failure History of Present Illness: labored breathing appears worse today. Patient wants to try lasix for relief. She is willing to get lab draw and cxr. She is amenable to bipap. Has decided to get barium swallow tomorrow. still has plan for inpatient hospice. Current Medications Acetaminophen (Ofirmev Injection -) 1,000 mg IVPB Q6H PRN PRN Reason: PAIN LEVEL 1-5 Digoxin (Lanoxin Injection -) 0.125 mg IVPB DAILY [facility] Last Admin: 10/21/17 11:26 Dose: Not Given Diltiazem HCl (Cardizem Injection -) 5 mg IVPB Q1H PRN PRN Reason: TACHYCARDIA Heparin Sodium (Porcine) (Heparin -) 5,000 unit SQ BID [facility] Last Admin: 10/21/17 11:51 Dose: 5,000 unit Levothyroxine Sodium (Synthroid Injection -) 12.5 mcg IVPUSH DAILY@0700 [facility] Last Admin: 10/21/17 06:27 Dose: 12.5 mcg Methylprednisolone Sodium Succinate (Solu-Medrol -) 40 mg IVPUSH Q8H-IV [facility] Last Admin: 10/21/17 11:50 Dose: 40 mg Morphine Sulfate (Morphine Sulfate) 4 mg IVPUSH Q4H PRN PRN Reason: PAIN LEVEL 7 - 10 Last Admin: 10/21/17 16:20 Dose: 4 mg Saliva Substitute (Mouthkote Solution -) 1 applic MM DAILY [facility] Last Admin: 10/21/17 12:40 Dose: Not Given - Objective Vital Signs: Vital Signs - 24 hr 10/20/17 10/20/17 10/21/17 20:00 21:00 01:13 Temperature 97.8 F Pulse Rate 112 H Respiratory 24 Rate Blood Pressure 128/68 O2 Sat by Pulse 97 97 Oximetry (%) 10/21/17 10/21/17 10/21/17 02:00 06:00 09:00 Temperature 97.6 F 97.9 F Pulse Rate 72 82 Respiratory 20 20 20 Rate Blood Pressure 124/58 132/58 O2 Sat by Pulse 97 Oximetry (%) 10/21/17 10/21/17 15:18 16:00 Temperature 97.2 F L Pulse Rate 105 H 100 H Respiratory 20 18 Rate Blood Pressure 128/89 O2 Sat by Pulse Oximetry (%) Intake & Output 10/19/17 10/20/17 10/21/17 10/22/17 07:59 07:59 07:59 07:59 Intake Total 620 0 Output Total 470 450 500 Balance 150 -450 -500 Weight 172 lb 176 lb 3.2 oz Constitutional: Yes: Well Nourished, labored breathing, tired. Cardiovascular: Yes: Pulse Irregular, S1, S2. No: JVD, Gallop, Murmur Respiratory: Yes: Regular, + Accessory Muscle Use, bibasilar dullness. No: Rales, Wheezes Extremities: No: Cold Edema: trace Neurological: Yes: Alert. No: Seizure Psychiatric: No: Agitated diminished dp/pt dressing to left hand (area of fingertip ischemia) Labs: no CBC, BMP 10/18/17 06:00 10/17/17 05:30 - ....Imaging EKG: Other (prior tele: afib 110s-160s) Assessment/Plan ekg: afib, low voltage qrs. no acute ischemic changes. tele: afib, VR 100's. echo 10/2017: nl lv/rv, no sig valve path, mod-large peric eff, no tamponade cxr: no sig change ct: images and report reviewed. asymmetric pleural effusion and pericardial effusion noted. see emr for detailed report. mibi 01/2015: lexiscan, no ecg changes, normal MPI, resting ecg showed afib echo 04/2017: nl lv/rv, no sig valve path, nl rvsp office ekg: from april: afib, borderline low voltages. poor r wave progression. similar to priors. est cct 35 mins Assessment/plan. 82 yo with h/o afib on xarelto, htn, hl, PVD s/p revascularization 07/2017 and toe amputation 08/2017, subclavian stent 09/2017, obesity, hypothyroid, melanoma and chronic low back pain p/w sob. acute resp failure/hemopericardium -echo with large pericardial eff, now s/p pericardial window with 500cc bloody fluid drained -still with sob, likely related to metastatic cancer/lung mass, pna, pleural effusions. -infection/malignacy w/u per critical care -dry mucous membranes, not eating, doubt she is overloaded--defer lasix - 10/21: breathing increasingly labored, patient asking for lasix. discussed with patient, family and renal the risk of administering lasix without knowing current renal function or whether there has been reaccumulation of pericardial fluid. (may worsen kidney function or cause hypotension). Patient in signficant enough distress that she states she is willing to get lab draws and try lasix despite potential risK. will give lasix 20 mg IV x1 acutely. bmp x 1 and cxr ordered. Additionally will order bipap support for comfort. Encouraged patient to use prn morphine for air hunger (assuming bp remains stable after lasix). Further palliative measures per pmd. afib - AC with xarelto as outpatient, held here given need for surgery/procedures, also with new lung mass. - given bloody pericardial effusion necessitating window here, and hi clinical suspicion of metastatic Ca, plan is to continue holding AC - now protected from large pericardial effusion recurrence given she is s/p window, but has possible underlying metastatic pleural effusion on CT as well. - reconsider AC later if pt recovers well, once GOC clarified with family - 10/20: home atenolol 50 bid held for hypotension. HRs uncontrolled. BP mostly stable. receiving prn IV lopressor injections--per RN, no HR response to IVP lopressor earlier. not taking po meds, for swallow eval--start IV digoxin standing, and low dose prn IV diltiazem - 10/21: unable to give IV digoxin or IV diltiazem on this floor, (pt cannot swallow po meds) currently hr overall rate controlled. optimize comfort and respiratory status. lopressor IV prn if needed. - cont tele htn -bp low initially (? sec to tamponade), improved s/p drainage of effusion -currently controlled PAD - s/p L [employer] , residual distal dz. followed by vascular as outpatient. - s/p subclavian stent. - finger discoloration noted, consider vascular consult--per critical care/pmc - ok to defer statin given prognosis/goals of care. tiffany - likely sec to tamponade with decr cardiac output/renal hypoperfusion - improved on subsequent labs
[2017-10-21] MEDS ORDERED: FUROSEMIDE 40 MG/4 ML INJECTABLE VIAL IVPUSH ONE (19:14)
[2017-10-21 20:48] LABS: ANION GAP 9 (8-16); BLOOD UREA NITROGEN 76 mg/dL (7-18); CALCIUM 8.2 mg/dL (8.5-10.1); CHLORIDE 108 mmol/L (98-107); CO2 32 mmol/L (21-32); CREATININE 1.2 mg/dL (0.55-1.02); GLUCOSE,RANDOM 201 mg/dL (74-106); SODIUM 149 mmol/L (136-145)
[2017-10-22] MEDS: morphine SULFATE 4 MG/ML VIAL IVPUSH PRN ×3 (00:47→09:53)
[2017-10-22] MEDS ORDERED: LORazepam 2 MG/ML SDV VIAL IVPUSH ONE (05:21)
[2017-10-22] MEDS ORDERED: PT OWN MED DRAWER 7, Y5N ONE ×2 (05:55→08:52)
[2017-10-22] MEDS: LEVOTHYROXINE SODIUM 100 MCG VIAL IVPUSH SCH (06:02)
[2017-10-22] MEDS: LYTES/YERBA SANTA 240 ML BOTTLE MM SCH (09:30)
[2017-10-22] MEDS: HEPARIN NA (PORCINE) 5,000 UNITS/ML 1ML VIAL SQ SCH (09:30)
[2017-10-22] MEDS ORDERED: ACETAMINOPHEN 1000 MG/100 ML VIAL (NON FORMULARY) IVPB PRN (09:37)
[2017-10-22] MEDS ORDERED: LORazepam 2 MG/ML SDV VIAL IVPUSH PRN (11:50)
--- NOTE | 2017-10-22 11:54 | PN ---
Progress Note (short form) - Note Progress Note: Chief Complaint: resp failure History of Present Illness: lethargic post morphine for pain/sob plans for hospice care Current Medications Generic Name Dose Route Start Last Admin Trade Name Km PRN Reason Stop Dose Admin Acetaminophen 1,000 mg 10/22/17 09:37 Ofirmev Injection - IVPB Q6H PRN PAIN LEVEL 6-10 Heparin Sodium (Porcine) 5,000 unit 10/20/17 22:00 10/22/17 09:30 Heparin - SQ Not Given BID [facility] Levothyroxine Sodium 12.5 mcg 10/21/17 07:00 10/22/17 06:02 Synthroid Injection - IVPUSH 12.5 mcg DAILY@0700 [facility] Administration Lorazepam 1 mg 10/22/17 11:50 Ativan Injection - IVPUSH TID PRN ANXIETY Methylprednisolone Sodium Succinate 40 mg 10/21/17 22:00 10/21/17 21:03 Solu-Medrol - IVPUSH 40 mg BID [facility] Administration Morphine Sulfate 4 mg 10/20/17 20:35 10/22/17 09:53 Morphine Sulfate IVPUSH 4 mg Q4H PRN Administration PAIN LEVEL 7 - 10 Saliva Substitute 1 applic 10/21/17 10:00 10/22/17 09:30 Mouthkote Solution - MM Not Given DAILY ANTONIO - Objective Vital Signs: Vital Signs Period Temp Pulse Resp BP Sys/Vaughn Pulse Ox Last 24 Hr 97.2 F-98.4 F 100-119 18-24 128-156/78-99 93-95 Constitutional: Yes: Well Nourished, labored breathing, lethargic Cardiovascular: Yes: Pulse Irregular, S1, S2. No: JVD, Gallop, Murmur Respiratory: Yes: Regular, + Accessory Muscle Use, bibasilar dullness. No: Rales, Wheezes Extremities: No: Cold Edema: trace Neurological: Yes: Alert. No: Seizure Labs: CBC, BMP 10/18/17 06:00 10/21/17 19:00 - ....Imaging EKG: Other (prior tele: afib 110s-160s) ekg: afib, low voltage qrs. no acute ischemic changes. tele: afib, VR 100's. echo 10/2017: nl lv/rv, no sig valve path, mod-large peric eff, no tamponade cxr: no sig change ct: images and report reviewed. asymmetric pleural effusion and pericardial effusion noted. see emr for detailed report. mibi 01/2015: lexiscan, no ecg changes, normal MPI, resting ecg showed afib echo 04/2017: nl lv/rv, no sig valve path, nl rvsp office ekg: from april: afib, borderline low voltages. poor r wave progression. similar to priors. Assessment/plan. 82 yo with h/o afib on xarelto, htn, hl, PVD s/p revascularization 07/2017 and toe amputation 08/2017, subclavian stent 09/2017, obesity, hypothyroid, melanoma and chronic low back pain p/w sob. acute resp failure/hemopericardium -echo with large pericardial eff, now s/p pericardial window with 500cc bloody fluid drained -still with sob, likely related to metastatic cancer/lung mass, pna, pleural effusions. -infection/malignacy w/u per critical care -dry mucous membranes, not eating, doubt she is overloaded--defer lasix - 10/21: breathing increasingly labored, patient asking for lasix. discussed with patient, family and renal the risk of administering lasix without knowing current renal function or whether there has been reaccumulation of pericardial fluid. (may worsen kidney function or cause hypotension). Patient in signficant enough distress that she states she is willing to get lab draws and try lasix despite potential risK. will give lasix 20 mg IV x1 acutely. bmp x 1 and cxr ordered. Additionally will order bipap support for comfort. Encouraged patient to use prn morphine for air hunger (assuming bp remains stable after lasix). Further palliative measures per pmd. afib - AC with xarelto as outpatient, held here given need for surgery/procedures, also with new lung mass. - given bloody pericardial effusion necessitating window here, and hi clinical suspicion of metastatic Ca, plan is to continue holding AC - now protected from large pericardial effusion recurrence given she is s/p window, but has possible underlying metastatic pleural effusion on CT as well. - reconsider AC later if pt recovers well, once GOC clarified with family - 10/20: home atenolol 50 bid held for hypotension. HRs uncontrolled. BP mostly stable. receiving prn IV lopressor injections--per RN, no HR response to IVP lopressor earlier. not taking po meds, for swallow eval--start IV digoxin standing, and low dose prn IV diltiazem - 10/21: unable to give IV digoxin or IV diltiazem on this floor, (pt cannot swallow po meds) currently hr overall rate controlled. optimize comfort and respiratory status. lopressor IV prn if needed. htn -bp low initially (? 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 followed by vascular as outpatient. - s/p subclavian stent. - finger discoloration noted, consider vascular consult--per critical care/pmc - ok to defer statin given prognosis/goals of care. tiffany - likely sec to tamponade with decr cardiac output/renal hypoperfusion - improved on subsequent labs
[2017-10-22] MEDS: methylPREDNISolone NA SUCC 40 MG/1 ML VIAL IVPUSH SCH (12:51)
--- NOTE | 2017-10-22 13:02 | PN ---
Progress Note, Physician History of Present Illness: Pt seen and examined at bedside. She is very drowsy today and not answering any questions. - Current Medication List Current Medications: Active Medications Acetaminophen (Ofirmev Injection -) 1,000 mg IVPB Q6H PRN PRN Reason: PAIN LEVEL 6-10 Heparin Sodium (Porcine) (Heparin -) 5,000 unit SQ BID [facility] Last Admin: 10/22/17 09:30 Dose: Not Given Morphine Sulfate 100 mg/ (Sodium Chloride) 100 mls @ 1 mls/hr IVPB TITR ANTONIO; 1 MG/HR PRN Reason: Protocol Lorazepam (Ativan Injection -) 1 mg IVPUSH TID PRN PRN Reason: ANXIETY Morphine Sulfate (Morphine Sulfate) 4 mg IVPUSH Q4H PRN PRN Reason: PAIN LEVEL 7 - 10 Last Admin: 10/22/17 09:53 Dose: 4 mg Saliva Substitute (Mouthkote Solution -) 1 applic MM DAILY [facility] Last Admin: 10/22/17 09:30 Dose: Not Given - Objective Vital Signs: Vital Signs Temperature 98.4 F 10/22/17 01:33 Pulse Rate 116 H 10/22/17 07:41 Respiratory Rate 22 10/22/17 01:33 Blood Pressure 150/83 10/22/17 01:33 O2 Sat by Pulse Oximetry (%) 93 L 10/22/17 07:41 Constitutional: Yes: Calm Eyes: Yes: Conjunctiva Clear HENT: Yes: Atraumatic Cardiovascular: Yes: S1, S2 Respiratory: Yes: Rhonchi Gastrointestinal: Yes: Soft Genitourinary: Yes: Incontinence Musculoskeletal: Yes: Muscle Weakness Edema: Yes Edema: LLE: Trace, RLE: Trace Neurological: Yes: Confusion Labs: CBC, BMP 10/18/17 06:00 10/21/17 19:00 INR, PTT INR 1.29 (0.82-1.09) H 10/18/17 06:00 - ....Imaging Chest X-ray: Report Reviewed Problem List - Problems (1) SIMON (acute kidney injury) Code(s): N17.9 - ACUTE KIDNEY FAILURE, UNSPECIFIED (2) Melanoma Code(s): C43.9 - MALIGNANT MELANOMA OF SKIN, UNSPECIFIED (3) Atrial fibrillation Code(s): I48.91 - UNSPECIFIED ATRIAL FIBRILLATION Qualifiers: Atrial fibrillation type: paroxysmal Qualified Code(s): I48.0 - Paroxysmal atrial fibrillation (4) Hypothyroid Code(s): E03.9 - HYPOTHYROIDISM, UNSPECIFIED Assessment/Plan Current Medications Generic Name Dose Route Start Last Admin Trade Name Freq PRN Reason Stop Dose Admin Acetaminophen 1,000 mg 10/22/17 09:37 Ofirmev Injection - IVPB Q6H PRN PAIN LEVEL 6-10 Heparin Sodium (Porcine) 5,000 unit 10/20/17 22:00 10/22/17 09:30 Heparin - SQ Not Given BID ANTONIO Morphine Sulfate 100 mg/ 100 mls @ 1 mls/hr 10/22/17 13:00 Sodium Chloride IVPB TITR ANTONIO Protocol 1 MG/HR Lorazepam 1 mg 10/22/17 11:50 Ativan Injection - IVPUSH TID PRN ANXIETY Morphine Sulfate 4 mg 10/20/17 20:35 10/22/17 09:53 Morphine Sulfate IVPUSH 4 mg Q4H PRN Administration PAIN LEVEL 7 - 10 Saliva Substitute 1 applic 10/21/17 10:00 10/22/17 09:30 Mouthkote Solution - MM Not Given DAILY [facility] Impression 1. SIMON 2. pericardial effusion 3. resp failure requiring bipap 4. hx melanoma 5. possible metastatic disease 6. hypotension 7. hypothyroid 8. HLD 9. COPD 10. formal smoker 11. possible mass in pericardial sac 12. pericardial effusion Plan - cxr reviewed - bloodwork reviewed - renal function is improved - pt did get a dose of lasix yesterday for comfort - will need to clarify GOC with family - unclear if she is on hospice or not Dr Waite
--- NOTE | 2017-10-22 13:09 | PN ---
Progress Note, Physician Chief Complaint: Pt appears comfortable, sleeping at the moment. Pt not woken up to assess. Spoke with family and palliative team. - Current Medication List Current Medications: Active Medications Acetaminophen (Ofirmev Injection -) 1,000 mg IVPB Q6H PRN PRN Reason: PAIN LEVEL 6-10 Morphine Sulfate 100 mg/ (Sodium Chloride) 100 mls @ 1 mls/hr IVPB TITR ANTONIO; 1 MG/HR PRN Reason: Protocol Lorazepam (Ativan Injection -) 1 mg IVPUSH TID PRN PRN Reason: ANXIETY Saliva Substitute ([place]kote Solution -) 1 applic MM DAILY ANTONIO Last Admin: 10/22/17 09:30 Dose: Not Given - Objective Vital Signs: Vital Signs Temperature 98.4 F 10/22/17 01:33 Pulse Rate 116 H 10/22/17 07:41 Respiratory Rate 22 10/22/17 01:33 Blood Pressure 150/83 10/22/17 01:33 O2 Sat by Pulse Oximetry (%) 93 L 10/22/17 07:41 Constitutional: Yes: Calm, Mild Distress Respiratory: Yes: Accessory Muscle Use, Tachypnea Neurological: Yes: Lethargy Labs: CBC, BMP 10/18/17 06:00 10/21/17 19:00 INR, PTT INR 1.29 (0.82-1.09) H 10/18/17 06:00 Problem List - Problems (1) Pericardial effusion, acute Code(s): I30.9 - ACUTE PERICARDITIS, UNSPECIFIED (2) Vocal cord paralysis Code(s): J38.00 - PARALYSIS OF VOCAL CORDS AND LARYNX, UNSPECIFIED (3) Dysphagia Code(s): R13.10 - DYSPHAGIA, UNSPECIFIED Qualifiers: Dysphagia type: unspecified Qualified Code(s): R13.10 - Dysphagia, unspecified (4) Dehydration Code(s): E86.0 - DEHYDRATION (5) SIMON (acute kidney injury) Code(s): N17.9 - ACUTE KIDNEY FAILURE, UNSPECIFIED (6) Pneumonia Code(s): J18.9 - PNEUMONIA, UNSPECIFIED ORGANISM Qualifiers: Pneumonia type: due to unspecified organism Laterality: left Lung location: lower lobe of lung Qualified Code(s): J18.1 - Lobar pneumonia, unspecified organism (7) Leukocytosis Code(s): D72.829 - ELEVATED WHITE BLOOD CELL COUNT, UNSPECIFIED (8) Melanoma Code(s): C43.9 - MALIGNANT MELANOMA OF SKIN, UNSPECIFIED (9) Atrial fibrillation Code(s): I48.91 - UNSPECIFIED ATRIAL FIBRILLATION Qualifiers: Atrial fibrillation type: paroxysmal Qualified Code(s): I48.0 - Paroxysmal atrial fibrillation (10) Dyspnea on exertion Code(s): R06.09 - OTHER FORMS OF DYSPNEA (11) COPD (chronic obstructive pulmonary disease) Code(s): J44.9 - CHRONIC OBSTRUCTIVE PULMONARY DISEASE, UNSPECIFIED (12) Hypothyroid Code(s): E03.9 - HYPOTHYROIDISM, UNSPECIFIED (13) Hypertension Code(s): I10 - ESSENTIAL (PRIMARY) HYPERTENSION Qualifiers: Hypertension type: essential hypertension Qualified Code(s): I10 - Essential (primary) hypertension (1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 Code(s): I70.262 - ATHSCL [place] ARTERIES OF EXTREMITIES W GANGRENE, LEFT LEG (15) PAD (peripheral artery disease) Code(s): I73.9 - PERIPHERAL VASCULAR DISEASE, UNSPECIFIED (16) HLD (hyperlipidemia) Code(s): E78.5 - HYPERLIPIDEMIA, UNSPECIFIED (17) Pulmonary congestion Code(s): R09.89 - OTH SYMPTOMS AND SIGNS INVOLVING THE CIRC AND RESP SYSTEMS (18) Pulmonary HTN Code(s): I27.20 - PULMONARY HYPERTENSION, UNSPECIFIED (19) Lung mass Code(s): R91.8 - OTHER NONSPECIFIC ABNORMAL FINDING OF LUNG FIELD Assessment/Plan (1) Pericardial effusion, acute Assessment/Plan: s/p pericardial window 3/6 drain removed percardial fluid 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 Code(s): I30.9 - ACUTE PERICARDITIS, UNSPECIFIED (2) Vocal cord paralysis Assessment/Plan: Flexible laryngoscopy w/ left vocal cord paralysis possibly secondary to possible lung mass ENT following Code(s): J38.00 - PARALYSIS OF VOCAL CORDS AND LARYNX, UNSPECIFIED (3) Dysphagia Assessment/Plan: Pt agrees to MBS yesterday however clinically unstable for the study now Code(s): R13.10 - DYSPHAGIA, UNSPECIFIED Qualifiers: Dysphagia type: unspecified Qualified Code(s): R13.10 - Dysphagia, unspecified (4) Dehydration Assessment/Plan: Code(s): E86.0 - DEHYDRATION (5) SIMON (acute kidney injury) Assessment/Plan: improved, prerenal etiology renal us without sig findings urine na/cr wnl avoid diuretics nephr following Code(s): N17.9 - ACUTE KIDNEY FAILURE, UNSPECIFIED (6) Pneumonia Assessment/Plan: unclear etiology possible aspiration off antibiotics now ID consult appreciated Code(s): J18.9 - PNEUMONIA, UNSPECIFIED ORGANISM Qualifiers: Pneumonia type: due to unspecified organism Laterality: left Lung location: lower lobe of lung Qualified Code(s): J18.1 - Lobar pneumonia, unspecified organism (7) Leukocytosis Assessment/Plan: improved, off antibiotics pt would not like blood draws blood cultures neg UC neg Code(s): D72.829 - ELEVATED WHITE BLOOD CELL COUNT, UNSPECIFIED (8) Melanoma Assessment/Plan: suspected metastatic CA malignant melanoma LLE s/p resection and chemotherapy,2008 Code(s): C43.9 - MALIGNANT MELANOMA OF SKIN, UNSPECIFIED (9) Atrial fibrillation Assessment/Plan: tachycardic on xarelto outpt, currently off of AC echo without sig changes Code(s): I48.91 - UNSPECIFIED ATRIAL FIBRILLATION Qualifiers: Atrial fibrillation type: paroxysmal Qualified Code(s): I48.0 - Paroxysmal atrial fibrillation (10) Dyspnea on exertion Assessment/Plan: secondary to copd/ lung mass continue O2 as needed Code(s): R06.09 - OTHER FORMS OF DYSPNEA (11) COPD (chronic obstructive pulmonary disease) Assessment/Plan: hx of heavy smoking Code(s): J44.9 - CHRONIC OBSTRUCTIVE PULMONARY DISEASE, UNSPECIFIED (12) Hypothyroid Assessment/Plan: Code(s): E03.9 - HYPOTHYROIDISM, UNSPECIFIED (13) Hypertension Assessment/Plan: Code(s): I10 - ESSENTIAL (PRIMARY) HYPERTENSION Qualifiers: Hypertension type: essential hypertension Qualified Code(s): I10 - Essential (primary) hypertension (1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 Assessment/Plan: s/p revascularization 07/2017 and toe amputation 08/2017, subclavian stent 09/2017 vascular consult appreciated Code(s): I70.262 - ATHSCL [place] ARTERIES OF EXTREMITIES W GANGRENE, LEFT LEG (15) PAD (peripheral artery disease) Code(s): I73.9 - PERIPHERAL VASCULAR DISEASE, UNSPECIFIED (16) HLD (hyperlipidemia) Assessment/Plan: on zocor outpt Code(s): E78.5 - HYPERLIPIDEMIA, UNSPECIFIED (17) Pulmonary congestion Assessment/Plan: tachypneic chest CT w/ pulm congestion, solid nodules, mass possible metastatic CA, COPD, aspiration chest xray with congestion, atelectasis Code(s): R09.89 - OTH SYMPTOMS AND SIGNS INVOLVING THE CIRC AND RESP SYSTEMS (18) Pulmonary HTN Code(s): I27.20 - PULMONARY HYPERTENSION, UNSPECIFIED (19) Lung mass Assessment/Plan: CT reveals large lung mass Oncology following Code(s): R91.8 - OTHER NONSPECIFIC ABNORMAL FINDING OF LUNG FIELD Assessment/Plan I saw and evaluated pt. Pt w/ poor prognosis. Pt made DNR/DNI per pt and family wishes. Comfort measures maintained per family at the moment. Pt and family would like to avoid invasive measures such as MBS, blood draws. However yesterday,pt asked for MBS. Since then, pt became more lethargic and not clinically stable for the study. Discussed with PCP , Palliative team. Pt appears to be actively dying and therefore transition to inpatient hospice at this time. Plan: Inpt hospice Morphine Drip Ativan IV Howard Maintain comfort
[2017-10-22] MEDS: MORPHINE 100 MG in SODIUM CHLORIDE 98 ML IVPB SCH (13:35)
[2017-10-22] MEDS: LORazepam 2 MG/ML SDV VIAL IVPUSH SCH ×4 (15:43→23:01)
[2017-10-23] MEDS: LORazepam 2 MG/ML SDV VIAL IVPUSH SCH ×3 (02:05→10:45)
--- NOTE | 2017-10-23 08:13 | PN ---
Progress Note (short form) - Note Progress Note: RENAL Came to see patient who appears to be on a morphine drip now Last Vital Signs Temp Pulse Resp BP Pulse Ox 98.2 F 115 H 22 153/63 94 L 10/23/17 06:00 10/23/17 06:00 10/23/17 06:00 10/23/17 06:00 10/22/17 21:00 appears comfortable breathing is not labored no edema CBC, BMP 10/18/17 06:00 10/21/17 19:00 Impression 1. SIMON 2. pericardial effusion 3. resp failure requiring bipap 4. hx melanoma 5. possible metastatic disease 6. hypotension 7. hypothyroid 8. HLD 9. COPD 10. formal smoker 11. possible mass in pericardial sac 12. pericardial effusion Plan simon improved in view of morphine drip will sign off. can call back if necessary MV
[2017-10-23] MEDS ORDERED: LORazepam 2 MG/ML SDV VIAL IVPUSH PRN (12:05)
--- NOTE | 2017-10-23 12:50 | PN ---
Progress Note, Physician Chief Complaint: Pt appears comfortable, sleeping at the moment. Pt not woken up to assess. Spoke with family - Current Medication List Current Medications: Active Medications Morphine Sulfate 100 mg/ (Sodium Chloride) 100 mls @ 1 mls/hr IVPB TITR ANTONIO; 1 MG/HR PRN Reason: Protocol Last Titration: 10/23/17 09:16 Dose: 3 mg/hr, 3 mls/hr Lorazepam (Ativan Injection -) 1 mg IVPUSH Q4H PRN PRN Reason: ANXIETY - Objective Vital Signs: Vital Signs Temperature 98.2 F 10/23/17 06:00 Pulse Rate 115 H 10/23/17 06:00 Respiratory Rate 22 10/23/17 09:00 Blood Pressure 153/63 10/23/17 06:00 O2 Sat by Pulse Oximetry (%) 94 L 10/22/17 21:00 Constitutional: Yes: Calm, Mild Distress Respiratory: Yes: Other (shallow breathing) Neurological: Yes: Lethargy Labs: CBC, BMP 10/18/17 06:00 10/21/17 19:00 INR, PTT INR 1.29 (0.82-1.09) H 10/18/17 06:00 Problem List - Problems (1) Pericardial effusion, acute Code(s): I30.9 - ACUTE PERICARDITIS, UNSPECIFIED (2) Vocal cord paralysis Code(s): J38.00 - PARALYSIS OF VOCAL CORDS AND LARYNX, UNSPECIFIED (3) Dysphagia Code(s): R13.10 - DYSPHAGIA, UNSPECIFIED Qualifiers: Dysphagia type: unspecified Qualified Code(s): R13.10 - Dysphagia, unspecified (4) Dehydration Code(s): E86.0 - DEHYDRATION (5) SIMON (acute kidney injury) Code(s): N17.9 - ACUTE KIDNEY FAILURE, UNSPECIFIED (6) Pneumonia Code(s): J18.9 - PNEUMONIA, UNSPECIFIED ORGANISM Qualifiers: Pneumonia type: due to unspecified organism Laterality: left Lung location: lower lobe of lung Qualified Code(s): J18.1 - Lobar pneumonia, unspecified organism (7) Leukocytosis Code(s): D72.829 - ELEVATED WHITE BLOOD CELL COUNT, UNSPECIFIED (8) Melanoma Code(s): C43.9 - MALIGNANT MELANOMA OF SKIN, UNSPECIFIED (9) Atrial fibrillation Code(s): I48.91 - UNSPECIFIED ATRIAL FIBRILLATION Qualifiers: Atrial fibrillation type: paroxysmal Qualified Code(s): I48.0 - Paroxysmal atrial fibrillation (10) Dyspnea on exertion Code(s): R06.09 - OTHER FORMS OF DYSPNEA (11) COPD (chronic obstructive pulmonary disease) Code(s): J44.9 - CHRONIC OBSTRUCTIVE PULMONARY DISEASE, UNSPECIFIED (12) Hypothyroid Code(s): E03.9 - HYPOTHYROIDISM, UNSPECIFIED (13) Hypertension Code(s): I10 - ESSENTIAL (PRIMARY) HYPERTENSION Qualifiers: Hypertension type: essential hypertension Qualified Code(s): I10 - Essential (primary) hypertension (1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 Code(s): I70.262 - ATHSCL [place] ARTERIES OF EXTREMITIES W GANGRENE, LEFT LEG (15) PAD (peripheral artery disease) Code(s): I73.9 - PERIPHERAL VASCULAR DISEASE, UNSPECIFIED (16) HLD (hyperlipidemia) Code(s): E78.5 - HYPERLIPIDEMIA, UNSPECIFIED (17) Pulmonary congestion Code(s): R09.89 - OTH SYMPTOMS AND SIGNS INVOLVING THE CIRC AND RESP SYSTEMS (18) Pulmonary HTN Code(s): I27.20 - PULMONARY HYPERTENSION, UNSPECIFIED (19) Lung mass Code(s): R91.8 - OTHER NONSPECIFIC ABNORMAL FINDING OF LUNG FIELD Assessment/Plan (1) Pericardial effusion, acute Assessment/Plan: s/p pericardial window 3/6 drain removed percardial fluid 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 Code(s): I30.9 - ACUTE PERICARDITIS, UNSPECIFIED (2) Vocal cord paralysis Assessment/Plan: Flexible laryngoscopy w/ left vocal cord paralysis possibly secondary to possible lung mass ENT following Code(s): J38.00 - PARALYSIS OF VOCAL CORDS AND LARYNX, UNSPECIFIED (3) Dysphagia Assessment/Plan: Pt agrees to MBS yesterday however clinically unstable for the study now Code(s): R13.10 - DYSPHAGIA, UNSPECIFIED Qualifiers: Dysphagia type: unspecified Qualified Code(s): R13.10 - Dysphagia, unspecified (4) Dehydration Assessment/Plan: Code(s): E86.0 - DEHYDRATION (5) SIMON (acute kidney injury) Assessment/Plan: improved, prerenal etiology renal us without sig findings urine na/cr wnl avoid diuretics nephr following Code(s): N17.9 - ACUTE KIDNEY FAILURE, UNSPECIFIED (6) Pneumonia Assessment/Plan: unclear etiology possible aspiration off antibiotics now ID consult appreciated Code(s): J18.9 - PNEUMONIA, UNSPECIFIED ORGANISM Qualifiers: Pneumonia type: due to unspecified organism Laterality: left Lung location: lower lobe of lung Qualified Code(s): J18.1 - Lobar pneumonia, unspecified organism (7) Leukocytosis Assessment/Plan: improved, off antibiotics pt would not like blood draws blood cultures neg UC neg Code(s): D72.829 - ELEVATED WHITE BLOOD CELL COUNT, UNSPECIFIED (8) Melanoma Assessment/Plan: suspected metastatic CA malignant melanoma LLE s/p resection and chemotherapy,2008 Code(s): C43.9 - MALIGNANT MELANOMA OF SKIN, UNSPECIFIED (9) Atrial fibrillation Assessment/Plan: tachycardic on xarelto outpt, currently off of AC echo without sig changes Code(s): I48.91 - UNSPECIFIED ATRIAL FIBRILLATION Qualifiers: Atrial fibrillation type: paroxysmal Qualified Code(s): I48.0 - Paroxysmal atrial fibrillation (10) Dyspnea on exertion Assessment/Plan: secondary to copd/ lung mass continue O2 as needed Code(s): R06.09 - OTHER FORMS OF DYSPNEA (11) COPD (chronic obstructive pulmonary disease) Assessment/Plan: hx of heavy smoking Code(s): J44.9 - CHRONIC OBSTRUCTIVE PULMONARY DISEASE, UNSPECIFIED (12) Hypothyroid Assessment/Plan: Code(s): E03.9 - HYPOTHYROIDISM, UNSPECIFIED (13) Hypertension Assessment/Plan: Code(s): I10 - ESSENTIAL (PRIMARY) HYPERTENSION Qualifiers: Hypertension type: essential hypertension Qualified Code(s): I10 - Essential (primary) hypertension (1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 Assessment/Plan: s/p revascularization 07/2017 and toe amputation 08/2017, subclavian stent 09/2017 vascular consult appreciated Code(s): I70.262 - ATHSCL [place] ARTERIES OF EXTREMITIES W GANGRENE, LEFT LEG (15) PAD (peripheral artery disease) Code(s): I73.9 - PERIPHERAL VASCULAR DISEASE, UNSPECIFIED (16) HLD (hyperlipidemia) Assessment/Plan: on zocor outpt Code(s): E78.5 - HYPERLIPIDEMIA, UNSPECIFIED (17) Pulmonary congestion Assessment/Plan: tachypneic chest CT w/ pulm congestion, solid nodules, mass possible metastatic CA, COPD, aspiration chest xray with congestion, atelectasis Code(s): R09.89 - OTH SYMPTOMS AND SIGNS INVOLVING THE CIRC AND RESP SYSTEMS (18) Pulmonary HTN Code(s): I27.20 - PULMONARY HYPERTENSION, UNSPECIFIED (19) Lung mass Assessment/Plan: CT reveals large lung mass Oncology following Code(s): R91.8 - OTHER NONSPECIFIC ABNORMAL FINDING OF LUNG FIELD Assessment/Plan I saw and evaluated pt. Pt w/ poor prognosis. Pt made DNR/DNI per pt and family wishes. Comfort measures maintained per family at the moment. Discussed with PCP , Palliative team. Pt appears to be actively dying and therefore transition to inpatient hospice at this time. Plan: Inpt hospice Morphine Drip Ativan IV Howard Maintain comfort
[2017-10-23] MEDS: MORPHINE 100 MG in SODIUM CHLORIDE 98 ML IVPB SCH (16:51)
[2017-10-24 01:30] VITALS: BP 82/40; PULSE 126; TEMP 98.6
--- NOTE | 2017-10-24 04:12 | HOSP ---
Physical Examination Vital Signs: Vital Signs Temperature 98.6 F 10/24/17 01:28 Pulse Rate 126 H 10/24/17 01:28 Respiratory Rate 12 10/24/17 01:28 Blood Pressure 82/40 10/24/17 01:28 O2 Sat by Pulse Oximetry (%) 94 L 10/22/17 21:00 Labs: CBC, BMP 10/18/17 06:00 10/21/17 19:00 Hospitalist Encounter Assessment: called by nurse to see pt as pt has passed. attended pt. No respone to verbal or tactile stimuli. No pupillary response. No pulse or respirations for >1 minute. Pt Time of 321am. Nurse will notify family and advise if they would like to speak to me.
--- NOTE | 2017-10-24 08:42 | DS ---
Physical Examination Vital Signs: Vital Signs Temperature 98.6 F 10/24/17 01:28 Pulse Rate 126 H 10/24/17 01:28 Respiratory Rate 12 10/24/17 01:28 Blood Pressure 82/40 10/24/17 01:28 O2 Sat by Pulse Oximetry (%) 89 L 10/23/17 21:00 Findings/Remarks: Last seen patient on 10/24/15, pt asleep, breathing shallow, appears comfortable. family at bedside. 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 Patient came into the hospital from outpt ENT office for vocal cord paralysis. She has been having dysphagia for 1 month prior to visit. Upon admission, pt in severe respiratory distress and was managed in ICU. CT chest revealed large mass and echo showed a large pericardial effusion. She underwent pericardial window with drain placement with mild improvement in symptoms. 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 Pt was made DNR/DNI without further invasive measures by pt and family. Palliative team/CT surgery/ Nephrology/ICU/ID/ENT/Speech/Vascular/Oncology consults appreciated. Plan was for pt to go to [place] however pt became clinically unstable with labored breathing therefore pt was transitioned to inpatient hospice. I saw yesterday, she appeared very comfortable and was asleep. She was surrounded by her family during her last days. was pronounced at 10/24 3:21am. Condition: - Instructions Disposition: - Home Medications Comprehensive Discharge Medication List: Ambulatory Orders Atenolol [Tenormin -] 50 mg PO BID 02/08/15 Cholecalciferol (Vitamin D3) [Vitamin D3] 1,000 unit PO DAILY 02/08/15 Rivaroxaban [Xarelto -] 20 mg PO DAILY 02/08/15 Simvastatin [Zocor -] 40 mg PO DAILY 02/08/15 Levothyroxine [Synthroid -] 50 mcg PO DAILY 07/30/17 Hydrochlorothiazide [Hctz -] 25 mg PO BID 09/08/17 Acetaminophen [Tylenol -] 500 mg PO PRN 09/10/17
== END 2017-10-24 03:21 | disposition expired | DRG 163 ==
LOC: JER 13:02 → JERBED 16:48 → J6S 18:55 → JERBED 18:55 → JICU 22:38 → J7W 10-20 20:18
PROVIDERS: ADMIT Internal Medicine; ATTEND Nurse Practitioner Family
PROC: 5A09357 Assistance with Respiratory Ventilation, Less than 24 Consecutive Hours, Continuous Positive Airway Pressure (ICD-10-PCS; 2017-10-13)
PROC: 0W9D00Z Drainage of Pericardial Cavity with Drainage Device, Open Approach (ICD-10-PCS; principal; 2017-10-14 16:00)
DX: C34.90 Malignant neoplasm of unspecified part of unspecified bronchus or lung (principal); J69.0 Pneumonitis due to inhalation of food and vomit; J96.01 Acute respiratory failure with hypoxia; I30.9 Acute pericarditis, unspecified; C79.89 Secondary malignant neoplasm of other specified sites; N17.9 Acute kidney failure, unspecified; I70.262 Atherosclerosis of native arteries of extremities with gangrene, left leg; I75.012 Atheroembolism of left upper extremity; I31.2 Hemopericardium, not elsewhere classified; J38.01 Paralysis of vocal cords and larynx, unilateral; I48.91 Unspecified atrial fibrillation; E03.9 Hypothyroidism, unspecified; E86.0 Dehydration; C43.9 Malignant melanoma of skin, unspecified; E78.5 Hyperlipidemia, unspecified; I10 Essential (primary) hypertension; Z87.891 Personal history of nicotine dependence; R63.4 Abnormal weight loss; Z68.27 Body mass index [BMI] 27.0-27.9, adult; Z79.01 Long term (current) use of anticoagulants; Z89.412 Acquired absence of left great toe; I48.2 Chronic atrial fibrillation; J44.9 Chronic obstructive pulmonary disease, unspecified; Z89.422 Acquired absence of other left toe(s); E66.9 Obesity, unspecified; I95.9 Hypotension, unspecified; B95.7 Other staphylococcus as the cause of diseases classified elsewhere; Z66 Do not resuscitate; Z51.5 Encounter for palliative care; J38.00 Paralysis of vocal cords and larynx, unspecified; R13.10 Dysphagia, unspecified
CPT/HCPCS: 36415; 36600; 71045-TC-FY; 71250-TC; 76775-TC; 80048; 80053; 81003; 82042; 82150; 82550; 82570; 82803; 82945; 83605; 83615; 83735; 83880; 84100; 84157; 84300; 84311; 84443; 84478; 84484; 84560; 85025; 85027; 85610; 85651; 85730; 86140; 86480; 86850; 86900; 86901; 87040; 87070; 87075; 87086; 87102; 87116; 87186; 87205; 87206; 87210; 88108; 88305-TC; 89051; 90688; 93005; 93010; 93306-TC; 93970-TC; 94640; 94660; 97162-GP; 99285-25; G0008; G0480; J0131; J1644; J7030